=== PATIENT | female | born 1960 | race American Indian/Alaskan Native ===

== ENCOUNTER 2016-10-08 15:08 | Emergency (ER) | payer MEDICARE, OTHER ==
[~2016-10-08] VITALS: Ht 175.3 cm; Wt 87.5 kg
[~2016-10-08 15:08] MED LIST changes: -ACET50CA PO; -AVEL1TAB PO; -GABA300C3 PO; -IBUP60TA PO; -LIDOCAINE 1% SDV INJ 30 ML VIAL As Ordered ONE; -MAPA325T2 PO; -MIDAZOLAM INJ 2 MG/2 ML VIAL (J2250) As Ordered ONE; -SENN1TAB2 PO; -SYNT112T2 PO; -[UNRECOGNIZED DRUG - CODE] IJ; -fentaNYL 100 MCG/2 ML INJECTION (J3010) As Ordered ONE
[2016-10-08 16:50] LABS: BASO % 0.7 % (0.0-1.0); EOS # 0.2 K/mm3 (0.0-0.50); EOS % 3.5 % (0.0-3.0); LARGE UNSTAINED CELL # 0.1 K/mm3 (0.0-0.4); LARGE UNSTAINED CELL % 1.9 % (0.0-4.0); LYMPH # 2.1 K/mm3 (1.5-4.5); MEAN CORPUSCULAR HEMOGLOBIN 29.8 pg (27.0-33.0); MEAN CORPUSCULAR HGB CONC 32.5 g/dl (32.0-36.5); MEAN CORPUSCULAR VOLUME 91.5 fl (80.0-96.0); MONO # 0.5 K/mm3 (0.0-0.8); NEUTROPHILS # 2.9 K/mm3 (1.8-7.7); NEUTROPHILS % 50.9 % (36.0-66.0); PLATELET COUNT, AUTOMATED 331 k/mm3 (150-450); RED CELL DISTRIBUTION WIDTH 14.7 % (11.5-14.5); WHITE BLOOD COUNT 5.6 K/mm3 (4.0-10.0)
[2016-10-08 17:08] LABS: ANION GAP 4 MEQ/L (8-16); BLOOD UREA NITROGEN 14 MG/DL (7-18); CALCIUM LEVEL 9.5 MG/DL (8.5-10.1); CARBON DIOXIDE LEVEL 35 MEQ/L (21-32); CHLORIDE LEVEL 104 MEQ/L (98-107); CREATININE FOR GFR 0.62 MG/DL (0.55-1.02); GLOMERULAR FILTRATION RATE > 60.0 (>51); GLUCOSE, FASTING 82 MG/DL (70-105); POTASSIUM SERUM 4.2 MEQ/L (3.5-5.1); SODIUM LEVEL 143 MEQ/L (136-145)
[2016-10-08] MEDS ORDERED: KETOROLAC 30 MG/ML VIAL (J1885) As Ordered ONE (17:21)
--- NOTE | 2016-10-08 19:39 | REP ---
MR venography without and with IV gadolinium: History: Post spinal tap headache. Elevated opening spinal tap pressure, pseudotumor cerebri. Gadolinium enhancement dose: 17 mL of intravenous ProHance is administered. Technique: 2-D MR venography is acquired with pre- and postcontrast images. Source sagittal images are reviewed. SPIN and 3-D MIP images are generated and reviewed as well. MR venography findings: The sagittal sinus appears intact. The cortical draining veins are unremarkable. The straight sinus is somewhat small. The sigmoid sinuses are bilaterally patent. There is a filling defect in the right sigmoid sinus however which could be a thrombus. Asymmetric flow is seen in this segment of the right sigmoid sinus. No other abnormality. Impression: Asymmetric flow with possible filling defect right sigmoid sinus. Signed by Mandeep Turcios MD 10/09/2016 10:04 A
[2016-10-08] MEDS ORDERED: MORPHINE 4 MG/ML 1ML SYRINGE As Ordered ONE (19:43)
[2016-10-08] MEDS ORDERED: AcetaZOLAMIDE 500MG INJECTION (J1120) IV ONE (20:00)
[2016-10-08] MEDS ORDERED: AcetaZOLAMIDE 250 MG TAB PO ONE (21:30)
[2016-10-08] MEDS ORDERED: HYDROmorphone HCL 1 MG/ML SYRINGE (J1170) As Ordered ONE (22:04)
--- NOTE | 2016-10-08 22:49 | EDDOCDS ---
Physician Documentation [facility] Name: Brenda Freeman Age: 56 yrs Sex: Female : 1960 Arrival Date: 10/08/2016 Time: 15:08 Bed 6 Private MD: ZULEYKA TREVINO Disposition: 10/08 18:35 I have independently interviewed and examined the patient, and I agree with the pc investigation, diagnosis and treatment plan as documented by the Resident. Disposition: 10/08/16 20:47 Discharged to Home/Self Care. 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 - Condition is Stable. - Prescriptions for acetazolamide 250 mg Oral Tablet - take 1 tablet by ORAL route 2 times per day; 30 tablet. - Medication Reconciliation, Local Pharmacy Hours form. - Follow up: Marlene Kearney; When: 2 - 3 days; Reason: Recheck today's complaints, Continuance of care. - Problem is an ongoing problem. - Symptoms have improved. Historical: - Allergies: no known allergies; - Home Meds: 1. 2L NC 2. Advair Diskus 250-50 mcg/dose inhalation dsdv 2 times per day 3. diltiazem HCl 120 mg oral Tb24 once daily 4. DuoNeb 0.5 mg-3 mg(2.5 mg base)/3 mL Inhl nebu 3 mL 4 times per day 5. gabapentin 300 mg am and 600 mg pm Oral tab 1 tab daily 6. azithromycin 250 mg Oral tab 1 tab once daily 7. budesonide 0.5 mg/2 mL inhalation nbsp 2 times per day 8. cholecalciferol (vitamin D3) 5,000 unit oral cap daily 9. Incruse Ellipta 62.5 mcg/actuation inhalation dsdv 1 puff once daily 10. Synthroid 112 mcg Oral tab 1 tab once daily 11. paroxetine HCl 10 mg oral tab once daily 12. zonisamide 50 mg oral cap 2 times per day - PMHx: Emphysema; Gallstones; GERD; Headaches; Hypertension; - PSHx: Tonsillectomy; Appendectomy; Spinal Fusion; Hip Replacement-right; Hernia repair; Hysterectomy; Laminectomy; partial colectomy; - Social history: Smoking status: Patient states former smoker of tobacco. No barriers to communication noted, The patient speaks fluent German. - Family history: Not pertinent. - : The pt / caregiver states he / she is not on anticoagulants. Home medication list is obtained from the patient. - Exposure Risk Screening:: None identified. Vital Signs: 15:10 BP 131 / 89; Pulse 79; Resp 18; Temp 97.1(O); Pulse Ox 94% on 2 lpm NC; Weight 87.54 kg ct3 / 192.99 lbs (R); Height 5 ft. 9 in. (175.26 cm) (R); Pain 7/10; 22:40 BP 119 / 77; Pulse 77; Resp 16; Temp 97.1(O); Pulse Ox 93% on R/A; Pain 8/10; kmg1 22:40 BP 119 / 77; Pain 8/10; kmg1 15:10 Body Mass Index 28.50 (87.54 kg, 175.26 cm) ct3 MDM: 16:24 Misc Food Broker Order ordered. jo4 16:26 BMP Ordered. EDMS 16:26 CBC with Diff Ordered. EDMS 16:26 Misc Food Broker Order complete. lbd 16:55 CBC with Diff Reviewed. jo4 16:55 MRA HEAD WITHOUT FOL BY WITH Ordered. EDMS 16:56 morphine 2 mg IVP once ordered. jo4 17:13 morphine 15 mg PO once ordered. jo4 17:13 BMP Reviewed. jo4 17:17 Financial registration complete. zo 17:19 ketorolac 60 mg IM once ordered. jo4 17:30 [place] [place] Agreement was scanned into [employer] and attached to record. zo 18:50 acetaZOLAMIDE 500 mg IV at calculated rate once ordered. jo4 18:55 COPD+DIET ordered. EDMS 19:34 morphine 4 mg IVP once ordered. cs11 21:16 acetaZOLAMIDE 500 mg PO once; dispense 5 tablets ordered. cs11 21:46 Dilaudid - HYDROmorphone 0.5 mg IVP once ordered. cs11 Administered Medications: 17:01 Not Given (Other Intervention Used; O): morphine 2 mg IVP once jo4 17:17 Not Given (Other Intervention Used): morphine 15 mg PO once jo4 17:25 Drug: ketorolac 60 mg [ketorolac 30 mg/mL (1 mL) injection solution (2 mL)] Route: IM; jmk Site: left gluteus; 19:39 CANCELLED (Other Intervention Used): morphine 2 mg IM once mv5 19:50 Drug: morphine 4 mg [morphine 4 mg/mL intravenous cartridge (1 mL)] Route: IVP; Site: mv5 left antecubital; 20:34 Follow up: Response: No Adverse Reaction; Pain is decreased mv5 21:11 Drug: acetaZOLAMIDE 500 mg Route: IV; Rate: calculated rate; Site: left antecubital; mv5 22:14 Drug: Dilaudid - HYDROmorphone 0.5 mg [hydromorphone 1 mg/mL injection syringe (0.5 mv5 mL)] Route: IVP; Site: left antecubital; 22:40 Follow up: BP 119 / 77; Pain 8/10 Adult kmg1 22:19 Drug: acetaZOLAMIDE 500 mg [acetazolamide 250 mg tablet (2 tabs)] {Note: Dipensed 1 kmg1 dose per pharmacy protocol.} Route: PO; Signatures: Dispatcher [employer] EDMS Boni Marx MD MD pc Daly, Linda, [employer] lbd Margarita Barakat, RN RN g1 Chauncey Blevins,RN RN Sophia Gonzalez Jessica, RN RN Flavio Chahal DO DO cs11 Jacquelyn Singh DO DO jo4 Chani Mariano,RN RN mv5 The chart was reviewed and I authenticate all verbal orders and agree with the evaluation and treatment provided.Corrections: (The following items were deleted from the chart) 16:55 16:36 MRA BRAIN WITH CONTRAST ordered. EDMS EDMS 17:57 16:37 MRA BRAIN W/O CONTRAST ordered. EDMS EDMS 19:39 18:55 morphine 2 mg IM once ordered. jo4 mv5 Attachments: 17:30 [facility] Agreement zo MTDD
--- NOTE | 2016-10-08 22:49 | EDDOCDS ---
Nurse's Notes [facility] Name: Brenda Freeman Age: 56 yrs Sex: Female : 1960 Arrival Date: 10/08/2016 Time: 15:08 Bed 6 Private MD: ZULEYKA TREVINO Diagnosis: Other venous embolism and thrombosis-cerebral sigmoid sinus Presentation: 10/08 15:14 Presenting complaint: Patient states: spinal tap completed with Dr Barrientos earlier jjr today with initial pressure reading 78 then decreased to 32, pain to top of head for approx one year increase in severity over past few months, reports blurred vision at this time. This patient has no additional risk factors. Adult Sepsis Screening: The patient does not have new or worsening altered mentation. Adult Sepsis Screening: Patient's respiratory rate is less than 22. Systolic blood pressure is greater than 100. Patient has a qSOFA score of 0- Negative Sepsis Screen. Suicide/Homicide risk assessment- the patient denies having any suicidal and/or homicidal ideations and does not present with any other emotional, behavioral or mental health complaints. Status: Patient is not a vehicle service attendant or dependent. Transition of care: patient was not received from another setting of care. 15:14 Acuity: NICOLE Level 3 jjr 15:14 Method Of Arrival: Walkin/Carried/Asstd jjr Triage Assessment: 15:22 Headache History: This patient has a history of headaches and the character of this jjr headache is like all previous headaches. General: Appears in no apparent distress. Pain: Pain currently is 7 out of 10 on a pain scale. Pain began one month ago Also complains of no other associated symptoms. HIV screening NA for this visit Offered previously. Neurological: Reports blurred vision headache. Historical: - Allergies: no known allergies; - Home Meds: 1. 2L NC 2. Advair Diskus 250-50 mcg/dose inhalation dsdv 2 times per day 3. diltiazem HCl 120 mg oral Tb24 once daily 4. DuoNeb 0.5 mg-3 mg(2.5 mg base)/3 mL Inhl nebu 3 mL 4 times per day 5. gabapentin 300 mg am and 600 mg pm Oral tab 1 tab daily 6. azithromycin 250 mg Oral tab 1 tab once daily 7. budesonide 0.5 mg/2 mL inhalation nbsp 2 times per day 8. cholecalciferol (vitamin D3) 5,000 unit oral cap daily 9. Incruse Ellipta 62.5 mcg/actuation inhalation dsdv 1 puff once daily 10. Synthroid 112 mcg Oral tab 1 tab once daily 11. paroxetine HCl 10 mg oral tab once daily 12. zonisamide 50 mg oral cap 2 times per day - PMHx: Emphysema; Gallstones; GERD; Headaches; Hypertension; - PSHx: Tonsillectomy; Appendectomy; Spinal Fusion; Hip Replacement-right; Hernia repair; Hysterectomy; Laminectomy; partial colectomy; - Social history: Smoking status: Patient states former smoker of tobacco. No barriers to communication noted, The patient speaks fluent Russian. - Family history: Not pertinent. - : The pt / caregiver states he / she is not on anticoagulants. Home medication list is obtained from the patient. - Exposure Risk Screening:: None identified. Screenin:55 Screening information is obtained from the patient. Fall risk: No risks identified. jmk Assistance ADL's: requires no assistance with activities of daily living. Abuse/DV Screen: The patient / caregiver reports he/she is: not in a situation that causes fear, pain or injury. Nutritional screening: No deficits noted. Advance Directives: Currently, there is no health care proxy. There is no active DNR order. There is no living will. There is no Power of Ladle Cleaner. Advance directive information has not previously been placed in an [facility] medical record. home support is adequate. Assessment: 16:53 General: Appears in no apparent distress, skin warm and dry color satisfactory. moist jmk pink oral mucosa. Indicates diffuse head pain. DIANNE. + photophobic. heated blankets applied for comfort.. Neurological: No deficits noted. Level of Consciousness is awake, alert, Oriented to person, place, time. 20:57 Pain: Location: forehead, left frontal area, left side of the back of head, left side mv5 of forehead, left temporal area, left occipital area, left base of the skull, right frontal area, right side of the back of head, right temporal area, right side of forehead, right occipital area and right base of the skull Pain currently is 3 out of 10 on a pain scale. Level that is acceptable is 3 out of 10 on a pain scale. 20:58 General: Specialty in to speak with pt re POC.. mv5 21:45 Pain:. kmg1 22:40 General: Appears in no apparent distress, comfortable, Behavior is appropriate for age, kmg1 cooperative, pleasant. Pain: Location: head Pain currently is 8 out of 10 on a pain scale. Quality of pain is described as aching. Neurological: Level of Consciousness is awake, alert, Oriented to person, place, time. Vital Signs: 15:10 BP 131 / 89; Pulse 79; Resp 18; Temp 97.1(O); Pulse Ox 94% on 2 lpm NC; Weight 87.54 kg ct3 (R); Height 5 ft. 9 in. (175.26 cm) (R); Pain 7/10; 22:40 BP 119 / 77; Pulse 77; Resp 16; Temp 97.1(O); Pulse Ox 93% on R/A; Pain 8/10; kmg1 22:40 BP 119 / 77; Pain 8/10; kmg1 15:10 Body Mass Index 28.50 (87.54 kg, 175.26 cm) ct3 Vitals: 15:10 Log In Time: October 08, 2016 at 15:07. RN notified that patient meets Red Flag ct3 criteria. ED Course: 15:10 Patient visited by Kinsey Harvey PCA. ct3 15:10 ZULEYKA TREVINO is Private Physician. ct3 15:10 Patient moved to Waiting ct3 15:12 Patient moved to Pre RCE ct3 15:16 Triage Initiated jjr 15:19 Patient visited by Adithya Tee, ALEX. bcj 15:43 Patient moved to 6 ms18 15:52 Jacquelyn Singh DO is PHCP. jo4 15:52 Boni Marx MD is Attending Physician. jo4 16:01 Patient visited by Jacquelyn Singh DO. jo4 16:01 Patient visited by Jacquelyn Singh DO. jo4 16:44 Patient visited by Yasmine Harris. sew 16:44 Labs drawn. (by ED staff). Sent per order to lab. sew 16:44 CBC with Diff Sent. sew 16:44 BMP Sent. sew 16:55 The patient / caregiver is instructed regarding the plan of care and ED course. mack 17:30 [place] Payment Agreement was scanned into [employer] and attached to record. zo 18:18 Patient moved to MRI jmk 19:01 Patient moved to 6 cln 19:30 Inserted saline lock: 18 gauge in left antecubital area and blood collected. The mv5 patient tolerated the procedure well. 19:34 Attending Physician role handed off by Boni Marx MD cs11 19:34 Flavio Avalos DO is Attending Physician. cs11 19:39 Chani Mariano,RN is Primary Nurse. mv5 19:41 MRA HEAD WITHOUT FOL BY WITH Returned. EDMS 20:43 Marlene Fox is Referral Physician. cs11 20:57 Patient visited by Chani Mariano RN. mv5 22:40 Discontinued lock bleeding controlled, pressure dressing applied, No redness/swelling kmg1 at site. No procedures done that require assistance. Administered Medications: 17:01 Not Given (Other Intervention Used; O): morphine 2 mg IVP once jo4 17:17 Not Given (Other Intervention Used): morphine 15 mg PO once jo4 17:25 Drug: ketorolac 60 mg [ketorolac 30 mg/mL (1 mL) injection solution (2 mL)] Route: IM; [facility] Site: left gluteus; 19:39 CANCELLED (Other Intervention Used): morphine 2 mg IM once mv5 19:50 Drug: morphine 4 mg [morphine 4 mg/mL intravenous cartridge (1 mL)] Route: IVP; Site: 5 left antecubital; 20:34 Follow up: Response: No Adverse Reaction; Pain is decreased mv5 21:11 Drug: acetaZOLAMIDE 500 mg Route: IV; Rate: calculated rate; Site: left antecubital; mv5 22:14 Drug: Dilaudid - HYDROmorphone 0.5 mg [hydromorphone 1 mg/mL injection syringe (0.5 mv5 mL)] Route: IVP; Site: left antecubital; 22:40 Follow up: BP 119 / 77; Pain 8/10 Adult kmg1 22:19 Drug: acetaZOLAMIDE 500 mg [acetazolamide 250 mg tablet (2 tabs)] {Note: Dipensed 1 kmg1 dose per pharmacy protocol.} Route: PO; Order Results: Lab Order: BMP; SPEC'M 10/08/16 16:40 Test: GLUCOSE, FASTING; Value: 82; Range: 70-105; Units: MG/DL; Status: F Test: BLOOD UREA NITROGEN; Value: 14; Range: 7-18; Units: MG/DL; Status: F Test: CREATININE FOR GFR; Value: 0.62; Range: 0.55-1.02; Units: MG/DL; Status: F Test: GLOMERULAR FILTRATION RATE; Value: > 60.0; Range: >51; Status: F Test: SODIUM LEVEL; Value: 143; Range: 136-145; Units: MEQ/L; Status: F Test: POTASSIUM SERUM; Value: 4.2; Range: 3.5-5.1; Units: MEQ/L; Status: F Test: CHLORIDE LEVEL; Value: 104; Range: 98-107; Units: MEQ/L; Status: F Test: CARBON DIOXIDE LEVEL; Value: 35; Range: 21-32; Abnormal: Above high normal; Units: MEQ/L; Status: F Test: ANION GAP; Value: 4; Range: 8-16; Abnormal: Below low normal; Units: MEQ/L; Status: F Test: CALCIUM LEVEL; Value: 9.5; Range: 8.5-10.1; Units: MG/DL; Status: F Test Note: ; Units are mL/min/1.73 m2 Chronic Kidney Disease Staging per NKF: Stage I & II GFR >=60 Normal to Mildly Decreased Stage III GFR 30-59 Moderately Decreased Stage IV GFR 15-29 Severely Decreased Stage V GFR <15 Very Little GFR Left ESRD GFR <15 on PROPERTY DEVELOPER Lab Order: CBC with Diff; SPEC'M 10/08/16 16:40 Test: WHITE BLOOD COUNT; Value: 5.6; Range: 4.0-10.0; Units: K/mm3; Status: F Test: RED BLOOD COUNT; Value: 4.04; Range: 4.00-5.40; Units: M/mm3; Status: F Test: HEMOGLOBIN; Value: 12.0; Range: 12.0-16.0; Units: g/dl; Status: F Test: HEMATOCRIT; Value: 36.9; Range: 36.0-47.0; Units: %; Status: F Test: MEAN CORPUSCULAR VOLUME; Value: 91.5; Range: 80.0-96.0; Units: fl; Status: F Test: MEAN CORPUSCULAR HEMOGLOBIN; Value: 29.8; Range: 27.0-33.0; Units: pg; Status: F Test: MEAN CORPUSCULAR HGB CONC; Value: 32.5; Range: 32.0-36.5; Units: g/dl; Status: F Test: RED CELL DISTRIBUTION WIDTH; Value: 14.7; Range: 11.5-14.5; Abnormal: Above high normal; Units: %; Status: F Test: PLATELET COUNT, AUTOMATED; Value: 331; Range: 150-450; Units: k/mm3; Status: F Test: NEUTROPHILS %; Value: 50.9; Range: 36.0-66.0; Units: %; Status: F Test: LYMPH %; Value: 35.0; Range: 24.0-44.0; Units: %; Status: F Test: MONO %; Value: 8.0; Range: 0.0-5.0; Abnormal: Above high normal; Units: %; Status: F Test: EOS %; Value: 3.5; Range: 0.0-3.0; Abnormal: Above high normal; Units: %; Status: F Test: BASO %; Value: 0.7; Range: 0.0-1.0; Units: %; Status: F Test: LARGE UNSTAINED CELL %; Value: 1.9; Range: 0.0-4.0; Units: %; Status: F Test: NEUTROPHILS #; Value: 2.9; Range: 1.8-7.7; Units: K/mm3; Status: F Test: LYMPH #; Value: 2.1; Range: 1.5-4.5; Units: K/mm3; Status: F Test: MONO #; Value: 0.5; Range: 0.0-0.8; Units: K/mm3; Status: F Test: EOS #; Value: 0.2; Range: 0.0-0.50; Units: K/mm3; Status: F Test: BASO #; Value: 0.0; Range: 0.0-0.2; Units: K/mm3; Status: F Test: LARGE UNSTAINED CELL #; Value: 0.1; Range: 0.0-0.4; Units: K/mm3; Status: F Radiology Order: MRA HEAD WITHOUT FOL BY WITH Test: MRA HEAD WITHOUT FOL BY WITH REASON FOR EXAMINATION: MRV PER DR. FOX. SPINAL TAP,HEADACHE; MR venography without and with IV gadolinium:; ; History: Post spinal tap headache. Elevated opening spinal tap pressure,; pseudotumor cerebri.; ; Gadolinium enhancement dose: 17 mL of intravenous ProHance is administered.; ; Technique: 2-D MR venography is acquired with pre- and postcontrast images.; Source sagittal images are reviewed. SPIN and 3-D MIP images are generated and; reviewed as well.; ; MR venography findings: The sagittal sinus appears intact. The cortical; draining veins are unremarkable. The straight sinus is somewhat small. The; sigmoid sinuses are bilaterally patent. There is a filling defect in the right; sigmoid sinus however which could be a thrombus. Asymmetric flow is seen in this; segment of the right sigmoid sinus. No other abnormality.; ; Impression:; ; Asymmetric flow with possible filling defect right sigmoid sinus.; ; ; ; ; Unreviewed; Outcome: 20:47 Discharge ordered by Provider. cs11 22:40 Discharge Assessment: Patient awake, alert and oriented x 3. No cognitive and/or kmg1 functional deficits noted. Patient verbalized understanding of disposition instructions. Patient awake and alert. patient administered narcotics - yes. Pt provided with safe discharge. The following High Risk Discharge criteria are identified: None. Discharged to home via wheelchair, with family. Condition: stable. Discharge instructions given to patient, family, Instructed on discharge instructions, follow up and referral plans. medication usage, Demonstrated understanding of instructions, medications, Pt was receptive of discharge instructions/ teaching. Prescriptions given X 1. MRI Study completed. Property sent home with patient. 22:48 Patient left the ED. kmg1 Signatures: Dispatcher [employer] EDMS Margarita Barakat RN RN kmg1 Adithya Tee RN Chauncey Reddy,RN Sophia Tanner Jessica RN RN Kinsey Staples, SALES REPRESENTATIVE [employer] SALES REPRESENTATIVE [employer]ILITIES ct3 Yasmine Harris Craig, DO cs11 Yazmin Lozano,ALEX RN ms18 Jacquelyn Singh, DO DO jo4 Teresa Cruz, SALES REPRESENTATIVE [employer]ILITIES SALES REPRESENTATIVE PUBLIC UTILITIES saran Chani Mariano,RN RN mv5 MTDD
--- NOTE | 2016-10-10 23:49 | EDDOCDS ---
Physician Documentation [facility] Name: Brenda Freeman Age: 56 yrs Sex: Female : 1960 Arrival Date: 10/08/2016 Time: 15:08 Bed 6 Private MD: ZULEYKA TREVINO Disposition: 10/08 18:35 I have independently interviewed and examined the patient, and I agree with the pc investigation, diagnosis and treatment plan as documented by the Resident. Disposition: 10/08/16 20:47 Discharged to Home/Self Care. 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 - Condition is Stable. - Prescriptions for acetazolamide 250 mg Oral Tablet - take 1 tablet by ORAL route 2 times per day; 30 tablet. - Medication Reconciliation, Local Pharmacy Hours form. - Follow up: Marlene Kearney; When: 2 - 3 days; Reason: Recheck today's complaints, Continuance of care. - Problem is an ongoing problem. - Symptoms have improved. Historical: - Allergies: no known allergies; - Home Meds: 1. 2L NC 2. Advair Diskus 250-50 mcg/dose inhalation dsdv 2 times per day 3. diltiazem HCl 120 mg oral Tb24 once daily 4. DuoNeb 0.5 mg-3 mg(2.5 mg base)/3 mL Inhl nebu 3 mL 4 times per day 5. gabapentin 300 mg am and 600 mg pm Oral tab 1 tab daily 6. azithromycin 250 mg Oral tab 1 tab once daily 7. budesonide 0.5 mg/2 mL inhalation nbsp 2 times per day 8. cholecalciferol (vitamin D3) 5,000 unit oral cap daily 9. Incruse Ellipta 62.5 mcg/actuation inhalation dsdv 1 puff once daily 10. Synthroid 112 mcg Oral tab 1 tab once daily 11. paroxetine HCl 10 mg oral tab once daily 12. zonisamide 50 mg oral cap 2 times per day - PMHx: Emphysema; Gallstones; GERD; Headaches; Hypertension; - PSHx: Tonsillectomy; Appendectomy; Spinal Fusion; Hip Replacement-right; Hernia repair; Hysterectomy; Laminectomy; partial colectomy; - Social history: Smoking status: Patient states former smoker of tobacco. No barriers to communication noted, The patient speaks fluent Algerian. - Family history: Not pertinent. - : The pt / caregiver states he / she is not on anticoagulants. Home medication list is obtained from the patient. - Exposure Risk Screening:: None identified. Vital Signs: 15:10 BP 131 / 89; Pulse 79; Resp 18; Temp 97.1(O); Pulse Ox 94% on 2 lpm NC; Weight 87.54 kg ct3 / 192.99 lbs (R); Height 5 ft. 9 in. (175.26 cm) (R); Pain 7/10; 22:40 BP 119 / 77; Pulse 77; Resp 16; Temp 97.1(O); Pulse Ox 93% on R/A; Pain 8/10; kmg1 22:40 BP 119 / 77; Pain 8/10; kmg1 15:10 Body Mass Index 28.50 (87.54 kg, 175.26 cm) ct3 MDM: 16:24 Misc Hot Repairman Order ordered. jo4 16:26 BMP Ordered. EDMS 16:26 CBC with Diff Ordered. EDMS 16:26 Misc Hot Repairman Order complete. lbd 16:55 CBC with Diff Reviewed. jo4 16:55 MRA HEAD WITHOUT FOL BY WITH Ordered. EDMS 16:56 morphine 2 mg IVP once ordered. jo4 17:13 morphine 15 mg PO once ordered. jo4 17:13 BMP Reviewed. jo4 17:17 Financial registration complete. zo 17:19 ketorolac 60 mg IM once ordered. jo4 17:30 [facility] [place] Payment Agreement was scanned into DocuSign and attached to record. zo 18:50 acetaZOLAMIDE 500 mg IV at calculated rate once ordered. jo4 18:55 COPD+DIET ordered. EDMS 19:34 morphine 4 mg IVP once ordered. cs11 21:16 acetaZOLAMIDE 500 mg PO once; dispense 5 tablets ordered. cs11 21:46 Dilaudid - HYDROmorphone 0.5 mg IVP once ordered. cs11 10/09 10:11 T-Sheet-- Draft Copy was scanned into DocuSign and attached to record. mm15 Administered Medications: 10/08 17:01 Not Given (Other Intervention Used; O): morphine 2 mg IVP once jo4 17:17 Not Given (Other Intervention Used): morphine 15 mg PO once jo4 17:25 Drug: ketorolac 60 mg [ketorolac 30 mg/mL (1 mL) injection solution (2 mL)] Route: IM; mack Site: left gluteus; 19:39 CANCELLED (Other Intervention Used): morphine 2 mg IM once mv5 19:50 Drug: morphine 4 mg [morphine 4 mg/mL intravenous cartridge (1 mL)] Route: IVP; Site: mv5 left antecubital; 20:34 Follow up: Response: No Adverse Reaction; Pain is decreased mv5 21:11 Drug: acetaZOLAMIDE 500 mg Route: IV; Rate: calculated rate; Site: left antecubital; mv5 22:14 Drug: Dilaudid - HYDROmorphone 0.5 mg [hydromorphone 1 mg/mL injection syringe (0.5 mv5 mL)] Route: IVP; Site: left antecubital; 22:40 Follow up: BP 119 / 77; Pain 8/10 Adult kmg1 22:19 Drug: acetaZOLAMIDE 500 mg [acetazolamide 250 mg tablet (2 tabs)] {Note: Dipensed 1 kmg1 dose per pharmacy protocol.} Route: PO; Signatures: Dispatcher MedHost EDMS Boni Marx MD MD pc Daly, Linda, Special Inspector Unit lbd Margarita Barakat RN RN kmg1 Chauncey Blevins RN RN jmk Sophia Aranda Jessica RN Flavio Guillen DO DO cs11 Mynor Gonzalez mm15 Jacquelyn Singh DO DO jo4 Chani Mariano,RN RN mv5 The chart was reviewed and I authenticate all verbal orders and agree with the evaluation and treatment provided.Corrections: (The following items were deleted from the chart) 16:55 16:36 MRA BRAIN WITH CONTRAST ordered. EDMS EDMS 17:57 16:37 MRA BRAIN W/O CONTRAST ordered. EDMS EDMS 19:39 18:55 morphine 2 mg IM once ordered. albert mv5 Attachments: 17:30 [facility] Payment Agreement zo 10/09 10:11 T-Sheet-- Draft Copy mm15 Chart Complete MTDD
--- NOTE | 2016-10-10 23:50 | EDDOCDS ---
Physician Documentation [facility] Name: Brenda Freeman Age: 56 yrs Sex: Female : 1960 Arrival Date: 10/08/2016 Time: 15:08 Bed 6 Private MD: ZULEYKA TREVINO Disposition: 10/08 18:35 I have independently interviewed and examined the patient, and I agree with the pc investigation, diagnosis and treatment plan as documented by the Resident. Disposition: 10/08/16 20:47 Discharged to Home/Self Care. 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 - Condition is Stable. - Prescriptions for acetazolamide 250 mg Oral Tablet - take 1 tablet by ORAL route 2 times per day; 30 tablet. - Medication Reconciliation, Local Pharmacy Hours form. - Follow up: Marlene Kearney; When: 2 - 3 days; Reason: Recheck today's complaints, Continuance of care. - Problem is an ongoing problem. - Symptoms have improved. Historical: - Allergies: no known allergies; - Home Meds: 1. 2L NC 2. Advair Diskus 250-50 mcg/dose inhalation dsdv 2 times per day 3. diltiazem HCl 120 mg oral Tb24 once daily 4. DuoNeb 0.5 mg-3 mg(2.5 mg base)/3 mL Inhl nebu 3 mL 4 times per day 5. gabapentin 300 mg am and 600 mg pm Oral tab 1 tab daily 6. azithromycin 250 mg Oral tab 1 tab once daily 7. budesonide 0.5 mg/2 mL inhalation nbsp 2 times per day 8. cholecalciferol (vitamin D3) 5,000 unit oral cap daily 9. Incruse Ellipta 62.5 mcg/actuation inhalation dsdv 1 puff once daily 10. Synthroid 112 mcg Oral tab 1 tab once daily 11. paroxetine HCl 10 mg oral tab once daily 12. zonisamide 50 mg oral cap 2 times per day - PMHx: Emphysema; Gallstones; GERD; Headaches; Hypertension; - PSHx: Tonsillectomy; Appendectomy; Spinal Fusion; Hip Replacement-right; Hernia repair; Hysterectomy; Laminectomy; partial colectomy; - Social history: Smoking status: Patient states former smoker of tobacco. No barriers to communication noted, The patient speaks fluent Filipino. - Family history: Not pertinent. - : The pt / caregiver states he / she is not on anticoagulants. Home medication list is obtained from the patient. - Exposure Risk Screening:: None identified. Vital Signs: 15:10 BP 131 / 89; Pulse 79; Resp 18; Temp 97.1(O); Pulse Ox 94% on 2 lpm NC; Weight 87.54 kg ct3 / 192.99 lbs (R); Height 5 ft. 9 in. (175.26 cm) (R); Pain 7/10; 22:40 BP 119 / 77; Pulse 77; Resp 16; Temp 97.1(O); Pulse Ox 93% on R/A; Pain 8/10; kmg1 22:40 BP 119 / 77; Pain 8/10; kmg1 15:10 Body Mass Index 28.50 (87.54 kg, 175.26 cm) ct3 MDM: 16:24 Misc Recreation Engineer Order ordered. jo4 16:26 BMP Ordered. EDMS 16:26 CBC with Diff Ordered. EDMS 16:26 Misc Recreation Engineer Order complete. lbd 16:55 CBC with Diff Reviewed. jo4 16:55 MRA HEAD WITHOUT FOL BY WITH Ordered. EDMS 16:56 morphine 2 mg IVP once ordered. jo4 17:13 morphine 15 mg PO once ordered. jo4 17:13 BMP Reviewed. jo4 17:17 Financial registration complete. zo 17:19 ketorolac 60 mg IM once ordered. jo4 17:30 [facility] Payment Agreement was scanned into UserVoice and attached to record. zo 18:50 acetaZOLAMIDE 500 mg IV at calculated rate once ordered. jo4 18:55 COPD+DIET ordered. EDMS 19:34 morphine 4 mg IVP once ordered. cs11 21:16 acetaZOLAMIDE 500 mg PO once; dispense 5 tablets ordered. cs11 21:46 Dilaudid - HYDROmorphone 0.5 mg IVP once ordered. cs11 10/09 10:11 T-Sheet-- Draft Copy was scanned into UserVoice and attached to record. mm15 Administered Medications: 10/08 17:01 Not Given (Other Intervention Used; O): morphine 2 mg IVP once jo4 17:17 Not Given (Other Intervention Used): morphine 15 mg PO once jo4 17:25 Drug: ketorolac 60 mg [ketorolac 30 mg/mL (1 mL) injection solution (2 mL)] Route: IM; mack Site: left gluteus; 19:39 CANCELLED (Other Intervention Used): morphine 2 mg IM once mv5 19:50 Drug: morphine 4 mg [morphine 4 mg/mL intravenous cartridge (1 mL)] Route: IVP; Site: mv5 left antecubital; 20:34 Follow up: Response: No Adverse Reaction; Pain is decreased mv5 21:11 Drug: acetaZOLAMIDE 500 mg Route: IV; Rate: calculated rate; Site: left antecubital; mv5 22:14 Drug: Dilaudid - HYDROmorphone 0.5 mg [hydromorphone 1 mg/mL injection syringe (0.5 mv5 mL)] Route: IVP; Site: left antecubital; 22:40 Follow up: BP 119 / 77; Pain 8/10 Adult kmg1 22:19 Drug: acetaZOLAMIDE 500 mg [acetazolamide 250 mg tablet (2 tabs)] {Note: Dipensed 1 kmg1 dose per pharmacy protocol.} Route: PO; Signatures: Dispatcher MedHost EDMS Boni Marx MD MD pc Daly, Linda, Research And Development Scientist Unit lbd Margarita Barakat RN RN kmg1 Chauncey Blevins RN RN jmk Sophia Aranda Jessica RN Flavio Guillen DO DO cs11 Mynor Gonzalez mm15 Jacquelyn Singh DO DO jo4 Chani Mariano,RN RN mv5 The chart was reviewed and I authenticate all verbal orders and agree with the evaluation and treatment provided.Corrections: (The following items were deleted from the chart) 16:55 16:36 MRA BRAIN WITH CONTRAST ordered. EDMS EDMS 17:57 16:37 MRA BRAIN W/O CONTRAST ordered. EDMS EDMS 19:39 18:55 morphine 2 mg IM once ordered. albert mv5 Attachments: 17:30 [facility] Payment Agreement zo 10/09 10:11 T-Sheet-- Draft Copy mm15 Chart Complete MTDD
--- NOTE | 2016-10-10 23:50 | EDDOCDS ---
Nurse's Notes [facility] Name: Brenda Freeman Age: 56 yrs Sex: Female : 1960 Arrival Date: 10/08/2016 Time: 15:08 Bed 6 Private MD: ZULEYKA TREVINO Diagnosis: Other venous embolism and thrombosis-cerebral sigmoid sinus Presentation: 10/08 15:14 Presenting complaint: Patient states: spinal tap completed with Dr Barrientos earlier jjr today with initial pressure reading 78 then decreased to 32, pain to top of head for approx one year increase in severity over past few months, reports blurred vision at this time. This patient has no additional risk factors. Adult Sepsis Screening: The patient does not have new or worsening altered mentation. Adult Sepsis Screening: Patient's respiratory rate is less than 22. Systolic blood pressure is greater than 100. Patient has a qSOFA score of 0- Negative Sepsis Screen. Suicide/Homicide risk assessment- the patient denies having any suicidal and/or homicidal ideations and does not present with any other emotional, behavioral or mental health complaints. Status: Patient is not a director social service or dependent. Transition of care: patient was not received from another setting of care. 15:14 Acuity: NICOLE Level 3 jjr 15:14 Method Of Arrival: Walkin/Carried/Asstd jjr Triage Assessment: 15:22 Headache History: This patient has a history of headaches and the character of this jjr headache is like all previous headaches. General: Appears in no apparent distress. Pain: Pain currently is 7 out of 10 on a pain scale. Pain began one month ago Also complains of no other associated symptoms. HIV screening NA for this visit Offered previously. Neurological: Reports blurred vision headache. Historical: - Allergies: no known allergies; - Home Meds: 1. 2L NC 2. Advair Diskus 250-50 mcg/dose inhalation dsdv 2 times per day 3. diltiazem HCl 120 mg oral Tb24 once daily 4. DuoNeb 0.5 mg-3 mg(2.5 mg base)/3 mL Inhl nebu 3 mL 4 times per day 5. gabapentin 300 mg am and 600 mg pm Oral tab 1 tab daily 6. azithromycin 250 mg Oral tab 1 tab once daily 7. budesonide 0.5 mg/2 mL inhalation nbsp 2 times per day 8. cholecalciferol (vitamin D3) 5,000 unit oral cap daily 9. Incruse Ellipta 62.5 mcg/actuation inhalation dsdv 1 puff once daily 10. Synthroid 112 mcg Oral tab 1 tab once daily 11. paroxetine HCl 10 mg oral tab once daily 12. zonisamide 50 mg oral cap 2 times per day - PMHx: Emphysema; Gallstones; GERD; Headaches; Hypertension; - PSHx: Tonsillectomy; Appendectomy; Spinal Fusion; Hip Replacement-right; Hernia repair; Hysterectomy; Laminectomy; partial colectomy; - Social history: Smoking status: Patient states former smoker of tobacco. No barriers to communication noted, The patient speaks fluent Indian. - Family history: Not pertinent. - : The pt / caregiver states he / she is not on anticoagulants. Home medication list is obtained from the patient. - Exposure Risk Screening:: None identified. Screenin:55 Screening information is obtained from the patient. Fall risk: No risks identified. jmk Assistance ADL's: requires no assistance with activities of daily living. Abuse/DV Screen: The patient / caregiver reports he/she is: not in a situation that causes fear, pain or injury. Nutritional screening: No deficits noted. Advance Directives: Currently, there is no health care proxy. There is no active DNR order. There is no living will. There is no Power of Senior Account Executive. Advance directive information has not previously been placed in an [facility] medical record. home support is adequate. Assessment: 16:53 General: Appears in no apparent distress, skin warm and dry color satisfactory. moist jmk pink oral mucosa. Indicates diffuse head pain. DIANNE. + photophobic. heated blankets applied for comfort.. Neurological: No deficits noted. Level of Consciousness is awake, alert, Oriented to person, place, time. 20:57 Pain: Location: forehead, left frontal area, left side of the back of head, left side mv5 of forehead, left temporal area, left occipital area, left base of the skull, right frontal area, right side of the back of head, right temporal area, right side of forehead, right occipital area and right base of the skull Pain currently is 3 out of 10 on a pain scale. Level that is acceptable is 3 out of 10 on a pain scale. 20:58 General: Specialty in to speak with pt re POC.. mv5 21:45 Pain:. kmg1 22:40 General: Appears in no apparent distress, comfortable, Behavior is appropriate for age, kmg1 cooperative, pleasant. Pain: Location: head Pain currently is 8 out of 10 on a pain scale. Quality of pain is described as aching. Neurological: Level of Consciousness is awake, alert, Oriented to person, place, time. Vital Signs: 15:10 BP 131 / 89; Pulse 79; Resp 18; Temp 97.1(O); Pulse Ox 94% on 2 lpm NC; Weight 87.54 kg ct3 (R); Height 5 ft. 9 in. (175.26 cm) (R); Pain 7/10; 22:40 BP 119 / 77; Pulse 77; Resp 16; Temp 97.1(O); Pulse Ox 93% on R/A; Pain 8/10; kmg1 22:40 BP 119 / 77; Pain 8/10; kmg1 15:10 Body Mass Index 28.50 (87.54 kg, 175.26 cm) ct3 Vitals: 15:10 Log In Time: October 08, 2016 at 15:07. RN notified that patient meets Red Flag ct3 criteria. ED Course: 15:10 Patient visited by Kinsey Harvey PCA. ct3 15:10 ZULEYKA TREVINO is Private Physician. ct3 15:10 Patient moved to Waiting ct3 15:12 Patient moved to Pre RCE ct3 15:16 Triage Initiated jjr 15:19 Patient visited by Adithya Tee, ALEX. bcj 15:43 Patient moved to 6 ms18 15:52 Jacquelyn Singh DO is PHCP. jo4 15:52 Boni Marx MD is Attending Physician. jo4 16:01 Patient visited by Jacquelyn Singh DO. jo4 16:01 Patient visited by Jacquelyn Singh DO. jo4 16:44 Patient visited by Yasmine Harris. sew 16:44 Labs drawn. (by ED staff). Sent per order to lab. sew 16:44 CBC with Diff Sent. sew 16:44 BMP Sent. sew 16:55 The patient / caregiver is instructed regarding the plan of care and ED course. mack 17:30 [facility] Payment Agreement was scanned into [employer]ela[employer] and attached to record. zo 18:18 Patient moved to MRI jmk 19:01 Patient moved to 6 cln 19:30 Inserted saline lock: 18 gauge in left antecubital area and blood collected. The mv5 patient tolerated the procedure well. 19:34 Attending Physician role handed off by Boni Marx MD cs11 19:34 Flavio Avalos DO is Attending Physician. cs11 19:39 Chani Mariano,RN is Primary Nurse. mv5 19:41 MRA HEAD WITHOUT FOL BY WITH Returned. EDMS 20:43 Marlene Kearney is Referral Physician. cs11 20:57 Patient visited by Chani Mariano,ALEX. mv5 22:40 Discontinued lock bleeding controlled, pressure dressing applied, No redness/swelling kmg1 at site. No procedures done that require assistance. 0204 10:11 T-Sheet-- Draft Copy was scanned into [employer] and attached to record. mm15 Administered Medications: 03 17:01 Not Given (Other Intervention Used; O): morphine 2 mg IVP once jo4 17:17 Not Given (Other Intervention Used): morphine 15 mg PO once jo4 17:25 Drug: ketorolac 60 mg [ketorolac 30 mg/mL (1 mL) injection solution (2 mL)] Route: IM; k Site: left gluteus; 19:39 CANCELLED (Other Intervention Used): morphine 2 mg IM once mv5 19:50 Drug: morphine 4 mg [morphine 4 mg/mL intravenous cartridge (1 mL)] Route: IVP; Site: mv5 left antecubital; 20:34 Follow up: Response: No Adverse Reaction; Pain is decreased mv5 21:11 Drug: acetaZOLAMIDE 500 mg Route: IV; Rate: calculated rate; Site: left antecubital; mv5 22:14 Drug: Dilaudid - HYDROmorphone 0.5 mg [hydromorphone 1 mg/mL injection syringe (0.5 mv5 mL)] Route: IVP; Site: left antecubital; 22:40 Follow up: BP 119 / 77; Pain 8/10 Adult kmg1 22:19 Drug: acetaZOLAMIDE 500 mg [acetazolamide 250 mg tablet (2 tabs)] {Note: Dipensed 1 kmg1 dose per pharmacy protocol.} Route: PO; Order Results: Lab Order: BMP; SPEC'M 10/08/16 16:40 Test: GLUCOSE, FASTING; Value: 82; Range: 70-105; Units: MG/DL; Status: F Test: BLOOD UREA NITROGEN; Value: 14; Range: 7-18; Units: MG/DL; Status: F Test: CREATININE FOR GFR; Value: 0.62; Range: 0.55-1.02; Units: MG/DL; Status: F Test: GLOMERULAR FILTRATION RATE; Value: > 60.0; Range: >51; Status: F Test: SODIUM LEVEL; Value: 143; Range: 136-145; Units: MEQ/L; Status: F Test: POTASSIUM SERUM; Value: 4.2; Range: 3.5-5.1; Units: MEQ/L; Status: F Test: CHLORIDE LEVEL; Value: 104; Range: 98-107; Units: MEQ/L; Status: F Test: CARBON DIOXIDE LEVEL; Value: 35; Range: 21-32; Abnormal: Above high normal; Units: MEQ/L; Status: F Test: ANION GAP; Value: 4; Range: 8-16; Abnormal: Below low normal; Units: MEQ/L; Status: F Test: CALCIUM LEVEL; Value: 9.5; Range: 8.5-10.1; Units: MG/DL; Status: F Test Note: ; Units are mL/min/1.73 m2 Chronic Kidney Disease Staging per NKF: Stage I & II GFR >=60 Normal to Mildly Decreased Stage III GFR 30-59 Moderately Decreased Stage IV GFR 15-29 Severely Decreased Stage V GFR <15 Very Little GFR Left ESRD GFR <15 on SUPPLIER MANAGER Lab Order: CBC with Diff; SPEC'M 10/08/16 16:40 Test: WHITE BLOOD COUNT; Value: 5.6; Range: 4.0-10.0; Units: K/mm3; Status: F Test: RED BLOOD COUNT; Value: 4.04; Range: 4.00-5.40; Units: M/mm3; Status: F Test: HEMOGLOBIN; Value: 12.0; Range: 12.0-16.0; Units: g/dl; Status: F Test: HEMATOCRIT; Value: 36.9; Range: 36.0-47.0; Units: %; Status: F Test: MEAN CORPUSCULAR VOLUME; Value: 91.5; Range: 80.0-96.0; Units: fl; Status: F Test: MEAN CORPUSCULAR HEMOGLOBIN; Value: 29.8; Range: 27.0-33.0; Units: pg; Status: F Test: MEAN CORPUSCULAR HGB CONC; Value: 32.5; Range: 32.0-36.5; Units: g/dl; Status: F Test: RED CELL DISTRIBUTION WIDTH; Value: 14.7; Range: 11.5-14.5; Abnormal: Above high normal; Units: %; Status: F Test: PLATELET COUNT, AUTOMATED; Value: 331; Range: 150-450; Units: k/mm3; Status: F Test: NEUTROPHILS %; Value: 50.9; Range: 36.0-66.0; Units: %; Status: F Test: LYMPH %; Value: 35.0; Range: 24.0-44.0; Units: %; Status: F Test: MONO %; Value: 8.0; Range: 0.0-5.0; Abnormal: Above high normal; Units: %; Status: F Test: EOS %; Value: 3.5; Range: 0.0-3.0; Abnormal: Above high normal; Units: %; Status: F Test: BASO %; Value: 0.7; Range: 0.0-1.0; Units: %; Status: F Test: LARGE UNSTAINED CELL %; Value: 1.9; Range: 0.0-4.0; Units: %; Status: F Test: NEUTROPHILS #; Value: 2.9; Range: 1.8-7.7; Units: K/mm3; Status: F Test: LYMPH #; Value: 2.1; Range: 1.5-4.5; Units: K/mm3; Status: F Test: MONO #; Value: 0.5; Range: 0.0-0.8; Units: K/mm3; Status: F Test: EOS #; Value: 0.2; Range: 0.0-0.50; Units: K/mm3; Status: F Test: BASO #; Value: 0.0; Range: 0.0-0.2; Units: K/mm3; Status: F Test: LARGE UNSTAINED CELL #; Value: 0.1; Range: 0.0-0.4; Units: K/mm3; Status: F Radiology Order: MRA HEAD WITHOUT FOL BY WITH Test: MRA HEAD WITHOUT FOL BY WITH REASON FOR EXAMINATION: MRV PER DR. KEARNEY. SPINAL TAP,HEADACHE; MR venography without and with IV gadolinium:; ; History: Post spinal tap headache. Elevated opening spinal tap pressure,; pseudotumor cerebri.; ; Gadolinium enhancement dose: 17 mL of intravenous ProHance is administered.; ; Technique: 2-D MR venography is acquired with pre- and postcontrast images.; Source sagittal images are reviewed. SPIN and 3-D MIP images are generated and; reviewed as well.; ; MR venography findings: The sagittal sinus appears intact. The cortical; draining veins are unremarkable. The straight sinus is somewhat small. The; sigmoid sinuses are bilaterally patent. There is a filling defect in the right; sigmoid sinus however which could be a thrombus. Asymmetric flow is seen in this; segment of the right sigmoid sinus. No other abnormality.; ; Impression:; ; Asymmetric flow with possible filling defect right sigmoid sinus.; ; ; Signed by; Mandeep Turcios MD 10/09/2016 10:04 A; Outcome: 20:47 Discharge ordered by Provider. cs11 22:40 Discharge Assessment: Patient awake, alert and oriented x 3. No cognitive and/or kmg1 functional deficits noted. Patient verbalized understanding of disposition instructions. Patient awake and alert. patient administered narcotics - yes. Pt provided with safe discharge. The following High Risk Discharge criteria are identified: None. Discharged to home via wheelchair, with family. Condition: stable. Discharge instructions given to patient, family, Instructed on discharge instructions, follow up and referral plans. medication usage, Demonstrated understanding of instructions, medications, Pt was receptive of discharge instructions/ teaching. Prescriptions given X 1. MRI Study completed. Property sent home with patient. 22:48 Patient left the ED. km Signatures: Dispatcher MedHost EDMS Margarita Barakat RN RN kmg1 Adithya Tee, RN Chauncey Reddy,Sophia Tanner RN, Jessica RN RN jerseyjr Kinsey Harvey, YARN CONDITIONER YARN CONDITIONER ct3 Yasmine Harris Craig, DO DO cs11 Mynor Gonzalez mm15 Yazmin Lozano,RN RN ms18 Jacquelyn Singh DO DO jo4 Teresa Cruz, YARN CONDITIONER YARN CONDITIONER cln Chani Mariano,RN RN mv5 Chart Complete MTDD
--- NOTE | 2016-10-12 08:27 | ER ---
DATE OF CONSULTATION: 10/08/2016 I was asked to see her in the emergency room and, on my second trip, I was able to find her in room #6. Patient was seen with the family. Patient is awake and alert, oriented times three. She is ambulating in her room. Patient gives an at least 2-year history of nagging headaches, intermittent visual blurring, and transient visual loss or feeling like black spots in her visual velasquez, symptoms getting worse the last several months. She had been worked up by the neurologist in the past. She was sent to the student truck driver, who found that she has papilledema, and was sent for a spinal tap, which was done today. Apparently, her opening pressure was 78 and closing pressure was 32. Patient reports no visual symptoms at this time, though she still has a degree of headache. I requested a magnetic resonance venography (MRV), which was done, and it showed filling defects on either side, only the transverse sinuses more so on the right. Findings suspicious for pseudotumor cerebri. Patient also reports intermittent low back pain from previous lumbar surgeries and occasional postural dizziness. Her pressing issue she claims is her headaches, which comprise of severe pressure over the forehead and the eyes and often would describe pain starting in the base of the skull and radiating towards the occiput, vertex, and the temples and sometimes it will radiate all the way down to the forehead. She is more short of breath with audible wheezing. She claims she is on 2 liters of oxygen from stage IV chronic obstructive pulmonary disease (COPD). Her family stated that she was supposed to have her gallbladder surgery done, though she was found to be an unsafe candidate for anesthesia and, thus, the surgery could not be done. Patient and family claims that is because of her poor lung function. PAST MEDICAL HISTORY: Is as noted in the available electronic health record (EHR), including spinal fusion, replacement of right knee, hypertension, severe COPD, and dependency on continuous oxygen. ALLERGIES: She denies any allergies. CURRENT MEDICATIONS: Are per her EHR, including: - albuterol/ipratropium inhalation - diltiazem - gabapentin - Levaquin - Synthroid - Prilosec - prednisone 10 mg on a tapering dose - Advair Diskus - Spiriva HandiHaler - tramadol - zonisamide ON EXAM: Today, she is found to be awake and alert, oriented times three. Pupils nearly equal and reactive. Extraocular muscles are full, though there is , of course, breakdown of visual saccadic pursuits. Romberg is positive and gets worse in delayed phases. She has mild cerebellar decompensation with dysrhythmia, dysmetria, visual overshooting, and early truncal ataxia. Basal ganglia functions are adequate, though there is occasional drop in the altitude of rapid alternating movements. There is mild left deep tendon reflex (DTR) preponderance, though I could not detect any gross focal motor deficit at this time. The left plantar is equivocal; the right is downgoing. Pedal pulses are palpable. There is no clonus or sensory level. There is moderate to severe lumbar paraspinal spasm. Provocative tests for apophyseal arthritis or irritation are positive. Straight leg raising and foraminal compression are negative bilaterally. She can support her weight on heels and toes. Examination of the cervical spine reveals moderate paraspinal spasm as well. There is dysesthesia bilaterally in the distribution of C2-C3. There is a patchy paresthesia along the C6 distribution. I did review her last MRI of her brain, which did not show any structural reason to explain her headaches. The tonsils in the craniovertebral junction were unremarkable. The MRI also showed microvascular subcortical changes and partially empty sella. The MRV done today shows a filling defect in both transverse sinuses. IMPRESSION: Benign intracranial hypertension. Mild diffuse central nervous system (OVERHAULER HELPER) dysfunction. PLANS AND RECOMMENDATIONS: Various options of management were discussed with her. At this time, I would recommend a trial of Diamox. Recommend that she be given Diamox 500 mg intravenously (IV) followed by 500 mg Diamox twice a day. I have advised the patient and the family should she develop worsening of her symptoms or develop any visual symptoms, she should come back to the emergency room for further options, including a CSF divergent surgery like Lumboperitoneal Shunt placement. She claims she cannot have general anesthesia on account of her bad lungs, so, she understands she would require pulmonary clearance, as lumboperitoneal shunt can hardly be considered under local anesthesia, as she would probably require General Anesthesia for the abdominal portion, though would discuss it further with her General Surgeon. In the interim, or I would recommend repeating a spinal tap. She understands she is an extremely high-risk candidate for any kind of neurosurgical intervention on account of her clinical, radiological findings, and multiple comorbidities, including respiratory failure and tobacco and alcohol abuse., and obesity. She claims she has stopped tobacco about 7 weeks ago, except for a few cigarettes here and there. She is planning to stop it completely. Nevertheless, the patient and family are fully aware of all options and they will make up their mind and get back to me. They have followup instructions, including followup with her student truck driver and neurologist. Once again, It appears patient is registered with two different medical record numbers, ER staff notified. SUSY
[2016-11-24] MEDS ORDERED: VITA100037 PO (13:31)
== END 2016-10-08 22:48 | disposition home or self-care (01) ==
LOC: MERGE 15:08 → M ED 15:08
DX: I82.890 Acute embolism and thrombosis of other specified veins (principal); J43.9 Emphysema, unspecified; K80.20 Calculus of gallbladder without cholecystitis without obstruction; K21.9 Gastro-esophageal reflux disease without esophagitis; R51 Headache; I10 Essential (primary) hypertension; Z96.641 Presence of right artificial hip joint; Z87.891 Personal history of nicotine dependence; Z79.899 Other long term (current) drug therapy; Z79.2 Long term (current) use of antibiotics; Z99.81 Dependence on supplemental oxygen
CPT/HCPCS: 36415; 62270; 70546; 77003; 80048; 82784; 82945; 83916; 84157; 85025; 87015; 87070; 87102; 87205; 87252; 87802; 87899; 88313; 89051; 96372; 96374; 96375; 99152; 99153; 99284; A9576; J1120; J1170; J1885; J2250; J3010

== ENCOUNTER → 2016-10-08 | Outpatient (CLI) | payer MEDICARE, OTHER ==
[~2016-10-08] MED LIST: ACET50CA PO; ADV250INH INH; AVEL1TAB PO; AZIT250T3 PO; CEFD1CAP8 PO; CENTTAB PO; DILT120C PO; DILT120C79 PO; GABA-283 PO; GABA300C3 PO; GABA600T PO; IBUP60TA PO; INCR1INH IN; IPRA2IN INH; IPRASOL4 INH; LEVA750T PO; LEVO125T3 PO; LIDOCAINE 1% SDV INJ 30 ML VIAL As Ordered ONE; MAPA325T2 PO; METH4PACK PO; MIDAZOLAM INJ 2 MG/2 ML VIAL (J2250) As Ordered ONE; NEXI20CA PO; OXYGEN; PANT40TA2 PO; PAXI10TA2 PO; PRED10TA FT; PULM0.5S INH; SENN1TAB2 PO; SYNT112T2 PO; TIOT18INH INH; TRAM50TA2 PO; VITA500046 PO; ZITHTAB PO; ZONE100C4 PO; ZONI25CA2 PO; ZONI50CA3 PO; [UNRECOGNIZED DRUG - CODE] IJ; [UNRECOGNIZED DRUG - OTHER] PO; fentaNYL 100 MCG/2 ML INJECTION (J3010) As Ordered ONE
--- NOTE | 2016-10-08 12:56 | REP ---
Partial lumbar spine series: Six views. History: Spinal tap. 10 seconds of fluoroscopy time is reported. Findings: A sequence of six fluoroscopically obtained last image hold spot radiographs of the lumbar spine document various needle positions. Signed by Mandeep Turcios MD 10/08/2016 07:25 P
[2016-10-08 14:49] LABS: GLUCOSE CSF 59 MG/DL (40-75)
[2016-10-08 15:02] LABS: RBC CSF AUTO 1 /mm3 (0-0); WBC CSF AUTO 68 /mm3 (0-10)
[2016-10-08 15:04] LABS: APPEARANCE, CSF CLEAR (CLEAR); COLOR, CSF COLORLESS (COLORLESS); CSF DIFF IF INDICATED? YES (NO); CSF TUBE# CELL CNT TUBE 3
[2016-10-08 15:42] LABS: CSF DILUENT LOT # 6109
[2016-10-09 10:23] LABS: CSF GROUP B STREP NEGATIVE (NEGATIVE); CSF H. INFLUENZA NEGATIVE (NEGATIVE); CSF N MENINGITIDIS ACYW135 NEGATIVE (NEGATIVE); CSF STREP PNUEMO NEGATIVE (NEGATIVE)
--- NOTE | 2016-10-13 00:12 | ECWPNPC ---
PATIENT NAME: JOAN WILSON : 1960 GENDER: FEMALE MRN: VISIT DATE: 10/08/2016 DISCHARGE DATE: 10/08/16 1417 VISIT LOCKED DATE TIME: PHYSICIAN: WENDY GUZMAN RESOURCE: WENDY GUZMAN REASON FOR APPOINTMENT 1. R/O PSEUDOTUMOR CEREBRI CURRENT MEDICATIONS NONE ASSESSMENTS PSEUDOTUMOR CEREBRI. TREATMENT OTHERS NOTES: SPINAL TAP WITH IV SEDATION - PLEASE SEE MEDITECH. 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 FOLLOW UP F/UP WITH NEUROLOGIST/CALL NEEDED ELECTRONICALLY SIGNED BY WENDY GUZMAN MD ON 10/12/2016 AT 08:53 PM EST DISCLAIMER : THIS IS A VISIT SUMMARY EXTRACTED FROM THE [facility] CHART. IT IS NOT A COPY OF THE [facility] PROGRESS NOTE. MTDD
== END ==
LOC: M PAIN 09:20
PROVIDERS: ATTEND Anesthesiology
DX: G93.9 Disorder of brain, unspecified (principal); H57.8 Other specified disorders of eye and adnexa; G89.29 Other chronic pain; M54.5 Low back pain; M54.2 Cervicalgia; M47.892 Other spondylosis, cervical region; I73.9 Peripheral vascular disease, unspecified; Z79.891 Long term (current) use of opiate analgesic; Z79.899 Other long term (current) drug therapy
CPT/HCPCS: 36415; 62270; 77003; 82784; 82945; 83916; 84157; 87015; 87070; 87102; 87205; 87252; 87802; 87899; 88108; 88313; 89051; 99152; 99153; J2250; J3010

== ENCOUNTER 2016-10-09 14:42 | Emergency (ER) | payer MEDICARE, OTHER ==
[2016-10-09] MEDS ORDERED: PHENYLEPHRINE 2.5% OPHTH SOL 2ML As Ordered ONE (15:27)
[2016-10-09] MEDS ORDERED: TROPICAMIDE 1% OPHTH SOLN 2 ML As Ordered ONE (15:27)
[2016-10-09] MEDS ORDERED: TETRACAINE 0.5% OPHTH SOLN 4ML As Ordered ONE (15:46)
[2016-10-09] MEDS ORDERED: LIDOCAINE 1% MDV 20ML VIAL As Ordered ONE (16:25)
--- NOTE | 2016-10-10 07:01 | CR ---
DATE OF CONSULTATION: 10/09/2016 CHIEF COMPLAINT: Eye pain and headache. HISTORY OF PRESENT ILLNESS: This is a 56-year-old female with complaint of headache and bilateral eye pain for approximately one year. She has been under the care of neurology for some time since then as she has had headaches and transient visual obscurations. The patient presented to the emergency room at [facility] on 10/05/2016 with headache and complaints of visual loss. There were no acute findings on examination. The patient was sent home. The patient returned to the emergency department on 10/08/2016 with similar complaints of headache and transient vision loss. A MRI was performed which showed a question of a sinus thrombosis and a lumbar puncture was performed at that time and returned an opening pressure of 78. Neurosurgery was asked to see the patient. The patient was started on Diamox 500 mg by mouth twice a day on 10/08 and sent home. She was told to followup with any changes in vision, vision loss or headache. The patient called Tuesday morning, 10/09/2016, with similar complaints of headache and visual loss and was told to return to the emergency department. At that time, an ophthalmology consultation was requested to "rule out papilledema". The patient was seen and examined at the bedside and describes a history of approximately one year of intermittent changes in vision where she describes the vision loss as tunneling and graying out. She also admits to a headache which is 10 out of 10 today. The patient is accompanied by her daughter and friend in the emergency department. PAST OCULAR HISTORY: Spectacle lens use. She denies any prior ocular surgery or ocular medications. PAST MEDICAL HISTORY: Chronic obstructive pulmonary disease on chronic oxygen which also she has been treated with high dose corticosteroids in the form of prednisone of which she has been on doses as high as 80mg, and she is currently taking prednisone 20 mg by mouth daily. ALLERGIES: See chart. FAMILY HISTORY: See chart. Corrected Va: approximately 20/30 OU Extraocular movements were intact OU with no restriction or gaze pauses. Pupils were 4 mm and dark and 2 mm in light. No APD was evident OU and they were equal. Confrontation of visual velasquez revealed full to count fingers OU. Slit lamp examination was performed: Lids,Lashes and Adnexa : dermatochalasis OU, with no significant ptosis or asymmetry. Conjunctivae and sclerae were white and quiet OU. Cornea was clear OU. Anterior chamber was deep and quiet OU. Lens was nuclear sclerotic 1+ OU. Iris is brown and flat OU. Dilated fundus exam: Cup to disc ratio of 0.1 OU with mildly blurred disc margins and elevation bilaterally with a grade 2 papilledema. There were no hemorrhages or exudates. Macula: No drusen or edema. Vessels: mild hypertensive changes, no heme Periphery was normal. No rhegmatogenous pathology was evident. MRI: questionable filling defect, and suggestion of sinus thrombosis ASSESSMENT AND PLAN: This is a 56-year-old female with grade 2 papilledema. 1. Papilledema, grade 2. 2. Right sigmoid sinus thrombosis, with filling defect. 3. Nuclear sclerosis 4. Hypertensive retinopathy I reviewed my physical exam findings with neurosurgery, Dr. Kearney, and we agreed that the patient could continue Diamox 500 mg by mouth twice a day as there is no urgent need to perform any surgical intervention as the confrontational visual field and visual acuity is within normal limits and there is no evidence of optic nerve hemorrhages. The patient may undergo repeat lumbar puncture for CSF control and headache management. Also, could consider oral agents for headache and pain control or possible occipital block as the patient does relay symptoms of occipital headache. I discussed the findings with the patient, her daughter and friend in detail and the patient was instructed to followup with her corporation lawyer early next week, for formal visual field testing, optic nerve imaging and repeat optic nerve examination. The patient was told to call as soon as possible if there are any change in symptoms or worsening headache or any changes in her vision. There were no questions at the end of the examination. Thank you for the opportunity to participate in this patient's care. SUSY
== END 2016-10-09 18:05 | disposition home or self-care (01) ==
LOC: M ED 14:42 → MERGE 14:42 → M ED 18:05
DX: R51 Headache (principal); G08 Intracranial and intraspinal phlebitis and thrombophlebitis; H25.10 Age-related nuclear cataract, unspecified eye; H35.033 Hypertensive retinopathy, bilateral; H47.10 Unspecified papilledema; I10 Essential (primary) hypertension; E03.9 Hypothyroidism, unspecified; J43.9 Emphysema, unspecified; K21.9 Gastro-esophageal reflux disease without esophagitis; Z90.79 Acquired absence of other genital organ(s); Z90.49 Acquired absence of other specified parts of digestive tract; Z90.89 Acquired absence of other organs; Z96.641 Presence of right artificial hip joint; Z98.1 Arthrodesis status; Z87.891 Personal history of nicotine dependence; Z79.51 Long term (current) use of inhaled steroids; Z99.81 Dependence on supplemental oxygen; Z79.899 Other long term (current) drug therapy

== ENCOUNTER → 2016-10-12 | Outpatient (CLI) | payer MEDICARE ==
[~2016-10-12] MED LIST changes: +ACET50CA PO; +ACETAMINOPHEN 325 MG TAB As Ordered ONE; +AVEL1TAB PO; +GABA300C3 PO; +IBUP60TA PO; +MAPA325T2 PO; +SENN1TAB2 PO; +SYNT112T2 PO; +[UNRECOGNIZED DRUG - CODE] IJ
[2016-10-12 13:36] LABS: RBC CSF AUTO 11 /mm3 (0-0); WBC CSF AUTO 83 /mm3 (0-10)
[2016-10-12 13:38] LABS: APPEARANCE, CSF CLEAR (CLEAR); COLOR, CSF COLORLESS (COLORLESS); CSF DIFF IF INDICATED? YES (NO); CSF TUBE# CELL CNT TUBE 1
[2016-10-12 13:48] LABS: GLUCOSE CSF 67 MG/DL (40-75)
--- NOTE | 2016-10-12 17:44 | REP ---
FLUOROSCOPIC GUIDANCE FOR LUMBAR PUNCTURE: The procedure was performed under the direct supervision of Dr. Turcios. The risks and benefits of the procedure were explained to the patient and informed consent was obtained. The L3-4 interspace was localized using fluoroscopic guidance. The skin was prepped and draped in a sterile fashion. 1% lidocaine was used as a local anesthetic. Using fluoroscopic guidance, a 22-gauge spinal needle was inserted and advanced into the thecal sac. Opening pressure measured 22 cm of water. 21 mL of spinal fluid was withdrawn. Closing pressure measured less than 10 cm of water. The patient tolerated the procedure well and there were no immediate complications. 24 seconds of fluoroscopy time was utilized for this procedure. Reviewed by MARCELINO Pino 10/13/2016 04:02 PEdited and Signed by Mandeep Turcios MD 10/13/2016 04:33 P
[2016-10-12 20:41] LABS: CSF DILUENT LOT # 6109
== END ==
LOC: M RADPRO 11:10 → MERGE 11:10
PROVIDERS: ATTEND Neurological Surgery
DX: R51 Headache (principal); Z98.2 Presence of cerebrospinal fluid drainage device

== ENCOUNTER 2016-10-14 14:45 | Inpatient (IN) | payer MEDICARE, OTHER ==
[~2016-10-14] VITALS: Ht 175.3 cm; Wt 89.0 kg
[~2016-10-14 14:45] MED LIST changes: -ACET50CA PO; -GABA300C3 PO; -SYNT112T2 PO
[2016-10-14] MEDS ORDERED: diphenhydrAMINE INJ 50MG/ML VIAL (J1200) As Ordered ONE ×2 (16:19→16:40)
[2016-10-14] MEDS ORDERED: KETOROLAC 30 MG/ML VIAL (J1885) As Ordered ONE ×2 (16:19→16:40)
[2016-10-14] MEDS ORDERED: PROMETHAZINE INJ 25 MG/ML VIAL (J2550) As Ordered ONE ×2 (16:19→16:40)
[2016-10-14 17:24] LABS: BASO % 0.8 % (0.0-1.0); EOS # 0.1 K/mm3 (0.0-0.50); LARGE UNSTAINED CELL # 0.2 K/mm3 (0.0-0.4); LARGE UNSTAINED CELL % 3.7 % (0.0-4.0); LYMPH # 1.7 K/mm3 (1.5-4.5); LYMPH % 26.4 % (24.0-44.0); MEAN CORPUSCULAR HGB CONC 31.4 g/dl (32.0-36.5); MEAN CORPUSCULAR VOLUME 92.4 fl (80.0-96.0); MONO # 0.4 K/mm3 (0.0-0.8); MONO % 6.4 % (0.0-5.0); NEUTROPHILS # 3.9 K/mm3 (1.8-7.7); NEUTROPHILS % 61.7 % (36.0-66.0); PLATELET COUNT, AUTOMATED 323 k/mm3 (150-450); RED CELL DISTRIBUTION WIDTH 14.2 % (11.5-14.5); WHITE BLOOD COUNT 6.4 K/mm3 (4.0-10.0)
[2016-10-14 18:01] LABS: ERYTHROCYTE SEDIMENTATION RATE 12 mm/hr (0-30)
[2016-10-14] MEDS ORDERED: MORPHINE 4 MG/ML 1ML SYRINGE As Ordered ONE (18:05)
[2016-10-14] MEDS ORDERED: GABA600T PO (18:11)
[2016-10-14] MEDS ORDERED: ACET50CA PO (18:11)
[2016-10-14] MEDS ORDERED: GABA300C3 PO (18:11)
[2016-10-14] MEDS ORDERED: PANT40TA2 PO (18:11)
[2016-10-14 18:51] LABS: ANION GAP 5 MEQ/L (8-16); BLOOD UREA NITROGEN 18 MG/DL (7-18); CALCIUM LEVEL 8.8 MG/DL (8.5-10.1); CARBON DIOXIDE LEVEL 27 MEQ/L (21-32); CHLORIDE LEVEL 113 MEQ/L (98-107); CREATININE FOR GFR 0.69 MG/DL (0.55-1.02); GLOMERULAR FILTRATION RATE > 60.0 (>51); GLUCOSE, FASTING 81 MG/DL (70-105); POTASSIUM SERUM 3.8 MEQ/L (3.5-5.1); SODIUM LEVEL 145 MEQ/L (136-145)
[2016-10-14] MEDS: BUDESONIDE 0.5 MG/2 ML INHALATION SUSPENSION INH SCH (20:00)
[2016-10-14] MEDS ORDERED: AcetaZOLAMIDE 250 MG TAB PO ONE (20:15)
--- NOTE | 2016-10-14 20:33 | HPEPDOC ---
Medical History and Physical Date of Admission 10/14/16 History and Physical PRIMARY CARE PROVIDER: ATTENDING: Norberto Willingham MD CHIEF COMPLAINT: VALENCIA HISTORY OF PRESENT ILLNESS: This is a 56-year-old female past medical history COPD on 2 L home O2, hypertension, hypothyroidism, GERD who presents complaining of headaches. Patient has been followed very closely by Dr. Palacios, Dr. Kearney, Dr. Casillas, and her guitar repair technician Dr. Canchola. The patient initially started to have headaches about a year ago, followed by blurred vision in July. She then had an MRI/MRV which was initially inconclusive in July. Had since been seen by her guitar repair technician Dr. Canchola who believed that the patient had grade 2 papilledema. The patient's had been followed by Dr. Weinberg with an extensive workup for her headaches which was likely secondary to pseudotumor cerebri. The patient had a spinal tap on October 08 with notable viral etiology. She was seen back in the ED for her recurrent headaches, for to Dr. Kearney, where a shunt placement was entertained for pseudotumor cerebri. There was concern about risk of surgery with the patient's COPD. Given the likely diagnosis of pseudotumor cerebri, the patient was placed and continued on Diamox since Tuesday. She had called Dr. Palacios's office today with recommendations to increase her dose to 1000 mg tonight. I spoke with Dr. Kearney today who stated that the patient has 3 options: continue Diamox, the second is to entertain shunt placement if she still has papilledema, and the third is to have optic fenestration which is done in [place]. He recommended ophthalmology evaluate the patient tomorrow to see if she still has papilledema. PAST MEDICAL HISTORY:As per HPI PAST SURGICAL HISTORY: Tonsillectomy, appendectomy, hernia repair 3, hip replacement, lumbar laminectomy, spinal fusion, hysterectomy SOCIAL HISTORY: History of tobacco abuse 1-1/2 packs per day 30 years however quit in August. Occasional alcohol. No illicit drug use. FAMILY HISTORY: Noncontributory ALLERGIES: Please see below. REVIEW OF SYSTEMS: HEENT: Denies sore throat. + headache CARDIOVASCULAR: Denies chest pain/palpitations RESPIRATORY: No shortness of breath/cough GASTROINTESTINAL: denies nausea/vomiting GENITOURINARY: Denies dysuria/urinary urgency. MUSCULOSKELETAL: Denies myalgias/arthralgias NEUROLOGICAL: Denies any focal weakness Rest of ROS negative. HOME MEDICATIONS: Please see below. PHYSICAL EXAMINATION: Vitals: (see below) General: No acute distress, laying comfortably in bed. HEENT: Moist mucous membranes. Neck: No JVD or lymphadenopathy Cardiac: RRR, No murmurs Pulm: Clear to auscultation b/l. No wheezing, rhonchi Abd: NT/ND + BS Ext: No edema or cyanosis Neuro: Strength 5/5 BUE and BLE. CN 2-12 intact. Negative Babinki. DTR 2+ throughout LABORATORY DATA: See below. IMAGING: MICROBIOLOGY: Please see below. ASSESSMENT/PLAN: Recurrent headaches likely secondary to pseudotumor cerebri as well as viral meningitis. Patient has been evaluated by neurology and is on Diamox, evaluated by neurosurgery with possible recommendations for shunt placement after clearance by infectious disease, surgery, and ophthalmology. I did speak with Dr. Kearney today who stated that he would like ophthalmology to evaluate the patient tomorrow, and if the patient still has papilledema, and he would be more than happy to go forward with the shunt placement. The patient had a lumbar puncture on 10/08/16 that was mostly lymphocytic, had it repeated and has been seen by Dr. Green today in the office. The patient states that she had called Dr. Weinberg's office with recommendations to take 1000 mg of Diamox tonight. She typically takes 500 mg twice a day. We'll ultimately need coordination between the above specialties for shunt placement. Hypertension- continue home meds COPD on 2 L home O2- no prior intubations. Continue nebs. Hypothyroidism- continue home meds GERD- continue PPI DVT prophylaxis- SCDs Patient followed by Dr. Bradford starting 10/15/16 at 7 AM. Vital Signs Blood pressure 134/80, heart rate 90, respiratory rate 16, afebrile, oxygen saturation 94% on 2 L is cannula Laboratory Data Labs 24H Laboratory Tests 2 10/14/16 17:05: White Blood Count 6.4, Red Blood Count 4.33, Hemoglobin 12.6, Hematocrit 40.0, Mean Corpuscular Volume 92.4, Mean Corpuscular Hemoglobin 29.0, Mean Corpuscular Hemoglobin Concent 31.4L, Red Cell Distribution Width 14.2, Platelet Count 323, Neutrophils (%) (Auto) 61.7, Lymphocytes (%) (Auto) 26.4, Monocytes (%) (Auto) 6.4H, Eosinophils (%) (Auto) 1.0, Basophils (%) (Auto) 0.8 , Neutrophils # (Auto) 3.9, Lymphocytes # (Auto) 1.7, Monocytes # (Auto) 0.4, Eosinophils # (Auto) 0.1, Basophils # (Auto) 0.0, Erythrocyte Sedimentation Rate 12, Large Unclassified Cells # 0.2, Large Unclassified Cells % 3.7 10/14/16 18:24: Anion Gap 5L, C-Reactive Protein, Quantitative < 0.30, Blood Urea Nitrogen 18, Creatinine 0.69, Sodium Level 145, Potassium Level 3.8, Chloride Level 113H, Carbon Dioxide Level 27, Calcium Level 8.8, Glomerular Filtration Rate > 60.0 CBC/BMP Laboratory Tests 10/14/16 17:05 Red Blood Count 4.33, Mean Corpuscular Volume 92.4, Mean Corpuscular Hemoglobin 29.0, Mean Corpuscular Hemoglobin Concent 31.4 L, Red Cell Distribution Width 14.2, Neutrophils (%) (Auto) 61.7, Lymphocytes (%) (Auto) 26.4, Monocytes (%) ( Auto) 6.4 H, Eosinophils (%) (Auto) 1.0, Basophils (%) (Auto) 0.8, Neutrophils # (Auto) 3.9, Lymphocytes # (Auto) 1.7, Monocytes # (Auto) 0.4, Eosinophils # ( Auto) 0.1, Basophils # (Auto) 0.0 10/14/16 18:24 Calcium Level 8.8 Microbiology Microbiology 10/14/16 Blood Culture, Received Pending 10/14/16 Blood Culture, Received Pending Home Medications Scheduled (Incruse Ellipta) 62.5 Mcg/Inh Inh 62.5 MCG IN DAILY (Senna Plus 8.6-50 mg) 1 Tab Tab 1 TAB PO BID Budesonide (Pulmicort) 0.5 Mg/2 Ml Ana 0.5 MG INH BID Cholecalciferol (Vitamin D) 5,000 Unit Tab 5,000 UNIT PO DAILY Diltiazem HCl (Diltiazem Cd) 120 Mg Cap 120 MG PO DAILY Gabapentin (Gabapentin) 300 Mg Cap 300 MG PO QAM Gabapentin (Gabapentin) 600 Mg Tab 600 MG PO QHS Levothyroxine Sodium (Synthroid) 112 Mcg Tab 112 MCG PO DAILY Moxifloxacin Hydrochloride (Avelox) 400 Mg Tab 400 MG PO DAILY@06 Multivitamins (Centrum Silver) 1 Tab Tab 1 TAB PO DAILY Pantoprazole Sodium (Pantoprazole Sodium) 40 Mg Tab 40 MG PO DAILY Paroxetine Hydrochloride (Paxil) 10 Mg Tab 10 MG PO QHS Penicillin G Potassium (Penicillin G Potassium) 20 Mu Inj 24 MU IJ DAILY continuous infusion, via infusion company Salmeterol/Fluticasone (Advair Diskus 250-50 Mcg/Dose) 14 Puff/Inhaler Aerp 1 PUFF INH BID Tiotropium [place] Monohydrate (Spiriva Handihaler) 5 Inhalation/Inhaler Powd 1 INHALATION INH DAILY@08 Zonisamide (Zonisamide) 25 Mg Cap 50 MG PO BID Scheduled PRN Acetaminophen (Mapap) 325 Mg Tab 650 MG PO Q4HP PRN PRN PAIN OR FEVER Albuterol/Ipratropium (Ipratropium [place]/Albut 0.5-2.5 (3) mg/3Ml) 1 Elizabeth Elizabeth 1 ELIZABETH INH Q4H PRN PRN SHORTNESS OF BREATH Ibuprofen (Ibuprofen) 600 Mg Tab 600 MG PO Q6HP PRN PRN MODERATE PAIN (PS 5-7) Ipratropium [place] (Ipratropium [place]) 0.5 Mg/2.5 Ml Soln 0.5 MG INH Q4HP PRN PRN BRONCHOSPASM Allergies Coded Allergies: No Known Drug Allergy (Unverified Allergy, Unknown, 10/15/16) NORBERTO WILLINGHAM MD Oct 14, 2016 20:33
[2016-10-14] MEDS ORDERED: SYNT112T2 PO (20:35)
[2016-10-14] MEDS: ADVAIR DISKUS 250/50 INH PWD INH SCH (21:00)
--- NOTE | 2016-10-14 21:34 | EDDOCDS ---
Physician Documentation [facility] Name: Brenda Freeman Age: 56 yrs Sex: Female : 1960 Arrival Date: 10/14/2016 Time: 14:45 Bed 8 Private MD: Jennifer Simmons, Pharm.D. Disposition: 10/14/16 18:25 Hospitalization ordered by Yony Willingham for Inpatient Admission. Preliminary diagnosis is Headache - pseudotumor cerebri. - Bed requested for 4 [place]. - Status is Inpatient Admission. ml3 - Condition is Stable. - Problem is new. - Symptoms are unchanged. Historical: - Allergies: No known drug Allergies; - Home Meds: 1. Diamox Sequels 50 mg in the morning and 100 mg at night Oral (Last dose: 10/14/2016 08:00) 2. ipratropium-albuterol 0.5 mg-3 mg(2.5 mg base)/3 mL Inhl nebu 3 mL every 4 hours (Last dose: 10/14/2016 09:00) 3. diltiazem HCl 120 mg Oral CDER 1 cap once daily (Last dose: 10/14/2016 08:00) 4. Gabapentin 300 mg in the morning and 600 mg at night Oral (Last dose: 10/14/2016 08:00) 5. pantoprazole 40 mg oral TbEC 1 tab once daily (Last dose: 10/14/2016 08:00) 6. Advair Diskus 250-50 mcg/dose Inhl dsdv 1 puff 2 times per day (Last dose: 10/14/2016 08:00) 7. zonisamide 50 mg oral cap 1 cap 2 times per day (Last dose: 10/14/2016 08:00) 8. oygen 2 liters/min via NC 9. multivitamin Oral tab (Last dose: 10/14/2016 08:00) 10. Vitamin D Oral 1,000 unit daily (Last dose: 10/14/2016 08:00) 11. levothyroxine 112 mcg oral cap 1 cap once daily (Last dose: 10/14/2016 05:00) 12. Pulmicort 0.5 mg/2 mL Inhl nbsp 2 mL 2 times per day (Last dose: 10/14/2016 08:00) 13. Incruse Ellipta 62.5 mcg/actuation inhalation dsdv 1 puff once daily (Last dose: 10/13/2016) 14. Paxil 10 mg Oral tab 1 tab nightly (Last dose: 10/13/2016) - PMHx: COPD; Hypertension; Hypothyroidism; GERD; - PSHx: Tonsillectomy; Appendectomy; hernia x3; Hip Arthroplasty, Right; Hysterectomy; Lumbar Laminectomy; Spinal Fusion; - Social history: Smoking status: Patient states former smoker of tobacco. No barriers to communication noted, The patient speaks fluent Occitan. - Family history: Not pertinent. - : The pt / caregiver states he / she is not on anticoagulants. Home medication list is obtained from the patient. - Exposure Risk Screening:: None identified. Vital Signs: 10/14 14:48 BP 134 / 80; Pulse 90; Resp 18 S; Temp 97.7(O); Pulse Ox 94% on R/A; Weight 87.54 kg / gr2 192.99 lbs (R); Height 5 ft. 9 in. (175.26 cm) (R); Pain 8/10; 18:15 BP 137 / 75; Pulse 83; Resp 18; Pulse Ox 94% on 2 lpm NC; Pain 6/10; ld5 20:42 BP 128 / 72; Pulse 80; Resp 18; Temp 97.9; Pulse Ox 95% ; Pain 2/10; ko2 14:48 Body Mass Index 28.50 (87.54 kg, 175.26 cm) gr2 MDM: 16:05 IV Saline Lock ordered. fg 16:05 ketorolac 30 mg IVP once ordered. fg 16:05 Promethazine 25 mg IVP once; dilute and administer 30-60 minutes ordered. fg 16:05 diphenhydrAMINE 12.5 mg IVP once ordered. fg 16:11 Financial registration complete. lg 16:22 [facility] Payment Agreement was scanned into [employer] and attached to record. lg 16:34 NS 0.9% 1000 ml IV at bolus once ordered. fg 16:52 -Blood Culture (Adults Only), peripheral from different site, or from device/port/PICC fg etc. if present ordered. 16:54 CBC with Diff Ordered. EDMS 16:54 Basic Metabolic Profile Ordered. EDMS 16:54 CRP Ordered. EDMS 16:54 ESR Ordered. EDMS 16:54 -Blood Culture Ordered. EDMS 16:54 -Blood Culture (Adults Only), peripheral from different site, or from device/port/PICC deg etc. if present complete. 16:55 BLOOD CULTURES Ordered. EDMS 17:11 NS 0.9% 1000 ml IV at bolus once ordered. ld5 17:12 diphenhydrAMINE 12.5 mg IVP once ordered. ld5 17:12 Promethazine 25 mg IVP once; dilute and administer 30-60 minutes ordered. ld5 17:12 ketorolac 30 mg IVP once ordered. ld5 17:35 BED REQUEST+ADM ordered. EDMS 18:03 morphine 4 mg IVP once ordered. ml 18:58 CBC with Diff Reviewed. ml 18:58 Basic Metabolic Profile Reviewed. ml 18:58 CRP Reviewed. ml 18:58 ESR Reviewed. ml 20:10 Admission / Observation Status ordered. EDMS 20:11 2 GRAM SODIUM DIET ordered. EDMS Administered Medications: 17:12 Drug: ketorolac 30 mg [ketorolac 30 mg/mL (1 mL) injection solution (1 mL)] Route: IVP; ld5 Site: left forearm; 18:00 Follow up: Response: Pain is decreased ld5 17:12 Drug: Promethazine 25 mg [promethazine 25 mg/mL injection solution (1 mL)] Route: IVP; ld5 Site: left forearm; 18:33 Follow up: Response: Nausea is decreased; Pain is decreased ld5 17:12 Drug: diphenhydrAMINE 12.5 mg [diphenhydramine 50 mg/mL injection solution (0.25 mL)] ld5 Route: IVP; Site: left forearm; 17:12 Drug: NS 0.9% 1000 ml [sodium chloride 0.9 % intravenous solution] Route: IV; Rate: ld5 bolus; Site: left forearm; 18:12 Drug: morphine 4 mg [morphine 4 mg/mL intravenous cartridge (1 mL)] Route: IVP; Site: [id number] left antecubital; Signatures: Dispatcher [employer] EDMS Arleth Padgett MD MD ml Murray, Denise, Control Panel Operator Crude Unit Unit deg Zulma Peña RN RN kpj Michelson, Staci, RN RN srm Ganter, LoriLee, Zoe [place], Control Panel Operator [employer] Unit ml3 Virginie Webster,RN RN ld5 Giselle Tucker MD MD fg Kamla Juarez RN [id number] The chart was reviewed and I authenticate all verbal orders and agree with the evaluation and treatment provided.Corrections: (The following items were deleted from the chart) 15:12 15:08 Home Meds: levothyroxine 125 mcg Oral tab 1 tab once daily (Last Dose: 10/14/2016 [facility] 05:00); [facility] Attachments: 16:22 [facility] Payment Agreement lg MTDD
--- NOTE | 2016-10-14 21:35 | EDDOCDS ---
Nurse's Notes [facility] Name: Brenda Freeman Age: 56 yrs Sex: Female : 1960 Arrival Date: 10/14/2016 Time: 14:45 Bed 8 Private MD: Jennifer Simmons, Pharm.D. Diagnosis: Headache-pseudotumor cerebri Presentation: 10/14 14:53 Presenting complaint: Patient states: severe headache , vision blurry, had a spinal tap [facility] on Tuesday, infection in the spinal fluid elevated opening pressure was just at Dr Green's office for the infected spinal fluid. has seen dr Kearney over the weekend for these headaches. Presenting complaint:. This patient has no additional risk factors. Adult Sepsis Screening: The patient does not have new or worsening altered mentation. Patient's respiratory rate is less than 22. Systolic blood pressure is greater than 100. Patient has a qSOFA score of 0- Negative Sepsis Screen. Suicide/Homicide risk assessment- the patient denies having any suicidal and/or homicidal ideations and does not present with any other emotional, behavioral or mental health complaints. Status: Patient is not a community services manager or dependent. Transition of care: patient was not received from another setting of care. 14:53 Acuity: NICOLE Level 3 [facility] 14:53 Method Of Arrival: Walkin/Carried/Asstd [facility] Triage Assessment: 15:08 Headache History: This headache is more severe than any previous headaches the patient [facility] has experienced. General: Appears uncomfortable, Behavior is appropriate for age, pleasant. Pain: Location: right gnosticist and left gnosticist Pain currently is 10 out of 10 on a pain scale. Pain began 1 day ago Also complains of photophobia, inability to concentrate. HIV screening NA for this visit Offered previously. Neurological: Level of Consciousness is awake, alert, Oriented to person, place, time, Reports headache. Respiratory: Airway is patent Respiratory effort is even, unlabored, Respiratory pattern is regular, symmetrical. Derm: Skin is pink, warm & dry. Historical: - Allergies: No known drug Allergies; - Home Meds: 1. Diamox Sequels 50 mg in the morning and 100 mg at night Oral (Last dose: 10/14/2016 08:00) 2. ipratropium-albuterol 0.5 mg-3 mg(2.5 mg base)/3 mL Inhl nebu 3 mL every 4 hours (Last dose: 10/14/2016 09:00) 3. diltiazem HCl 120 mg Oral CDER 1 cap once daily (Last dose: 10/14/2016 08:00) 4. Gabapentin 300 mg in the morning and 600 mg at night Oral (Last dose: 10/14/2016 08:00) 5. pantoprazole 40 mg oral TbEC 1 tab once daily (Last dose: 10/14/2016 08:00) 6. Advair Diskus 250-50 mcg/dose Inhl dsdv 1 puff 2 times per day (Last dose: 10/14/2016 08:00) 7. zonisamide 50 mg oral cap 1 cap 2 times per day (Last dose: 10/14/2016 08:00) 8. oygen 2 liters/min via NC 9. multivitamin Oral tab (Last dose: 10/14/2016 08:00) 10. Vitamin D Oral 1,000 unit daily (Last dose: 10/14/2016 08:00) 11. levothyroxine 112 mcg oral cap 1 cap once daily (Last dose: 10/14/2016 05:00) 12. Pulmicort 0.5 mg/2 mL Inhl nbsp 2 mL 2 times per day (Last dose: 10/14/2016 08:00) 13. Incruse Ellipta 62.5 mcg/actuation inhalation dsdv 1 puff once daily (Last dose: 10/13/2016) 14. Paxil 10 mg Oral tab 1 tab nightly (Last dose: 10/13/2016) - PMHx: COPD; Hypertension; Hypothyroidism; GERD; - PSHx: Tonsillectomy; Appendectomy; hernia x3; Hip Arthroplasty, Right; Hysterectomy; Lumbar Laminectomy; Spinal Fusion; - Social history: Smoking status: Patient states former smoker of tobacco. No barriers to communication noted, The patient speaks fluent [place]. - Family history: Not pertinent. - : The pt / caregiver states he / she is not on anticoagulants. Home medication list is obtained from the patient. - Exposure Risk Screening:: None identified. Screenin:11 Screening information is obtained from the patient. Fall risk: No risks identified. ml6 Assistance ADL's: requires no assistance with activities of daily living. Abuse/DV Screen: The patient / caregiver reports he/she is: not in a situation that causes fear, pain or injury. Nutritional screening: No deficits noted. Advance Directives: Currently, there is no health care proxy. home support is adequate. Assessment: 16:05 General: entered the room, attempted IV in left AC, patient states "I don't know why I ml6 come here, this is [facility] I [facility] in, I should just go to [place]", "I don't know why I can't just have a fucking butterfly", attempted to discuss with patient that they do not make butterfly IVs and that I was starting an IV and no just drawing blood. Patient states "You can take your IV and shove it up your ass!". Discussed with patient that MD had ordered all of her medications via IV and that an IV was necessary. Patient states "well you can shove it up your ass and get out of my room". Discussed with patient that another nurse would be in to take over her care as she chose. . 17:10 General: Appears in no apparent distress, Behavior is cooperative. Pain: Location: left ld5 gnosticist and right gnosticist Pain currently is 10 out of 10 on a pain scale. Quality of pain is described as stabbing, throbbing. Neurological: Level of Consciousness is awake, alert, obeys commands, Oriented to person, place, time, Asbestos Siding Mechanic are equal bilaterally. Neurological: Reports headache. Respiratory: Airway is patent Respiratory effort is even, unlabored. GI: Reports nausea, Denies vomiting. 18:00 General: Pt ambulated to bathroom with standby assist. Gait steady but pt reported ld5 feeling unsteady. Returned to room and pt requesting pain medication for her headache. States previous meds worked but would like more. Reports pain at 6/10 and decreased nausea. Will continue to monitor. 19:00 General: Appears in no apparent distress, Behavior is cooperative. Pain: Location: face ko2 and left gnosticist and right gnosticist. Neurological: Level of Consciousness is awake, alert. Respiratory: Airway is patent Respiratory effort is even, unlabored. Derm: Skin is normal. 20:16 General: Appears in no apparent distress, pt currently snoring on stretcher. ko2 Respirations unlabored, skin pink warm and dry. No concerns at this time.. 21:06 General: Appears in no apparent distress, Behavior is cooperative. Neurological: Level ko2 of Consciousness is awake, alert, obeys commands. Respiratory: Airway is patent Respiratory effort is even, unlabored. Derm: Skin is normal. Vital Signs: 14:48 BP 134 / 80; Pulse 90; Resp 18 S; Temp 97.7(O); Pulse Ox 94% on R/A; Weight 87.54 kg gr2 (R); Height 5 ft. 9 in. (175.26 cm) (R); Pain 8/10; 18:15 BP 137 / 75; Pulse 83; Resp 18; Pulse Ox 94% on 2 lpm NC; Pain 6/10; ld5 20:42 BP 128 / 72; Pulse 80; Resp 18; Temp 97.9; Pulse Ox 95% ; Pain 2/10; ko2 14:48 Body Mass Index 28.50 (87.54 kg, 175.26 cm) gr2 Vitals: 14:48 Log In Time: October 14, 2016 at 14:48. gr2 ED Course: 14:47 Patient visited by Bita Ruiz. gr2 14:47 Jennifer Simmons is Private Physician. gr2 14:47 Patient moved to Waiting gr2 14:49 Patient visited by Bita Ruiz. gr2 14:49 Patient moved to Pre RCE gr2 14:57 Triage Initiated kp 15:09 Patient moved to 8 [facility] 15:16 Giselle Tucker MD is Attending Physician. fg 15:28 Patient visited by Miguel Angel Flowers RN. ml6 15:42 Patient visited by Giselle Tucker MD. fg 16:10 Patient visited by Miguel Angel Flowers RN. ml6 16:22 [facility] Payment Agreement was scanned into gopogo and attached to record. lg 16:58 Patient visited by Miguel Angel Flowers RN. ml6 17:02 Attending Physician role handed off by Giselle Tucker MD ml 17:02 Arleth Padgett MD is Attending Physician. ml 17:07 CBC with Diff Sent. srm 17:07 -Blood Culture Sent. srm 17:08 The patient / caregiver is instructed regarding the plan of care and ED course. srm Accompanied by Family Member, Patient has correct armband on for positive identification. Placed in gown. Bed in low position. Call light in reach. 17:11 Inserted saline lock: 20 gauge in left forearm and blood collected. The patient ld5 tolerated the procedure well. Labs drawn. (by ED staff). Sent per order to lab. 17:12 Patient visited by Virginie Webster RN. ld5 17:28 BLOOD CULTURES Sent. lr2 17:34 Patient visited by Miguel Angel Flowers RN. ml6 18:23 Patient visited by Virginie Webster RN. ld5 18:24 Yony Willingham is Hospitalizing Provider. ml 19:00 Sharron Newton,RN is Primary Nurse. ko2 20:17 Patient visited by Sharron Newton,ALEX. ko2 20:43 No procedures done that require assistance. ko2 Administered Medications: 17:12 Drug: ketorolac 30 mg [ketorolac 30 mg/mL (1 mL) injection solution (1 mL)] Route: IVP; ld5 Site: left forearm; 18:00 Follow up: Response: Pain is decreased ld5 17:12 Drug: Promethazine 25 mg [promethazine 25 mg/mL injection solution (1 mL)] Route: IVP; ld5 Site: left forearm; 18:33 Follow up: Response: Nausea is decreased; Pain is decreased ld5 17:12 Drug: diphenhydrAMINE 12.5 mg [diphenhydramine 50 mg/mL injection solution (0.25 mL)] ld5 Route: IVP; Site: left forearm; 17:12 Drug: NS 0.9% 1000 ml [sodium chloride 0.9 % intravenous solution] Route: IV; Rate: ld5 bolus; Site: left forearm; 18:12 Drug: morphine 4 mg [morphine 4 mg/mL intravenous cartridge (1 mL)] Route: IVP; Site: js13 left antecubital; Order Results: Lab Order: CBC with Diff; SPEC'M 10/14/16 17:05 Test: WHITE BLOOD COUNT; Value: 6.4; Range: 4.0-10.0; Units: K/mm3; Status: F Test: RED BLOOD COUNT; Value: 4.33; Range: 4.00-5.40; Units: M/mm3; Status: F Test: HEMOGLOBIN; Value: 12.6; Range: 12.0-16.0; Units: g/dl; Status: F Test: HEMATOCRIT; Value: 40.0; Range: 36.0-47.0; Units: %; Status: F Test: MEAN CORPUSCULAR VOLUME; Value: 92.4; Range: 80.0-96.0; Units: fl; Status: F Test: MEAN CORPUSCULAR HEMOGLOBIN; Value: 29.0; Range: 27.0-33.0; Units: pg; Status: F Test: MEAN CORPUSCULAR HGB CONC; Value: 31.4; Range: 32.0-36.5; Abnormal: Below low normal; Units: g/dl; Status: F Test: RED CELL DISTRIBUTION WIDTH; Value: 14.2; Range: 11.5-14.5; Units: %; Status: F Test: PLATELET COUNT, AUTOMATED; Value: 323; Range: 150-450; Units: k/mm3; Status: F Test: NEUTROPHILS %; Value: 61.7; Range: 36.0-66.0; Units: %; Status: F Test: LYMPH %; Value: 26.4; Range: 24.0-44.0; Units: %; Status: F Test: MONO %; Value: 6.4; Range: 0.0-5.0; Abnormal: Above high normal; Units: %; Status: F Test: EOS %; Value: 1.0; Range: 0.0-3.0; Units: %; Status: F Test: BASO %; Value: 0.8; Range: 0.0-1.0; Units: %; Status: F Test: LARGE UNSTAINED CELL %; Value: 3.7; Range: 0.0-4.0; Units: %; Status: F Test: NEUTROPHILS #; Value: 3.9; Range: 1.8-7.7; Units: K/mm3; Status: F Test: LYMPH #; Value: 1.7; Range: 1.5-4.5; Units: K/mm3; Status: F Test: MONO #; Value: 0.4; Range: 0.0-0.8; Units: K/mm3; Status: F Test: EOS #; Value: 0.1; Range: 0.0-0.50; Units: K/mm3; Status: F Test: BASO #; Value: 0.0; Range: 0.0-0.2; Units: K/mm3; Status: F Test: LARGE UNSTAINED CELL #; Value: 0.2; Range: 0.0-0.4; Units: K/mm3; Status: F Lab Order: Basic Metabolic Profile; [facility]' 10/14/16 18:24 Test: GLUCOSE, FASTING; Value: 81; Range: 70-105; Units: MG/DL; Status: F Test: BLOOD UREA NITROGEN; Value: 18; Range: 7-18; Units: MG/DL; Status: F Test: CREATININE FOR GFR; Value: 0.69; Range: 0.55-1.02; Units: MG/DL; Status: F Test: GLOMERULAR FILTRATION RATE; Value: > 60.0; Range: >51; Status: F Test: SODIUM LEVEL; Value: 145; Range: 136-145; Units: MEQ/L; Status: F Test: POTASSIUM SERUM; Value: 3.8; Range: 3.5-5.1; Units: MEQ/L; Status: F Test: CHLORIDE LEVEL; Value: 113; Range: 98-107; Abnormal: Above high normal; Units: MEQ/L; Status: F Test: CARBON DIOXIDE LEVEL; Value: 27; Range: 21-32; Units: MEQ/L; Status: F Test: ANION GAP; Value: 5; Range: 8-16; Abnormal: Below low normal; Units: MEQ/L; Status: F Test: CALCIUM LEVEL; Value: 8.8; Range: 8.5-10.1; Units: MG/DL; Status: F Test Note: ; Units are mL/min/1.73 m2 Chronic Kidney Disease Staging per NKF: Stage I & II GFR >=60 Normal to Mildly Decreased Stage III GFR 30-59 Moderately Decreased Stage IV GFR 15-29 Severely Decreased Stage V GFR <15 Very Little GFR Left ESRD GFR <15 on LITHARGE SUPERVISOR Lab Order: CRP; SPEC' 10/14/16 18:24 Test: C REACTIVE PROTEIN QUANTITATIV; Value: < 0.30; Range: 0.00-0.30; Units: MG/DL; Status: F Lab Order: ESR; SPEC' 10/14/16 17:05 Test: ERYTHROCYTE SEDIMENTATION RATE; Value: 12; Range: 0-30; Units: mm/hr; Status: F Outcome: 18:25 Decision to Hospitalize by Provider. 21:05 Discharge Assessment: Patient awake, alert and oriented x 3. No cognitive and/or ko2 functional deficits noted. Patient verbalized understanding of disposition instructions. patient administered narcotics - yes. Patient was admitted to the hospital or transferred to another facility. The following High Risk Discharge criteria are identified: None. Admitted to Floor accompanied by tech, via stretcher, with chart. Condition: stable. Admission hand-off: Report Faxed Fax receipt verified by Faye Bean RN 4 PAV. Property :Personal belongings accompany Pt. 21:06 No special radiology studies were completed. ko2 21:34 Patient left the ED. ml3 Signatures: Arleth Padgett MD MD ml Zulma Peña, RN RN [facility] Yanely, Sharri, RN RN [facility] RellPaula gamez, Reg Reg lg Hank, Zoe, Sample Builder Unit ml3 Miguel Angel Flowers RN RN ml6 Virginie WebsterRN RN ld5 Kamla Juarez,RN RN js13 Bita Ruiz gr2 Sharron NewtonRN RN ko2 Giselle Tucker MD MD fg Ross, Laura lr2 Corrections: (The following items were deleted from the chart) 15:12 15:08 Home Meds: levothyroxine 125 mcg Oral tab 1 tab once daily (Last Dose: 10/14/2016 [facility] 05:00); [facility] 17:10 17:08 General: Appears in no apparent distress, srm srm 17:10 17:08 Pain: Location: left gnosticist and right gnosticist Pain currently is 10 out of 10 on a srm pain scale. Quality of pain is described as sharp, throbbing, srm 17:10 17:08 Neurological: Level of Consciousness is awake, alert, srm srm 17:10 17:08 Respiratory: Airway is patent Respiratory effort is even, unlabored, srm srm 17:10 17:08 GI: Reports nausea, Denies vomiting, srm srm 17:11 17:08 Inserted saline lock: 20 gauge in left forearm and blood collected. The patient ld5 tolerated the procedure well. [facility] 17:11 17:08 Labs drawn. (by ED staff). Sent per order to lab. srm ld5 17:11 17:07 NS 0.9% 1000 ml IV at bolus in left forearm srm ld5 17: 17:07 diphenhydrAMINE 12.5 mg IVP in left forearm srm ld5 17: 17:08 Promethazine 25 mg IVP in left forearm srm ld5 17: 17:08 ketorolac 30 mg IVP in left forearm srm ld5 MTDD
[2016-10-14 21:37] VITALS: BP 122/77
[2016-10-14] MEDS: PANTOPRAZOLE 40MG TAB (PROTONIX) PO SCH (21:43)
[2016-10-14] MEDS: MORPHINE 2 MG/ML 1ML SYRINGE IV PRN (21:53)
[2016-10-14] MEDS: GABAPENTIN 300 MG CAP PO SCH (21:54)
[2016-10-14] MEDS: PARoxetine 10MG TABLET PO SCH (21:54)
[2016-10-14] MEDS: ZONISAMIDE 25 MG CAP (ZONEGRAN) PO SCH (22:30)
--- NOTE | 2016-10-15 00:07 | CR ---
DATE OF CONSULTATION: 10/14/2016 I had seen this patient earlier in the emergency room and seen her again today. She continues to report visual blurring, bitemporal headaches. She said the headaches in the back of the head have resolved since the occipital block I performed several days ago in the emergency room. She says her visual blurring is essentially unchanged. She has had a few spinal taps. The findings on the last spinal tap is not known. However, she has seen Dr. Florentino Green on account of suspicion for viral meningitis. I do not have her record available for review. In the emergency room today, she was awake and alert, oriented times three. There was no gross change in her examination since I saw her last a few days ago. PAST MEDICAL HISTORY: As noted in the electronic health record (EHR), including end-stage chronic obstructive pulmonary disease (COPD) with continuous oxygen inhalation, hypertension, hypothyroidism, gastroesophageal reflux disease (GERD) , obesity, tonsillectomy, appendectomy, herniorrhaphy, hip replacement surgery, lumbar surgery with spinal fusion, hysterectomy, among others. SOCIAL HISTORY: She has been a heavy smoker, though quit about 4 weeks ago. Drinks occasionally. ALLERGIES: She denies any allergies. CURRENT MEDICATIONS: Per EHR, including Diamox, which was started recently. She does not feel that that helped her symptoms that much. PHYSICAL EXAMINATION: On examination, she is found to be awake and alert, oriented times three. Pupils remain equal and reactive. I could not detect any gross focal motor radicular deficits. She does have evidence of both cervical and lumbar spondylosis. There is no significant dysesthesia along C2-C3 anymore. She still has photophobia. IMPRESSION: Intracranial hypertension with mild diffuse central nervous system dysfunction, cervical and lumbar spondylosis, possible viral meningitis. PLAN AND RECOMMENDATIONS: As I had discussed with her and the family in the past , she has mild improvement each time after she has a spinal tap. She does have high intracranial pressure on repeated spinal taps. The pseudotumor cerebri cannot be readily excluded, though, in the presence of recent diagnosis of viral meningitis, shunt placement would be very hazardous, and as discussed with Tarsha, would recommend infectious disease re-evaluation and clearance. Various options of management were discussed with her and her family again, including continue with medical management with Diamox and repeat spinal taps if that keeps her pressure down and keeps her symptoms relieved, second optic fenestration and lastly ventriculoperitoneal (ELECTROLOGIST) shunt can be done if she is found to be a safe candidate for general anesthesia. Once again, she understands that she would need medical and pulmonary clearance as well as clearance from infectious disease services to exclude active meningitis. The patient is aware of the scope, expected outcome, sequelae, and possible complications of cerebrospinal fluid (CSF) diversion surgery like lumboperitoneal shunt and/or ventriculoperitoneal shunt. She understands my rationale of performing a lumboperitoneal shunt. The patient and her daughter understand the risk of surgery includes, but is not limited to, , coma, paralysis, quadriplegia, meningitis, seizure disorder, persistence or worsening of symptoms, total loss of vision and/or any or all vital bodily functions, quadriplegia, intracranial hypertension with its dreadful sequelae, deep venous thrombosis (DVT), pulmonary embolism (PE), myocardial infarction (CT), respiratory failure, dependency on life support measures, and/or any catastrophic sequelae. She once again understands she will require medical, pulmonary, and infectious disease clearance and her general surgeon, Dr. Hugh Casillas, to be available for shunt placement surgery. She understands also that if her papilledema is resolved from spinal taps, and Diamox, and her last opening pressure is normal, I would hold off any shunt surgery. I will be happy to followup this patient while she is in the hospital. it appears again, patient has two charts with different MR numbers. [facility]S HOSPITALStacey
[2016-10-15] MEDS: MORPHINE 2 MG/ML 1ML SYRINGE IV PRN ×5 (01:01→15:37)
[2016-10-15] MEDS: ONDANSETRON 4MG/2ML VIAL (J2405) IV PRN ×2 (01:01→08:45)
[2016-10-15 02:00] VITALS: BP 105/55
[2016-10-15] MEDS: ACETAMINOPHEN TAB 650MG DOSE (2X325MG) PO PRN ×2 (05:30→20:24)
[2016-10-15] MEDS: LEVOTHYROXINE 0.112 MG TAB (112 MCG) PO SCH (05:30)
[2016-10-15 06:00] VITALS: BP 111/63
[2016-10-15] MEDS: IBUPROFEN 600 MG TAB PO PRN ×2 (06:09→18:43)
[2016-10-15] MEDS: BUDESONIDE 0.5 MG/2 ML INHALATION SUSPENSION INH SCH ×2 (08:20→20:37)
[2016-10-15] MEDS: PANTOPRAZOLE 40MG TAB (PROTONIX) PO SCH (08:43)
[2016-10-15] MEDS: ZONISAMIDE 25 MG CAP (ZONEGRAN) PO SCH ×3 (08:43→20:25)
[2016-10-15] MEDS: GABAPENTIN 300 MG CAP PO SCH ×2 (08:43→20:14)
[2016-10-15] MEDS: MULTIVITAMINS/MINERALS THERAP 1 TAB PO SCH (08:44)
[2016-10-15] MEDS: AcetaZOLAMIDE 500 MG ER CAP PO SCH ×2 (08:44→22:01)
[2016-10-15] MEDS: VITAMIN D 1,000 INTERNATIONAL UNITS TABLET PO SCH (08:45)
[2016-10-15] MEDS: ADVAIR DISKUS 250/50 INH PWD INH SCH ×2 (09:00→21:04)
[2016-10-15 10:00] VITALS: BP 104/62
[2016-10-15 13:04] LABS: MEAN CORPUSCULAR HEMOGLOBIN 30.1 pg (27.0-33.0); MEAN CORPUSCULAR HGB CONC 32.3 g/dl (32.0-36.5); MEAN CORPUSCULAR VOLUME 93.2 fl (80.0-96.0); RED CELL DISTRIBUTION WIDTH 14.6 % (11.5-14.5); WHITE BLOOD COUNT 8.2 K/mm3 (4.0-10.0)
[2016-10-15 13:21] LABS: ANION GAP 5 MEQ/L (8-16); BLOOD UREA NITROGEN 21 MG/DL (7-18); CALCIUM LEVEL 9.1 MG/DL (8.5-10.1); CARBON DIOXIDE LEVEL 31 MEQ/L (21-32); CHLORIDE LEVEL 110 MEQ/L (98-107); CREATININE FOR GFR 0.81 MG/DL (0.55-1.02); GLOMERULAR FILTRATION RATE > 60.0 (>51); GLUCOSE, FASTING 91 MG/DL (70-105); POTASSIUM SERUM 4.3 MEQ/L (3.5-5.1); SODIUM LEVEL 146 MEQ/L (136-145)
[2016-10-15 14:00] VITALS: BP 119/74
[2016-10-15] MEDS: D5W IV SCH ×3 (14:15→20:17)
[2016-10-15] MEDS: PENICILLIN POTASSIUM MU IV SCH ×3 (14:15→20:17)
[2016-10-15] MEDS: PARoxetine 10MG TABLET PO SCH (20:14)
[2016-10-15] MEDS: IPRATROPIUM 0.02% SOLN 0.5MG/2.5 ML NEB INH PRN (20:38)
--- NOTE | 2016-10-15 21:59 | IPN ---
DATE: 10/15/2016 SUBJECTIVE: The patient tells me she has a bitemporal headache which is 10/10. She denies nausea or vomiting. She denies changes in vision or visual disturbances. She denies chest pain, shortness of breath, fevers, chills, nausea, vomiting, or diarrhea. OBJECTIVE: VITAL SIGNS: Temperature 97.0, pulse 101, respiratory rate 20, blood pressure 119/74, oxygen saturation 90% on two liters. GENERAL: She is an obese, middle aged, female sitting in bed. She does not appear to be in any acute distress. HEENT: Cranial nerves II-XII are grossly intact. She has moist mucous membranes. No elevation in central venous pressure (CVP). Visual field testing is intact on confrontation testing. CARDIOVASCULAR EXAM: S1, S2, regular. She is not tachycardic on my exam. RESPIRATORY EXAM: Clear. ABDOMINAL EXAM: Obese. Bowel sounds present. The abdomen is soft. EXTREMITIES: No clubbing, cyanosis, or edema. LABORATORY STUDIES: WBC 8.2, hemoglobin 11.7, hematocrit 36.2, platelet count 313. Chemistry panel: Sodium 146, potassium 4.3, chloride 110, bicarbonate 31, BUN 21, creatinine 0.8. No new imaging. ASSESSMENT AND PLAN: This is a 56-year-old female with bitemporal headache. 1. Bitemporal headache. The patient has had a fairly extensive workup. She has had three lumbar punctures. She has had significant outpatient testing including empiric treatment and trials of therapies for migraine without any improvement. She has also had occipital blocks without any significant improvement in her symptoms. She tells me that after her lumbar puncture she does briefly feel some moderate relief. At this time microbiology testing is positive for a syphilis screen. [facility] ([facility]) has been ordered. Dr. Green of infectious disease has evaluated the patient and started the patient on penicillin, is concerned this may be related to syphilis. We will treat and see if the patient's symptoms improve. If her symptoms do not improve by Tuesday, at that point we may attempt a high volume lumbar puncture in an effort to remove approximately 25 mL of cerebrospinal fluid (CSF) to see if this abates her symptoms. If it does, planning for a lumbar puncture may be indicated, however at this time we will attempt treatment for syphilis. The patient is also on Diamox and budesonide. 2. Chronic obstructive pulmonary disease (COPD). Approximately a month ago the patient was requiring noninvasive therapies with decompensation in the medical intensive care unit. At this time, she appears to be doing quite well. She tells me she has been breathing in quite some time. She is continued on DuoNebs , budesonide. She has recieved significant narcotics for her headache thus far IV , we will attemtp to wean this back 3. Neuropathy. The patient is on Neurontin. 4. Hypertension. The patient is on diltiazem. 5. Gastroesophageal reflux disease. The patient is on Protonix. 6. Mood disorder. The patient is on Paxil. 7. Hypothyroidism. The patient is on Synthroid. 8. Deep venous thrombosis (DVT) prophylaxis. Early ambulation, sequentials, and thromboembolism deterrents (TEDs). No pharmacological agents secondary to possible lumbar puncture. Remains in hospital without lumbar puncture. [facility]
[2016-10-15 22:00] VITALS: BP 115/65
--- NOTE | 2016-10-15 22:01 | CR ---
DATE OF CONSULTATION: 10/15/2016 I saw the patient in consultation in the office as an outpatient yesterday. The patient was referred to me for evaluation of abnormal cerebrospinal fluid (CSF) suggestive of aseptic meningitis. The serology HIV testing and viral studies as well as fungal acid-fast Bacillus (AFB) were all sent from CSF done as an outpatient. The patient then went to the emergency room because her headache was severe and wanted to have something done about it. She was admitted because of multiple emergency room (ER) visits in the past couple of weeks. Patient states that her headaches have been severe for the past year, but what made her start getting more care is she was tired of having so many headaches. She went to the dentist, the esl professor (ENT), and then she ended up with neurology, and further workup followed after that. The headaches have been as intense in the past year with nothing alleviating them. She only was taking Tylenol, even having spinal taps gave her very little alleviation of headache. She denied having any fever or chills. She had some nausea when she has a headache, but no vomiting, no diarrhea, no weight loss. CSF was done on 10/12/2016, there was 83 white cells, 11 red cells, 92% lymphocytes, total protein was 60, glucose was 67. CSF done on 10/08/2016, white count was 68, 96% lymphocytes, 4% monocytes, total protein was 58.3, CSF IgG 1.30, there was no oligoclonal band. CSF bacterial antigens was negative. Fungal smear and viral cultures were sent from 10/08/2016, gram stain culture was sent as well, that was negative. LABORATORY DATA: White count 8.2, hemoglobin 11.7, hematocrit 36.2, platelets 313, ESR 12-14, sodium 146, potassium 4.3, chloride 110, bicarbonate 31, BUN 21, creatinine 0.81 , glucose 91, calcium 9.1, CRP less than 0.3. Syphilis serology is reactive, confirmation is pending. Lyme CSF is pending. Histoplasma antigen antibody are pending. HIV is negative. TB QuantiFERON Gold is pending. CSF panel was sent to [facility]. IMAGING STUDIES: MRI angiography showed asymmetric flow with possible filling defect in the right sigmoid sinus which could be a thrombus. There is asymmetric flow. PHYSICAL EXAMINATION: Temperature 98.8, pulse 107, respirations 20, blood pressure 104/62, oxygen saturation 91% on one liter nasal cannula. HEART: Normal S1, S2, with no murmurs, rubs, or gallops. LUNGS: Decreased breath sounds bilaterally with few expiratory wheezes. ABDOMEN: Obese, soft, nontender. BACK: No costovertebral angle (CVA) tenderness. She has mild lumbosacral tenderness where she has old healed scars of lumbar disc surgery. EXTREMITIES: No calf tenderness. No clubbing, cyanosis, or edema. OROPHARYNX: Clear with no thrush. IMPRESSION: 1. Aseptic meningitis with positive syphilis serology. Confirmation is still pending. The patient reports a history of having been treated for syphilis in [place] in 1997, when her had syphilis, after they had been , he came back to her and they were both treated with three injections of penicillin that she states probably were weekly. 2. Elevated intracranial pressure. Questionable pseudotumor cerebri and peripheral edema. Differential could also be neurosyphilis. 3. Chronic obstructive pulmonary disease (COPD). Oxygen dependent with no exacerbation currently. PLAN: Cerebrospinal fluid (CSF) encephalitis and viral panel was sent to [facility]. [facility] was ordered on cerebrospinal fluid (CSF) as well, Lyme serology. Review of previous labs show antinuclear antibody (TYRELL) positive with positive ribonucleoprotein (SPORTS MEDICINE PHYSICIAN) antibody. Patient will be started on intravenous (IV) penicillin 24 million units every 4 hours until confirmation of cerebrospinal (CSF), [facility] ([facility]), and serology to see if she has a positive rapid plasma reagin (RPR) which would suggest active syphilis. Also this date will try to get a hold of her records from [place] to see if she was appropriately treated and what her serology was in the past. Case has been discussed with Dr. Willingham and Dr. Eaton from neurology. [facility]
[2016-10-16] VITALS (14 sets, daily range): BP systolic 108–156; BP diastolic 55–91; O2SAT 91–92
[2016-10-16] MEDS: PENICILLIN POTASSIUM MU IV SCH ×6 (01:16→22:04)
[2016-10-16] MEDS: D5W IV SCH ×6 (01:16→22:04)
[2016-10-16] MEDS: MORPHINE 2 MG/ML 1ML SYRINGE IV PRN (02:47)
[2016-10-16] MEDS: ACETAMINOPHEN TAB 650MG DOSE (2X325MG) PO PRN ×2 (02:48→10:14)
[2016-10-16] MEDS: LEVOTHYROXINE 0.112 MG TAB (112 MCG) PO SCH (05:26)
[2016-10-16 06:31] LABS: MEAN CORPUSCULAR HEMOGLOBIN 29.7 pg (27.0-33.0); MEAN CORPUSCULAR HGB CONC 31.3 g/dl (32.0-36.5); MEAN CORPUSCULAR VOLUME 94.7 fl (80.0-96.0); RED CELL DISTRIBUTION WIDTH 14.2 % (11.5-14.5); WHITE BLOOD COUNT 9.5 K/mm3 (4.0-10.0)
[2016-10-16 06:47] LABS: ANION GAP 5 MEQ/L (8-16); BLOOD UREA NITROGEN 19 MG/DL (7-18); CALCIUM LEVEL 8.6 MG/DL (8.5-10.1); CARBON DIOXIDE LEVEL 29 MEQ/L (21-32); CHLORIDE LEVEL 110 MEQ/L (98-107); CREATININE FOR GFR 0.73 MG/DL (0.55-1.02); GLOMERULAR FILTRATION RATE > 60.0 (>51); GLUCOSE, FASTING 106 MG/DL (70-105); POTASSIUM SERUM 4.1 MEQ/L (3.5-5.1); SODIUM LEVEL 144 MEQ/L (136-145)
[2016-10-16] MEDS: BUDESONIDE 0.5 MG/2 ML INHALATION SUSPENSION INH SCH ×2 (08:02→21:06)
[2016-10-16] MEDS: ADVAIR DISKUS 250/50 INH PWD INH SCH ×2 (08:02→21:00)
[2016-10-16] MEDS: IPRATROPIUM 0.02% SOLN 0.5MG/2.5 ML NEB INH PRN ×2 (08:12→21:06)
[2016-10-16] MEDS: IBUPROFEN 600 MG TAB PO PRN (08:42)
[2016-10-16] MEDS: MULTIVITAMINS/MINERALS THERAP 1 TAB PO SCH (08:42)
[2016-10-16] MEDS: PANTOPRAZOLE 40MG TAB (PROTONIX) PO SCH (08:42)
[2016-10-16] MEDS: ZONISAMIDE 25 MG CAP (ZONEGRAN) PO SCH ×2 (08:42→21:47)
[2016-10-16] MEDS: AcetaZOLAMIDE 500 MG ER CAP PO SCH ×2 (08:43→22:05)
[2016-10-16] MEDS: GABAPENTIN 300 MG CAP PO SCH ×2 (08:43→21:42)
[2016-10-16] MEDS: VITAMIN D 1,000 INTERNATIONAL UNITS TABLET PO SCH (08:43)
[2016-10-16] MEDS ORDERED: PERCOCET 5MG/325MG TAB PO PRN (10:30)
[2016-10-16] MEDS: ONDANSETRON 4MG/2ML VIAL (J2405) IV PRN (12:48)
[2016-10-16] MEDS: PERCOCET 5MG/325MG TAB PO PRN ×2 (12:51→16:59)
--- NOTE | 2016-10-16 12:56 | IPN ---
DATE OF SERVICE: 10/16/2016 SUBJECTIVE: This morning, patient continues to complain of headache, which she tells me is 10/10. At the time of examination, she denies any visual changes. She tells me that she feels tremulous after nebulizer treatments, but otherwise does not report any changes in her symptoms. OBJECTIVE: VITAL SIGNS: Temperature 96.2, pulse 102, respiratory rate 20, blood pressure 108/55, oxygen saturation 92% on 3 liters. GENERAL: She is a female, obese, laying in bed at a 30 degree angle, drinking coffee. She does not appear to be in any acute distress. HEENT: Cranial nerves II-XII are grossly intact. She has moist mucous membranes. She is mildly tremulous. CARDIOVASCULAR EXAMINATION: S1, S2. She does not appear tachycardic on my examination. RESPIRATORY EXAMINATION: Fairly clear. Mild expiratory wheeze. ABDOMINAL EXAMINATION: Obese. EXTREMITIES: No clubbing, cyanosis or edema. LABORATORY STUDIES: WBC 9.5, hemoglobin 12.1, hematocrit 38.6, platelet count 268. Chemistry panel: Sodium 144, potassium 4.1, chloride 110, bicarbonate 29, BUN 19, creatinine 0.7. Blood cultures are pending. ASSESSMENT AND PLAN: This is a 56-year-old female with bitemporal headache. PROBLEMS: 1. Bitemporal headache. The patient had a fairly extensive workup. There is a concern for aseptic meningitis. There is also a concern that this may be secondary to neurosyphilis. Dr. Green's help is greatly appreciated. At the time, the patient was started on intravenous (IV) penicillin. She has not had any significant change in her symptoms at this time. We will continue to monitor very closely. We are awaiting confirmatory tests. If it turns out this is not, in fact, neurosyphilis, before placing any ventriculoperitoneal (VISCOSE CELLAR WORKER) shunt, will attempt high volume lumbar puncture to see if this alleviates her symptoms. If it does, at that point will consider risk stratifying her for placement of VISCOSE CELLAR WORKER shunt and involvement of general surgery; however if, at that point, she does not have an improvement in her symptoms with a large volume lumbar puncture (LP), then it is unlikely that a VISCOSE CELLAR WORKER shunt would serve any purpose. For the time being , the patient is on Diamox and zonisamide. She has been recieving IV Morphine 10mg total yesterday at this time we will try to discontinue IV Morphine and transition her to PO Percocet 2. Chronic obstructive pulmonary disease (COPD). The patient did have a fairly severe exacerbation approximately one month ago that did land her in the medical intensive care unit. At this time, she appears to be doing quite well. She will continue with DuoNebs and budesonide. She is at her baseline oxygen requirement. Her respiratory status is tenuous 3. Neuropathy. She is on Neurontin. 4. Hypertension. She is on diltiazem. 5. Gastroesophageal reflux disease. She is on Protonix. 6. Mood disorder. The patient is on Paxil. 7. Hypothyroidism. The patient is on Synthroid. 8. Deep venous thrombosis (DVT) prophylaxis. Early ambulation, sequentials and thromboembolitic deterrents (TEDs). I will start her on heparin twice a day. It will need to be held prior to any future lumbar puncture. We will re-evaluate her clinical status and response to therapies on Tuesday. For the time being, we will continue with current care. SUSY
[2016-10-16] MEDS: HEPARIN SOD (PORCINE) 5000 UNITS/ML VIAL SQ SCH ×2 (13:17→22:04)
[2016-10-16 15:12] LABS: IgG P18 AB Absent (.); IgG P23 AB Absent (.); IgG P28 AB Absent (.); IgG P30 AB Absent (.); IgG P41 AB Absent (.); IgG P45 AB Absent (.); IgG P58 AB Absent (.); IgG P66 AB Absent (.); IgG P93 AB Absent (.); IgM P39 AB Absent (.); IgM P41 AB Absent (.); Lyme Disease IgG/IgM Antibodie <0.91 ISR (0.00-0.90); Lyme Disease IgM Ab Quantitati <0.80 index (0.00-0.79)
[2016-10-16] MEDS ORDERED: NALOXONE INJ 0.4 MG/1 ML VIAL (J2310) IV STA (20:44)
[2016-10-16 20:57] LABS: ABG BASE EXCESS -4.7 (-2.0-2.0); ABG HCO3 31.4 MEQ/L (22.0-26.0); ABG STANDARD HCO3 20.6 MEQ/L (22.0-26.0); ABG TOTAL CO2 36.1 MEQ/L (22.0-29.0); ABG pH (ARTERIAL) 6.931 UNITS (7.350-7.450)
[2016-10-16 20:58] LABS: ABG PARTIAL PRESSURE CO2 152.6 mmHg (35.0-45.0); ABG PARTIAL PRESSURE O2 173.6 mmHg (75.0-100.0)
[2016-10-16] MEDS ORDERED: NALOXONE INJ 2 MG/2 ML SYRINGE (J2310) As Ordered ONE (20:58)
--- NOTE | 2016-10-16 21:31 | IPNPDOC ---
Text Note Date of Service The patient was seen on 10/16/16. NOTE Rapid assessment team initiated at approximately 8:30 PM this evening for unresponsiveness. Upon arrival at the bedside, the patient was noted to be taking shallow breaths and unresponsive. Of note, it appears that the patient received 4 tablets of Percocet over the last 7 hours prior to this event occurring. As per the patient 's bedside nursing staff, the patient was noted to be drowsy and lethargic earlier, but this worsened throughout the evening. During initial assessment of her vital signs the patient's blood pressure and heart rate were noted to be stable at 140s/80s and 80s respectively, and her pulse oximeter reading was in the 99th percentile. The patient was given Narcan 0.4mg 2 doses, and then Narcan 2 mg following that. The patient's neurological status subsequently improved significantly. She was more able to answer questions appropriately, and was moving all extremities upon command. In addition, the patient was able to state her name and date. She denies any worsening of her headaches. An arterial blood gas was ordered for evaluation for possible underlying hypoxemia and CO2 retention. The blood gas does reveal significant hypercarbia with a CO2 level of 152. Of note, the patient does have a history of COPD and is on 3 L of oxygen chronically, and it does appear from previous lab work that she is a chronic retainer with a CO2 level around the mid 70s. Given the patient 's improvement neurologically following administration of Narcan, we will transfer the patient to the ICU and start the patient on BiPAP therapy and repeat an arterial blood gas to follow-up with the patient's respiratory status. Once her blood gas levels have stabilized, we will obtain a CT Scan of the Head. Update 11:15pm: Repeat ABG noted to be 7.06, with an improving CO2 of 124 ( previously 152). I did reach out to Dr. Henry of Pulmonary, and we have adjusted the patient's BiPAP settings, and will repeat an ABG in another hour to trend the patient's hypercarbia. Patient evaluated at the bedside as well, patient nodding appropriately while on BiPAP, denies any acute complaints at this time. Update 12:45am: Repeat ABG notable for pH of 7.075 and CO2 of 112.5. I have asked Dr. Henry of Pulmonary to evaluate the patient for possible intubation given the patient's persistent hypercarbic respiratory acidosis. Upon examination, the patient's mentation is waxing and waning, but she is still able to follow some commands with persistent redirection. VS,Fishbone, I+O VS, Fishbone, I+O Laboratory Tests 10/16/16 05:59 Calcium Level 8.6, Red Blood Count 4.08, Mean Corpuscular Volume 94.7, Mean Corpuscular Hemoglobin 29.7, Mean Corpuscular Hemoglobin Concent 31.3 L, Red Cell Distribution Width 14.2 Vital Signs Date Time Temp Pulse Resp B/P Pulse Ox O2 Delivery O2 Flow Rate FiO2 10/16/16 18:00 97.0 108 18 118/58 91 Nasal Cannula 3.0 I&O- Last 24 Hours up to 6 AM 10/16/16 06:00 Intake Total 2920 ml Output Total 2650 ml Balance 270 ml JERRI CLARK MD Oct 16, 2016 21:31
[2016-10-16] MEDS: PARoxetine 10MG TABLET PO SCH (21:42)
[2016-10-16 21:56] LABS: ANION GAP 2 MEQ/L (8-16); BLOOD UREA NITROGEN 19 MG/DL (7-18); CALCIUM LEVEL 8.8 MG/DL (8.5-10.1); CARBON DIOXIDE LEVEL 33 MEQ/L (21-32); CHLORIDE LEVEL 108 MEQ/L (98-107); CREATININE FOR GFR 0.86 MG/DL (0.55-1.02); GLOMERULAR FILTRATION RATE > 60.0 (>51); GLUCOSE, FASTING 151 MG/DL (70-105); POTASSIUM SERUM 4.7 MEQ/L (3.5-5.1); SODIUM LEVEL 143 MEQ/L (136-145)
--- NOTE | 2016-10-16 22:35 | EDDOCDS ---
Nurse's Notes [facility] Name: Brenda Freeman Age: 56 yrs Sex: Female : 1960 Arrival Date: 10/14/2016 Time: 14:45 Bed 8 Private MD: Jennifer Simmons, Pharm.D. Diagnosis: Headache-pseudotumor cerebri Presentation: 10/14 14:53 Presenting complaint: Patient states: severe headache , vision blurry, had a spinal tap [facility] on Tuesday, infection in the spinal fluid elevated opening pressure was just at Dr Green's office for the infected spinal fluid. has seen dr Kearney over the weekend for these headaches. Presenting complaint:. This patient has no additional risk factors. Adult Sepsis Screening: The patient does not have new or worsening altered mentation. Patient's respiratory rate is less than 22. Systolic blood pressure is greater than 100. Patient has a qSOFA score of 0- Negative Sepsis Screen. Suicide/Homicide risk assessment- the patient denies having any suicidal and/or homicidal ideations and does not present with any other emotional, behavioral or mental health complaints. Status: Patient is not a nursing service director or dependent. Transition of care: patient was not received from another setting of care. 14:53 Acuity: NICOLE Level 3 [facility] 14:53 Method Of Arrival: Walkin/Carried/Asstd [facility] Triage Assessment: 15:08 Headache History: This headache is more severe than any previous headaches the patient [facility] has experienced. General: Appears uncomfortable, Behavior is appropriate for age, pleasant. Pain: Location: right scientology and left scientology Pain currently is 10 out of 10 on a pain scale. Pain began 1 day ago Also complains of photophobia, inability to concentrate. HIV screening NA for this visit Offered previously. Neurological: Level of Consciousness is awake, alert, Oriented to person, place, time, Reports headache. Respiratory: Airway is patent Respiratory effort is even, unlabored, Respiratory pattern is regular, symmetrical. Derm: Skin is pink, warm & dry. Historical: - Allergies: No known drug Allergies; - Home Meds: 1. Diamox Sequels 50 mg in the morning and 100 mg at night Oral (Last dose: 10/14/2016 08:00) 2. ipratropium-albuterol 0.5 mg-3 mg(2.5 mg base)/3 mL Inhl nebu 3 mL every 4 hours (Last dose: 10/14/2016 09:00) 3. diltiazem HCl 120 mg Oral CDER 1 cap once daily (Last dose: 10/14/2016 08:00) 4. Gabapentin 300 mg in the morning and 600 mg at night Oral (Last dose: 10/14/2016 08:00) 5. pantoprazole 40 mg oral TbEC 1 tab once daily (Last dose: 10/14/2016 08:00) 6. Advair Diskus 250-50 mcg/dose Inhl dsdv 1 puff 2 times per day (Last dose: 10/14/2016 08:00) 7. zonisamide 50 mg oral cap 1 cap 2 times per day (Last dose: 10/14/2016 08:00) 8. oygen 2 liters/min via NC 9. multivitamin Oral tab (Last dose: 10/14/2016 08:00) 10. Vitamin D Oral 1,000 unit daily (Last dose: 10/14/2016 08:00) 11. levothyroxine 112 mcg oral cap 1 cap once daily (Last dose: 10/14/2016 05:00) 12. Pulmicort 0.5 mg/2 mL Inhl nbsp 2 mL 2 times per day (Last dose: 10/14/2016 08:00) 13. Incruse Ellipta 62.5 mcg/actuation inhalation dsdv 1 puff once daily (Last dose: 10/13/2016) 14. Paxil 10 mg Oral tab 1 tab nightly (Last dose: 10/13/2016) - PMHx: COPD; Hypertension; Hypothyroidism; GERD; - PSHx: Tonsillectomy; Appendectomy; hernia x3; Hip Arthroplasty, Right; Hysterectomy; Lumbar Laminectomy; Spinal Fusion; - Social history: Smoking status: Patient states former smoker of tobacco. No barriers to communication noted, The patient speaks fluent [place]. - Family history: Not pertinent. - : The pt / caregiver states he / she is not on anticoagulants. Home medication list is obtained from the patient. - Exposure Risk Screening:: None identified. Screenin:11 Screening information is obtained from the patient. Fall risk: No risks identified. ml6 Assistance ADL's: requires no assistance with activities of daily living. Abuse/DV Screen: The patient / caregiver reports he/she is: not in a situation that causes fear, pain or injury. Nutritional screening: No deficits noted. Advance Directives: Currently, there is no health care proxy. home support is adequate. Assessment: 16:05 General: entered the room, attempted IV in left AC, patient states "I don't know why I ml6 come here, this is the worst [facility] I have [facility] been in, I should just go to [place]", "I don't know why I can't just have a fucking butterfly", attempted to discuss with patient that they do not make butterfly IVs and that I was starting an IV and no just drawing blood. Patient states "You can take your IV and shove it up your ass!". Discussed with patient that MD had ordered all of her medications via IV and that an IV was necessary. Patient states "well you can shove it up your ass and get out of my room". Discussed with patient that another nurse would be in to take over her care as she chose. . 17:10 General: Appears in no apparent distress, Behavior is cooperative. Pain: Location: left ld5 scientology and right scientology Pain currently is 10 out of 10 on a pain scale. Quality of pain is described as stabbing, throbbing. Neurological: Level of Consciousness is awake, alert, obeys commands, Oriented to person, place, time, Highway Maintainer are equal bilaterally. Neurological: Reports headache. Respiratory: Airway is patent Respiratory effort is even, unlabored. GI: Reports nausea, Denies vomiting. 18:00 General: Pt ambulated to bathroom with standby assist. Gait steady but pt reported ld5 feeling unsteady. Returned to room and pt requesting pain medication for her headache. States previous meds worked but would like more. Reports pain at 6/10 and decreased nausea. Will continue to monitor. 19:00 General: Appears in no apparent distress, Behavior is cooperative. Pain: Location: face ko2 and left scientology and right scientology. Neurological: Level of Consciousness is awake, alert. Respiratory: Airway is patent Respiratory effort is even, unlabored. Derm: Skin is normal. 20:16 General: Appears in no apparent distress, pt currently snoring on stretcher. ko2 Respirations unlabored, skin pink warm and dry. No concerns at this time.. 21:06 General: Appears in no apparent distress, Behavior is cooperative. Neurological: Level ko2 of Consciousness is awake, alert, obeys commands. Respiratory: Airway is patent Respiratory effort is even, unlabored. Derm: Skin is normal. Vital Signs: 14:48 BP 134 / 80; Pulse 90; Resp 18 S; Temp 97.7(O); Pulse Ox 94% on R/A; Weight 87.54 kg gr2 (R); Height 5 ft. 9 in. (175.26 cm) (R); Pain 8/10; 18:15 BP 137 / 75; Pulse 83; Resp 18; Pulse Ox 94% on 2 lpm NC; Pain 6/10; ld5 20:42 BP 128 / 72; Pulse 80; Resp 18; Temp 97.9; Pulse Ox 95% ; Pain 2/10; ko2 14:48 Body Mass Index 28.50 (87.54 kg, 175.26 cm) gr2 Vitals: 14:48 Log In Time: October 14, 2016 at 14:48. gr2 ED Course: 14:47 Patient visited by Bita Ruiz. gr2 14:47 Jennifer Simmons is Private Physician. gr2 14:47 Patient moved to Waiting gr2 14:49 Patient visited by Bita Ruiz. gr2 14:49 Patient moved to Pre RCE gr2 14:57 Triage Initiated kp 15:09 Patient moved to 8 [facility] 15:16 Giselle Tucker MD is Attending Physician. fg 15:28 Patient visited by Miguel Angel Flowers RN. ml6 15:42 Patient visited by Giselle Tucker MD. fg 16:10 Patient visited by Miguel Angel Flowers RN. ml6 16:22 [facility] Payment Agreement was scanned into [employer] and attached to record. lg 16:58 Patient visited by Miguel Angel Flowers RN. ml6 17:02 Attending Physician role handed off by Giselle Tucker MD ml 17:02 Arleth Padgett MD is Attending Physician. ml 17:07 CBC with Diff Sent. srm 17:07 -Blood Culture Sent. srm 17:08 The patient / caregiver is instructed regarding the plan of care and ED course. srm Accompanied by Family Member, Patient has correct armband on for positive identification. Placed in gown. Bed in low position. Call light in reach. 17:11 Inserted saline lock: 20 gauge in left forearm and blood collected. The patient ld5 tolerated the procedure well. Labs drawn. (by ED staff). Sent per order to lab. 17:12 Patient visited by Virginie Webster RN. ld5 17:28 BLOOD CULTURES Sent. lr2 17:34 Patient visited by Miguel Angel Flowers, ALEX. ml6 18:23 Patient visited by Virginie Webster RN. ld5 18:24 Yony Willingham is Hospitalizing Provider. ml 19:00 Sharron Newton,RN is Primary Nurse. ko2 20:17 Patient visited by Sharron Newton,ALEX. ko2 20:43 No procedures done that require assistance. ko2 02 11:24 T-Sheet-- Draft Copy was scanned into [employer] and attached to record. gb Administered Medications: 10/14 17:12 Drug: ketorolac 30 mg [ketorolac 30 mg/mL (1 mL) injection solution (1 mL)] Route: IVP; ld5 Site: left forearm; 18:00 Follow up: Response: Pain is decreased ld5 17:12 Drug: Promethazine 25 mg [promethazine 25 mg/mL injection solution (1 mL)] Route: IVP; ld5 Site: left forearm; 18:33 Follow up: Response: Nausea is decreased; Pain is decreased ld5 17:12 Drug: diphenhydrAMINE 12.5 mg [diphenhydramine 50 mg/mL injection solution (0.25 mL)] ld5 Route: IVP; Site: left forearm; 17:12 Drug: NS 0.9% 1000 ml [sodium chloride 0.9 % intravenous solution] Route: IV; Rate: ld5 bolus; Site: left forearm; 18:12 Drug: morphine 4 mg [morphine 4 mg/mL intravenous cartridge (1 mL)] Route: IVP; Site: js13 left antecubital; Order Results: Lab Order: CBC with Diff; SPEC'M 10/14/16 17:05 Test: WHITE BLOOD COUNT; Value: 6.4; Range: 4.0-10.0; Units: K/mm3; Status: F Test: RED BLOOD COUNT; Value: 4.33; Range: 4.00-5.40; Units: M/mm3; Status: F Test: HEMOGLOBIN; Value: 12.6; Range: 12.0-16.0; Units: g/dl; Status: F Test: HEMATOCRIT; Value: 40.0; Range: 36.0-47.0; Units: %; Status: F Test: MEAN CORPUSCULAR VOLUME; Value: 92.4; Range: 80.0-96.0; Units: fl; Status: F Test: MEAN CORPUSCULAR HEMOGLOBIN; Value: 29.0; Range: 27.0-33.0; Units: pg; Status: F Test: MEAN CORPUSCULAR HGB CONC; Value: 31.4; Range: 32.0-36.5; Abnormal: Below low normal; Units: g/dl; Status: F Test: RED CELL DISTRIBUTION WIDTH; Value: 14.2; Range: 11.5-14.5; Units: %; Status: F Test: PLATELET COUNT, AUTOMATED; Value: 323; Range: 150-450; Units: k/mm3; Status: F Test: NEUTROPHILS %; Value: 61.7; Range: 36.0-66.0; Units: %; Status: F Test: LYMPH %; Value: 26.4; Range: 24.0-44.0; Units: %; Status: F Test: MONO %; Value: 6.4; Range: 0.0-5.0; Abnormal: Above high normal; Units: %; Status: F Test: EOS %; Value: 1.0; Range: 0.0-3.0; Units: %; Status: F Test: BASO %; Value: 0.8; Range: 0.0-1.0; Units: %; Status: F Test: LARGE UNSTAINED CELL %; Value: 3.7; Range: 0.0-4.0; Units: %; Status: F Test: NEUTROPHILS #; Value: 3.9; Range: 1.8-7.7; Units: K/mm3; Status: F Test: LYMPH #; Value: 1.7; Range: 1.5-4.5; Units: K/mm3; Status: F Test: MONO #; Value: 0.4; Range: 0.0-0.8; Units: K/mm3; Status: F Test: EOS #; Value: 0.1; Range: 0.0-0.50; Units: K/mm3; Status: F Test: BASO #; Value: 0.0; Range: 0.0-0.2; Units: K/mm3; Status: F Test: LARGE UNSTAINED CELL #; Value: 0.2; Range: 0.0-0.4; Units: K/mm3; Status: F Lab Order: Basic Metabolic Profile; [facility] 10/14/16 18:24 Test: GLUCOSE, FASTING; Value: 81; Range: 70-105; Units: MG/DL; Status: F Test: BLOOD UREA NITROGEN; Value: 18; Range: 7-18; Units: MG/DL; Status: F Test: CREATININE FOR GFR; Value: 0.69; Range: 0.55-1.02; Units: MG/DL; Status: F Test: GLOMERULAR FILTRATION RATE; Value: > 60.0; Range: >51; Status: F Test: SODIUM LEVEL; Value: 145; Range: 136-145; Units: MEQ/L; Status: F Test: POTASSIUM SERUM; Value: 3.8; Range: 3.5-5.1; Units: MEQ/L; Status: F Test: CHLORIDE LEVEL; Value: 113; Range: 98-107; Abnormal: Above high normal; Units: MEQ/L; Status: F Test: CARBON DIOXIDE LEVEL; Value: 27; Range: 21-32; Units: MEQ/L; Status: F Test: ANION GAP; Value: 5; Range: 8-16; Abnormal: Below low normal; Units: MEQ/L; Status: F Test: CALCIUM LEVEL; Value: 8.8; Range: 8.5-10.1; Units: MG/DL; Status: F Test Note: ; Units are mL/min/1.73 m2 Chronic Kidney Disease Staging per NKF: Stage I & II GFR >=60 Normal to Mildly Decreased Stage III GFR 30-59 Moderately Decreased Stage IV GFR 15-29 Severely Decreased Stage V GFR <15 Very Little GFR Left ESRD GFR <15 on INSULATION TECHNICIAN Lab Order: CRP; [facility] 10/14/16 18:24 Test: C REACTIVE PROTEIN QUANTITATIV; Value: < 0.30; Range: 0.00-0.30; Units: MG/DL; Status: F Lab Order: ESR; [facility] 10/14/16 17:05 Test: ERYTHROCYTE SEDIMENTATION RATE; Value: 12; Range: 0-30; Units: mm/hr; Status: F Outcome: 18:25 Decision to Hospitalize by Provider. 21:05 Discharge Assessment: Patient awake, alert and oriented x 3. No cognitive and/or ko2 functional deficits noted. Patient verbalized understanding of disposition instructions. patient administered narcotics - yes. Patient was admitted to the hospital or transferred to another facility. The following High Risk Discharge criteria are identified: None. Admitted to Floor accompanied by tech, via stretcher, with chart. Condition: stable. Admission hand-off: Report Faxed Fax receipt verified by Faye Bean RN 4 PAV. Property :Personal belongings accompany Pt. 21:06 No special radiology studies were completed. ko2 21:34 Patient left the ED. ml3 Signatures: Arleth Padgett MD MD ml Jobson, Karen, RN RN [facility] Yanely, Sharri, RN RN srm Barnhardt, Dahlia, Reg Reg gb Ganter, LoriLee, Reg Reg lg Hank, Zoe, Conveyor Mechanic Unit ml3 Miguel Angel Flowers RN RN ml6 Virginie Webster,RN RN ld5 Kamla Juarez,RN RN js13 Bita Ruiz gr2 Sharron Newton,RN RN ko2 Giselle Tucker MD MD fg Ross, Laura lr2 Corrections: (The following items were deleted from the chart) 15:12 15:08 Home Meds: levothyroxine 125 mcg Oral tab 1 tab once daily (Last Dose: 10/14/2016 [facility] 05:00); [facility] 17:10 17:08 General: Appears in no apparent distress, srm srm 17:10 17:08 Pain: Location: left scientology and right scientology Pain currently is 10 out of 10 on a srm pain scale. Quality of pain is described as sharp, throbbing, srm 17:10 17:08 Neurological: Level of Consciousness is awake, alert, srm srm 17:10 17:08 Respiratory: Airway is patent Respiratory effort is even, unlabored, srm srm 17:10 17:08 GI: Reports nausea, Denies vomiting, srm srm 17:11 17:08 Inserted saline lock: 20 gauge in left forearm and blood collected. The patient ld5 tolerated the procedure well. [facility] : 17:08 Labs drawn. (by ED staff). Sent per order to lab. [place] [address] : 17:07 NS 0.9% 1000 ml IV at bolus in left forearm [place] [address] 17: 17:07 diphenhydrAMINE 12.5 mg IVP in left forearm [place] [address] : 17:08 Promethazine 25 mg IVP in left forearm [place] [address] 17: 17:08 ketorolac 30 mg IVP in left forearm [place] [address] Chart Complete MTDD
--- NOTE | 2016-10-16 22:35 | EDDOCDS ---
Physician Documentation [facility] Name: Brenda Freeman Age: 56 yrs Sex: Female : 1960 Arrival Date: 10/14/2016 Time: 14:45 Bed 8 Private MD: Jennifer Simmons, Pharm.D. Disposition: 10/14/16 18:25 Hospitalization ordered by Yony Willingham for Inpatient Admission. Preliminary diagnosis is Headache - pseudotumor cerebri. - Bed requested for 4 [place]. - Status is Inpatient Admission. ml3 - Condition is Stable. - Problem is new. - Symptoms are unchanged. Historical: - Allergies: No known drug Allergies; - Home Meds: 1. Diamox Sequels 50 mg in the morning and 100 mg at night Oral (Last dose: 10/14/2016 08:00) 2. ipratropium-albuterol 0.5 mg-3 mg(2.5 mg base)/3 mL Inhl nebu 3 mL every 4 hours (Last dose: 10/14/2016 09:00) 3. diltiazem HCl 120 mg Oral CDER 1 cap once daily (Last dose: 10/14/2016 08:00) 4. Gabapentin 300 mg in the morning and 600 mg at night Oral (Last dose: 10/14/2016 08:00) 5. pantoprazole 40 mg oral TbEC 1 tab once daily (Last dose: 10/14/2016 08:00) 6. Advair Diskus 250-50 mcg/dose Inhl dsdv 1 puff 2 times per day (Last dose: 10/14/2016 08:00) 7. zonisamide 50 mg oral cap 1 cap 2 times per day (Last dose: 10/14/2016 08:00) 8. oygen 2 liters/min via NC 9. multivitamin Oral tab (Last dose: 10/14/2016 08:00) 10. Vitamin D Oral 1,000 unit daily (Last dose: 10/14/2016 08:00) 11. levothyroxine 112 mcg oral cap 1 cap once daily (Last dose: 10/14/2016 05:00) 12. Pulmicort 0.5 mg/2 mL Inhl nbsp 2 mL 2 times per day (Last dose: 10/14/2016 08:00) 13. Incruse Ellipta 62.5 mcg/actuation inhalation dsdv 1 puff once daily (Last dose: 10/13/2016) 14. Paxil 10 mg Oral tab 1 tab nightly (Last dose: 10/13/2016) - PMHx: COPD; Hypertension; Hypothyroidism; GERD; - PSHx: Tonsillectomy; Appendectomy; hernia x3; Hip Arthroplasty, Right; Hysterectomy; Lumbar Laminectomy; Spinal Fusion; - Social history: Smoking status: Patient states former smoker of tobacco. No barriers to communication noted, The patient speaks fluent Serbian. - Family history: Not pertinent. - : The pt / caregiver states he / she is not on anticoagulants. Home medication list is obtained from the patient. - Exposure Risk Screening:: None identified. Vital Signs: 10/14 14:48 BP 134 / 80; Pulse 90; Resp 18 S; Temp 97.7(O); Pulse Ox 94% on R/A; Weight 87.54 kg / gr2 192.99 lbs (R); Height 5 ft. 9 in. (175.26 cm) (R); Pain 8/10; 18:15 BP 137 / 75; Pulse 83; Resp 18; Pulse Ox 94% on 2 lpm NC; Pain 6/10; ld5 20:42 BP 128 / 72; Pulse 80; Resp 18; Temp 97.9; Pulse Ox 95% ; Pain 2/10; ko2 14:48 Body Mass Index 28.50 (87.54 kg, 175.26 cm) gr2 MDM: 16:05 IV Saline Lock ordered. fg 16:05 ketorolac 30 mg IVP once ordered. fg 16:05 Promethazine 25 mg IVP once; dilute and administer 30-60 minutes ordered. fg 16:05 diphenhydrAMINE 12.5 mg IVP once ordered. fg 16:11 Financial registration complete. lg 16:22 [facility] Payment Agreement was scanned into [employer] and attached to record. lg 16:34 NS 0.9% 1000 ml IV at bolus once ordered. fg 16:52 -Blood Culture (Adults Only), peripheral from different site, or from device/port/PICC fg etc. if present ordered. 16:54 CBC with Diff Ordered. EDMS 16:54 Basic Metabolic Profile Ordered. EDMS 16:54 CRP Ordered. EDMS 16:54 ESR Ordered. EDMS 16:54 -Blood Culture Ordered. EDMS 16:54 -Blood Culture (Adults Only), peripheral from different site, or from device/port/PICC deg etc. if present complete. 16:55 BLOOD CULTURES Ordered. EDMS 17:11 NS 0.9% 1000 ml IV at bolus once ordered. ld5 17:12 diphenhydrAMINE 12.5 mg IVP once ordered. ld5 17:12 Promethazine 25 mg IVP once; dilute and administer 30-60 minutes ordered. ld5 17:12 ketorolac 30 mg IVP once ordered. ld5 17:35 BED REQUEST+ADM ordered. EDMS 18:03 morphine 4 mg IVP once ordered. ml 18:58 CBC with Diff Reviewed. ml 18:58 Basic Metabolic Profile Reviewed. ml 18:58 CRP Reviewed. ml 18:58 ESR Reviewed. ml 20:10 Admission / Observation Status ordered. EDMS 20:11 2 GRAM SODIUM DIET ordered. EDMS 02 11:24 T-Sheet-- Draft Copy was scanned into [employer] and attached to record. gb Administered Medications: 10/14 17:12 Drug: ketorolac 30 mg [ketorolac 30 mg/mL (1 mL) injection solution (1 mL)] Route: IVP; ld5 Site: left forearm; 18:00 Follow up: Response: Pain is decreased ld5 17:12 Drug: Promethazine 25 mg [promethazine 25 mg/mL injection solution (1 mL)] Route: IVP; ld5 Site: left forearm; 18:33 Follow up: Response: Nausea is decreased; Pain is decreased ld5 17:12 Drug: diphenhydrAMINE 12.5 mg [diphenhydramine 50 mg/mL injection solution (0.25 mL)] ld5 Route: IVP; Site: left forearm; 17:12 Drug: NS 0.9% 1000 ml [sodium chloride 0.9 % intravenous solution] Route: IV; Rate: ld5 bolus; Site: left forearm; 18:12 Drug: morphine 4 mg [morphine 4 mg/mL intravenous cartridge (1 mL)] Route: IVP; Site: js13 left antecubital; Signatures: Dispatcher [employer] EDCT Arleth Padgett MD MD ml Murray, Denise, E Commerce Marketing Manager Unit deg Zulma Peña RN RN kpj Michelson, Staci, RN RN [facility] LisaherminioDahlia canchola, Reg Reg gb GerardoPaula, Reg Reg lg Jasen MckinneyJanice, E Commerce Marketing Manager Unit ml3 Virginie Webster RN RN ld5 Giselle Tucker MD MD Kamla Juarez RN [id number] The chart was reviewed and I authenticate all verbal orders and agree with the evaluation and treatment provided.Corrections: (The following items were deleted from the chart) 15:12 15:08 Home Meds: levothyroxine 125 mcg Oral tab 1 tab once daily (Last Dose: 10/14/2016 [facility] 05:00); [facility] Attachments: 16:22 [facility] Payment Agreement lg 10/15 11:24 T-Sheet-- Draft Copy gb Chart Complete MTDD
--- NOTE | 2016-10-16 22:35 | EDDOCDS ---
Physician Documentation [facility] Name: Brenda Freeman Age: 56 yrs Sex: Female : 1960 Arrival Date: 10/14/2016 Time: 14:45 Bed 8 Private MD: Jennifer Simmons, Pharm.D. Disposition: 10/14/16 18:25 Hospitalization ordered by Yony Willingham for Inpatient Admission. Preliminary diagnosis is Headache - pseudotumor cerebri. - Bed requested for 4 [place]. - Status is Inpatient Admission. ml3 - Condition is Stable. - Problem is new. - Symptoms are unchanged. Historical: - Allergies: No known drug Allergies; - Home Meds: 1. Diamox Sequels 50 mg in the morning and 100 mg at night Oral (Last dose: 10/14/2016 08:00) 2. ipratropium-albuterol 0.5 mg-3 mg(2.5 mg base)/3 mL Inhl nebu 3 mL every 4 hours (Last dose: 10/14/2016 09:00) 3. diltiazem HCl 120 mg Oral CDER 1 cap once daily (Last dose: 10/14/2016 08:00) 4. Gabapentin 300 mg in the morning and 600 mg at night Oral (Last dose: 10/14/2016 08:00) 5. pantoprazole 40 mg oral TbEC 1 tab once daily (Last dose: 10/14/2016 08:00) 6. Advair Diskus 250-50 mcg/dose Inhl dsdv 1 puff 2 times per day (Last dose: 10/14/2016 08:00) 7. zonisamide 50 mg oral cap 1 cap 2 times per day (Last dose: 10/14/2016 08:00) 8. oygen 2 liters/min via NC 9. multivitamin Oral tab (Last dose: 10/14/2016 08:00) 10. Vitamin D Oral 1,000 unit daily (Last dose: 10/14/2016 08:00) 11. levothyroxine 112 mcg oral cap 1 cap once daily (Last dose: 10/14/2016 05:00) 12. Pulmicort 0.5 mg/2 mL Inhl nbsp 2 mL 2 times per day (Last dose: 10/14/2016 08:00) 13. Incruse Ellipta 62.5 mcg/actuation inhalation dsdv 1 puff once daily (Last dose: 10/13/2016) 14. Paxil 10 mg Oral tab 1 tab nightly (Last dose: 10/13/2016) - PMHx: COPD; Hypertension; Hypothyroidism; GERD; - PSHx: Tonsillectomy; Appendectomy; hernia x3; Hip Arthroplasty, Right; Hysterectomy; Lumbar Laminectomy; Spinal Fusion; - Social history: Smoking status: Patient states former smoker of tobacco. No barriers to communication noted, The patient speaks fluent Macedonian. - Family history: Not pertinent. - : The pt / caregiver states he / she is not on anticoagulants. Home medication list is obtained from the patient. - Exposure Risk Screening:: None identified. Vital Signs: 10/14 14:48 BP 134 / 80; Pulse 90; Resp 18 S; Temp 97.7(O); Pulse Ox 94% on R/A; Weight 87.54 kg / gr2 192.99 lbs (R); Height 5 ft. 9 in. (175.26 cm) (R); Pain 8/10; 18:15 BP 137 / 75; Pulse 83; Resp 18; Pulse Ox 94% on 2 lpm NC; Pain 6/10; ld5 20:42 BP 128 / 72; Pulse 80; Resp 18; Temp 97.9; Pulse Ox 95% ; Pain 2/10; ko2 14:48 Body Mass Index 28.50 (87.54 kg, 175.26 cm) gr2 MDM: 16:05 IV Saline Lock ordered. fg 16:05 ketorolac 30 mg IVP once ordered. fg 16:05 Promethazine 25 mg IVP once; dilute and administer 30-60 minutes ordered. fg 16:05 diphenhydrAMINE 12.5 mg IVP once ordered. fg 16:11 Financial registration complete. lg 16:22 [facility] Payment Agreement was scanned into [employer] and attached to record. lg 16:34 NS 0.9% 1000 ml IV at bolus once ordered. fg 16:52 -Blood Culture (Adults Only), peripheral from different site, or from device/port/PICC fg etc. if present ordered. 16:54 CBC with Diff Ordered. EDMS 16:54 Basic Metabolic Profile Ordered. EDMS 16:54 CRP Ordered. EDMS 16:54 ESR Ordered. EDMS 16:54 -Blood Culture Ordered. EDMS 16:54 -Blood Culture (Adults Only), peripheral from different site, or from device/port/PICC deg etc. if present complete. 16:55 BLOOD CULTURES Ordered. EDMS 17:11 NS 0.9% 1000 ml IV at bolus once ordered. ld5 17:12 diphenhydrAMINE 12.5 mg IVP once ordered. ld5 17:12 Promethazine 25 mg IVP once; dilute and administer 30-60 minutes ordered. ld5 17:12 ketorolac 30 mg IVP once ordered. ld5 17:35 BED REQUEST+ADM ordered. EDMS 18:03 morphine 4 mg IVP once ordered. ml 18:58 CBC with Diff Reviewed. ml 18:58 Basic Metabolic Profile Reviewed. ml 18:58 CRP Reviewed. ml 18:58 ESR Reviewed. ml 20:10 Admission / Observation Status ordered. EDMS 20:11 2 GRAM SODIUM DIET ordered. EDMS 02 11:24 T-Sheet-- Draft Copy was scanned into [employer] and attached to record. gb Administered Medications: 10/14 17:12 Drug: ketorolac 30 mg [ketorolac 30 mg/mL (1 mL) injection solution (1 mL)] Route: IVP; ld5 Site: left forearm; 18:00 Follow up: Response: Pain is decreased ld5 17:12 Drug: Promethazine 25 mg [promethazine 25 mg/mL injection solution (1 mL)] Route: IVP; ld5 Site: left forearm; 18:33 Follow up: Response: Nausea is decreased; Pain is decreased ld5 17:12 Drug: diphenhydrAMINE 12.5 mg [diphenhydramine 50 mg/mL injection solution (0.25 mL)] ld5 Route: IVP; Site: left forearm; 17:12 Drug: NS 0.9% 1000 ml [sodium chloride 0.9 % intravenous solution] Route: IV; Rate: ld5 bolus; Site: left forearm; 18:12 Drug: morphine 4 mg [morphine 4 mg/mL intravenous cartridge (1 mL)] Route: IVP; Site: [email or web address] left antecubital; Signatures: Dispatcher [employer] EDLA Arleth Padgett MD MD ml Murray, Denise, [employer]ob[employer] Technician [employer] deg Zulma Peña RN RN kpj Michelson, Staci, RN RN [facility] LisaherminioDahlia canchola, Reg Reg gb GerardoPaula, Reg Reg lg Jasen MckinneyJanice, [employer]ob[employer] Technician Unit ml3 Virginie Webster RN RN ld5 Giselle Tucker MD MD Kamal Juarez RN [id number] The chart was reviewed and I authenticate all verbal orders and agree with the evaluation and treatment provided.Corrections: (The following items were deleted from the chart) 15:12 15:08 Home Meds: levothyroxine 125 mcg Oral tab 1 tab once daily (Last Dose: 10/14/2016 [facility] 05:00); [facility] Attachments: 16:22 [facility] Payment Agreement lg 10/15 11:24 T-Sheet-- Draft Copy gb Chart Complete MTDD
[2016-10-16 22:40] LABS: ABG BASE EXCESS 0.8 (-2.0-2.0); ABG HCO3 35.1 MEQ/L (22.0-26.0); ABG PARTIAL PRESSURE O2 92.3 mmHg (75.0-100.0); ABG STANDARD HCO3 25.2 MEQ/L (22.0-26.0); ABG TOTAL CO2 39.2 MEQ/L (22.0-29.0)
[2016-10-16 22:43] LABS: ABG PARTIAL PRESSURE CO2 131.7 mmHg (35.0-45.0); ABG pH (ARTERIAL) 7.044 UNITS (7.350-7.450)
[2016-10-17] VITALS (25 sets, daily range): BP systolic 106–136; BP diastolic 55–94; O2SAT 94–99
[2016-10-17 00:40] LABS: ABG BASE EXCESS -0.8 (-2.0-2.0); ABG HCO3 32.2 MEQ/L (22.0-26.0); ABG PARTIAL PRESSURE O2 101.5 mmHg (75.0-100.0); ABG STANDARD HCO3 23.8 MEQ/L (22.0-26.0); ABG TOTAL CO2 35.7 MEQ/L (22.0-29.0)
[2016-10-17 00:41] LABS: ABG PARTIAL PRESSURE CO2 112.5 mmHg (35.0-45.0); ABG pH (ARTERIAL) 7.075 UNITS (7.350-7.450)
[2016-10-17] MEDS: D5W IV SCH ×6 (01:51→20:49)
[2016-10-17] MEDS: PENICILLIN POTASSIUM MU IV SCH ×6 (01:51→20:49)
[2016-10-17 01:59] LABS: ABG BASE EXCESS -2.7 (-2.0-2.0); ABG HCO3 29.2 MEQ/L (22.0-26.0); ABG PARTIAL PRESSURE O2 105.3 mmHg (75.0-100.0); ABG STANDARD HCO3 22.2 MEQ/L (22.0-26.0); ABG TOTAL CO2 32.2 MEQ/L (22.0-29.0)
[2016-10-17] MEDS ORDERED: NALOXONE INJ 0.4 MG/1 ML VIAL (J2310) IV STA (02:02)
[2016-10-17 02:03] LABS: ABG PARTIAL PRESSURE CO2 96.3 mmHg (35.0-45.0)
--- NOTE | 2016-10-17 03:09 | CCN ---
DATE: 10/17/2016 CRITICAL CARE TIME: 1 hour; this excludes all procedures. I was urgently called to the patient's bedside for hypercapnic respiratory failure. When I arrived, the patient had already been placed on bilevel noninvasive therapy after being found in rapid assessment. She received Narcan which improved her mental status. Apparently, she had received frequent Percocet over the past four hours. She is a patient with known stage IV COPD with chronic hypoxic respiratory failure. Her last FEV1 measured was less than 20% of predicted. Her story starts back in early October where she had a headache. Apparently, she had an occipital block performed by Dr. Kearney, and now there is some concern of infectious meningitis versus pseudotumor cerebri. She was found in her room apneic and cyanotic. Narcan caused her to arouse; however, she had a significant respiratory acidosis. She was placed on bilevel noninvasive and I was called for management. Since that time, her pCO2 has been trending down. On my arrival, she is able to attempt to speak through the mask. She opens her eyes to voice commands. Her respiratory rate is approximately 20-22. She is having occasional apneic events on the bilevel; however, there is a backup rate set at nine. Currently at an inspiratory pressure of 20. Her tidal volumes are 315. At bedside I increased her inspiratory pressure to 26, which increased her tidal volumes to the high 400, low 500 range. Repeat blood gas continued to show improvement in her pCO2 despite significant acidosis. PHYSICAL EXAMINATION: VITAL SIGNS: Temperature is 97.6, pulse is 98, respiratory rate is 20, oxygen saturation is 94% on 0.50 FIO2 with a blood pressure of 106/69. GENERAL: The patient is lethargic, but arouses to voice. Has BiPAP in place without significant air leak. HEENT: Sclerae clear. Mucous membranes are moist without lesions. NECK: Supple. No evidence of elevated JVP. CARDIAC: Distant S1-S2 without audible murmur, rub or gallop. PMI is difficult to palpate. PULMONARY: Decreased breath sounds throughout both lung velasquez with decreased air entry. ABDOMEN: Obese, soft, nontender, nondistended. No hepatosplenomegaly. No discernible masses or hernia. EXTREMITIES: No cyanosis or clubbing. No significant edema. SKIN: Pale without rash, jaundice or bruising. NEUROLOGIC: No evidence of unilateral weakness or tremor. MUSCULOSKELETAL: Fairly well developed for stated age. No evidence of joint effusion or fracture. LABORATORY EVALUATION: Initial blood gas shows a pH of 6.9, pCO2 of 152, PaO2 of 174. Most recent arterial blood gas at 1:58 a.m. shows a pH of 7.10, pCO2 down to 96.3 with a PaO2 of 105. Chemistry panel from 20:53 on 10/16/2016, shows a sodium 143, potassium 4.7, chloride 108, bicarb of 33, BUN of 19, creatinine 0.86 with a glucose of 151, calcium of 8.8 and an elevated ammonia level of 63. Of note, the ammonia was not on ice and may be artificially elevated. A chest x-ray shows volume loss on the right with increased infiltrate significantly different from September 09. IMPRESSION: Acute hypercarbic hypoxic respiratory failure likely secondary to narcotic administration i the face of end-stage lung disease. There are abnormal chest x-ray findings that were not present a month ago. The findings are unilateral suggesting aspiration pneumonitis versus pneumonia. Would continue to monitor for signs of sepsis and add antibiotic therapy if the patient starts to have additional sepsis. I believe she is clinically improving on bilevel, but has a high risk of intubation. Therefore, she will be closely monitored in the intensive care unit. Will have a repeat blood gas in the morning and monitor for any signs of worsening mentation. I did give additional Narcan as I suspect the Narcan that she previously received started to wear off.
[2016-10-17 04:34] LABS: MEAN CORPUSCULAR HEMOGLOBIN 29.1 pg (27.0-33.0); MEAN CORPUSCULAR HGB CONC 30.8 g/dl (32.0-36.5); MEAN CORPUSCULAR VOLUME 94.5 fl (80.0-96.0); RED CELL DISTRIBUTION WIDTH 14.2 % (11.5-14.5); WHITE BLOOD COUNT 10.7 K/mm3 (4.0-10.0)
[2016-10-17 04:56] LABS: ANION GAP 5 MEQ/L (8-16); BLOOD UREA NITROGEN 20 MG/DL (7-18); CALCIUM LEVEL 8.7 MG/DL (8.5-10.1); CARBON DIOXIDE LEVEL 30 MEQ/L (21-32); CHLORIDE LEVEL 108 MEQ/L (98-107); CREATININE FOR GFR 0.72 MG/DL (0.55-1.02); GLOMERULAR FILTRATION RATE > 60.0 (>51); GLUCOSE, FASTING 123 MG/DL (70-105); SODIUM LEVEL 143 MEQ/L (136-145)
[2016-10-17] MEDS: LEVOTHYROXINE 0.112 MG TAB (112 MCG) PO SCH (05:12)
[2016-10-17 05:38] LABS: ABG BASE EXCESS -2.8 (-2.0-2.0); ABG HCO3 27.6 MEQ/L (22.0-26.0); ABG PARTIAL PRESSURE O2 95.4 mmHg (75.0-100.0); ABG STANDARD HCO3 22.2 MEQ/L (22.0-26.0)
[2016-10-17 05:42] LABS: ABG PARTIAL PRESSURE CO2 78.9 mmHg (35.0-45.0); ABG pH (ARTERIAL) 7.161 UNITS (7.350-7.450)
[2016-10-17] MEDS ORDERED: LACTULOSE 20 GM/30 ML SYRUP UD PO SCH (06:00)
[2016-10-17] MEDS: BUDESONIDE 0.5 MG/2 ML INHALATION SUSPENSION INH SCH ×2 (07:14→20:00)
[2016-10-17 09:23] LABS: INR 1.07
[2016-10-17 09:24] LABS: ALBUMIN 3.1 GM/DL (3.2-5.2); ALBUMIN/GLOBULIN RATIO 1.11 (1.00-1.93); ALKALINE PHOSPHATASE 69 U/L (45-117); ALT/SGPT 18 U/L (12-78); AST/SGOT 8 U/L (15-37); BILIRUBIN,DIRECT < 0.1 MG/DL (0.0-0.2); BILIRUBIN,TOTAL 0.2 MG/DL (0.2-1.0); TOTAL PROTEIN 5.9 GM/DL (6.4-8.2)
--- NOTE | 2016-10-17 09:44 | IPN ---
DATE: 10/17/2016 SUBJECTIVE: This morning, the patient tells me that she has a little bit of a headache but otherwise, she does not have other complaints. She tells me she is breathing more easily. She is oriented to person and to place, but not to time or situation. She does not remember the events of yesterday evening. OBJECTIVE: VITAL SIGNS: Temperature 98.2, pulse 103, respiratory rate 20, blood pressure (BP) 112/61, oxygen saturation 96% on 40% full face bilevel positive airway pressure (BiPAP). GENERAL: She is an obese, female, laying in bed at a 30 degree angle. She is accompanied by her daughter. The patient does not appear to be in any acute distress. She is awake, alert, spontaneously moving all four extremities. HEENT: No appreciable elevation in central venous pressure. She has dry mucous membranes. CARDIOVASCULAR EXAMINATION: S1, S2. She is mildly tachycardic. RESPIRATORY EXAMINATION: She has a prolonged expiratory phase with poor air movement. ABDOMINAL EXAMINATION: Bowel sounds present. The abdomen is soft. It is obese. EXTREMITIES: No clubbing, cyanosis or edema. LABORATORY STUDIES: WBC 10.7, hemoglobin 11.9, hematocrit 38.6, platelet count 253. Chemistry panel: Sodium 143, potassium 4.0, chloride 108, bicarbonate 30, BUN 20, creatinine 0.7. TSH within normal limits and ammonia is elevated at 63, twice the upper limit of normal. Most recent arterial blood gas revealed a pH of 7.1, a pCO2 of 78.9, it has improved significantly from 152, and a pO2 of 95.4. NEW IMAGING: The patient has a chest x-ray, portable study, the report for which is currently pending. ASSESSMENT AND PLAN: This is a 56-year-old female with acute on chronic hypercapnic respiratory failure in the setting of chronic headache. PROBLEMS: 1. Acute on chronic hypercapnic respiratory faiure. The patient has been seen by Dr. Henry. Yesterday evening, the patient was reportedly more confused and lethargic. A rapid assessment was called. The current thought process that this may have been an adverse event secondary to narcotic administration. The patient did receive four Percocet yesterday evening. Curiously the day before that the patient did receive 10 mg of intravenous (IV) morphine and tolerated it without change in her respiratory status. I am concerned that acetazolamide being used to treat possible pseudo tumor cerebri has negated her compensatory metabolic acidosis which she relies on as a chronic CO2 retainer. The patient was seen and evaluated by a neurology yesterday evening. They appreciated asterixis on her exam given that she does have an elevated ammonia we will check international normalized ratio (INR) and liver function tests. There is no history of liver disease but I will start her on lactulose for possible hepatic encephalopathy as well. 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 As per Dr. Green's recommendations, the patient has a known very tenuous respiratory status and last month was once again in the medical intensive care unit on BiPAP. I did have a chance to speak with the patient's daughter, who is at beside, at length. I explained to her what has transpired and the potential influence medications made in this given that she has had these severe headache symptoms and has explored such a wide variety of treatment options thus far. She understands that previous surgeries, abdominal surgeries have been deferred due to her poor respiratory status that she may be difficult to wean from the ventilator. At this time, we will continue with BiPAP and will continue this as long as possible. At the present time, she does appear to be improving, although quite slowly. Dr. Henry also had concern that there may be aspiration pneumonitis versus pneumonia, which may be playing a role in her decompensation of respiratory status as well. For the time being, she is on penicillin for syphillis and I will add Moxifloxacin to cover possible Aspiration PNA. We will monitor her closely. Also, please note the patient is continued on Advair, Atrovent, Pulmicort. 2. Chronic headache. As outlined above, the patient is currently on treatment for tabes dorsalis. She has had extensive treatment explored in the past. She is also on zonisamide, Diamox. 3. Neuropathy. The patient is on Neurontin. 4. Hypertension. She is on diltiazem. 5. Gastroesophageal reflux disease. She is on Protonix. 6. Mood disorder. The patient is on Paxil. 7. Hypothyroidism. She is on Synthroid. 8. Deep venous thrombosis (DVT) prophylaxis. She is on heparin. DISPOSITION: Given her poor respiratory status, her prognosis is guarded as it was 1 month ago when she was in a similar situation. [facility]
[2016-10-17] MEDS: MOXIFLOXACIN HCL 400 MG in APPROPRIATE DILUENT 1 EA IV SCH (10:00)
[2016-10-17 10:35] LABS: ABG BASE EXCESS -2.4 (-2.0-2.0); ABG HCO3 26.3 MEQ/L (22.0-26.0); ABG PARTIAL PRESSURE O2 96.5 mmHg (75.0-100.0); ABG STANDARD HCO3 22.5 MEQ/L (22.0-26.0); ABG TOTAL CO2 28.4 MEQ/L (22.0-29.0)
[2016-10-17 10:38] LABS: ABG pH (ARTERIAL) 7.219 UNITS (7.350-7.450)
[2016-10-17] MEDS: ZONISAMIDE 25 MG CAP (ZONEGRAN) PO SCH ×2 (10:51→20:48)
[2016-10-17] MEDS: HEPARIN SOD (PORCINE) 5000 UNITS/ML VIAL SQ SCH ×2 (10:51→20:49)
[2016-10-17] MEDS: PANTOPRAZOLE 40MG INJ (PROTONIX) (C9113) IV SCH (10:51)
[2016-10-17] MEDS: GABAPENTIN 300 MG CAP PO SCH ×2 (10:52→20:49)
[2016-10-17] MEDS: VITAMIN D 1,000 INTERNATIONAL UNITS TABLET PO SCH (10:52)
[2016-10-17] MEDS: MULTIVITAMINS/MINERALS THERAP 1 TAB PO SCH (10:53)
--- NOTE | 2016-10-17 11:12 | REP ---
AP PORTABLE CHEST: 10/16/2016. Comparison: 09/09/2016, 09/08/2016. Clinical history: Congestion. Lungs less well inflated than on the previous study. There are perihilar and infrahilar right base infiltrates. There is vascular congestion with venous hypertension noted. There is no left effusion . A small right effusion may be suspected. Heart size mildly prominent. The aorta is without aneurysm and normal for age. Airway midline. Impression: 1. Perihilar and right base infiltrates, new compared to previous studies with probable right effusion. 2. Prominent cardiac silhouette with venous hypertension. No dennis edema. Signed by Christiano Garcia MD 10/17/2016 07:11 P
--- NOTE | 2016-10-17 11:13 | REP ---
AP PORTABLE CHEST: 10/17/2016. Comparison: 10/16/2016, 09/09/2016. Clinical history: Dyspnea, infiltrates. Findings: There is improvement in the vascular congestion compared to last evening's study. The perihilar atelectasis or infiltrates are improved and there is also improvement in the right base infiltrate but still some infiltrate or atelectasis in the right lower lobe with a right effusion. Venous hypertension is diminished. Heart size unchanged. Left lung remains clear. No other changes. Signed by Christiano Garcia MD 10/17/2016 07:11 P
--- NOTE | 2016-10-17 12:48 | REP ---
CT BRAIN WITHOUT CONTRAST: 10/17/2016. Comparison: MRV brain 10/08/2016, MRI MRA 07/21/2016. Clinical history: Altered mental status. Previous exam indicated history of pseudotumor cerebri. Findings: Axial noncontrast images show ventricles midline with the lateral ventricles symmetric and thin. There is no displacement. Basal ganglia symmetric and normal. Duffy white junction differentiation well maintained. Cortical stripe is preserved. There is no intra or extra-axial hemorrhage. There is no mass, mass effect or edema. Posterior fossa shows the brainstem without acute finding. The cerebellum without atrophy or mass. Basal cisterns are thinned and there appears to be some cerebellar tonsillar ectopia which is not seen on the MRI on 07/21/2016. Mastoids and visualized sinuses were intact. The calvarium skull base show no fracture or focal lesion. Impression: 1. 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 This combined with new cerebellar tonsillar ectopia may reflect some idiopathic intracranial hypertension (pseudotumor cerebri). There is no visible mass. The duffy-white junction differentiation well maintained. The third ventricle is slit-like. No other significant or acute finding. Signed by Christiano Garcia MD 10/17/2016 07:19 P
[2016-10-17 15:45] LABS: ABG BASE EXCESS 2.3 (-2.0-2.0); ABG HCO3 30.8 MEQ/L (22.0-26.0); ABG PARTIAL PRESSURE CO2 69.5 mmHg (35.0-45.0); ABG PARTIAL PRESSURE O2 106.1 mmHg (75.0-100.0); ABG STANDARD HCO3 26.5 MEQ/L (22.0-26.0); ABG pH (ARTERIAL) 7.265 UNITS (7.350-7.450)
[2016-10-17] MEDS ORDERED: MANNITOL 20% 100GM/500 ML BAG IV ONE (19:00)
[2016-10-17] MEDS: PARoxetine 10MG TABLET PO SCH (20:48)
[2016-10-17] MEDS: ADVAIR DISKUS 250/50 INH PWD INH SCH ×2 (21:45→22:30)
[2016-10-18] VITALS (12 sets, daily range): BP systolic 91–135; BP diastolic 57–86
[2016-10-18] MEDS: D5W IV SCH ×6 (02:01→20:52)
[2016-10-18] MEDS: PENICILLIN POTASSIUM MU IV SCH ×6 (02:01→20:52)
[2016-10-18] MEDS: IBUPROFEN 600 MG TAB PO PRN ×3 (04:38→18:37)
[2016-10-18 04:54] LABS: MEAN CORPUSCULAR HEMOGLOBIN 29.4 pg (27.0-33.0); MEAN CORPUSCULAR HGB CONC 32.5 g/dl (32.0-36.5); MEAN CORPUSCULAR VOLUME 90.6 fl (80.0-96.0); RED CELL DISTRIBUTION WIDTH 13.8 % (11.5-14.5)
[2016-10-18] MEDS: LEVOTHYROXINE 0.112 MG TAB (112 MCG) PO SCH (05:00)
[2016-10-18 05:24] LABS: ANION GAP 6 MEQ/L (8-16); BLOOD UREA NITROGEN 13 MG/DL (7-18); CALCIUM LEVEL 8.8 MG/DL (8.5-10.1); CARBON DIOXIDE LEVEL 30 MEQ/L (21-32); CHLORIDE LEVEL 109 MEQ/L (98-107); CREATININE FOR GFR 0.59 MG/DL (0.55-1.02); GLOMERULAR FILTRATION RATE > 60.0 (>51); GLUCOSE, FASTING 84 MG/DL (70-105); POTASSIUM SERUM 3.6 MEQ/L (3.5-5.1); SODIUM LEVEL 145 MEQ/L (136-145)
[2016-10-18 05:30] LABS: OSMOLALITY SERUM 293 MOSM/KG (275-295)
[2016-10-18 07:15] LABS: ABG BASE EXCESS 1.6 (-2.0-2.0); ABG HCO3 27.5 MEQ/L (22.0-26.0); ABG PARTIAL PRESSURE CO2 48.6 mmHg (35.0-45.0); ABG PARTIAL PRESSURE O2 115.1 mmHg (75.0-100.0); ABG STANDARD HCO3 25.9 MEQ/L (22.0-26.0)
[2016-10-18] MEDS ORDERED: NALOXONE INJ 0.4 MG/1 ML VIAL (J2310) ONE (07:43)
[2016-10-18] MEDS: BUDESONIDE 0.5 MG/2 ML INHALATION SUSPENSION INH SCH ×2 (07:47→20:40)
[2016-10-18] MEDS: ADVAIR DISKUS 250/50 INH PWD INH SCH ×2 (08:11→20:40)
[2016-10-18] MEDS: ZONISAMIDE 25 MG CAP (ZONEGRAN) PO SCH ×2 (08:16→20:51)
[2016-10-18] MEDS: VITAMIN D 1,000 INTERNATIONAL UNITS TABLET PO SCH (08:16)
[2016-10-18] MEDS: GABAPENTIN 300 MG CAP PO SCH ×2 (08:17→20:51)
[2016-10-18] MEDS: PANTOPRAZOLE 40MG INJ (PROTONIX) (C9113) IV SCH (08:17)
[2016-10-18] MEDS: MULTIVITAMINS/MINERALS THERAP 1 TAB PO SCH (08:17)
[2016-10-18] MEDS: HEPARIN SOD (PORCINE) 5000 UNITS/ML VIAL SQ SCH ×2 (08:18→20:51)
[2016-10-18] MEDS: MOXIFLOXACIN HCL 400 MG in APPROPRIATE DILUENT 1 EA IV SCH (10:03)
--- NOTE | 2016-10-18 10:05 | IPN ---
DATE: 10/18/2016 SUBJECTIVE: Today, the patient tells me she is feeling better. She tells me that she has on a little bit of a headache, but no significant vergara. She denies chest pain, shortness of breath, fever, chills, nausea, vomiting or diarrhea. She does complain that she does not like wearing the BiPAP mask. OBJECTIVE: VITAL SIGNS: Temperature 99.2, T-max 99.4, pulse 99, respiratory rate 18, blood pressure 116/74, oxygen saturation 97% on 40% BiPAP. GENERAL: She is an obese, female, laying in bed at a 20 degree angle. She is accompanied by her daughter. The patient does not appear to be in any acute distress. HEENT: Cranial nerves II through XII are grossly intact. She has dry mucous membranes. No elevation in central venous pressure. CARDIOVASCULAR EXAMINATION: S1 and S2 regular. RESPIRATORY EXAMINATION: Fairly clear anteriorly. Some diffuse rhonchi. Transmitted upper airway sounds. ABDOMINAL EXAMINATION: Obese. Bowel sounds present. The abdomen is soft. EXTREMITIES: No clubbing, cyanosis or edema. LABORATORY STUDIES: WBC 7.0, hemoglobin 11.4, hematocrit 35.1, platelet count 228. Chemistry panel: Sodium 145, potassium 3.6, chloride 109, bicarbonate 30, BUN 13, creatinine 0.5. Arterial blood gas reveals a pH of 7.3, a pCO2 of 48.6, pO2 of 115.1. Her CSF-VDRL is currently pending. Treponema pallidum antibody is also pending. Microbiology: Methicillin-resistant Staphylococcus aureus (MRSA) screen of the nares is negative. Blood cultures from 10/14 are negative. IMAGING: The patient did have a CT scan yesterday, which revealed quadrigeminal plate cisterns being thinned and decreased in size. New cerebellar tonsillar ectopia. No visible mass. Duffy and white junction differentiation well maintained. Third ventricle is slit like. ASSESSMENT AND PLAN: This is a 56-year-old female with acute on chronic hypercapnic respiratory failure. PROBLEMS: 1. Acute on chronic hypercapnic respiratory failure. Dr. Henry help is greatly appreciated. The patient was recently admitted to the medical intensive care unit for noninvasive mechanical ventilation last month. While on the medical floor she became lethargic and obtunded, and found to be in acute on chronic hypercapnic respiratory failure, warranting transfer down to the medical intensive care unit. On BiPAP, she has been very slow to improve. Initially there was some concern that it may have been secondary to narcotic administration, however the patient had previously tolerated 10 mg of IV morphine without issue and did not respond appropriate with Narcan. On review of her laboratory data, her serum bicarb is normally closer to 40, however she has been on acetazolamide recently for possible pseudotumor cerebri, which has likely removed her body's ability to compensate metabolic alkalosis, likely predisposing her to respiratory decompensation given her chronic CO2 retention. At the present time, the patient continue to improve with BiPAP. There is also concern for a possible aspiration event worsening her respiratory status as well and as such, she has been started on moxifloxacin. The patient does have a history of poor respiratory status and was declined for a cholecystectomy in the recent past secondary to her poor respiratory status and the suspicion is that she would never be able to be weaned from a ventilator. I did speak with the patient who is awake, alert and oriented times three and of the situation at this time. Her daughter is at bedside. She does tell me she is interested in being DNR/DNI and not being put back onto the BiPAP mask, should she need it in the future again, but she is not prepared to sign a Medical Order for Life-Sustaining Treatment (MOLST) form. I have left it with them for them read and review. The patient is continued on Advair, Atrovent and Pulmicort. 2. Chronic headache. 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 Dr. Green's help is greatly appreciated. We are currently awaiting confirmatory tests. I did discuss with Dr. Kearney yesterday at length. He feels that this is a potential diagnosis to explain her symptoms. He does not feel as thought she is a good candidate for a [employer] shunt placement given her poor respiratory status. She has been taken off of Diamox. She is continued on zonisamide. Once her respiratory status improved and she is able to be weaned from the BiPAP, if her headache does return, could consider high volume lumbar puncture. 3. Neuropathy. The patient is on Neurontin. 4. Hypertension. She is on diltiazem. 5. Gastroesophageal reflux disease. She is on Protonix. 6. Mood disorder. The patient is on Paxil. 7. Hypothyroidism. She is on Synthroid. 8. Deep venous thrombosis (DVT) prophylaxis. She is on heparin. DISPOSITION: Guarded, although the patient does appear to be improved today.
[2016-10-18] MEDS: ALBUTEROL SULFATE 2.5 MG/0.5 ML INH NEB SOLN NEB SCH ×4 (10:08→20:40)
--- NOTE | 2016-10-18 10:13 | REP ---
CT HEAD WITHOUT CONTRAST: HISTORY: Altered mental status. COMPARISON: 10/17/2016 There is no intraparenchymal hemorrhage, mass, or midline shift. The basal cisterns and ventricular system are again noted to be decreased in size, unchanged compared to the previous study. There is no extracerebral collection. 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 The visualized sinuses are clear. IMPRESSION: The basal cisterns and ventricular system are decreased in size, unchanged compared to the previous study. 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 These findings may be secondary to idiopathic intracranial hypotension. MR of the brain may be helpful for further evaluation. Signed by Justino Garcia MD 10/18/2016 10:14 A
[2016-10-18 11:09] LABS: ABG BASE EXCESS 0.6 (-2.0-2.0); ABG HCO3 26.8 MEQ/L (22.0-26.0); ABG PARTIAL PRESSURE CO2 49.9 mmHg (35.0-45.0); ABG PARTIAL PRESSURE O2 71.5 mmHg (75.0-100.0); ABG TOTAL CO2 28.3 MEQ/L (22.0-29.0); ABG pH (ARTERIAL) 7.348 UNITS (7.350-7.450)
[2016-10-18] MEDS: PARoxetine 10MG TABLET PO SCH (20:51)
--- NOTE | 2016-10-18 23:26 | IPN ---
DATE: 10/18/2016 Mrs. Freeman seems to be stable today. She had a respiratory depression with mental status changes on the weekend which required intensive care unit (ICU) transfer. She was on bilevel positive airway pressure (BiPAP). Currently is doing much better on oxygen 2 liters nasal cannula. Temperature is 97.2, pulse 101, respirations 18, blood pressure 124/85, oxygen saturation 97% on 2 liters nasal cannula. Maximum temperature (T max) today was 99.3. Heart: Normal S1, S2. No murmurs. Lungs: Diminished air entry, a few expiratory wheezes bilaterally. Abdomen is soft, nontender. Extremities: No edema. Neck is supple. No stiffness. No jugular venous distention (JVD). White count is 7, hemoglobin 11.4, hematocrit 35.1, platelets 228. Sodium 145, potassium 3.6, chloride 109, bicarbonate 30, BUN 13, creatinine 0.59. Lyme serology was all negative. CSF VDRL is still pending. Syphilis antibody was positive but confirmation is still pending. Blood cultures are negative after 72 hours. MRSA screen is negative. Head CT done on 10/18/2016 shows no intraparenchymal hemorrhage, mass or midline shift. Basal cistern and ventricular system are decreased in size unchanged from previous study. There appears to be cerebellar tonsillar ectopia possibly due to intracranial hypertension. IMPRESSION: 1. Aseptic meningitis with elevated total protein and cerebrospinal fluid (CSF) pleocytosis with a predominance of lymphocytes. The patient is currently being treated for neurosyphilis. Syphilis antibodies are positive. VDRL and confirmatory testing with RPR is still pending. 2. Elevated intracranial pressure. Differential diagnosis could be related to syphilis versus just pseudotumor cerebri. The patient has deteriorated after she was started on Diamox due to respiratory failure and, therefore, this has been discontinued. Headaches have improved anyway. 3. Chronic respiratory failure, oxygen dependent. The patient only quit smoking about a couple months ago even though she has been on oxygen for over 4 years. PLAN: Continue with IV penicillin 4,000,000 units every 4 hours. I am still awaiting VDRL and RPR for confirmatory testing, but I probably will treat her for a total of 14 days as I am still concerned about the possibility of neurosyphilis even if her VDRL will come back negative. We will schedule for peripherally inserted central catheter (PICC) line placement for tomorrow. MTDD
[2016-10-19] VITALS (7 sets, daily range): BP systolic 114–145; BP diastolic 75–94; O2SAT 95
[2016-10-19] MEDS: IBUPROFEN 600 MG TAB PO PRN ×4 (00:30→19:34)
[2016-10-19] MEDS: D5W IV SCH ×6 (00:30→21:44)
[2016-10-19] MEDS: PENICILLIN POTASSIUM MU IV SCH ×6 (00:30→21:44)
[2016-10-19 04:38] LABS: MEAN CORPUSCULAR HEMOGLOBIN 29.5 pg (27.0-33.0); MEAN CORPUSCULAR HGB CONC 32.6 g/dl (32.0-36.5); MEAN CORPUSCULAR VOLUME 90.6 fl (80.0-96.0); RED CELL DISTRIBUTION WIDTH 13.8 % (11.5-14.5); WHITE BLOOD COUNT 6.2 K/mm3 (4.0-10.0)
[2016-10-19 05:08] LABS: ANION GAP 8 MEQ/L (8-16); BLOOD UREA NITROGEN 14 MG/DL (7-18); CALCIUM LEVEL 8.6 MG/DL (8.5-10.1); CARBON DIOXIDE LEVEL 29 MEQ/L (21-32); CHLORIDE LEVEL 110 MEQ/L (98-107); CREATININE FOR GFR 0.57 MG/DL (0.55-1.02); GLOMERULAR FILTRATION RATE > 60.0 (>51); GLUCOSE, FASTING 90 MG/DL (70-105); POTASSIUM SERUM 3.7 MEQ/L (3.5-5.1); SODIUM LEVEL 147 MEQ/L (136-145)
[2016-10-19] MEDS: MOXIFLOXACIN 400 MG TAB PO SCH (05:44)
[2016-10-19] MEDS: LEVOTHYROXINE 0.112 MG TAB (112 MCG) PO SCH (05:44)
[2016-10-19] MEDS: ADVAIR DISKUS 250/50 INH PWD INH SCH ×2 (07:19→20:01)
[2016-10-19] MEDS: BUDESONIDE 0.5 MG/2 ML INHALATION SUSPENSION INH SCH ×2 (07:19→20:01)
[2016-10-19] MEDS: ALBUTEROL SULFATE 2.5 MG/0.5 ML INH NEB SOLN NEB SCH ×4 (07:19→20:01)
[2016-10-19] MEDS: ZONISAMIDE 25 MG CAP (ZONEGRAN) PO SCH ×2 (08:20→21:44)
[2016-10-19] MEDS: VITAMIN D 1,000 INTERNATIONAL UNITS TABLET PO SCH (08:21)
[2016-10-19] MEDS: MULTIVITAMINS/MINERALS THERAP 1 TAB PO SCH (08:21)
[2016-10-19] MEDS: HEPARIN SOD (PORCINE) 5000 UNITS/ML VIAL SQ SCH ×2 (08:22→21:44)
[2016-10-19] MEDS: GABAPENTIN 300 MG CAP PO SCH ×2 (08:22→21:43)
[2016-10-19] MEDS: PANTOPRAZOLE 40MG INJ (PROTONIX) (C9113) IV SCH (08:28)
[2016-10-19] MEDS ORDERED: SLF 3 ML SYR IV PRN (15:45)
--- NOTE | 2016-10-19 17:08 | IPN ---
DATE: 10/19/2016 Patient is seen and examined. No acute events overnight. Reported feeling better with only minimal headache. No significant change. Denies any chest pain, pressure or discomfort. Denies any shortness of breath, fevers, chills, nausea, vomiting, or diarrhea. VITAL SIGNS: Temperature 98.4, pulse 101, respiratory rate 20, blood pressure 136/81, pulse oximetry 93% on two liters nasal cannula. LABORATORY DATA: WBC 6.2, hemoglobin and hematocrit 11/33.7, platelets 232. Chemistry: Sodium 147, potassium 3.7, chloride 110, bicarbonate 29, BUN 14, creatinine 0.57. PHYSICAL EXAMINATION: GENERAL: Patient obese, comfortable, alert and oriented times three. HEENT: Normocephalic, atraumatic. NEUROLOGIC: Cranial nerves II-XII grossly intact. CARDIAC: Regular rate and rhythm with normal S1, S2. PULMONARY: Bilaterally clear to auscultation. ABDOMEN: Obese, soft, nontender. Positive bowel sounds. EXTREMITIES: No clubbing, cyanosis, or edema. ASSESSMENT AND PLAN: This is a 56-year-old female patient with underlying medical history of chronic obstructive pulmonary disease (COPD) on two liters of oxygen at home, hypertension, hypothyroidism, gastroesophageal reflux disease (GERD), initially admitted for headache, found to have possibly neurosyphilis. Hospital course complicated with acute on chronic hypercarbic respiratory failure. 1. Acute on chronic hypercarbic respiratory failure. Pulmonology, Dr. Henry, has been consulted. Initially admitted to intensive care unit (ICU) for bilevel positive airway pressure (BiPAP). Patient was lethargic and obtunded on the floor due to acute on chronic respiratory failure. Subsequently transferred to ICU for BiPAP which patient improved. It is thought that her symptoms are possibly due to narcotics but patient did not respond appropriately to Narcan. Possibly also due to acetazolamide for pseudotumor cerebri which potentially eliminated the body's ability to compensate for respiratory acidosis, predisposed to worsening hypercarbic respiratory failure. Patient's respiratory status improved with BiPAP, currently off BiPAP. Patient was also started on moxifloxacin for possible aspiration pneumonia. Dr. Bradford had discussed code status with the patient and the patient's daughter. Patient did report interest of being DO NOT RESUSCITATE (DNR)/DO NOT INTUBATE (DNI) but is not yet ready to sign the medical orders for life-sustaining treatment (MOLST) form. Copy of the form has been given to the patient. Continue Advair, Atrovent, and Pulmicort. Continue to monitor respiratory status. Avoid opioids as much as possible. 2. Chronic headache. Patient currently on treatment with penicillin for suspected neurosyphilis. Infectious disease, Dr. Green, has been consulted. Currently awaiting confirmatory cerebrospinal fluid (CSF) studies from [place]. Case discussed with Dr. Kearney. Neurosurgery has been consulted who feel that possible explanation of headache is due to neurosyphilis, but Dr. Kearney does not feel that the patient is a good candidate for ventriculoperitoneal (INDUSTRIAL SALES ENGINEER) shunt. Patient is not a good candidate for INDUSTRIAL SALES ENGINEER shunt placement given her poor respiratory status and history of complication from procedures with worsening respiratory status. Patient currently is off Diamox. Continue zonisamide. If headache worsens, we will consider high-volume lumbar puncture and we will further discuss with Dr. Kearney, but currently headache has improved and only minimal. Continue medication for pain. 3. Neuropathy. Continue Neurontin. 4. Hypertension. Continue diltiazem. 5. GERD. Continue proton pump inhibitor (PPI). 6. Mood disorder. Continue Paxil. 7. Hypothyroidism. Continue Synthroid. 8. Deep vein thrombosis (DVT) prophylaxis. Heparin subcutaneously. DISPOSITION: Pending clinical improvement. We will get a peripherally inserted central catheter (PICC) line placed for likely 14 days of IV antibiotics as per infectious disease. We will get home safety evaluation as well.
[2016-10-19] MEDS: SODIUM CHLORIDE 0.9% INJ 10 ML SYR IV SCH (18:08)
[2016-10-19] MEDS: PARoxetine 10MG TABLET PO SCH (21:43)
[2016-10-19] MEDS: SLF 3 ML SYR IV SCH (21:44)
[2016-10-20] VITALS (8 sets, daily range): BP systolic 122–148; BP diastolic 80–95
[2016-10-20] MEDS: D5W IV SCH ×7 (00:28→23:55)
[2016-10-20] MEDS: PENICILLIN POTASSIUM MU IV SCH ×7 (00:28→23:55)
[2016-10-20] MEDS: ACETAMINOPHEN TAB 650MG DOSE (2X325MG) PO PRN ×5 (00:54→21:22)
[2016-10-20] MEDS: IBUPROFEN 600 MG TAB PO PRN (04:54)
[2016-10-20 05:10] LABS: MEAN CORPUSCULAR HGB CONC 33.6 g/dl (32.0-36.5); MEAN CORPUSCULAR VOLUME 89.3 fl (80.0-96.0); RED CELL DISTRIBUTION WIDTH 13.9 % (11.5-14.5); WHITE BLOOD COUNT 5.9 K/mm3 (4.0-10.0)
[2016-10-20 05:27] LABS: ANION GAP 4 MEQ/L (8-16); BLOOD UREA NITROGEN 13 MG/DL (7-18); CALCIUM LEVEL 9.1 MG/DL (8.5-10.1); CARBON DIOXIDE LEVEL 31 MEQ/L (21-32); CHLORIDE LEVEL 109 MEQ/L (98-107); CREATININE FOR GFR 0.63 MG/DL (0.55-1.02); GLOMERULAR FILTRATION RATE > 60.0 (>51); GLUCOSE, FASTING 88 MG/DL (70-105); POTASSIUM SERUM 3.7 MEQ/L (3.5-5.1); SODIUM LEVEL 144 MEQ/L (136-145)
[2016-10-20] MEDS: LEVOTHYROXINE 0.112 MG TAB (112 MCG) PO SCH (05:56)
[2016-10-20] MEDS: SODIUM CHLORIDE 0.9% INJ 10 ML SYR IV SCH ×2 (05:56→17:13)
[2016-10-20] MEDS: MOXIFLOXACIN 400 MG TAB PO SCH (05:56)
[2016-10-20] MEDS: SLF 3 ML SYR IV SCH ×3 (06:25→21:23)
[2016-10-20] MEDS: HEPARIN SOD (PORCINE) 5000 UNITS/ML VIAL SQ SCH ×2 (09:00→21:22)
[2016-10-20] MEDS: GABAPENTIN 300 MG CAP PO SCH ×2 (09:00→21:22)
[2016-10-20] MEDS: VITAMIN D 1,000 INTERNATIONAL UNITS TABLET PO SCH (09:00)
[2016-10-20] MEDS: ZONISAMIDE 25 MG CAP (ZONEGRAN) PO SCH ×2 (09:00→21:21)
[2016-10-20] MEDS: PANTOPRAZOLE 40MG INJ (PROTONIX) (C9113) IV SCH (09:00)
[2016-10-20] MEDS: ADVAIR DISKUS 250/50 INH PWD INH SCH ×2 (09:00→20:16)
[2016-10-20] MEDS: MULTIVITAMINS/MINERALS THERAP 1 TAB PO SCH (09:00)
[2016-10-20] MEDS: ALBUTEROL SULFATE 2.5 MG/0.5 ML INH NEB SOLN NEB SCH ×4 (10:12→20:16)
[2016-10-20] MEDS: BUDESONIDE 0.5 MG/2 ML INHALATION SUSPENSION INH SCH ×2 (10:12→20:16)
[2016-10-20] MEDS: IPRATROPIUM 0.02% SOLN 0.5MG/2.5 ML NEB INH PRN (11:42)
[2016-10-20] MEDS ORDERED: FLEET ENEMA PR PRN (17:30)
--- NOTE | 2016-10-20 18:03 | IPN ---
DATE: 10/20/2016 Patient is seen and examined. No acute events overnight. Feeling better. Continued to report intermittent minimal headache within tolerable limit. Denies any chest pain, pressure or discomfort. Denies any shortness of breath, fevers, chills, nausea, vomiting, or diarrhea. VITAL SIGNS: Temperature 96.9, pulse 101, respiratory rate 18, blood pressure 144/93, pulse oximetry 92% on two liters nasal cannula. LABORATORY DATA: WBC 5.9, hemoglobin and hematocrit 11.6/34.5, platelets 224. Chemistry: Sodium 144, potassium 3.7, chloride 109, bicarbonate 31, BUN 13, creatinine 0.63, C-reactive protein 0.3. PHYSICAL EXAMINATION: GENERAL: Patient obese, comfortable, alert and oriented times three. HEENT: Normocephalic, atraumatic. NEUROLOGIC: Cranial nerves II-XII grossly intact. No focal deficits. CARDIAC: Regular rate and rhythm with normal S1, S2. PULMONARY: Bilaterally clear to auscultation. ABDOMEN: Soft, nontender. Positive bowel sounds. EXTREMITIES: No clubbing, cyanosis, or edema. ASSESSMENT AND PLAN: This is a 56-year-old female patient with underlying medical history of chronic obstructive pulmonary disease (COPD) on two liters of oxygen at home, hypertension, hypothyroidism, gastroesophageal reflux disease (GERD), initially admitted for headache, found to have positive for neurosyphilis. Hospital course complicated with acute on chronic hypercarbic respiratory failure. 1. Acute on chronic hypercarbic respiratory failure. Pulmonology, Dr. Henry, was initially consulted. Initially transferred to intensive care unit (ICU) for bilevel positive airway pressure (BiPAP) due to patient being lethargic and obtunded on the floor from acute on chronic hypercarbic respiratory failure. Subsequently improved slowly on BiPAP. It is thought that patient's symptoms are possibly due to narcotics but did not respond to Narcan. Also other possibly is patient is receiving acetazolamide for headache possibly due to pseudotumor cerebri which potentially eliminates the body's ability to compensate for respiratory acidosis, predisposing to worsening hypercarbic respiratory failure. Patient's respiratory status currently improved off BiPAP. Continue moxifloxacin for possible aspiration pneumonia. Dr. Bradford has discussed the code status with the patient and family. Currently still not yet ready to sign the paperwork. We will continue to follow. Continue Advair, Atrovent, Pulmicort, and monitor respiratory status. Avoid opioids as much as possible. 2. Chronic headache. Patient currently being treated with penicillin for suspected neurosyphilis. Infectious disease, Dr. Green, consulted. Awaiting confirmatory cerebrospinal fluid (CSF) studies from [place]. Case discussed with Dr. Kearney. Neurosurgeon has been consulted who feel that neurosyphilis is a possible explanation for the patient's headache, but Dr. Kearney does not feel that the patient will be a good candidate for ventriculoperitoneal (LOAN PROCESSOR) shunt due to poor respiratory status and history of complication from other procedures from respiratory decompensation. Patient currently is off Diamox. Continue zonisamide. If headache worsens, we will consider high-volume lumbar puncture and we will further discuss with Dr. Kearney if headache worsens, but currently headache has improved and patient has already received three lumbar punctures during this hospital staty. Continue medication as ordered. 3. Neuropathy. Continue Neurontin. 4. Hypertension. Continue diltiazem. 5. GERD. Continue proton pump inhibitor (PPI). 6. Mood disorder. Continue Paxil. 7. Hypothyroidism. Continue Synthroid. 8. Deep vein thrombosis (DVT) prophylaxis. Heparin subcutaneously. DISPOSITION PLANNING: Peripherally inserted central catheter (PICC) line has been placed. We will discuss with infectious disease in regards to the course of antibiotics, likely patient will need 14 days of IV antibiotics for patient's treatment. Home safety evaluation has been placed.
[2016-10-20] MEDS: PARoxetine 10MG TABLET PO SCH (21:22)
[2016-10-20] MEDS: SODIUM CHLORIDE 0.9% INJ 10 ML SYR IV PRN (21:23)
[2016-10-21] VITALS (10 sets, daily range): BP systolic 117–134; BP diastolic 78–96; O2SAT 93–95
[2016-10-21 00:06] LABS: CSFLYM10 Absent (.); CSFLYM11 Absent (.); CSFLYM12 Negative (.); CSFLYM14 Absent (.); CSFLYM15 Absent (.); CSFLYM16 Absent (.); CSFLYM17 Negative (.); CSFLYM2 Absent (.); CSFLYM3 Absent (.); CSFLYM4 Absent (.); CSFLYM5 Absent (.); CSFLYM6 Absent (.); CSFLYM7 Present (.); CSFLYM8 Absent (.); CSFLYM9 Absent (.)
[2016-10-21] MEDS: SODIUM CHLORIDE 0.9% INJ 10 ML SYR IV PRN (01:10)
[2016-10-21] MEDS: ACETAMINOPHEN TAB 650MG DOSE (2X325MG) PO PRN ×4 (01:10→13:26)
--- NOTE | 2016-10-21 04:57 | IPN ---
DATE: 10/20/2016 Brenda Fortune is feeling much better. Her headache has improved. She would like to go home in the next couple days. She has had no fever or chills. No nausea, vomiting or diarrhea. Breathing is back to baseline on oxygen 2 liters nasal cannula. Oxygen saturation 96%. She still has a throbbing headache, although it does not seem to be as bad. Temperature is 99.2, pulse 94, respirations 18, blood pressure 125/84, oxygen saturation 96% on 2 liters. Heart: Normal S1, S2. No murmurs. Abdomen: Distended. Neck is supple. Extremities: No edema. LABORATORY DATA: White count is 5.9, hemoglobin 11.6, hematocrit 34.5, platelets 224. Sodium 144, potassium 3.7, chloride 109, bicarbonate 31, BUN 13, creatinine 0.6, glucose 88, calcium 9.1, CRP less than 0.3. Lyme disease serology was negative. IMPRESSION: 1. Aseptic meningitis with a positive syphilis antibody on serum, but negative VDRL on cerebrospinal fluid (CSF), but the fact that the patient has elevated white cells in the CSF and total protein, the patient is being treated for presumptive neurosyphilis with intravenous (IV) penicillin. The patient is currently day #6 out of 14 days. The patient has a peripherally inserted central catheter (PICC) line in anticipation of discharge. 2. Elevated intracranial pressure, possible pseudotumor cerebri. The patient had two lumbar punctures and is being evaluated for one more lumbar puncture before discharge. 3. Chronic obstructive pulmonary disease (COPD), oxygen dependent on 2 liters nasal cannula, back to baseline. PLAN: Continue IV penicillin 24 million units for a total of 14 days. End of treatment would be 10/29. Please consult advance care for home IV antibiotic. Her sister and [id number] would be helping her with home IV infusion.
[2016-10-21] MEDS: LEVOTHYROXINE 0.112 MG TAB (112 MCG) PO SCH (05:12)
[2016-10-21] MEDS: MOXIFLOXACIN 400 MG TAB PO SCH (05:12)
[2016-10-21] MEDS: SLF 3 ML SYR IV SCH ×3 (05:13→21:21)
[2016-10-21] MEDS: PENICILLIN POTASSIUM MU IV SCH ×5 (05:13→21:20)
[2016-10-21] MEDS: D5W IV SCH ×5 (05:13→21:20)
[2016-10-21] MEDS: SODIUM CHLORIDE 0.9% INJ 10 ML SYR IV SCH ×2 (05:13→16:26)
[2016-10-21 05:33] LABS: MEAN CORPUSCULAR HEMOGLOBIN 29.9 pg (27.0-33.0); MEAN CORPUSCULAR VOLUME 90.6 fl (80.0-96.0); RED CELL DISTRIBUTION WIDTH 14.3 % (11.5-14.5); WHITE BLOOD COUNT 7.4 K/mm3 (4.0-10.0)
[2016-10-21 05:46] LABS: ANION GAP 4 MEQ/L (8-16); BLOOD UREA NITROGEN 14 MG/DL (7-18); CALCIUM LEVEL 9.3 MG/DL (8.5-10.1); CARBON DIOXIDE LEVEL 35 MEQ/L (21-32); CHLORIDE LEVEL 105 MEQ/L (98-107); CREATININE FOR GFR 0.73 MG/DL (0.55-1.02); GLOMERULAR FILTRATION RATE > 60.0 (>51); GLUCOSE, FASTING 84 MG/DL (70-105); POTASSIUM SERUM 4.1 MEQ/L (3.5-5.1); SODIUM LEVEL 144 MEQ/L (136-145)
[2016-10-21] MEDS: BUDESONIDE 0.5 MG/2 ML INHALATION SUSPENSION INH SCH ×2 (07:35→21:09)
[2016-10-21] MEDS: ALBUTEROL SULFATE 2.5 MG/0.5 ML INH NEB SOLN NEB SCH ×4 (07:35→21:09)
[2016-10-21] MEDS: ADVAIR DISKUS 250/50 INH PWD INH SCH ×2 (07:35→21:09)
[2016-10-21] MEDS: ZONISAMIDE 25 MG CAP (ZONEGRAN) PO SCH ×2 (09:08→21:19)
[2016-10-21] MEDS: MULTIVITAMINS/MINERALS THERAP 1 TAB PO SCH (09:08)
[2016-10-21] MEDS: GABAPENTIN 300 MG CAP PO SCH ×2 (09:08→21:20)
[2016-10-21] MEDS: VITAMIN D 1,000 INTERNATIONAL UNITS TABLET PO SCH (09:08)
[2016-10-21] MEDS: PANTOPRAZOLE 40MG INJ (PROTONIX) (C9113) IV SCH (09:09)
--- NOTE | 2016-10-21 10:01 | REP ---
Procedure: PICC line insertion with Courtney-Levon The procedure was performed under the direct supervision of Dr. Duffy. The risks and benefits of the procedure were explained to the patient and informed consent was obtained. The right basilic vein was localized using ultrasound guidance. The skin was prepped and draped in a sterile fashion. 2% lidocaine was used as a local anesthetic. Using ultrasound guidance the basilic vein was cannulated and a 0.018 guidewire was inserted and advanced to the SVC using fluoroscopic guidance. The needle was removed and a 4.5 [place]ian dilator and peel-away sheath was inserted over the guide wire. A 4.5 [place] single lumen catheter was cut to length of 46 cm. The dilator was removed and the catheter was inserted over the guide wire with the tip ending in the SVC. The peel-away sheath was removed and the catheter was flushed with heparinized saline as per Hospital protocol. The catheter was affixed to the skin and a sterile dressing was applied. The the patient tolerated the procedure well and there were no immediate complications. 0.2 minutes of fluoro time was utilized for this procedure. Reviewed by MARCELINO Pino 10/20/2016 02:02 PSigned by Hugh Duffy MD 10/21/2016 09:53 A
[2016-10-21] MEDS: SENOKOT S TAB PO SCH ×2 (11:46→21:20)
[2016-10-21] MEDS: MIRALAX *UNIT DOSE* 17GM PACKET PO SCH (11:46)
[2016-10-21] MEDS ORDERED: LORazepam 2 MG/ML VIAL (J2060) IV STA (16:16)
[2016-10-21 17:54] LABS: ABG BASE EXCESS 5.2 (-2.0-2.0); ABG HCO3 31.8 MEQ/L (22.0-26.0); ABG PARTIAL PRESSURE CO2 55.3 mmHg (35.0-45.0); ABG PARTIAL PRESSURE O2 84.2 mmHg (75.0-100.0); ABG STANDARD HCO3 29.2 MEQ/L (22.0-26.0); ABG TOTAL CO2 33.5 MEQ/L (22.0-29.0); ABG pH (ARTERIAL) 7.377 UNITS (7.350-7.450)
--- NOTE | 2016-10-21 19:09 | IPN ---
DATE: 10/21/2016 Brenda Fortune is still very anxious to leave. She states her headache is slightly improved but she is having an anxiety attack because of lumbar puncture that has been scheduled today. The patient states that Dr. Finley did a much better job with sedation. He gave her intravenous IV, Versed 2 mg and fentanyl 100 mcg which made her relax and then she had no anxiety with getting the procedure. She was being taken down to radiology without any pain medication or sedation and the patient was very nervous. I did call Dr. Jason, who agreed on giving her anxiolytic. She scheduled to be discharged home tomorrow. Temperature is 97, pulse 105, respirations 18, O2 sat 95% on 2 liters nasal cannula. Neck is supple. No jugular venous distension (JVD). No bruits. No neck stiffness. LABORATORY DATA: White count of 7.4, hemoglobin 12.4, hematocrit 37.6, platelets 225. Sodium 144, potassium 4.1, chloride 105, bicarb 35, BUN 14, creatinine 0.73, glucose 84, calcium 9.3, CRP less than 0.3. VDRL was negative. Blood cultures are negative. AFB smear on the spinal fluid was negative. Culture is pending for urine culture. Fungal smear is negative. Culture is pending. RPR on blood was negative. FTA was positive, VDRL CSF was negative. IMPRESSION: 1. Aseptic meningitis with elevated total protein with lymphocytosis of unclear etiology even though her VDRL is negative and RPR negative. The fact that she had syphilis in the past that could have been partially treated could cause these manifestations. Therefore I have decided to treat her with IV penicillin for total of 14 days. She will be discharged home tomorrow with another 7-day therapy. That should finish next Tuesday and then the peripherally inserted central catheter (PICC) line could be removed. 2. Elevated intracranial pressure with a differential diagnosis of pseudotumor cerebri. The patient had a repeat lumbar puncture today. The results are not available to me. PLAN: Discharge home tomorrow with IV penicillin for total of 7 days. PICC line can be removed next Tuesday after she is done with the infusion or Tuesday. The patient does not need to follow up with infectious disease but needs to follow up with neurology. I would suggest in around 3 months to repeat a lumbar puncture with CSF sent for cell count and total protein.
--- NOTE | 2016-10-21 19:20 | IPN ---
DATE: 10/21/2016 Patient is seen and examined. No acute events overnight. Continue to report intermittent headaches same as before, no improvement but no worsening. Denies any shortness of breath, fever, chills, nausea, vomiting or diarrhea. Physical therapy appreciated. VITAL SIGNS: Temperature 97, pulse 105, respiratory rate 18, blood pressure 134/94, pulse oximetry 95% on two liters nasal cannula. LABORATORY DATA: WBC 7.4, hemoglobin and hematocrit 12.4/37.6 platelets 225. Chemistry: Sodium 144, potassium 4.1, chloride 105, bicarbonate 35, BUN 14, creatinine 0.73. PHYSICAL EXAMINATION: GENERAL: Patient obese, comfortable, alert and oriented times three. HEENT: Normocephalic, atraumatic. NEUROLOGIC: Cranial nerves II-XII grossly intact. No focal deficits. CARDIAC: Regular rate and rhythm with normal S1, S2. PULMONARY: Bilaterally clear to auscultation. ABDOMEN: Soft, nontender. Non-distended. EXTREMITIES: No clubbing, cyanosis, or edema. ASSESSMENT AND PLAN: This is a 56-year-old female patient with underlying medical history of chronic obstructive pulmonary disease (COPD) on two liters of oxygen at home, hypertension, hypothyroidism, gastroesophageal reflux disease (GERD), initially admitted for headache, found to have possible neurosyphilis and possible pseudotumor cerebri. Hospital course complicated with acute on chronic hypercarbic respiratory failure possibly due to opioids versus exacerbated by Diamox. 1. Acute on chronic hypercarbic respiratory failure. Pulmonology, Dr. Henry, has been initially consulted. Initially transferred to intensive care unit (ICU) for bilevel positive airway pressure (BiPAP) management due to patient being lethargic and obtunded on the floor from acute on chronic hypercarbic respiratory failure. Subsequently patient was weaned off Bi-level positive airway pressure (BiPAP), but patient did not respond to Narcan, initially it was thought to be due to narcotics. Patient did not respond to narcan. Possibly also due to acetazolamide given patient was receiving acetazolamide for pseudotumor cerebri potentially limiting body abilities to compensate for respiratory acidosis, predisposing for worsening hypercarbic respiratory failure. Patient's respiratory status currently improved off bi-level positive airway pressure (BiPAP) continue moxifloxacin for possible aspiration pneumonia. Dr. Bradford has discussed code status with the patient's family, current not yet ready to sign the paper work. Patient will continue to follow. Continue Advair, Atrovent, Pulmicort and monitor respiratory status. Avoid opioids as much as possible. 2. Chronic headache possibly due to pseudotumor cerebri versus suspected nerusyphyllis. Infectious disease Dr. Green has been consulted. VDAL has been negative for confirmatory study but initial CSF is suggestive of neurosyphilis and past history. Case was discussed with Dr. Kearney neurosurgeon who felt that neurosyphilis is a possible explanation for the patient's headache, but also other possibility is pseudotumor cerebri. Patient has received two lumbar punctures during the hospital course. Patient is not a good candidate for ventriculoperitoneal (PACKING AND STAMPING MACHINE OPERATOR) shunt due to poor respiratory status and history of complication due to procedures with respiratory decompensation. Patient is currently is off Diamox given its effect on respiratory. Continue zonisamide. Will obtain another therapeutic lumbar puncture to see if it improves as per Dr. Kearney. We will aim a closing pressure of 10 cm of water. Continue medication as ordered. 3. Neuropathy. Continue Neurontin. 4. Hypertension. Continue diltiazem. 5. GERD. Continue proton pump inhibitor (PPI). 6. Mood disorder. Continue Paxil. 7. Hypothyroidism. Continue Synthroid. 8. Deep vein thrombosis (DVT) prophylaxis. Heparin subcutaneously. DISPOSITION PLANNING: Peripherally inserted central catheter (PICC) line inserted. Arrangement made for home infusion for end day of antibiotic for penicillin for suspected neurosyphilis for end day of antibiotics 10/29/2016. Patient will be getting lumbar puncture later today. Patient was extremely anxious. Ativan has been given. We will put the patient on continuous pulse ox and repeat ABG after the procedure. Patient has received 2 Versed and 100 of fentanyl previously for lumbar puncture. Record obtained from Dr. Barrientos's office. Likely discharge tomorrow.
[2016-10-21] MEDS: PARoxetine 10MG TABLET PO SCH (21:19)
[2016-10-21] MEDS: HEPARIN SOD (PORCINE) 5000 UNITS/ML VIAL SQ SCH (21:20)
[2016-10-22] VITALS (8 sets, daily range): BP systolic 121–128; BP diastolic 74–84; O2SAT 94–96
[2016-10-22] MEDS: PENICILLIN POTASSIUM MU IV SCH ×3 (01:13→08:38)
[2016-10-22] MEDS: D5W IV SCH ×3 (01:13→08:38)
[2016-10-22] MEDS: LEVOTHYROXINE 0.112 MG TAB (112 MCG) PO SCH (05:20)
[2016-10-22] MEDS: MOXIFLOXACIN 400 MG TAB PO SCH (05:21)
[2016-10-22] MEDS: ACETAMINOPHEN TAB 650MG DOSE (2X325MG) PO PRN ×2 (05:34→12:42)
[2016-10-22 05:39] LABS: MEAN CORPUSCULAR HEMOGLOBIN 30.8 pg (27.0-33.0); MEAN CORPUSCULAR HGB CONC 33.9 g/dl (32.0-36.5); MEAN CORPUSCULAR VOLUME 90.8 fl (80.0-96.0); RED CELL DISTRIBUTION WIDTH 14.5 % (11.5-14.5); WHITE BLOOD COUNT 7.7 K/mm3 (4.0-10.0)
[2016-10-22 05:58] LABS: ANION GAP 7 MEQ/L (8-16); BLOOD UREA NITROGEN 15 MG/DL (7-18); CALCIUM LEVEL 10.1 MG/DL (8.5-10.1); CARBON DIOXIDE LEVEL 33 MEQ/L (21-32); CHLORIDE LEVEL 104 MEQ/L (98-107); CREATININE FOR GFR 0.73 MG/DL (0.55-1.02); GLOMERULAR FILTRATION RATE > 60.0 (>51); GLUCOSE, FASTING 86 MG/DL (70-105); POTASSIUM SERUM 4.4 MEQ/L (3.5-5.1); SODIUM LEVEL 144 MEQ/L (136-145)
[2016-10-22] MEDS: SLF 3 ML SYR IV SCH (06:00)
[2016-10-22] MEDS: SODIUM CHLORIDE 0.9% INJ 10 ML SYR IV SCH (06:38)
[2016-10-22] MEDS: ALBUTEROL SULFATE 2.5 MG/0.5 ML INH NEB SOLN NEB SCH ×2 (07:28→11:22)
[2016-10-22] MEDS: ADVAIR DISKUS 250/50 INH PWD INH SCH (07:28)
[2016-10-22] MEDS: BUDESONIDE 0.5 MG/2 ML INHALATION SUSPENSION INH SCH (07:28)
[2016-10-22] MEDS: GABAPENTIN 300 MG CAP PO SCH (08:36)
[2016-10-22] MEDS: SENOKOT S TAB PO SCH (08:36)
[2016-10-22] MEDS: VITAMIN D 1,000 INTERNATIONAL UNITS TABLET PO SCH (08:36)
[2016-10-22] MEDS: ZONISAMIDE 25 MG CAP (ZONEGRAN) PO SCH (08:36)
[2016-10-22] MEDS: MULTIVITAMINS/MINERALS THERAP 1 TAB PO SCH (08:36)
[2016-10-22] MEDS: MIRALAX *UNIT DOSE* 17GM PACKET PO SCH (08:37)
[2016-10-22] MEDS: PANTOPRAZOLE 40MG INJ (PROTONIX) (C9113) IV SCH (08:37)
[2016-10-22] MEDS: HEPARIN SOD (PORCINE) 5000 UNITS/ML VIAL SQ SCH (08:37)
[2016-10-22] MEDS ORDERED: AVEL1TAB PO (09:38)
[2016-10-22] MEDS ORDERED: MAPA325T2 PO (09:38)
[2016-10-22] MEDS ORDERED: IBUP60TA PO (09:38)
[2016-10-22] MEDS ORDERED: SENN1TAB2 PO (09:38)
--- NOTE | 2016-10-22 09:55 | REP ---
Procedure: For guidance for lumbar puncture. History: Pseudotumor Cerebri The procedure was performed under the direct supervision of Dr. Garcia. The risks and benefits of the procedure were explained to the patient and informed consent was obtained. The L3-4 interspace was localized using fluoroscopic guidance. The skin was prepped and draped in a sterile fashion. 1% lidocaine was used as a local anesthetic. Using fluoroscopic guidance a 22-gauge spinal needle was inserted and advanced into the thecal sac. The opening pressure measured greater than 70 centimeters of water. Approximately 24 ml of spinal fluid was withdrawn and sent to lab. Closing pressure measured less than 10 cm of water. The the patient tolerated the procedure well and there were no immediate complications. 7 seconds of fluoro time was utilized for this procedure. Reviewed by MARCELINO Pino 10/21/2016 05:22 PSigned by Justino Garcia MD 10/22/2016 09:47 A
[2016-10-22] MEDS ORDERED: [UNRECOGNIZED DRUG - CODE] IJ (10:20)
[2016-10-22] MEDS ORDERED: D5W IV ONE (11:30)
[2016-10-22] MEDS ORDERED: PENICILLIN POTASSIUM MU IV ONE (11:30)
--- NOTE | 2016-10-22 15:20 | IPN ---
DATE: 10/22/2016 Brenda Fortune is anxious to go home today. She had a lumbar puncture done yesterday which was uneventful. She had some sedation with lorazepam which helped tremendously. Her opening pressure was again 70 cm of water, 24 mL of spinal fluid was drawn, sent to the lab, closing pressure was less than 10 cm. She has no nausea, vomiting or diarrhea. She has no fever. LABORATORY DATA: White count 7.7, hemoglobin 12.6, hematocrit 37.1, platelets 236. IMPRESSION: 1. Aseptic meningitis with positive tPA antibody but negative VDRL, negative RPR, being treated for possible neurosyphilis, although my suspicions are low but the fact that she has aseptic meningitis has forced me to continue her treatment for 14 days. She will end treatment on 10/29/2016. She has one more week left of therapy. PICC line could be discontinued after finished 1 week of antibiotic. She will followup in my office in a couple weeks. 2. Elevated intracranial pressure, probably related to pseudotumor cerebri. The patient will probably need serial lumbar puncture or ventriculoperitoneal (ANESTHESIOLOGY PHYSICIAN ASSISTANT) shunt at some point later. 3. Chronic obstructive pulmonary disease (COPD). Oxygen dependent. Has not tolerated Diamox for treatment of pseudotumor. PLAN: Continue penicillin for one more week and then discontinue PICC line and IV penicillin. Followup in my office in 2-3 weeks.
--- NOTE | 2016-10-24 13:23 | DSES ---
DATE OF ADMISSION: 10/14/2016 DATE OF DISCHARGE: 10/22/2016 PRIMARY CARE PROVIDER: Suzi Kennedy NP NEUROSURGEON: Dr. Kearney INFECTIOUS DISEASE SPECIALIST: Dr. Green FINAL DIAGNOSES: 1. Acute on chronic hypercarbic respiratory failure, possibly secondary to narcotics versus Diamox, with underlying chronic obstructive pulmonary disease (COPD). 2. Possible neurosyphilis. 3. Chronic headache, likely pseudotumor cerebri versus neurosyphilis. 4. Neuropathy. 5. Hypertension. 6. Gastroesophageal reflux disease (GERD). 7. Mood disorder. 8. Hypothyroidism. 9. Chronic hypoxic respiratory failure. HISTORY OF PRESENT ILLNESS: This is a 56-year-old female patient with underlying medical history of chronic obstructive pulmonary disease (COPD) on 2 liters home oxygen, hypertension, hypothyroidism, gastroesophageal reflux disease (GERD), presented with complaints of headache. Patient has been followed closely by Dr. Palacios, Dr. Kearney, Dr. Casillas, and sheet pile hammer operator, Dr. Canchola. Patient initially started to have headache about a year ago, followed by blurry vision in 07/2016, and had MRI/MRV, which were initially inconclusive in 07/2016, and since then, seen by her sheet pile hammer operator, Dr. Canchola, who believed that the patient had grade 2 papilledema. Patient had been followed by Dr. Palacios, with extensive workup for her headache, which was likely secondary to pseudotumor cerebri. Patient had spinal taps on 10/08/2016 with notable viral etiology. She had been back to the emergency department (ED) for recurrent headache. Followup with Dr. Kearney for possible shunt placement was entertained for pseudotumor cerebri and had concern of risk of surgery for patient's COPD, given likely diagnosis of pseudotumor cerebri. Patient was placed on continuous Diamox since Tuesday and Dr. Palacios's office was called with recommendation for increasing her dose of Diamox. The case was discussed with Dr. Kearney while the patient was in the emergency room with three options. First, continue Diamox, second, possible shunt if she still had papilledema and third, to have optic fenestration for which would be done in [place]. Subsequently, patient was admitted to the hospital. Lumbar puncture was done for therapeutic and diagnosis, with a goal of a closing pressure of 10 cm of water. Infectious disease, Dr. Green, was consulted for suspicion of pseudospiralis given patient had history of syphilis and with questionable infectious findings on lumbar puncture. Patient was started on penicillin. Confirmatory test was negative, therefore, diagnosis of neurosyphilis was inconclusive. Dr. Green would like the patient to receive full treatment of 14 days of penicillin. A peripherally inserted central catheter (PICC) line was placed for outpatient antibiotics. Recurrent lumbar puncture was done for treatment. Patient's hospital stay was complicated with hypercarbic respiratory failure, so neurology and neurosurgery was consulted. Patient's case was discussed with [employer], Dr. Henyr. Patient was placed on bilevel positive airway pressure (BiPAP) during the hospital course in the intensive care unit (ICU), given Narcan with no response. It was thought that patient's hypercarbia worsened because Diamox has diminished patient's compensatory mechanisms for respiratory acidosis. Diamox was discontinued. Narcan was given with no significant effect. Patient was weaned off the BiPap. Condition continuously improved. Physical therapy (PT) was done. Headache has improved after therapeutic lumbar puncture (LP). Case was discussed with Dr. Kearney, recommend outpatient ophthalmology followup after infection was treated. Would not elect to do surgery unless patient's full infectious perspective is cleared. Furthermore, there is significant respiratory risk. Currently, patient is tolerating oral, with much improvement in headache and with peripherally inserted central catheter (PICC) line placed, ready for discharge with further followup as outpatient. VITAL SIGNS: Temperature 97, pulse 93, respirations 18, blood pressure 120/84, pulse oximetry 96% on 2 liters nasal cannula. LABORATORY: WBC 7.7, hemoglobin and hematocrit (H and H) 12.6 and 37.1, platelets 236. Chemistry: Sodium 144, potassium 4.4, chloride 104, bicarbonate 33, BUN 15, creatinine 0.73. PROCEDURES: Lumbar puncture times two. Opening pressure 70 cm of water. Closing pressure 10 cm of water. DISCHARGE MEDICATION: - penicillin 24 mg units intravenous (IV) continuous infusion for eight more days - Senna 8.650 mg by mouth twice a day - acetaminophen 650 mg by mouth every 4 hours as needed - ibuprofen 600 mg by mouth every 6 hours as needed - moxifloxacin 400 mg by mouth daily for three more days - DuoNeb every 4 hours as needed - budesonide 0.2 mg inhalation twice a day - vitamin D 5000 units by mouth daily - diltiazem 120 mg by mouth daily - gabapentin 300 mg by mouth every morning and 600 mg by mouth nightly - Ellipta inhalation daily - Ipratropium inhalation every 4 hours as needed - Synthroid 112 mcg by mouth daily - multivitamin one tablet by mouth daily - Protonix 40 mg by mouth daily - Paxil 10 mg by mouth nightly - Advair Diskus 250/50 mg inhalation twice a day - Spiriva daily inhalation - zonisamide 50 mg by mouth twice a day DISCHARGE INSTRUCTIONS: Patient is instructed to follow up with primary care provider in 1-2 weeks. Follow up with infectious disease, Dr. Green, in one week, ophthalmology in one week, and Dr. Kearney in 1-2 weeks. Return to the hospital if symptoms worsen.
== END 2016-10-22 13:35 | disposition home health service (06) | DRG 97 ==
LOC: M ED 14:45 → M ED INP 20:04 → M MSPAV 21:40 → M ICU 10-16 21:27 → M PCU 10-20 03:03
PROVIDERS: ADMIT Internal Medicine; ATTEND Internal Medicine
PROC: 05HB33Z Insertion of Infusion Device into Right Basilic Vein, Percutaneous Approach (ICD-10-PCS; principal; 2016-10-19)
PROC: 009U3ZX Drainage of Spinal Canal, Percutaneous Approach, Diagnostic (ICD-10-PCS; 2016-10-21)
DX: G03.0 Nonpyogenic meningitis (principal); J96.02 Acute respiratory failure with hypercapnia; J96.21 Acute and chronic respiratory failure with hypoxia; J69.0 Pneumonitis due to inhalation of food and vomit; E87.2 Acidosis; A52.1 Symptomatic neurosyphilis; G93.2 Benign intracranial hypertension; J44.9 Chronic obstructive pulmonary disease, unspecified; I10 Essential (primary) hypertension; E03.9 Hypothyroidism, unspecified; E66.9 Obesity, unspecified; M43.12 Spondylolisthesis, cervical region; M43.16 Spondylolisthesis, lumbar region; K72.90 Hepatic failure, unspecified without coma; G62.9 Polyneuropathy, unspecified; F39 Unspecified mood [affective] disorder; T50.2X5A Adverse effect of carbonic-anhydrase inhibitors, benzothiadiazides and other diuretics, initial encounter; Z99.81 Dependence on supplemental oxygen; Z87.891 Personal history of nicotine dependence; Z98.1 Arthrodesis status; K21.9 Gastro-esophageal reflux disease without esophagitis; Z90.710 Acquired absence of both cervix and uterus; Z90.49 Acquired absence of other specified parts of digestive tract; Z79.2 Long term (current) use of antibiotics; Z79.899 Other long term (current) drug therapy; Z68.38 Body mass index [BMI] 38.0-38.9, adult

== ENCOUNTER → 2016-10-14 | Outpatient (REF) | payer MEDICARE, OTHER ==
[~2016-10-14] MED LIST changes: -ACETAMINOPHEN 325 MG TAB As Ordered ONE; -AVEL1TAB PO; -IBUP60TA PO; -MAPA325T2 PO; -SENN1TAB2 PO; -[UNRECOGNIZED DRUG - CODE] IJ
[2016-10-15 14:21] LABS: CONTROL LINE INT CTR LINE PRESENT; HIV SCRN NEGATIVE (NEGATIVE); HIV SCRN1 NEGATIVE (NEGATIVE)
== END ==
LOC: M SFHCPLAZ 14:16
PROVIDERS: ATTEND Internal Medicine Infectious Disease
DX: G03.0 Nonpyogenic meningitis (principal)

== ENCOUNTER → 2016-11-24 | Outpatient (CLI) | payer MEDICARE, OTHER ==
[~2016-11-24] MED LIST changes: +ACET50CA PO; +AVEL1TAB PO; +GABA-282 PO; +IBUP60TA PO; +LIDOCAINE 1% SDV INJ 30 ML VIAL As Ordered ONE; +MAPA325T2 PO; +MIDAZOLAM INJ 2 MG/2 ML VIAL (J2250) As Ordered ONE; +SENN1TAB2 PO; +SYNT112T2 PO; +VITA100037 PO; +[UNRECOGNIZED DRUG - CODE] IJ; +fentaNYL 100 MCG/2 ML INJECTION (J3010) As Ordered ONE
--- NOTE | 2016-11-24 16:15 | REP ---
Partial lumbar spine series: 16 views: History: Marking for spinal tap. 8 seconds of fluoroscopy time is reported. Findings: A sequence of 16 fluoroscopically obtained intraprocedural spot radiographs of the lumbar spine document various needle positions. Signed by Mandeep Turcios MD 11/24/2016 04:33 P
[2016-11-24 18:07] LABS: GLUCOSE CSF 60 MG/DL (40-75)
[2016-11-24 19:09] LABS: COLOR, CSF COLORLESS (COLORLESS); CSF TUBE# CELL CNT TUBE 3
[2016-11-24 19:10] LABS: APPEARANCE, CSF CLEAR (CLEAR); CSF DIFF IF INDICATED? NO (NO); DILUTION RBC CSF 1 (0-10); DILUTION WBC CSF 1 (0-10); RBC CALC CSF 4 /mm3 (0-0); RBC COUNTED CSF 4 /mm3 (0-0); WBC COUNTED CSF 6 /uL (0-10)
[2016-11-25 08:46] LABS: CSF H. INFLUENZA NEGATIVE (NEGATIVE); CSF N MENINGITIDIS ACYW135 NEGATIVE (NEGATIVE)
[2016-11-25 08:47] LABS: CSF GROUP B STREP NEGATIVE (NEGATIVE); CSF STREP PNUEMO NEGATIVE (NEGATIVE)
[2016-11-30 00:06] LABS: VDRL CSF Non Reactive (Non Rea:<1:1)
--- NOTE | 2016-11-30 00:54 | ECWPNPC ---
PATIENT NAME: JOAN WILSON : 1960 GENDER: FEMALE VISIT DATE: 11/24/2016 DISCHARGE DATE: 11/24/16 0845 VISIT LOCKED DATE TIME: PHYSICIAN: WENDY GUZMAN RESOURCE: WENDY GUZMAN REASON FOR APPOINTMENT 1. SPINAL TAP CURRENT MEDICATIONS TAKING OXYGEN - KIT 2L INTRANASALLY DAILY TAKING CHOLECALCIFEROL 1000 UNIT CAPSULE 1 CAP ORALLY DAILY TAKING DILTIAZEM HCL ER 120 MG CAPSULE EXTENDED RELEASE 12 HOUR 1 CAPSULE ORALLY DAILY TAKING GABAPENTIN 300 MG CAPSULE 1 CAPSULE AM, 2 CAPS PM ORALLY TWICE DAILY TAKING PAROXETINE HCL 10 MG TABLET 1 TABLET IN THE MORNING ORALLY BEFORE BEDTIME TAKING SYNTHROID 112 MCG TABLET 1 TABLET ON AN EMPTY STOMACH IN THE MORNING ORALLY ONCE A DAY TAKING ADVAIR DISKUS 250-50 MCG/DOSE MISCELLANEOUS 1 PUFF INHALATION TWICE A DAY TAKING BUDESONIDE 0.5 MG/2ML SUSPENSION 2 ML INHALATION ONCE A DAY TAKING DUONEB 0.5-2.5 (3) MG/3ML SOLUTION 3 ML INHALATION EVERY 6 HRS TAKING MULTI-VITAMIN - TABLET 1 TABLET ORALLY ONCE A DAY TAKING ZONISAMIDE 50 MG CAPSULE DIRECTED ORALLY 50 MG IN AM, 100 MG PM NOT-TAKING INCRUSE ELLIPTA 62.5 MCG/INH AEROSOL POWDER BREATH ACTIVATED 1 PUFF INHALATION ONCE A DAY, NOTES: SAMPLES PAST MEDICAL HISTORY HEADACHES COPD 02 DEPENDENT 2 L NC RAPID HEART RATE RHEUMATIC FEVER KID HYPOTHYROIDISM DDD LUMBAR WITH LEFT SCIATICA MENINGITIS ALLERGIES DIAMOX SEQUELS: TROUBLE BREATHING: ALLERGY ASSESSMENTS MS PROTOCOL. TREATMENT OTHERS NOTES: NOTES: SPINAL TAP WITH IV SEDATION - PLEASE SEE MEDITECH. PROCEDURE CODES 76269 MOD SED SAME PHYS/QHP 5/>YRS 06360 MOD SED SAME PHYS/QHP EA DISPOSITION & COMMUNICATION FOLLOW UP F/UP WITH NEUROLOGIST/CALL NEEDED ELECTRONICALLY SIGNED BY WENDY GUZMAN MD ON 11/29/2016 AT 05:10 PM EDT DISCLAIMER : THIS IS A VISIT SUMMARY EXTRACTED FROM THE [employer] CHART. IT IS NOT A COPY OF THE [employer] PROGRESS NOTE. MTDD
== END ==
LOC: M PAIN 13:00
PROVIDERS: ATTEND Anesthesiology
DX: G93.9 Disorder of brain, unspecified (principal); G44.40 Drug-induced headache, not elsewhere classified, not intractable; M47.892 Other spondylosis, cervical region; J44.9 Chronic obstructive pulmonary disease, unspecified; E03.9 Hypothyroidism, unspecified; I73.9 Peripheral vascular disease, unspecified; Z88.8 Allergy status to other drugs, medicaments and biological substances; Z79.899 Other long term (current) drug therapy; Z87.39 Personal history of other diseases of the musculoskeletal system and connective tissue
CPT/HCPCS: 36415; 62270; 77003; 82784; 82945; 83916; 84157; 86592; 87015; 87070; 87102; 87205; 87252; 87802; 87899; 88108; 88313; 89050; 99152; 99153; J2250; J3010

== ENCOUNTER → 2017-02-17 | Outpatient (CLI) | payer MEDICARE, OTHER ==
[~2017-02-17] MED LIST changes: +ACET500C4 PO; -ACET50CA PO; -AVEL1TAB PO; +AVEL1TAB3 PO; +AZIT-12 PO; -AZIT250T3 PO; +IBUP1TAB6 PO; -IBUP60TA PO; -LEVA750T PO; +LEVA750T7 PO; -LEVO125T3 PO; +LEVO125T4 PO; +LIDOCAINE 1% MDV 20ML VIAL As Ordered ONE; +PAXI10TA12 PO; -PAXI10TA2 PO; -PRED10TA FT; +PRED10TA2 FT; +PRED10TA2 PO; +TYLE500T78 PO; -VITA100037 PO; +VITA100066 PO; +VITA100067 PO; +VITMTA PO; -ZONE100C4 PO; +ZONE1CAP PO; +ZONI100C2 PO
[2017-02-17 16:13] LABS: RBC CSF AUTO 1 /mm3 (0-0); WBC CSF AUTO 3 /mm3 (0-10)
[2017-02-17 16:16] LABS: APPEARANCE, CSF CLEAR (CLEAR); COLOR, CSF COLORLESS (COLORLESS); CSF DIFF IF INDICATED? NO (NO); CSF DILUENT LOT # 6221; CSF TUBE# CELL CNT TUBE 3
[2017-02-17 16:17] LABS: GLUCOSE CSF 64 MG/DL (40-75)
[2017-02-18 10:31] LABS: CSF GROUP B STREP NEGATIVE (NEGATIVE); CSF H. INFLUENZA NEGATIVE (NEGATIVE); CSF N MENINGITIDIS ACYW135 NEGATIVE (NEGATIVE); CSF STREP PNUEMO NEGATIVE (NEGATIVE)
--- NOTE | 2017-02-25 23:39 | ECWPNPC ---
PATIENT NAME: JOAN WILSON : 1960 GENDER: FEMALE VISIT DATE: 02/17/2017 DISCHARGE DATE: 02/17/171737 VISIT LOCKED DATE TIME: PHYSICIAN: WENDY GUZMAN RESOURCE: WENDY GUZMAN REASON FOR APPOINTMENT 1. SPINAL TAP PSUEDO TUMOR CURRENT MEDICATIONS TAKING OXYGEN - KIT 2L INTRANASALLY DAILY TAKING CHOLECALCIFEROL 1000 UNIT CAPSULE 1 CAP ORALLY DAILY TAKING DILTIAZEM HCL ER 120 MG CAPSULE EXTENDED RELEASE 12 HOUR 1 CAPSULE ORALLY DAILY TAKING GABAPENTIN 300 MG CAPSULE 1 CAPSULE AM, 2 CAPS PM ORALLY TWICE DAILY TAKING PAROXETINE HCL 10 MG TABLET 1 TABLET IN THE MORNING ORALLY BEFORE BEDTIME TAKING SYNTHROID 112 MCG TABLET 1 TABLET ON AN EMPTY STOMACH IN THE MORNING ORALLY ONCE A DAY TAKING ADVAIR DISKUS 250-50 MCG/DOSE MISCELLANEOUS 1 PUFF INHALATION TWICE A DAY TAKING BUDESONIDE 0.5 MG/2ML SUSPENSION 2 ML INHALATION ONCE A DAY TAKING DUONEB 0.5-2.5 (3) MG/3ML SOLUTION 3 ML INHALATION EVERY 6 HRS TAKING MULTI-VITAMIN - TABLET 1 TABLET ORALLY ONCE A DAY TAKING ZONISAMIDE 50 MG CAPSULE DIRECTED ORALLY 50 MG IN AM, 100 MG PM NOT-TAKING INCRUSE ELLIPTA 62.5 MCG/INH AEROSOL POWDER BREATH ACTIVATED 1 PUFF INHALATION ONCE A DAY, NOTES: SAMPLES PAST MEDICAL HISTORY HEADACHES COPD 02 DEPENDENT 2 L NC RAPID HEART RATE RHEUMATIC FEVER KID HYPOTHYROIDISM DDD LUMBAR WITH LEFT SCIATICA MENINGITIS ALLERGIES DIAMOX SEQUELS: TROUBLE BREATHING: ALLERGY VITAL SIGNS WT 196 LBS, HT 5'9", BMI 28.94 INDEX. ASSESSMENTS PSEUDOTUMOR CEREBRI. TREATMENT OTHERS NOTES: SPINAL TAP WITH IV SEDATION - PLEASE SEE [employer]. DISPOSITION & COMMUNICATION FOLLOW UP F/UP WITH NEUROLOGIST/CALL NEEDED ELECTRONICALLY SIGNED BY WENDY GUZMAN MD ON 02/25/2017 AT 10:44 AM EDT DISCLAIMER : THIS IS A VISIT SUMMARY EXTRACTED FROM THE [employer] CHART. IT IS NOT A COPY OF THE [employer] PROGRESS NOTE. MTDD
== END ==
LOC: M PAIN 13:00
PROVIDERS: ATTEND Anesthesiology
DX: G93.2 Benign intracranial hypertension (principal); Z79.899 Other long term (current) drug therapy
CPT/HCPCS: 62272; 82784; 82945; 83916; 84157; 87015; 87070; 87102; 87205; 87252; 87802; 87899; 88108; 88313; 89050; 99152; 99153; J2250; J3010

== ENCOUNTER → 2017-02-23 | Outpatient (REF) | payer MEDICARE, OTHER ==
[~2017-02-23] MED LIST changes: -ACET500C4 PO; +ACET50CA PO; +AVEL1TAB PO; -AVEL1TAB3 PO; -AZIT-12 PO; +AZIT250T3 PO; -IBUP1TAB6 PO; +IBUP60TA PO; +LEVA750T PO; -LEVA750T7 PO; +LEVO125T3 PO; -LEVO125T4 PO; -LIDOCAINE 1% MDV 20ML VIAL As Ordered ONE; -LIDOCAINE 1% SDV INJ 30 ML VIAL As Ordered ONE; -MIDAZOLAM INJ 2 MG/2 ML VIAL (J2250) As Ordered ONE; -PAXI10TA12 PO; +PAXI10TA2 PO; +PRED10TA FT; -PRED10TA2 FT; -PRED10TA2 PO; -TYLE500T78 PO; +VITA100037 PO; -VITA100066 PO; -VITA100067 PO; -VITMTA PO; +ZONE100C4 PO; -ZONE1CAP PO; -ZONI100C2 PO; -fentaNYL 100 MCG/2 ML INJECTION (J3010) As Ordered ONE
== END ==
LOC: M LAB REF 16:32
PROVIDERS: ATTEND Neurological Surgery
DX: Z01.818 Encounter for other preprocedural examination (principal)

== ENCOUNTER → 2017-03-11 | Outpatient (CLI) | payer MEDICARE, OTHER ==
[~2017-03-11] MED LIST changes: +ACET500C4 PO; -ACET50CA PO; -AVEL1TAB PO; +AVEL1TAB3 PO; +AZIT-12 PO; -AZIT250T3 PO; +IBUP1TAB6 PO; -IBUP60TA PO; -LEVA750T PO; +LEVA750T7 PO; -LEVO125T3 PO; +LEVO125T4 PO; +LIDOCAINE 1% SDV INJ 30 ML VIAL As Ordered ONE; +MIDAZOLAM INJ 2 MG/2 ML VIAL (J2250) As Ordered ONE; +PAXI10TA12 PO; -PAXI10TA2 PO; -PRED10TA FT; +PRED10TA2 FT; +PRED10TA2 PO; +TYLE500T78 PO; -VITA100037 PO; +VITA100066 PO; +VITA100067 PO; +VITMTA PO; -ZONE100C4 PO; +ZONE1CAP PO; +ZONI100C2 PO; +fentaNYL 100 MCG/2 ML INJECTION (J3010) As Ordered ONE
[2017-03-11 17:42] LABS: GLUCOSE CSF 59 MG/DL (40-75)
[2017-03-11 18:07] LABS: CSF DILUENT LOT # 6277
[2017-03-11 18:27] LABS: RBC CSF AUTO 1 /mm3 (0-0); WBC CSF AUTO 1 /mm3 (0-10)
[2017-03-11 18:28] LABS: APPEARANCE, CSF CLEAR (CLEAR); COLOR, CSF COLORLESS (COLORLESS); CSF DIFF IF INDICATED? NO (NO); CSF TUBE# CELL CNT TUBE 3
[2017-03-14 11:30] LABS: CSF GROUP B STREP NEGATIVE (NEGATIVE); CSF H. INFLUENZA NEGATIVE (NEGATIVE); CSF N MENINGITIDIS ACYW135 NEGATIVE (NEGATIVE); CSF STREP PNUEMO NEGATIVE (NEGATIVE)
--- NOTE | 2017-03-21 23:32 | ECWPNPC ---
PATIENT NAME: JOAN WILSON : 1960 GENDER: FEMALE VISIT DATE: 03/11/2017 DISCHARGE DATE: 03/11/17 0000 VISIT LOCKED DATE TIME: PHYSICIAN: WENDY GUZMAN RESOURCE: WENDY GUZMAN REASON FOR APPOINTMENT 1. SPINAL TAP CURRENT MEDICATIONS TAKING OXYGEN - KIT 2L INTRANASALLY DAILY TAKING CHOLECALCIFEROL 1000 UNIT CAPSULE 1 CAP ORALLY DAILY TAKING DILTIAZEM HCL ER 120 MG CAPSULE EXTENDED RELEASE 12 HOUR 1 CAPSULE ORALLY DAILY TAKING GABAPENTIN 300 MG CAPSULE 1 CAPSULE AM, 2 CAPS PM ORALLY TWICE DAILY TAKING PAROXETINE HCL 10 MG TABLET 1 TABLET IN THE MORNING ORALLY BEFORE BEDTIME TAKING SYNTHROID 112 MCG TABLET 1 TABLET ON AN EMPTY STOMACH IN THE MORNING ORALLY ONCE A DAY TAKING ADVAIR DISKUS 250-50 MCG/DOSE MISCELLANEOUS 1 PUFF INHALATION TWICE A DAY TAKING BUDESONIDE 0.5 MG/2ML SUSPENSION 2 ML INHALATION ONCE A DAY TAKING DUONEB 0.5-2.5 (3) MG/3ML SOLUTION 3 ML INHALATION EVERY 6 HRS TAKING MULTI-VITAMIN - TABLET 1 TABLET ORALLY ONCE A DAY TAKING ZONISAMIDE 50 MG CAPSULE DIRECTED ORALLY 50 MG IN AM, 100 MG PM NOT-TAKING INCRUSE ELLIPTA 62.5 MCG/INH AEROSOL POWDER BREATH ACTIVATED 1 PUFF INHALATION ONCE A DAY, NOTES: SAMPLES PAST MEDICAL HISTORY HEADACHES COPD 02 DEPENDENT 2 L NC RAPID HEART RATE RHEUMATIC FEVER KID HYPOTHYROIDISM DDD LUMBAR WITH LEFT SCIATICA MENINGITIS ALLERGIES DIAMOX SEQUELS: TROUBLE BREATHING: ALLERGY VITAL SIGNS WT 203 LBS, HT 5'9", BMI 29.97 INDEX, BP 129/79 MM HG, HR 103 /MIN, RR 20 /MIN, TEMP 98.5 F, OXYGEN SAT % 90% ON 2L, NA INITIALS AW 1253. ASSESSMENTS PSEUDOTUMOR CEREBRI. TREATMENT OTHERS NOTES: SPINAL TAP WITH IV SEDATION - PLEASE SEE [email or web address]. DISPOSITION & COMMUNICATION FOLLOW UP F/UP WITH NEUROLOGIST/ CALL NEEDED ELECTRONICALLY SIGNED BY WEDNY GUZMAN MD ON 03/21/2017 AT 08:57 PM EDT DISCLAIMER : THIS IS A VISIT SUMMARY EXTRACTED FROM THE [facility] CHART. IT IS NOT A COPY OF THE [facility] PROGRESS NOTE. MTDD
== END ==
LOC: M PAIN 12:30
PROVIDERS: ATTEND Anesthesiology
DX: G93.2 Benign intracranial hypertension (principal); Z79.899 Other long term (current) drug therapy; Z88.8 Allergy status to other drugs, medicaments and biological substances
CPT/HCPCS: 36415; 62270; 82784; 82945; 83916; 84157; 87015; 87070; 87102; 87205; 87252; 87802; 87899; 88108; 88313; 89050; 99152; J2250; J3010

== ENCOUNTER 2017-03-16 06:48 | Day surgery (SDC) | payer MEDICARE, OTHER ==
[2017-03-16] VITALS (15 sets, daily range): BP systolic 102–123; BP diastolic 60–75; O2SAT 91
[~2017-03-16] VITALS: Ht 175.3 cm; Wt 92.1 kg
[~2017-03-16 06:48] MED LIST changes: -LIDOCAINE 1% SDV INJ 30 ML VIAL As Ordered ONE; -MIDAZOLAM INJ 2 MG/2 ML VIAL (J2250) As Ordered ONE; -PRED10TA2 PO; -TYLE500T78 PO; -VITA100066 PO; -VITMTA PO; -ZONI100C2 PO; -fentaNYL 100 MCG/2 ML INJECTION (J3010) As Ordered ONE
[2017-03-16] MEDS ORDERED: PROPOFOL 200 MG/20 ML VIAL As Ordered ONE ×2 (07:00→08:08)
[2017-03-16] MEDS ORDERED: MIDAZOLAM INJ 2 MG/2 ML VIAL (J2250) As Ordered ONE (07:00)
[2017-03-16] MEDS ORDERED: LIDOCAINE 2% INJ 100 MG/5 ML SDV (FOR ANES.) As Ordered ONE (07:00)
[2017-03-16] MEDS ORDERED: fentaNYL 100 MCG/2 ML INJECTION (J3010) As Ordered ONE ×2 (07:00→11:28)
[2017-03-16] MEDS ORDERED: ONDANSETRON 4MG/2ML VIAL (J2405) As Ordered ONE (07:00)
[2017-03-16] MEDS ORDERED: LR 1,000 ML IV ONE (07:00)
[2017-03-16] MEDS ORDERED: ROCURONIUM BROMIDE 50 MG/5 ML VIAL/SYRINGE As Ordered ONE (07:00)
[2017-03-16] MEDS ORDERED: dexameTHASONE 4 MG/ML 1ML VIAL (J1100) As Ordered ONE (07:01)
[2017-03-16] MEDS ORDERED: ceFAZolin 2 GM/D5W 50 ML IV BAG (J0690) As Ordered ONE (07:24)
[2017-03-16] MEDS ORDERED: LIDOCAINE 2% JELLY 30 ML As Ordered ONE (07:58)
[2017-03-16] MEDS ORDERED: REMIFENTANIL 1MG 3ML VIAL As Ordered ONE (08:08)
[2017-03-16] MEDS ORDERED: BACITRACIN PWD 50,000 UNITS VIAL As Ordered ONE (08:11)
[2017-03-16] MEDS ORDERED: THROMBIN SOLN 20,000 UNITS KIT As Ordered ONE (08:11)
[2017-03-16] MEDS ORDERED: NAFCILLIN SOD 1 GM VIAL (S0032) As Ordered ONE (08:11)
[2017-03-16] MEDS ORDERED: LIDOCAINE 1% SDV INJ 30 ML VIAL As Ordered ONE (09:50)
[2017-03-16] MEDS ORDERED: ceFAZolin 2 GM/D5W 50 ML IV BAG (J0690) IV ONE (10:18)
[2017-03-16] MEDS ORDERED: BACITRACIN OINT 30GM As Ordered ONE (11:03)
[2017-03-16] MEDS ORDERED: IBUP1TAB6 PO (11:20)
[2017-03-16] MEDS ORDERED: MAPA325T2 PO (11:20)
[2017-03-16] MEDS ORDERED: MEPERIDINE INJ 25 MG/ML VIAL (J2175) As Ordered ONE (11:28)
[2017-03-16] MEDS ORDERED: IBUPROFEN 600 MG TAB As Ordered ONE (11:37)
[2017-03-16] MEDS ORDERED: LR 1,000 ML IV SCH (11:45)
[2017-03-16] MEDS ORDERED: ONDANSETRON 4MG/2ML VIAL (J2405) IV PRN (11:45)
[2017-03-16] MEDS ORDERED: fentaNYL 100 MCG/2 ML INJECTION (J3010) IV PRN (11:45)
[2017-03-16] MEDS ORDERED: MEPERIDINE INJ 25 MG/ML VIAL (J2175) IV PRN (11:45)
[2017-03-16] MEDS ORDERED: METOCLOPRAMIDE INJ 10MG/2ML VIAL (J2765) IV PRN (11:45)
[2017-03-16] MEDS ORDERED: PERCOCET 5MG/325MG TAB PO PRN (11:45)
--- NOTE | 2017-03-16 11:48 | ROOPDOC ---
[facility] Report Of Operation Report of Operation DATE OF SURGERY: 03/16/2017 SURGEON: Dr. Bessy Kim Co-Surgeon: This OR report is part of surgery performed by . He dictate main OR report. I dictate only part which was done by me. PROCEDURE PERFORMED: 1. Peritoneal catheter placement DESCRIPTION OF THE PROCEDURE OPERATIVE TECHNIQUE The abdomen skin incision is placed horizontally 2 cm lateral and 2 cm superior to the umbilicus. The abdominal opening was done in a stepwise fashion. After the skin is incised and the subcutaneous tissue dissected, the external fascia of the rectus abdominis muscle was dissected vertically, then retracted laterally. The inner fascia was then grasped with a forceps and incised. This brings a smooth brighter layer in the field, the peritoneum, which was also grasped and opened with scissors. A purse-string suture is then placed around this last layer, using 3-0 Vicryl. Attention is then given to the tunneling portion. Tunneling was performed from the abdominal incision up to the back of L-spine. A shunt passer was used for this step, which is advanced subcutaneously, until it reaches the L-spine incision. The distal catheter was then passed through the inner channel of the passer from proximal to distal. The passer is then removed and the shunt tubing is left in place. All exposed skin edges were covered with antibiotic-soaked sponges, and sterile towels were draped around the wound before shunt insertion. The peritoneal catheter was then inserted. Prior to catheter insertion, the patency of its distal end is verified and CSF flow through the entire system is confirmed. Using bayonets the distal catheter was inserted into the peritoneal cavity to a length of -30-60cm. The purse-string suture was secured. The wound was irrigated with antibiotic saline solution. Hemostasis is achieved. The fascia of the wound was closed by using interrupted Vicryl sutures , then the skin is dosed in a standard fashion. BESSY KIM MD Mar 16, 2017 11:48
[2017-03-16] MEDS ORDERED: MORPHINE 2 MG/ML 1ML SYRINGE As Ordered ONE (11:51)
[2017-03-16] MEDS ORDERED: MORPHINE 2 MG/ML 1ML SYRINGE IV PRN ×2 (12:00→12:15)
[2017-03-16] MEDS ORDERED: ACETAMINOPHEN 500 MG TAB As Ordered ONE (12:03)
[2017-03-16] MEDS: MORPHINE 2 MG/ML 1ML SYRINGE IV PRN ×3 (12:20→23:22)
[2017-03-16 12:29] LABS: GLUCOSE CSF 70 MG/DL (40-75); RBC CSF AUTO 43 /mm3 (0-0); WBC CSF AUTO 4 /mm3 (0-10)
[2017-03-16] MEDS ORDERED: IPRATROPIUM 0.02% SOLN 0.5MG/2.5 ML NEB INH PRN (12:30)
[2017-03-16 12:31] LABS: CSF TUBE# CELL CNT TUBE 1
[2017-03-16 12:32] LABS: APPEARANCE, CSF CLEAR (CLEAR); COLOR, CSF COLORLESS (COLORLESS); CSF DIFF IF INDICATED? NO (NO)
[2017-03-16 12:33] LABS: CSF DILUENT LOT # 6277
[2017-03-16] MEDS: **UNRESOLVED NON-FORMULARY MED ORDER XX SCH (14:34)
[2017-03-16] MEDS ORDERED: IPRATROPIUM 0.5MG/ALBUTEROL 2.5MG INH SOL UD 3ML (DUONEB)(J7620) NEB PRN (14:45)
[2017-03-16] MEDS: KCL 20MEQ IN D5/0.45NS 1000ML 1,000 ML IV SCH ×2 (14:53→22:15)
[2017-03-16] MEDS: ZONISAMIDE 100 MG CAP (ZONEGRAN) PO SCH ×2 (14:55→20:48)
--- NOTE | 2017-03-16 16:28 | CR ---
DATE OF CONSULTATION: 03/16/2017 Time patient was seen was this afternoon around 1310. CONSULTATION REPORT FOR: Dr. Kearney CIRCUITS ENGINEER: Dr. Peng REASON FOR CONSULTATION: History of chronic obstructive pulmonary disease (COPD) and history of chronic hypoxic respiratory failure, required a noninvasive ventilation back in September 2016. HISTORY OF PRESENT ILLNESS: A 57-year-old female with a significant history for severe chronic obstructive pulmonary disease (COPD) with hypoxemia secondary to emphysema, hypothyroidism. She also has history of polycythemia and a history of tobacco usage. Today, the patient received a ventriculoperitoneal (REGULATORY SUBMISSIONS ASSOCIATE) shunt for her pseudotumor cerebri operated by Dr. Kearney and Dr. Kim. The patient tolerated the procedure well. However, due to concern for the patient's history of severe chronic hypoxic respiratory failure, we have consulted for pulmonary evaluation and management. According to the patient, her neurological symptoms started a year and a half ago with frontal headache which progressed into dizziness and left lower extremity numbness which was initially evaluated by neurology, then the patient was found to have abnormalities on repeat MRIs and was therefore being followed by Dr. Kearney. She had multiple lumbar punctures and received a REGULATORY SUBMISSIONS ASSOCIATE shunt today. According to the patient, she denies any fever or chills, any chest pain, any trouble breathing, any abdominal pains. ALLERGIES: The patient is allergic to ACETAZOLAMIDE which she had a previous respiratory failure on back in September of 2016. HOME MEDICATIONS: Include: - acetaminophen 650 mg one tablet by mouth every four hours as needed - DuoNebs one inhalation every four hours as needed - budesonide 0.5 mg inhalation twice a day - diltiazem 120 mg one tablet by mouth daily - gabapentin 300 mg one tablet by mouth every morning - gabapentin 600 mg one tablet by mouth at bedtime - ibuprofen 600 mg one tablet by mouth every six hours as needed - Incruse Ellipta 62.5 mcg inhalation daily - ipratropium bromide 0.5 mg inhalation every four hours as needed - Synthroid 125 mg one tablet by mouth daily - multivitamin one tablet by mouth daily - Paxil 10 mg one tablet by mouth at bedtime - salmeterol fluticasone 250/500 mcg per dose one puff inhalation twice a day - vitamin D 1000 units one tablet by mouth daily - zonisamide 100 mg one tablet by mouth twice a day PAST MEDICAL HISTORY: Includes: 1. Chronic obstructive bronchitis. 2. Emphysema. 3. Chronic hypoxic respiratory failure on four liters of oxygen 20 hours a day. 4. Previous and intermittent longstanding tobacco abuse. 5. Previous polycythemia. 6. Hypothyroidism. 7. Hydrocephalus with pseudotumor cerebri. PAST SURGICAL HISTORY: Includes: 1. Tonsillectomy. 2. Appendectomy. 3. Herniorrhaphy. 4. Hip replacement. 5. Lumbar surgery with spinal fusion. 6. Hysterectomy. SOCIAL HISTORY: She was a heavy smoker. She has been smoking intermittently recently. FAMILY HISTORY: Noncontributory. REVIEW OF SYSTEMS: 12-point systems reviewed negative except as stated in the history of present illness (HPI) including the patient denies any chest pain, any abdominal pains that is more than usual from the surgery. Denies any nausea, vomiting, diarrhea, or constipation. Denies any problem with urination. The patient has blurred vision at baseline and left lower extremity numbness at baseline as well, also headache at baseline. PHYSICAL EXAMINATION: VITAL SIGNS: Temperature 98.2, pulse 89, respiratory rate 22, blood pressure 111/70, oxygen was saturating at 92% on two liters of nasal cannula. GENERAL: The patient is a morbidly obese, middle-age female who was awake, alert , and oriented times three. She does not appear to be in distress, laying comfortably in bed with head elevated at 45-degree angle. HEENT: Normocephalic, atraumatic. The patient does have an incision at the right parietal region of her head. The incision was dry, clean and intact. Mucosal membrane moist. NECK: Supple. No neck lymphadenopathy. CARDIOVASCULAR: Regular rate and rhythm. Normal S1, S2. No murmur, rubs, or gallops. The patient does have distant heart sounds due to increased anteroposterior (AP) diameter. LUNGS: Clear to auscultation bilaterally. Increased anteroposterior AP. No wheeze, rhonchi, or crackle. Prolonged expiratory phase. No accessory muscle usage or retractions. ABDOMEN: Positive bowel sounds, soft, nontender, nondistended. Incision was dry, clean and intact. EXTREMITIES: No clubbing, cyanosis, or edema. SKIN: Warm and dry. NEUROLOGIC: Cranial nerves II-XII intact. LABORATORY DATA: There are no laboratories except for the patient's CSF analysis which shows clear color, 4 WBC, 43 RBC, 70 glucose, and 40.7 total protein. The patient's gram stain of the CSF shows no cells seen or organisms seen. Culture is pending. There is no new imaging. ASSESSMENT AND PLAN: A 57-year-old female with significant pulmonary history including severe chronic obstructive pulmonary disease (COPD), chronic hypoxic respiratory failure on two liters of nasal cannula oxygen 24 hours a day, severe emphysema with previous polycythemia, hypothyroidism, hydrocephalus with pseudotumor cerebri. 1. Severe chronic hypoxic respiratory failure. The patient had acute on chronic hypercapnic hypoxic respiratory failure back in September 2016 which leading to noninvasive mechanical ventilation back at that time was thought to be secondary to Diamox and narcotics. The patient's most recent spirometry on 02/11 shows actual FEV1 of 0.74 which is 24% predicted and actual FEV1/FVC was 38%. The patient's forced vital capacity was 1.94 which is 49%. We will continue to monitor the patient critically in the intensive care unit (ICU) due to the patient just had the procedure. We will be very cautious regarding pain management due to the patient's history of severe chronic obstructive bronchitis and emphysema. We agree with the current pain management. Continue the patient on nasal cannula oxygen. 2. COPD with very severe hypercapnic and hypoxemia history and also panlobular emphysema. Continue to monitor. Continue nasal cannula oxygen. Currently saturating 88% -92%.. 3. Panlobular emphysema. 4. Intermittent tobacco use. 5. Deep vein thrombosis (DVT) prophylaxis, on sequential compression device (SCD ) currently due to the patient just received the procedure with a ventriculoperitoneal (REGULATORY SUBMISSIONS ASSOCIATE) shunt. ADDENDUM: I,, Dr. Francoise Peng, was present during the history and performed a physical examination and agree with the documentation. I discussed the assessment and recommendations with the resident and agree with the above documentation. SUSY
[2017-03-16] MEDS: ceFAZolin SOD 1 GM in D5W MINI-BAG PLUS 50 ML IV SCH ×2 (16:56→22:16)
[2017-03-16] MEDS: ACETAMINOPHEN 500 MG TAB PO PRN ×2 (16:57→20:48)
[2017-03-16] MEDS: ADVAIR HFA 115/21MCG INHALER INH SCH (20:20)
[2017-03-16] MEDS: BUDESONIDE 0.5 MG/2 ML INHALATION SUSPENSION INH SCH (20:20)
[2017-03-16] MEDS ORDERED: GABAPENTIN 300 MG CAP PO SCH (21:00)
[2017-03-16] MEDS ORDERED: PARoxetine 10MG TABLET PO SCH (21:00)
[2017-03-16] MEDS: IBUPROFEN 600 MG TAB PO PRN (21:07)
[2017-03-17] VITALS (8 sets, daily range): BP systolic 95–124; BP diastolic 50–80
[2017-03-17] MEDS: **UNRESOLVED NON-FORMULARY MED ORDER XX SCH (00:01)
[2017-03-17] MEDS: ACETAMINOPHEN 500 MG TAB PO PRN ×3 (02:10→14:12)
[2017-03-17] MEDS: MORPHINE 2 MG/ML 1ML SYRINGE IV PRN ×2 (03:17→09:20)
[2017-03-17] MEDS: ceFAZolin SOD 1 GM in D5W MINI-BAG PLUS 50 ML IV SCH ×2 (03:17→09:18)
[2017-03-17] MEDS: IBUPROFEN 600 MG TAB PO PRN (04:23)
[2017-03-17 04:54] LABS: MEAN CORPUSCULAR HEMOGLOBIN 29.8 pg (27.0-33.0); MEAN CORPUSCULAR VOLUME 90.2 fl (80.0-96.0); RED CELL DISTRIBUTION WIDTH 14.2 % (11.5-14.5); WHITE BLOOD COUNT 6.1 K/mm3 (4.0-10.0)
[2017-03-17 05:10] LABS: ALBUMIN 3.1 GM/DL (3.2-5.2); ALBUMIN/GLOBULIN RATIO 1.24 (1.00-1.93); ALKALINE PHOSPHATASE 61 U/L (45-117); ALT/SGPT 18 U/L (12-78); ANION GAP 1 MEQ/L (8-16); AST/SGOT 12 U/L (15-37); BILIRUBIN,TOTAL 0.2 MG/DL (0.2-1.0); BLOOD UREA NITROGEN 16 MG/DL (7-18); CALCIUM LEVEL 8.9 MG/DL (8.5-10.1); CARBON DIOXIDE LEVEL 33 MEQ/L (21-32); CHLORIDE LEVEL 107 MEQ/L (98-107); CREATININE FOR GFR 0.75 MG/DL (0.55-1.02); GLOMERULAR FILTRATION RATE > 60.0 (>51); GLUCOSE, FASTING 89 MG/DL (70-105); POTASSIUM SERUM 4.4 MEQ/L (3.5-5.1); SODIUM LEVEL 141 MEQ/L (136-145); TOTAL PROTEIN 5.6 GM/DL (6.4-8.2)
[2017-03-17] MEDS ORDERED: LEVOTHYROXINE 125MCG TABLET (0.125MG) PO SCH (06:00)
[2017-03-17] MEDS: BUDESONIDE 0.5 MG/2 ML INHALATION SUSPENSION INH SCH (07:42)
[2017-03-17] MEDS: ADVAIR HFA 115/21MCG INHALER INH SCH (07:42)
[2017-03-17] MEDS ORDERED: GABAPENTIN 300 MG CAP PO SCH (09:00)
[2017-03-17] MEDS: ZONISAMIDE 100 MG CAP (ZONEGRAN) PO SCH (09:18)
--- NOTE | 2017-03-17 14:57 | RO ---
DATE OF PROCEDURE: 03/16/2017 PREOPERATIVE DIAGNOSIS: Benign intracranial hypertension/pseudotumor cerebri. POSTOPERATIVE DIAGNOSIS: Benign intracranial hypertension/pseudotumor cerebri. PROCEDURE: Placement of lumboperitoneal shunt. SURGEON: Marlene Kearney MD WORD PROCESSING SPECIALIST: Eduar Kim MD ANESTHESIA: Local with monitored anesthesia care (MAC). FINDINGS: Please see my office notes for detailed and also records from her lathe turner, Dr. Mtz, her vertical punch operator, Dr. Vela, and Dr. Green her infectious disease physician. Patient with progressive loss of vision and relentless headache for the past 18 months. She responded initially to Diamox though on account of severe respiratory failure she could not tolerate it. Her opening pressure has been extremely high on the spinal taps, up to 78. Her last spinal tap done about four days ago the opening pressure was 58. Dr. Mtz, her lathe turner, felt that she is rapidly losing her visual velasquez and vision and is or near legally blind now. The patient was seen in the preoperative area with her daughter and friend with no change in her clinical examination. Grave outlook was discussed again with the patient and the family. The patient aware of the grave outlook and dismal prognosis based on her clinical, radiological findings, comorbidities including obesity, and severe tobacco abuse, respiratory failure, multiple abdominal and lumbar surgeries amongst others. The patient and her family were aware of all options, scope and expected outcome, sequelae and all risks and roles of lumboperitoneal shunt. Patient and family aware surgery was not curative and that no guarantees of any kind could be given including that of successful placement of the shunt under local anesthesia in the presence of multiple lumbar surgeries and multiple abdominal surgeries. The patient, her daughter and the friend were aware that the risk of surgery included but not limited to , CSF leak, meningitis, seizure disorder, status epilepticus, paralysis, quadriplegia, loss of any or all vital bodily functions, particularly vision, perils of surgery using local anesthesia and conscious sedation, persistent vegetative state, intracranial hypotension with this dreadful sequelae, persistence or worsening of her symptoms, dependency on life support measures, infection, bleeding, non or poor healing of the wounds, pulmonary embolism (PE), deep vein thrombosis (DVT), myocardial infarction (WA) or any catastrophic sequelae. The patient understood. The patient and family wished to proceed with surgery and after informed consent and also matters pertaining to surgery, anesthesia and followup care have been discussed with her again and her request she was taken to the operating room. DESCRIPTION OF OPERATION: Once in the operating room, area of surgery was prepped and draped in the usual sterile fashion. After putting her in the right lateral position, the patient was given some sedation, though she was quite restless and moving around on the operating room table, thus the sedation was deepened by the anesthesia department. After adequate prep and drape, part of the previous lumbar incision was opened and extended superiorly. The cut edges of the blood vessels were coagulated with bipolar cautery with lumbar dorsal fascia reached. At this time, a spatula Tuohy needle was introduced into the epidural space and then advanced into the thecal space. The CSF gushed out several inches from the spinal area, onto my gown, the pressure appeared to be at least 80 if not more. A Spetzler lumboperitoneal catheter was then placed into the thecal space and the Tuohy needle was withdrawn. The lumbar catheter was anchored to the lumbar dorsal fascia with the sleeve provided in the LP shunt kit. Dr. Kim made an abdominal incision and the shunt assembly was then passed via shunt tunneler into the abdominal incision, which was then placed into the abdominal cavity by Dr. Kim. Details of his procedure will be found in his dictation. Blood loss was negligible, maybe a few mL in the lumbar incision. Dr. Kim also did not report any bleeding. The wounds were closed in anatomic layers. The patient tolerated the procedure well. At the time of this dictation in the recovery room, she was awake and alert, cheerful and she claimed her blurred vision is almost gone. The operative findings were discussed with the patient and her family in the waiting room as well. Dr. Vela was texted of her findings and requested his assistance for respiratory management, who advised to call Dr. Peng, who was also informed of her clinical findings and my rationale of seeking/ requesting pulmonology evaluation on their patient. SUSY
[2017-03-18] MEDS ORDERED: ENTER DRUG NAME HERE (PATIENT'S OWN MED) INH SCH (09:00)
--- NOTE | 2017-03-18 10:22 | DSES ---
DATE OF ADMISSION: 03/16/2017 DATE OF DISCHARGE: 03/17/2017 PROCEDURE: Placement of lumboperitoneal shunt. HOSPITAL COURSE: Please see my office notes and records of her abrasive coating machine operator, Dr. Mtz and her ux design lead, Dr. Vela for further details. Patient with severe and intractable intracranial hypertension and visual loss. The last opening pressure was in the 50s. The patient was aware of all options and grave outlook. The patient, her daughter and her friend were aware of the risks of proposed salvage lumboperitoneal shunt under local anesthesia with conscious sedation and after all matters pertaining to surgery, anesthesia and followup care, she wished to proceed with the proposed surgery which was done uneventfully. Opening pressure was nearly 80 or more. After the surgery she felt good. Immediately in the recovery room she noticed that her visual blurring was resolving. The next morning she was up and around in the room, tolerating general diet and wished to go home. The patient was neurologically intact. Her visual field on confrontation appeared to have increased substantially since the preoperative evaluation. Nevertheless she was advised to continue followup with Dr. Mtz with whom she should make an urgent appointment, and also should make appointments with all her treating physicians. Followup instructions and natural course of the illness were discussed in detail with her and her friend. She was afebrile and her incisions were healing well. She was advised to continue all her current home medications per the advice of the prescribing physicians. She was advised to followup in the [facility] neurosurgery clinic in a couple of week or sooner if needed.
== END 2017-03-17 14:50 | disposition home or self-care (01) ==
LOC: M OR 06:48 → UNDOADMIN 06:48 → M SDC 06:48 → EDSTATUS 08:30 → M ICU 11:45 → M OR 13:01 → M SDC 03-17 14:50 → UNDODISIN 03-17 14:50
PROVIDERS: ATTEND Neurological Surgery
DX: G93.2 Benign intracranial hypertension (principal); R51 Headache; H54.7 Unspecified visual loss; E03.9 Hypothyroidism, unspecified; I10 Essential (primary) hypertension; J43.9 Emphysema, unspecified; G62.9 Polyneuropathy, unspecified; J45.902 Unspecified asthma with status asthmaticus; M47.816 Spondylosis without myelopathy or radiculopathy, lumbar region; H53.2 Diplopia; J96.01 Acute respiratory failure with hypoxia; J96.22 Acute and chronic respiratory failure with hypercapnia; J96.21 Acute and chronic respiratory failure with hypoxia; J96.02 Acute respiratory failure with hypercapnia; K21.9 Gastro-esophageal reflux disease without esophagitis; R13.10 Dysphagia, unspecified; G56.00 Carpal tunnel syndrome, unspecified upper limb; G56.20 Lesion of ulnar nerve, unspecified upper limb; M46.1 Sacroiliitis, not elsewhere classified; J42 Unspecified chronic bronchitis; K57.32 Diverticulitis of large intestine without perforation or abscess without bleeding; R29.898 Other symptoms and signs involving the musculoskeletal system; M12.9 Arthropathy, unspecified; Z88.8 Allergy status to other drugs, medicaments and biological substances; Z79.899 Other long term (current) drug therapy; Z90.710 Acquired absence of both cervix and uterus; Z87.891 Personal history of nicotine dependence
CPT/HCPCS: 36415; 63741; 80053; 82945; 84157; 85027; 87015; 87070; 87205; 89050; 94640; 96374; C1729; J0690; J1100; J2250; J3010

== ENCOUNTER 2017-05-30 22:36 | Inpatient (IN) | payer MEDICARE, OTHER ==
[~2017-05-30] VITALS: Ht 175.3 cm; Wt 91.4 kg
[2017-05-30] MEDS ORDERED: IPRATROPIUM 0.5MG/ALBUTEROL 2.5MG INH SOL UD 3ML (DUONEB)(J7620) NEB ONE (23:00)
[2017-05-30] MEDS ORDERED: diphenhydrAMINE INJ 50MG/ML VIAL (J1200) IV STA (23:06)
[2017-05-30 23:08] LABS: ABG BASE EXCESS 5.9 (-2.0-2.0); ABG HCO3 37.2 MEQ/L (22.0-26.0); ABG PARTIAL PRESSURE O2 57.4 mmHg (75.0-100.0); ABG STANDARD HCO3 29.6 MEQ/L (22.0-26.0)
[2017-05-30 23:09] LABS: ABG PARTIAL PRESSURE CO2 91.1 mmHg (35.0-45.0); ABG pH (ARTERIAL) 7.229 UNITS (7.350-7.450)
[2017-05-30] MEDS ORDERED: METOCLOPRAMIDE INJ 10MG/2ML VIAL (J2765) IV ONE (23:15)
[2017-05-30] MEDS ORDERED: KETOROLAC 30 MG/ML VIAL (J1885) IV ONE (23:15)
[2017-05-31] MEDS ORDERED: dexameTHASONE 20 MG/5 ML VIAL (J1100) IV ONE
[2017-05-31] MEDS: IPRATROPIUM 0.5MG/ALBUTEROL 2.5MG INH SOL UD 3ML (DUONEB)(J7620) NEB SCH ×7 (01:30→17:08)
--- NOTE | 2017-05-31 01:30 | REPUSA ---
CLINICAL HISTORY: Headaches. TECHNIQUE: MRI of the brain was performed utilizing multiple sequences in axial, coronal and sagittal planes without IV contrast material. COMMENTS: Comparison to the prior exam performed on 07/21/2016. The sella and parasellar region are unremarkable in appearance. The corpus callosum and cerebellar to nsils are of normal configuration and position. There are no intra or extra-axial collections. There is no mass effect or midline shift. There is no evidence of hematoma formation. There is no hydroceph alus. The visualized arterial structures demonstrate normal appearing flow voids. The seventh and eighth ne rve bundles are visualized and are unremarkable in appearance. Several foci of T2/FLAIR hyperintensity are noted in the bilateral periventricular and subcortical wh ite matter compatible with mild chronic white matter ischemic changes. Unchanged left parietal sebaceous cyst. IMPRESSION: 1. No acute intracranial pathology. 2. Unchanged exam. 3. Mild chronic white matter microvascular ischemic changes. Thank you for your kind referral of this patient.
[2017-05-31] MEDS: MORPHINE 4 MG/ML 1ML SYRINGE IV PRN ×3 (01:43→13:45)
[2017-05-31] MEDS ORDERED: VITA100066 PO (02:28)
[2017-05-31] MEDS ORDERED: ZONI100C2 PO ×2 (02:28)
[2017-05-31] MEDS ORDERED: VITMTA PO (02:28)
[2017-05-31] MEDS ORDERED: TYLE500T78 PO (02:28)
[2017-05-31 03:10] LABS: BASO % 0.1 % (0.0-1.0); EOS % 0.3 % (0.0-3.0); IMMATURE GRANULOCYTE % 0.3 % (0-0); LYMPH # 0.9 10^3/uL (1.5-4.5); LYMPH % 12.2 % (24.0-44.0); MEAN CORPUSCULAR HEMOGLOBIN 29.3 pg (27.0-33.0); MEAN CORPUSCULAR HGB CONC 31.7 g/dl (32.0-36.5); MEAN CORPUSCULAR VOLUME 92.5 fl (80.0-96.0); MONO # 0.7 10^3/uL (0.0-0.8); MONO % 9.2 % (0.0-5.0); NEUTROPHILS # 5.9 10^3/uL (1.8-7.7); NEUTROPHILS % 77.9 % (36.0-66.0); PLATELET COUNT, AUTOMATED 229 10^3/uL (150-450); RED CELL DISTRIBUTION WIDTH 14.7 % (11.5-14.5); WHITE BLOOD COUNT 7.5 10^3/uL (4.0-10.0)
[2017-05-31 03:35] LABS: ANION GAP 4 MEQ/L (8-16); BLOOD UREA NITROGEN 14 MG/DL (7-18); CALCIUM LEVEL 9.1 MG/DL (8.5-10.1); CARBON DIOXIDE LEVEL 37 MEQ/L (21-32); CHLORIDE LEVEL 102 MEQ/L (98-107); CREATININE FOR GFR 0.58 MG/DL (0.55-1.02); GLOMERULAR FILTRATION RATE > 60.0 (>51); GLUCOSE, FASTING 89 MG/DL (70-105); SODIUM LEVEL 143 MEQ/L (136-145)
[2017-05-31 03:39] LABS: ABG BASE EXCESS 4.1 (-2.0-2.0); ABG HCO3 36.2 MEQ/L (22.0-26.0); ABG PARTIAL PRESSURE O2 167.8 mmHg (75.0-100.0); ABG STANDARD HCO3 28.2 MEQ/L (22.0-26.0); ABG TOTAL CO2 39.3 MEQ/L (22.0-29.0)
[2017-05-31 03:41] LABS: ABG PARTIAL PRESSURE CO2 100.3 mmHg (35.0-45.0); ABG pH (ARTERIAL) 7.175 UNITS (7.350-7.450)
[2017-05-31] MEDS ORDERED: MORPHINE 4 MG/ML 1ML SYRINGE IV ONE (05:00)
[2017-05-31 05:15] VITALS: BP 129/83
[2017-05-31] MEDS: NS 1,000 ML IV SCH ×2 (05:27→20:42)
[2017-05-31] MEDS ORDERED: PREVNAR 13 VACCINE SYRINGE (CPT CODE:90670) IM SCH (06:30)
[2017-05-31] MEDS ORDERED: INFLUENZA QUADRIVALENT PF VACCINE 0.5ML SYRINGE (90686) IM SCH (06:30)
[2017-05-31 07:45] VITALS: BP 102/68
[2017-05-31] MEDS: BUDESONIDE 0.5 MG/2 ML INHALATION SUSPENSION INH SCH ×2 (07:46→20:00)
[2017-05-31] MEDS: FORMOTEROL FUMARATE 20 MCG/2 ML INHALATION SOLUTION (PERFOROMIST) INH SCH ×2 (08:00→20:00)
[2017-05-31] MEDS: methylPREDNISolone INJ 40 MG/1 ML VIAL (J2920) IV SCH ×2 (08:22→16:32)
[2017-05-31] MEDS: PANTOPRAZOLE 40MG INJ (PROTONIX) (C9113) IV SCH (08:22)
[2017-05-31] MEDS: GABAPENTIN 300 MG CAP PO SCH ×2 (08:22→21:38)
[2017-05-31] MEDS: DOXYCYCLINE HYCLATE 100 MG TAB PO SCH ×2 (08:23→21:38)
[2017-05-31] MEDS: LEVOTHYROXINE 125MCG TABLET (0.125MG) PO SCH (08:23)
[2017-05-31] MEDS: ZONISAMIDE 100 MG CAP (ZONEGRAN) PO SCH ×2 (08:23→21:38)
[2017-05-31] MEDS: ACETAMINOPHEN TAB 650MG DOSE (2X325MG) PO PRN ×2 (08:24→12:13)
--- NOTE | 2017-05-31 08:52 | REP ---
Portable chest, 01:55 a.m., single AP view, patient sitting: Comparisons 10/17/2016. The lung velasquez are clear. The previous right pleural effusion has resolved. Cardiac size is normal. The bhavani, mediastinum, and bony thorax are unremarkable. Impression: Essentially negative portable chest. Signed by Hugh Redding MD 05/31/2017 08:44 A
[2017-05-31] MEDS ORDERED: ENOXAPARIN 40 MG/0.4 ML SYRINGE (J1650) SC SCH (09:00)
--- NOTE | 2017-05-31 09:47 | HPE ---
DATE OF ADMISSION: 05/31/2017 NURSING HOME ADMISSIONS DIRECTOR: Dr. Vela. PAYABLE REPRESENTATIVE: Dr. Mtz. NEUROSURGEON: Dr. Kearney and Dr. Kim. PRIMARY CARE PHYSICIAN: Suzi Kennedy, nurse practitioner. CHIEF COMPLAINT: Patient was transferred from [facility] emergency room where she had presented for severe headache for 2 weeks and shortness of breath for 1 week. She had a CT scan done there which was abnormal and showed Slit ventricle syndrome so was transferred here for further evaluation. PAST MEDICAL HISTORY: Pseudotumor cerebri status post lumboperitoneal shunt in March 2017. 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 Advanced chronic obstructive pulmonary disease (COPD). Chronic respiratory failure with hypoxia. 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 Latent syphilis treated in November 2016. History of rheumatic fever as a child. Hypothyroidism. 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 HISTORY OF PRESENT ILLNESS: This is a 57-year-old female transferred from [facility] for abnormal CT scan of the brain. Patient had presented to the emergency room with 2 week history of intractable headache and 1 week history of progressive worsening shortness of breath. Patient has been having headaches for the past 2-3 years and was initially diagnosed with papilledema with progressive loss of vision and she was diagnosed with pseudotumor cerebri earlier this year with very high opening pressures of 78 or more on several occasions with improvement in headaches and vision of the drainage of CSF fluid. She ultimately underwent ventriculoperitoneal shunt surgery in March 2017, however. After that her vision did improve, however, she did still continue to have intermittent headaches and this time, she has been having severe headaches for the past 2 weeks so went to the emergency room. She had also complained of increasing shortness of breath for 1 week. In [facility] ED, she had a CT scan of the head done which was read as Slit ventricle syndrome with a history of recent ventriculoperitoneal shunt. At her hospital, she was transferred here for further evaluation of shunt function. In our emergency room, patient had an MRI of the brain done which did not reveal an acute intracranial pathology. There were mild chronic white matter microvascular changes. Because of shortness of breath, she had an ABG done which showed pH of 7.22, pCO2 of 91, pO2 of 57. The rest of her laboratory values are at her baseline so she was admitted to the hospitalist service for acute respiratory failure with hypoxia and hypercarbia, chronic obstructive pulmonary disease (COPD) exacerbation and intractable headache. PAST SURGICAL HISTORY: Appendectomy. Tonsillectomy. Right hip replacement. Hysterectomy. Hernia repair times three. Spinal fusion L4, L5, S1 and laminectomy L4-L5. Colonoscopy. Endoscopy. Lumbar punctures. Ventriculoperitoneal shunt creation in March 2017 for benign intracranial hypertension or pseudotumor cerebri. SOCIAL HISTORY: Patient was a heavy smoker, quit, has been smoking intermittently recently. Does not abuse alcohol or recreational drugs. FAMILY HISTORY: Noncontributory. ALLERGIES: DIAMOX which causes respiratory failure. HOME MEDICATIONS: - Tylenol 500 mg by mouth every 4 hours as needed pain - albuterol ipratropium nebulizer solution every 4 hours as needed - budesonide 0.5 mg inhalation twice daily - cholecalciferol 1000 units by mouth daily - diltiazem 120 mg by mouth daily - gabapentin 300 mg by mouth daily every morning - gabapentin 600 mg by mouth at bedtime - INCRUSE Ellipta 62.5 mcg inhalation daily - Synthroid 125 mcg daily - multivitamins one tablet by mouth daily - Salmeterol/fluticasone 250/50 one puff inhalation twice daily - zonisamide 100 mg by mouth daily - zonisamide 200 mg by mouth at bedtime REVIEW OF SYSTEMS: Patient denies any fever or chills. Did complain of shortness of breath worsening over the past 1 week. She also complained of some productive cough which has been brown in color and she complained of severe headache and neck pain 10 out of 10 when she was at [facility]. Now a little better. She also had mild photophobia. She denied any dysuria, abdominal pain, denies any chest pain, palpitations, dizziness. Denied any diarrhea. PHYSICAL EXAMINATION: Vital signs: Temperature 98.2, pulse 92, respiratory rate 16, blood pressure 161/92, pulse oximetry 98% with 50% FiO2 in BiPAP. General: Patient awake, alert, knows where she is and is oriented. HEENT: Normocephalic, atraumatic. Moist mucous membranes. Anicteric eyes. Chest: Bilateral diffuse wheezing. Cardiovascular: S1, S2, regular. No rub, murmur or gallop. Abdomen: Obese, soft, there is mild tenderness in the right upper quadrant. Bowel sounds normal. Extremities: No edema. LABORATORY DATA: WBC 7.5, hemoglobin 13.3, platelet 229. ABG: pH 7.22, pCO2 91, pO2 57. Blood chemistry from our hospital is pending. Blood chemistry from [facility] shows sodium of 142, potassium 4.4, chloride 104, bicarbonate 34.9, glucose 110, BUN 12, creatinine 0.69. Calcium 9.3. Liver function tests are normal. Anion gap 8, albumin 3.6. Brain MRI did not show any acute intracranial pathology. Sellar and parasellar region are unremarkable in appearance. There was no mass effect or midline shift. There was no evidence of hematoma or hydrocephalus. There is mild chronic white matter ischemic changes. ASSESSMENT AND PLAN: This is a 57-year-old female admitted to the hospital for acute respiratory failure with hypoxia and hypocarbia and intractable headaches. PLAN: For acute respiratory failure with hypoxia and hypocarbia. Will place the patient on BiPAP. Patient was initially on pressures of 18/6, however, her repeat ABG showed worsening of her pH and worsening of her pCO2 so her IPAP pressure was increased to 26 and the EPAP will be increased to 8. Will also cut down on her FiO2 to maintain oxygen saturation of only 88%. Chronic obstructive pulmonary disease (COPD) exacerbation. Will continue the patient on DuoNebs, budesonide nebulizer solution and will also be placed on formoterol nebulizer solutions. Will also start the patient on prednisone. Patient received 10 mg IV of Decadron in the emergency room. Intractable headache. Patient has history of pseudotumor cerebri and ventriculoperitoneal shunt creation in March 2017, however, MRI shows that there is no mass effect and no enlargement of the ventricle so it seems that the shunt is working at this point. Her intractable headache would be related to her hypocarbia. Will re-evaluate her headache once her carbon dioxide level is improved. Will also consider consulting neurosurgery if she continues to have persistent headache. Hypothyroid. Will continue with Synthroid. Chronic respiratory failure with hypoxia. Patient is on home oxygen. Anxiety and depression. Will continue with home medications. History of positive TYRELL. Has to be followed up as an outpatient. History of latent syphilis. Patient finished 14 day course of IV penicillin. Pseudotumor cerebri and benign intracranial hypertension. Patient has a ventriculoperitoneal shunt in place which seems to be working. However, can consider consulting neurosurgery if needed for further evaluation. There does not seem to be any signs of infection as her white count is not elevated, there is no fever. Deep venous thrombosis (DVT) prophylaxis has been ordered. Gastrointestinal (GI) prophylaxis has been ordered.
--- NOTE | 2017-05-31 10:00 | REP ---
REASON FOR EXAM: Shunt placement. AP and lateral views were obtained. There is no prior for comparison. There is a curvilinear radiodensity seen, the tip of which is in the central canal at the level of the superior end plate of T12. The catheter is seen to exit the central canal at the level of the superior end plate of L3 and then it is seen looping across the right lateral flank and overlying the anterior midline abdomen. The intestinal gas pattern is nonspecific. Vertebral body height and alignment is within normal limits. Signed by Serjio Mclean DO 05/31/2017 04:53 P
[2017-05-31 12:10] VITALS: BP 137/93
[2017-05-31 12:21] LABS: ABG BASE EXCESS 7.3 (-2.0-2.0); ABG HCO3 36.7 MEQ/L (22.0-26.0); ABG PARTIAL PRESSURE O2 55.8 mmHg (75.0-100.0); ABG pH (ARTERIAL) 7.304 UNITS (7.350-7.450)
[2017-05-31 12:25] LABS: ABG PARTIAL PRESSURE CO2 75.5 mmHg (35.0-45.0)
[2017-05-31] MEDS: PERCOCET 5MG/325MG TAB PO PRN ×3 (12:26→21:41)
--- NOTE | 2017-05-31 15:15 | IPN ---
DATE: 05/31/2017 SUBJECTIVE: A 57-year-old female complaining of mild headache. She is on bilevel positive airway pressure (BiPAP). She was admitted for similar symptoms last evening, had noted that her carbon dioxide was a little elevated on her arterial blood gas (ABG). She has progressed nicely with BiPAP. We will see if we can titrate her off and repeat an ABG this morning. Neurosurgery has been consulted as well due to a history of normal pressure hydrocephalus. OBJECTIVE: Temperature is 98.1, pulse 100, blood pressure 129/83, SPO2 is 93%. GENERAL: The patient appears to be in no acute distress. She is alert and pleasant but complaining of a mild headache. HEENT: Unremarkable. Throat clear. LUNGS: Clear. HEART: Regular rate and rhythm. ABDOMEN: Soft. EXTREMITIES: No edema. No calf tenderness. LABORATORY DATA: White count 7.5, hemoglobin 13.3, platelets are 229,000. Sodium 143, potassium 4.0, chloride 102, bicarbonate 37, anion gap 4, BUN 14, creatinine 0.58, glucose is 89. Repeat ABG is pending at this time. Brain MRI: No acute intracranial pathology, unchanged examination, mild chronic white matter, microvascular ischemic changes were noted. ASSESSMENT AND PLAN: 1. Acute respiratory failure with hypoxia and hypercarbia. She has done well on bilevel positive airway pressure (BiPAP). We will try to titrate her off, repeat arterial blood gas (ABG), and see if this helps with some of her symptoms. 2. Intractable headache with history of pseudotumor cerebral, ventriculoperitoneal (HORTICULTURE INSTRUCTOR) shunt placement in February 2017. Again, MRI did not show any acute findings. Appreciate neurosurgery input for her persistent headache. 3. History of chronic obstructive pulmonary disease (COPD). We will continue to follow with nebulizers. Decadron was given in the emergency department. She was started on prednisone. 4. Hypothyroidism. Continue Synthroid. 5. Chronic respiratory failure with hypoxia. Continue with home oxygen and titrate as needed. 6. Anxiety and depression, appears to be stable. Continue current medications. 7. History of positive antinuclear antibody (TYRELL). Followup outpatient. 8. History of latent syphilis. Finish a 14-day course of IV penicillin. 9. Pseudotumor cerebri, as indicated above with benign intracranial hypertension, HORTICULTURE INSTRUCTOR shunt was placed in March 2017. Appreciate neurosurgery input. She does not have any fever. No elevated white count. 10. Deep vein thrombosis (DVT) prophylaxis is on board. DISPOSITION: Unclear at this point. Appreciate input from neurosurgery.
[2017-05-31 15:17] LABS: INR 0.92
[2017-05-31 16:20] VITALS: BP 121/80
[2017-05-31] MEDS ORDERED: BACITRACIN PWD 50,000 UNITS VIAL As Ordered ONE (17:52)
[2017-05-31] MEDS ORDERED: THROMBIN SOLN 20,000 UNITS KIT As Ordered ONE (17:52)
[2017-05-31] MEDS ORDERED: LIDOCAINE W/EPINEPHRINE 1% 20ML VIAL As Ordered ONE (17:52)
[2017-05-31] MEDS ORDERED: NAFCILLIN SOD 1 GM VIAL (S0032) As Ordered ONE (17:52)
[2017-05-31] MEDS ORDERED: ceFAZolin 1GM INJ (J0690) As Ordered ONE (18:08)
[2017-05-31] MEDS ORDERED: PROPOFOL 200 MG/20 ML VIAL As Ordered ONE (18:36)
[2017-05-31] MEDS ORDERED: fentaNYL 100 MCG/2 ML INJECTION (J3010) As Ordered ONE ×2 (18:36→19:53)
[2017-05-31] MEDS ORDERED: MIDAZOLAM INJ 2 MG/2 ML VIAL (J2250) As Ordered ONE (18:36)
[2017-05-31] MEDS ORDERED: BACITRACIN OINT 30GM As Ordered ONE (18:37)
[2017-05-31] MEDS ORDERED: LR 1,000 ML IV SCH (20:00)
[2017-05-31] MEDS ORDERED: fentaNYL 100 MCG/2 ML INJECTION (J3010) IV PRN (20:00)
[2017-05-31] MEDS ORDERED: ONDANSETRON 4MG/2ML VIAL (J2405) IV PRN (20:00)
[2017-05-31 20:30] VITALS: BP 139/87
--- NOTE | 2017-05-31 21:20 | ECGEPIP ---
Stationary ECG Study [facility] Test Date: 2017-05-31 Pat Name: JOAN WILSON Department: Room: [place] [address] Gender: F [employer] Attendant: : 1960 Requested By: Tomás Gonsalez Order Number: [id number] Reading MD: Isaiah Saavedra Measurements Intervals [place] Rate: 87 P: 74 MI: 164 QRS: 69 QRSD: 96 T: 75 QT: 335 QTc: 404 Interpretive Statements SINUS RHYTHM ARTIFACT NOTED ON THE BASELINE IN THE CHEST LEADS NO PRIOR TRACING IN THE SYSTEM Electronically Signed On 05-31-2017 21:20:18 EDT by Isaiah Saavedra
[2017-05-31 22:00] VITALS: BP 115/70
[2017-06-01] VITALS (10 sets, daily range): BP systolic 108–149; BP diastolic 62–89; O2SAT 98
[2017-06-01] MEDS: methylPREDNISolone INJ 40 MG/1 ML VIAL (J2920) IV SCH ×3 (00:19→16:46)
[2017-06-01] MEDS: PERCOCET 5MG/325MG TAB PO PRN ×4 (03:22→22:01)
[2017-06-01] MEDS: IPRATROPIUM 0.5MG/ALBUTEROL 2.5MG INH SOL UD 3ML (DUONEB)(J7620) NEB PRN (05:06)
[2017-06-01] MEDS: NS 1,000 ML IV SCH ×2 (05:18→19:19)
[2017-06-01] MEDS: MORPHINE 4 MG/ML 1ML SYRINGE IV PRN ×4 (05:21→19:34)
[2017-06-01 05:40] LABS: ABG BASE EXCESS 5.3 (-2.0-2.0); ABG HCO3 35.3 MEQ/L (22.0-26.0); ABG PARTIAL PRESSURE O2 72.6 mmHg (75.0-100.0); ABG STANDARD HCO3 29.2 MEQ/L (22.0-26.0); ABG TOTAL CO2 37.7 MEQ/L (22.0-29.0); ABG pH (ARTERIAL) 7.267 UNITS (7.350-7.450)
[2017-06-01 06:04] LABS: ABG PARTIAL PRESSURE CO2 79.1 mmHg (35.0-45.0)
[2017-06-01 06:11] LABS: ANION GAP 2 MEQ/L (8-16); BLOOD UREA NITROGEN 16 MG/DL (7-18); CALCIUM LEVEL 9.3 MG/DL (8.5-10.1); CARBON DIOXIDE LEVEL 36 MEQ/L (21-32); CHLORIDE LEVEL 104 MEQ/L (98-107); CREATININE FOR GFR 0.83 MG/DL (0.55-1.02); GLOMERULAR FILTRATION RATE > 60.0 (>51); GLUCOSE, FASTING 136 MG/DL (70-105); POTASSIUM SERUM 4.8 MEQ/L (3.5-5.1); SODIUM LEVEL 142 MEQ/L (136-145)
--- NOTE | 2017-06-01 06:20 | REPUSA ---
CLINICAL HISTORY: Lida hole. TECHNIQUE: Multiple axial brain CT scan sections were obtained from base to vertex without contrast a dministration. COMMENTS: Comparison to prior exam on 05/31/2017. Right frontal lida hole is noted. Minimal hypodense foci in the periventricular and subcortical white matter. The study shows normal configuration of sella turcica. There are no intra or extra-axial collections. There is no mass effect or midline shift. There is no evidence of hematoma formation. No hydrocephal us is present. No abnormal calcifications are noted. No significant abnormalities are seen either in the posterior fossa or supratentorial compartment. The sinuses and mastoid air cells are patent. IMPRESSION: Right frontal lida hole is noted. No evidence of acute intracranial pathology. Minimal chronic ischemic white matter disease. Thank you for your kind referral of this patient.
[2017-06-01 06:36] LABS: MEAN CORPUSCULAR HEMOGLOBIN 29.1 pg (27.0-33.0); MEAN CORPUSCULAR HGB CONC 31.7 g/dl (32.0-36.5); MEAN CORPUSCULAR VOLUME 91.9 fl (80.0-96.0); PLATELET COUNT, AUTOMATED 227 10^3/uL (150-450); RED CELL DISTRIBUTION WIDTH 14.5 % (11.5-14.5); WHITE BLOOD COUNT 6.3 10^3/uL (4.0-10.0)
[2017-06-01 06:39] LABS: ADD MANUAL DIFFER YES; DIFF SLIDE NUMBER 39
[2017-06-01 07:28] LABS: DIFF SLIDE NUMBER 122
[2017-06-01] MEDS: BUDESONIDE 0.5 MG/2 ML INHALATION SUSPENSION INH SCH ×2 (08:00→20:00)
[2017-06-01] MEDS: FORMOTEROL FUMARATE 20 MCG/2 ML INHALATION SOLUTION (PERFOROMIST) INH SCH ×2 (08:00→20:00)
[2017-06-01] MEDS: IPRATROPIUM 0.5MG/ALBUTEROL 2.5MG INH SOL UD 3ML (DUONEB)(J7620) NEB SCH ×4 (08:00→20:00)
[2017-06-01] MEDS: LEVOTHYROXINE 125MCG TABLET (0.125MG) PO SCH (08:02)
[2017-06-01] MEDS: ZONISAMIDE 100 MG CAP (ZONEGRAN) PO SCH ×2 (08:02→21:21)
[2017-06-01] MEDS: DOXYCYCLINE HYCLATE 100 MG TAB PO SCH ×2 (08:02→21:21)
[2017-06-01] MEDS: PANTOPRAZOLE 40MG INJ (PROTONIX) (C9113) IV SCH (08:02)
[2017-06-01] MEDS: GABAPENTIN 300 MG CAP PO SCH ×2 (08:02→21:21)
--- NOTE | 2017-06-01 10:57 | IPN ---
DATE: 06/01/2017 Underwent neurosurgical procedure last evening. She feels her headache feels "different" today but no worse. She denies any blurry vision currently. She does have a little bit of some nausea, but felt that she ate her breakfast too fast this morning. No chest pain. No palpitations. No shortness of breath or wheeze. OBJECTIVE: Temperature 98.8, pulse 106, respiratory rate 22, blood pressure 140/85, SpO2 89% on 2 liters. GENERAL: The patient appears to be in no acute distress. She does currently have a dressing over the right side of her cranium where she had bur-hole placement yesterday evening by Dr. Kim. HEENT: Eyes are pupils equal, round, and reactive to light and accommodation, throat clear. Neck supple. LUNGS: Clear. HEART: Regular rate and rhythm. ABDOMEN: Soft. EXTREMITIES: No edema. No calf tenderness. LABS: White count 6.3, hemoglobin 13, platelets 227. Sodium 142, potassium 4.8, chloride 104, bicarbonate 36, anion gap 2, BUN 16, creatinine 0.83, glucose 138. Head CT done this morning without contrast demonstrates a right frontal bur-hole. No evidence of acute intracranial pathology. Minimal chronic ischemic white matter is noted. ASSESSMENT/PLAN: 1. Acute respiratory failure with hypoxia and hypocarbia: She does appear to be doing much better. Her mentation is good this morning. She is tolerating 2 liters per nasal cannula. Will continue to follow. 2. Intractable headache with history of pseudotumor cerebri, status post BRUSH HOLDER ASSEMBLER shunt 2017 and bur hole last evening. Cerebral spinal fluid cultures are pending. Appreciate Dr. Richardson's input and assistance. 3. Chronic obstructive pulmonary disease (COPD): Continue nebulizers. Started on oral prednisone. 4. Hypothyroidism: Continue Synthroid. 5. Chronic respiratory failure with hypoxia with home oxygen use. Will continue to follow. 6. Anxiety and depression: Appears to be stable. Continue current medication. 7. History of elevated TYRELL: For outpatient followup. 8. Prior history of latent syphilis. History of finishing 14-day course of IV penicillin. 9. Pseudotumor cerebri by history as outlined above. Again appreciate neurosurgery input. 10. Deep venous thrombosis prophylaxis: Thromboembolic deterrent stockings (TEDS), sequentials. DISPOSITION: Unclear at this point. Appreciated neurosurgery's input and physical therapy (PT), occupational therapy (OT) consults have been ordered.
--- NOTE | 2017-06-01 22:00 | REPUSA ---
CLINICAL HISTORY: Rule out loculation CSF. TECHNIQUE: Multiple axial, coronal, sagittal CT images were obtained through the abdomen without the administration of oral or intravenous contrast material. COMMENTS: The liver is of uniform attenuation without mass or defect. There is no intra or extrahepatic biliar y ductal dilatation. The spleen is unremarkable. The gallbladder is contracted and contains multipl e calcified gallstones. The pancreas is of normal contour and attenuation characteristics. There is no evidence of adrenal mass. Both kidneys demonstrate prompt and equal nephrograms. 10 mm cyst is seen in the mid pole of the right kidney. There is a 6 mm hyperdense lesion noted in the sup erior pole of the right kidney which may represent small hemorrhagic or proteinaceous cyst. The kidn eys are normal in size, shape and configuration. There is no evidence of renal mass. There is no hy droureter or hydronephrosis. There is no evidence of abdominal ascites or lymphadenopathy. There is no bowel wall thickening. The small and large bowels are unremarkable with no evidence for bowel obstruction. Intrathecal catheter is present with its tip terminating in the anterior abdomen with mild inflammato ry stranding in the anterior abdominal wall adjacent to the catheter with no loculated fluid collecti on. The catheter is looped in the dorsal subcutaneous tissues at L3 level and there is small fluid c ollection noted adjacent to the loop portion of the catheter measuring approximately 3 cm. This may represent mild seroma or abscess. Clinical correlation is recommended. The intraspinal component of catheter extends from approximately L2-L3 to T12 level. The stomach is distended. Scarring is seen in the lingula, right middle lobe and right lung base. There are no pleural effusio ns. IMPRESSION: 1. Scarring in the lingula, right middle lobe and right lung base. 2. Gallbladder is contracted with multiple calcified gallstones. 3. 10 mm cyst in the mid pole of the right kidney. 4. 6 mm hyperdense lesion in the superior pole of the right kidney which may represent small hemorrh agic or proteinaceous cyst. 5. Intrathecal catheter with its tip terminating in the anterior abdomen with mild inflammatory stra nding in the anterior abdominal wall adjacent to the catheter with no loculated fluid collection. Th e catheter is looped in the dorsal subcutaneous tissues at L3 level and there is small fluid collecti on noted adjacent to the loop portion of the catheter measuring approximately 3 cm. This may represe nt seroma or abscess. Clinical correlation is recommended. The intraspinal component of catheter ex tends from approximately L2-L3 to T12 level.
[2017-06-01] MEDS: SIMETHICONE 80 MG CHEW TAB PO PRN (22:01)
[2017-06-02] VITALS (11 sets, daily range): BP systolic 123–165; BP diastolic 63–94
[2017-06-02] MEDS: methylPREDNISolone INJ 40 MG/1 ML VIAL (J2920) IV SCH ×3 (00:06→15:53)
[2017-06-02] MEDS: MORPHINE 4 MG/ML 1ML SYRINGE IV PRN ×5 (00:07→18:07)
[2017-06-02] MEDS: PERCOCET 5MG/325MG TAB PO PRN ×4 (03:24→21:38)
[2017-06-02 06:27] LABS: ABG HCO3 34.6 MEQ/L (22.0-26.0); ABG TOTAL CO2 37.2 MEQ/L (22.0-29.0)
[2017-06-02 06:27] LABS: MEAN CORPUSCULAR HEMOGLOBIN 29.3 pg (27.0-33.0); MEAN CORPUSCULAR HGB CONC 31.8 g/dl (32.0-36.5); MEAN CORPUSCULAR VOLUME 92.1 fl (80.0-96.0); PLATELET COUNT, AUTOMATED 213 10^3/uL (150-450); RED CELL DISTRIBUTION WIDTH 14.7 % (11.5-14.5); WHITE BLOOD COUNT 7.8 10^3/uL (4.0-10.0)
[2017-06-02 06:30] LABS: ADD MANUAL DIFFER YES; DIFF SLIDE NUMBER 29
[2017-06-02 06:31] LABS: ABG pH (ARTERIAL) 7.224 UNITS (7.350-7.450)
[2017-06-02 06:32] LABS: ABG PARTIAL PRESSURE CO2 85.7 mmHg (35.0-45.0)
[2017-06-02 06:46] LABS: ANION GAP 1 MEQ/L (8-16); BLOOD UREA NITROGEN 17 MG/DL (7-18); CALCIUM LEVEL 9.5 MG/DL (8.5-10.1); CARBON DIOXIDE LEVEL 35 MEQ/L (21-32); CHLORIDE LEVEL 106 MEQ/L (98-107); CREATININE FOR GFR 0.53 MG/DL (0.55-1.02); GLOMERULAR FILTRATION RATE > 60.0 (>51); GLUCOSE, FASTING 122 MG/DL (70-105); POTASSIUM SERUM 4.5 MEQ/L (3.5-5.1); SODIUM LEVEL 142 MEQ/L (136-145)
[2017-06-02] MEDS: LEVOTHYROXINE 125MCG TABLET (0.125MG) PO SCH (07:09)
[2017-06-02] MEDS ORDERED: LORazepam 0.5 MG TAB PO ONE (07:15)
[2017-06-02] MEDS: IPRATROPIUM 0.5MG/ALBUTEROL 2.5MG INH SOL UD 3ML (DUONEB)(J7620) NEB SCH ×4 (08:00→20:00)
[2017-06-02] MEDS: FORMOTEROL FUMARATE 20 MCG/2 ML INHALATION SOLUTION (PERFOROMIST) INH SCH ×2 (08:01→20:00)
[2017-06-02] MEDS: BUDESONIDE 0.5 MG/2 ML INHALATION SUSPENSION INH SCH ×2 (08:01→20:00)
[2017-06-02] MEDS: GABAPENTIN 300 MG CAP PO SCH ×2 (08:04→21:38)
[2017-06-02] MEDS: DOXYCYCLINE HYCLATE 100 MG TAB PO SCH ×2 (08:06→21:38)
[2017-06-02] MEDS: PANTOPRAZOLE 40MG INJ (PROTONIX) (C9113) IV SCH (08:06)
[2017-06-02] MEDS: ZONISAMIDE 100 MG CAP (ZONEGRAN) PO SCH ×2 (08:06→21:28)
[2017-06-02] MEDS: NS 1,000 ML IV SCH (10:06)
--- NOTE | 2017-06-02 11:04 | REP ---
Portable chest, 09:50 a.m., single AP view, patient sitting: Comparison is 05/31/2017. Current study is performed with the patient slightly anti lordotic. The comparison study was performed with the patient lordotic. The lung velasquez are clear. Cardiac size is normal. The bhavani, mediastinum, and bony thorax are. Impression: Negative portable chest. No interval change except for positioning. Signed by Hugh Redding MD 06/02/2017 10:55 A
--- NOTE | 2017-06-02 11:46 | CCN ---
DATE: 06/02/2017 I was called to the intensive care unit to evaluate this 57-year-old female with hypercarbic respiratory failure. Admitted with headache secondary to ventriculoperitoneal (AIRPLANE TESTER) shunt problems. She has been on and off noninvasive positive pressure ventilation and this morning her pCO2 was quite elevated. On reviewing the electronic medical record, the patient has known advanced obstructive airways disease, GOLD class IV, with a very severe reduction in FEV-1. Her last episode of respiratory failure was October of 2016. She has a 45+ pack-year smoking history. There is also a past medical history of hypertension, hypothyroidism and acid reflux disease. At bedside she is ill-appearing, complaining of headache with a dressing on her left forehead and marzena in place. Her temperature is 97.5, pulse rate is 86, respirations 28, blood pressure 165/93. HEENT her pupils are 4-5 mm and reactive bilaterally. Oral mucosa is pink, moist. Neck is supple without meningismus. There is a surgical dressing over the right forehead with marzena in place. Heart sounds are regular without appreciable murmur. Breath sounds are diminished. No focal breath sounds. There is some end expiratory wheeze. Abdomen is soft with intact bowel sounds. Extremities are cool. Pulses are palpable. DIAGNOSTIC STUDIES: Her white cell count is at 7.8, hemoglobin 12.3, hematocrit 38.7, platelet count 213,000. Sodium 142, potassium 4.5, chloride 100, CO2 35, BUN 17, creatinine 0.53, glucose 122. Arterial blood gases show a pH of 7.24, pCO2 85.7, pO2 74, this on 4 liters of oxygen via nasal cannula. Chest x-ray Imaging was reviewed and is essentially normal. It shows hyperinflation but no new infiltrates. On review of her medications, she is receiving Solu-Medrol 40 mg every 8 hours, DuoNebs and budesonide. The primary problem requiring critical attention is acute respiratory failure with hypercarbia. Will adjust noninvasive positive pressure ventilation rate and check a chest x-ray. Bronchospasm. Will deliver her nebulized therapy EzPAP. Deep vein thrombosis (DVT) prophylaxis. Will add thromboembolic deterrent stockings (TEDS) and sequentials and I have discussed this with the hospitalist. Will further defer to neurosurgery whether she would be a candidate for subcutaneous heparin. Ulcer prophylaxis in place with Protonix. Glycemic control is acceptable greater than or equal to 120. The patient's condition is critical. ICU care is appropriate. Prognosis is guarded. 1 hour and 15 minutes was spent in the provision of bedside critical care and coordination excluding any procedure time.
--- NOTE | 2017-06-02 12:36 | IPNPDOC ---
Date Seen The patient was seen on 06/02/17. Progress Note SUBJECTIVE: Patient is a 57-year-old female seen at bedside feels that her headache is mildly improved today. She denies nausea, vomiting, visual disturbance and is scheduled to have an MRI done later this morning. Did notice that she is continuing to have some issues with respiratory acidosis and I've requested a consult by pulmonology/van loader. OBJECTIVE PHYSICAL EXAMINATION: VITAL SIGNS: Please see below. GENERAL: No acute distress HEENT: Positive as post lida hole right frontal skull region CARDIOVASCULAR: Regular rate and rhythm. RESPIRATORY: Clear. ABDOMINAL: Soft EXTREMITIES: No edema NEUROLOGICAL: Grossly intact LABORATORY DATA: Please see below. MICROBIOLOGY: Please see below. DVT prophylaxis ordered?: YES ASSESSMENT AND PLAN: 57-year-old with ongoing issues with headache, recent lida hole and history of pseudotumor cerebri. PROBLEMS: 1. Headaches: Patient has history of pseudotumor cerebri and LP shunt placement. I noticed that Dr. Kearney saw the patient last evening entered recommendations in his note. I'm a little confused as to which neurosurgeon is following this patient currently. We'll seek to better delineate that today. And would appreciate further management from neurosurgery regarding that portion of this patient's care. Please see Dr. Kearney's notes regarding possible occipital neuralgia as well Intracranial venous thrombosis. She has an MRA did scheduled for later this morning and I did request neurology to see the patient on consult. Concerning hypercoagulable workup. We'll hold on that for now until we have a result from the MRA. 2. Acute on Chronic respiratory acidosis: History of COPD/bronchospasm. I've asked Dr. Hightower on the see the patient on consult. Appreciate his recommendations. 3. Hypothyroidism: Synthroid. 4. Chronic respiratory failure with hypoxia, home oxygen use: Pulmonology consult. 5. Chronic anxiety and depression: Busch, stable. 6. Elevated ANAs, by history: Outpatient follow-up. 7. History of pseudotumor cerebra right with prior neurosurgical procedures. 8. DVT prophylaxis teds and sequentials, we'll defer heparin products to neurosurgery. DISPOSITION: Currently unclear. Appreciate input from neurosurgery, critical care, and neurology.. VS, I&O, 24H, Fishbone Vital Signs/I&O Vital Signs Date Time Temp Pulse Resp B/P (MAP) Pulse Ox O2 Delivery O2 Flow Rate FiO2 06/02/17 10:15 28 NIPPV (BIPAP/CPAP) 06/02/17 10:00 94 155/88 (110) 93 30 06/02/17 08:00 4.0 06/02/17 08:00 97.5 I&O- Last 24 Hours up to 6 AM 06/03/17 06:00 Intake Total 240 ml Output Total 475 ml Balance -235 ml Laboratory Data 24H LABS Laboratory Tests 2 06/02/17 05:59: White Blood Count 7.8, Red Blood Count 4.20, Hemoglobin 12.3, Hematocrit 38.7, Mean Corpuscular Volume 92.1, Mean Corpuscular Hemoglobin 29.3, Mean Corpuscular Hemoglobin Concent 31.8L, Red Cell Distribution Width 14.7H, Platelet Count 213, Lymphocytes # (Auto) , Neutrophils 91H, Lymphocytes (Manual ) 7L, Monocytes (Manual) 2, Basophilic Stippling 1+, Platelet Estimate NORMAL, Anion Gap 1L, Glomerular Filtration Rate > 60.0, Blood Urea Nitrogen 17, Creatinine 0.53L, Sodium Level 142, Potassium Level 4.5, Chloride Level 106, Carbon Dioxide Level 35H, Calcium Level 9.5 06/02/17 06:13: Blood Gas Bicarbonate Standard 28.0H, Arterial Blood pH 7.224*L, Arterial Blood Partial Pressure CO2 85.7*H, Arterial Blood Partial Pressure O2 74.0L, Arterial Blood Total CO2 37.2H, Arterial Blood HCO3 34.6H, Arterial Blood Base Excess 4.0H, Arterial Blood Oxygen Saturation 94.2L CBC/BMP Laboratory Tests 06/02/17 05:59 Red Blood Count 4.20, Mean Corpuscular Volume 92.1, Mean Corpuscular Hemoglobin 29.3, Mean Corpuscular Hemoglobin Concent 31.8 L, Red Cell Distribution Width 14.7 H, Lymphocytes # (Auto) , Calcium Level 9.5 Microbiology Microbiology 05/31/17 Gram Stain - Final, Complete 05/31/17 CSF Culture - Final, Complete 05/31/17 Gram Stain - Final, Complete 05/31/17 CSF Culture - Final, Complete NAVYA SANTOS DO Jun 02, 2017 12:36
--- NOTE | 2017-06-02 18:38 | ROOPDOC ---
[facility] Report Of Operation Report of Operation DATE OF SURGERY: 05/31/2017 SURGEON: Dr. Bessy Kim OPERATIONS ADMINISTRATOR: None PREOPERATIVE DIAGNOSIS: Idiopathic intracranial hypertension POSTOPERATIVE DIAGNOSIS: Same PROCEDURE PERFORMED: 1. Right frontal lida hole placement. 2 Placement of ventricular catheter ANESTHESIA: iv + local. ESTIMATED BLOOD LOSS: 5 cc. FINDINGS : Clear CSF under low pressure DRAINS: None COMPLICATIONS: None. DISPOSITION: Stable to the PACU. INDICATIONS FOR THE PROCEDURE HISTORY: Mrs. Freeman is a 57 y/o female with past medical history of idiopathic intracranial hypertension and placement of lumbar-peritoneal shun by in February 2017. He was brought to ER with severe headache, photophobia and sound intolerance. CT scan and MRI scan of brain revealed small ventricles and open cisterns without brain swelling. X-ray shunt series reviled normal position of LP shunt without disconnection. In order to exclude increase of ICP and to obtain CSF sample, decision has been made to proceed with placement EVD through right frontal region. SURGICAL RISKS: The patient and his parents were well apprised of all objectives, benefits, risks and potential complications of the procedure, including but not limited to : worsening of current status, the possible need for further procedures, the risk of infection, headaches, CSF leak, possible spinal nerve injury resulting in paralysis, infection, injury to major vessels causing hemorrhage, stroke, loss of language function, coma and even . No assurance was given whether symptoms would improve following the procedure. The surgery is technically difficult procedure and despite the significant discomfort for the patient and the best effort of the physician, the surgery may be unsuccessful or may need to be aborted. Informed consent was obtained and secured in the chart after the patient and family voiced understanding of these risks and decided to proceed with the operation. DESCRIPTION OF THE PROCEDURE The patient was transferred to the operating room. He was given preoperative prophylactic IV antibiotics. ANESTHESIA: The patient was sedated without difficulty by the anesthesia service. POSITIONING: The patient was turned supine on operation table. Head was positioned on jelly donat. All pressure points were carefully padded. OPERATIVE TECHNIQUE: The hair was clipped on the right side and pre-prepping was done utilizing alcohol. Superficial landmarks were identified which included midline, inner canthus and external auditory meatus. The planned incision was outlined according to these structures. The patient was prepped and draped in the standard sterile fashion. The marked skin incision was performed utilizing a monopolar cautery blade down to the bone. A self-retaining retractor was inserted. Utilizing the high-speed electric drill a lida hole was performed down to the dura. The dura was opened with monopolar cautery. Using shunt introducer, the ventricular catheter was passed into the ventricle without difficulty. Opening pressure was noted to be very low. The catheter was barely drippin cc of clear CSF was obtained. Ventricular catheter was removed from brain. The scalp wound was then closed with running 2-0 Vicryl taking care not to puncture the underlying catheter and metal marzena. A sterile dressing and Bacitracin ointment were placed over the closed wound. All sponge counts, needle counts and instrument counts were correct at the end of the case times two. The patient tolerated the procedure well, without any complications and was transferred in stable condition to the recovery room. BESSY KIM MD Jun 02, 2017 18:38
--- NOTE | 2017-06-02 22:00 | REPUSA ---
MRI of the brain. Clinical history: headaches, light sensitivity. Technique: Multiecho multiplanar MRI images of the brain were obtained before and after administratio n of intravenous gadolinium contrast. Findings: The ventricles and sulci are symmetric bilaterally. The brain parenchyma demonstrates uniform and nor mal signal on all sequences. There is no midline shift, mass effect, or extra-axial fluid collection. The midline intracranial structures do not demonstrate any gross abnormalities. The cervical cranial junction is intact. The orbits are unremarkable. The visualized paranasal sinuses and mastoid air ce lls are clear. The osseous structures and superficial soft tissues are unremarkable. The vascular str uctures demonstrate appropriate flow voids. No abnormal areas of enhancement are appreciated. Impression: Normal MRI of the Brain.
--- NOTE | 2017-06-02 22:10 | REPUSA ---
MRV of the brain clinical history: headaches. Technique: MRV images of the brain were obtained following administration of intravenous gadolinium c ontrast. Findings: Motion artifact slightly limits evaluation of the venous structures. However, the venous st ructures demonstrate normal caliber and contour. There is no evidence of aneurysm, stenosis, or throm bosis. Impression: Unremarkable MRV examination of the brain.
[2017-06-03] VITALS (7 sets, daily range): BP systolic 118–128; BP diastolic 72–85; O2SAT 95
[2017-06-03] MEDS: NS 1,000 ML IV SCH ×2 (00:50→12:45)
[2017-06-03] MEDS: methylPREDNISolone INJ 40 MG/1 ML VIAL (J2920) IV SCH ×4 (00:50→23:45)
[2017-06-03] MEDS: LEVOTHYROXINE 125MCG TABLET (0.125MG) PO SCH (05:02)
[2017-06-03] MEDS: PERCOCET 5MG/325MG TAB PO PRN ×4 (05:03→20:54)
[2017-06-03 05:31] LABS: ABG BASE EXCESS 7.3 (-2.0-2.0); ABG HCO3 37.4 MEQ/L (22.0-26.0); ABG PARTIAL PRESSURE O2 67.8 mmHg (75.0-100.0); ABG TOTAL CO2 39.9 MEQ/L (22.0-29.0)
[2017-06-03 05:32] LABS: ABG PARTIAL PRESSURE CO2 81.4 mmHg (35.0-45.0)
[2017-06-03] MEDS: MORPHINE 4 MG/ML 1ML SYRINGE IV PRN ×2 (06:45→14:45)
[2017-06-03 07:10] LABS: BASO % 0.1 % (0.0-1.0); IMMATURE GRANULOCYTE % 0.4 % (0-0); LYMPH # 0.7 10^3/uL (1.5-4.5); LYMPH % 7.5 % (24.0-44.0); MEAN CORPUSCULAR HGB CONC 31.7 g/dl (32.0-36.5); MEAN CORPUSCULAR VOLUME 91.3 fl (80.0-96.0); MONO # 0.3 10^3/uL (0.0-0.8); MONO % 2.9 % (0.0-5.0); NEUTROPHILS # 8.3 10^3/uL (1.8-7.7); NEUTROPHILS % 89.1 % (36.0-66.0); PLATELET COUNT, AUTOMATED 222 10^3/uL (150-450); RED CELL DISTRIBUTION WIDTH 14.6 % (11.5-14.5); WHITE BLOOD COUNT 9.3 10^3/uL (4.0-10.0)
[2017-06-03 07:11] LABS: ANION GAP 2 MEQ/L (8-16); BLOOD UREA NITROGEN 15 MG/DL (7-18); CALCIUM LEVEL 10.1 MG/DL (8.5-10.1); CARBON DIOXIDE LEVEL 37 MEQ/L (21-32); CHLORIDE LEVEL 104 MEQ/L (98-107); CREATININE FOR GFR 0.62 MG/DL (0.55-1.02); GLOMERULAR FILTRATION RATE > 60.0 (>51); GLUCOSE, FASTING 121 MG/DL (70-105); POTASSIUM SERUM 4.1 MEQ/L (3.5-5.1); SODIUM LEVEL 143 MEQ/L (136-145)
[2017-06-03] MEDS: BUDESONIDE 0.5 MG/2 ML INHALATION SUSPENSION INH SCH ×2 (07:42→20:45)
[2017-06-03] MEDS: IPRATROPIUM 0.5MG/ALBUTEROL 2.5MG INH SOL UD 3ML (DUONEB)(J7620) NEB SCH ×4 (07:42→20:00)
[2017-06-03] MEDS: FORMOTEROL FUMARATE 20 MCG/2 ML INHALATION SOLUTION (PERFOROMIST) INH SCH ×2 (07:42→20:45)
[2017-06-03] MEDS: PANTOPRAZOLE 40MG INJ (PROTONIX) (C9113) IV SCH (08:23)
[2017-06-03] MEDS: DOXYCYCLINE HYCLATE 100 MG TAB PO SCH ×2 (08:24→20:56)
[2017-06-03] MEDS: ZONISAMIDE 100 MG CAP (ZONEGRAN) PO SCH ×2 (08:24→20:51)
[2017-06-03] MEDS: GABAPENTIN 300 MG CAP PO SCH ×2 (08:24→20:51)
[2017-06-03] MEDS ORDERED: LORazepam 2 MG/ML VIAL (J2060) IV STA (16:24)
--- NOTE | 2017-06-03 18:52 | REP ---
LUMBAR PUNCTURE: The procedure was performed by MARCELINO Glover under the direct supervision of Dr. Garcia. The procedure along with its risks, benefits, and complications were discussed with the patient prior to the examination. Informed consent was obtained both verbally and written. An appropriate site was chosen for needle entry and this area was marked, prepped, and draped in the usual sterile fashion. A procedural time out was performed to ensure that the correct patient, site, and procedure were being performed. Local infiltrative anesthesia was achieved using 1% lidocaine. Under fluoroscopic guidance a 22-gauge spinal needle was advanced return to the thecal sac via a right sublaminar approach at L2-3. An opening pressure of 24 mmHg over H2O was obtained. The needle was then removed and a bandage was applied to that the entry site. The patient tolerated the procedure well and had no immediate complications. IMPRESSION: Uncomplicated L2-3 lumbar puncture. Reviewed by MARCELINO Quinteros 06/06/2017 10:56 AEdited and Signed by Justino Garcia MD 06/06/2017 11:29 A
[2017-06-04] VITALS (7 sets, daily range): BP systolic 108–157; BP diastolic 63–83; O2SAT 95
[2017-06-04] MEDS: PERCOCET 5MG/325MG TAB PO PRN ×3 (01:14→10:08)
[2017-06-04] MEDS: LEVOTHYROXINE 125MCG TABLET (0.125MG) PO SCH (05:18)
[2017-06-04] MEDS: NS 1,000 ML IV SCH ×2 (05:19→18:27)
[2017-06-04 05:36] LABS: BASO % 0.1 % (0.0-1.0); IMMATURE GRANULOCYTE % 0.9 % (0-0); LYMPH # 0.4 10^3/uL (1.5-4.5); LYMPH % 6.1 % (24.0-44.0); MEAN CORPUSCULAR HEMOGLOBIN 29.2 pg (27.0-33.0); MEAN CORPUSCULAR HGB CONC 31.7 g/dl (32.0-36.5); MEAN CORPUSCULAR VOLUME 92.1 fl (80.0-96.0); MONO # 0.2 10^3/uL (0.0-0.8); MONO % 2.9 % (0.0-5.0); NEUTROPHILS # 6.2 10^3/uL (1.8-7.7); PLATELET COUNT, AUTOMATED 234 10^3/uL (150-450); RED CELL DISTRIBUTION WIDTH 14.8 % (11.5-14.5); WHITE BLOOD COUNT 6.9 10^3/uL (4.0-10.0)
[2017-06-04 06:03] LABS: ANION GAP 3 MEQ/L (8-16); BLOOD UREA NITROGEN 20 MG/DL (7-18); CALCIUM LEVEL 9.7 MG/DL (8.5-10.1); CARBON DIOXIDE LEVEL 37 MEQ/L (21-32); CHLORIDE LEVEL 106 MEQ/L (98-107); GLOMERULAR FILTRATION RATE > 60.0 (>51); GLUCOSE, FASTING 123 MG/DL (70-105); POTASSIUM SERUM 4.2 MEQ/L (3.5-5.1); SODIUM LEVEL 146 MEQ/L (136-145)
[2017-06-04] MEDS: MORPHINE 4 MG/ML 1ML SYRINGE IV PRN (07:03)
[2017-06-04] MEDS: BUDESONIDE 0.5 MG/2 ML INHALATION SUSPENSION INH SCH ×2 (07:50→19:41)
[2017-06-04] MEDS: IPRATROPIUM 0.5MG/ALBUTEROL 2.5MG INH SOL UD 3ML (DUONEB)(J7620) NEB SCH ×4 (07:51→20:00)
[2017-06-04] MEDS: FORMOTEROL FUMARATE 20 MCG/2 ML INHALATION SOLUTION (PERFOROMIST) INH SCH ×2 (07:55→19:41)
[2017-06-04] MEDS: MIRALAX *UNIT DOSE* 17GM PACKET PO SCH (08:26)
[2017-06-04] MEDS: methylPREDNISolone INJ 40 MG/1 ML VIAL (J2920) IV SCH (08:26)
[2017-06-04] MEDS: GABAPENTIN 300 MG CAP PO SCH ×2 (08:26→21:07)
[2017-06-04] MEDS: PANTOPRAZOLE 40MG INJ (PROTONIX) (C9113) IV SCH (08:26)
[2017-06-04] MEDS: DOXYCYCLINE HYCLATE 100 MG TAB PO SCH ×2 (08:27→21:11)
[2017-06-04] MEDS: ZONISAMIDE 100 MG CAP (ZONEGRAN) PO SCH ×2 (08:27→21:07)
[2017-06-04] MEDS: SIMETHICONE 80 MG CHEW TAB PO PRN ×2 (10:09→21:11)
[2017-06-04] MEDS ORDERED: LIDOCAINE 1% MDV 20ML VIAL As Ordered ONE (11:31)
[2017-06-04] MEDS ORDERED: LIDOCAINE 1% MDV 20ML VIAL SC ONE (11:50)
[2017-06-04] MEDS: TROPICAMIDE 1% OPHTH SOLN 2ML OU SCH ×2 (12:39→13:10)
--- NOTE | 2017-06-04 13:09 | IPNPDOC ---
Date Seen The patient was seen on 06/04/17. Progress Note SUBJECTIVE: Patient is a 57-year-old female seen at bedside. Continue to have intermittent headaches, no visual disturbances currently. He is using BiPAP. Has history of hypercarbia. She denies nausea, vomiting, photophobia, tinnitus. Describes her headache as being more occipital in nature. Denies chest pain, palpitations, shortness of breath, productive sputum, cough or hemoptysis. No nausea, vomiting or diarrhea. Tolerating by mouth intake. OBJECTIVE PHYSICAL EXAMINATION: VITAL SIGNS: Please see below. GENERAL: No acute distress, alert, pleasant HEENT: PERRLA. Throat clear. Neck supple. Right frontal lida hole granulating. CARDIOVASCULAR: Regular rate and rhythm. RESPIRATORY: Clear to all cessation bilaterally. ABDOMINAL: Soft, nontender, nondistended, positive bowel sounds, masses or rebound EXTREMITIES: No edema, no calf tenderness NEUROLOGICAL: Cranial nerves II through XII grossly intact PSYCHOLOGICAL: Negative LABORATORY DATA: Please see below. MICROBIOLOGY: Please see below. DVT prophylaxis ordered?: Yes ASSESSMENT AND PLAN: This is a 57-year-old female with hepatic intracranial hypertension/pseudotumor cerebri status post LP shunt and lida hole of the right frontal region is normalizing LP pressures. PROBLEMS: 1. Headaches: Multifactorial. Patient has history of pseudotumor cerebri and LP shunt placement. Neurosurgery is following, per their request will ask for Ophthalmology consult to oma xavier. 2. Acute on Chronic respiratory acidosis: History of COPD/bronchospasm. Pulmonology is onboard. 3. Hypothyroidism: Synthroid. 4. Chronic respiratory failure with hypoxia, home oxygen use: Pulmonology consult, this is a long standing problem and likely needs overnight oximetry may qualify for home bipap. 5. Chronic anxiety and depression: Narayan stable. 6. Elevated ANAs, by history: Outpatient follow-up. 7. History of pseudotumor cerebra right with prior neurosurgical procedures. 8. DVT prophylaxis teds and sequentials, we'll defer heparin products to neurosurgery. DISPOSITION: Appreciate input from neurosurgery, critical care, and neurology. Clinically looks better. Will wean of narcotics since they likely could effect her hypercarbia and anticipate home discharge with appropriate f/u tomorrow. VS, I&O, 24H, Fishbone Vital Signs/I&O Vital Signs Date Time Temp Pulse Resp B/P (MAP) Pulse Ox O2 Delivery O2 Flow Rate FiO2 06/04/17 10:38 22 93 Nasal Cannula 2.0 06/04/17 06:00 30 06/04/17 04:00 98.9 106 108/63 (78) Laboratory Data 24H LABS Laboratory Tests 2 06/04/17 05:05: White Blood Count 6.9, Red Blood Count 4.45, Hemoglobin 13.0, Hematocrit 41.0, Mean Corpuscular Volume 92.1, Mean Corpuscular Hemoglobin 29.2, Mean Corpuscular Hemoglobin Concent 31.7L, Red Cell Distribution Width 14.8H, Platelet Count 234, Neutrophils (%) (Auto) 90.0H, Lymphocytes (%) (Auto) 6.1L, Monocytes (%) (Auto) 2.9, Eosinophils (%) (Auto) 0.0, Basophils (%) (Auto) 0.1, Neutrophils # (Auto) 6.2, Lymphocytes # (Auto) 0.4L, Monocytes # (Auto) 0.2, Eosinophils # (Auto) 0.0, Basophils # (Auto) 0.0, Immature Granulocyte # (Auto) 0.1H, Nucleated Red Blood Cells % (auto) 0.0, Anion Gap 3L, Glomerular Filtration Rate > 60.0, Blood Urea Nitrogen 20H, Creatinine 0.60, Sodium Level 146H, Potassium Level 4.2, Chloride Level 106, Carbon Dioxide Level 37H, Calcium Level 9.7 CBC/BMP Laboratory Tests 06/04/17 05:05 Red Blood Count 4.45, Mean Corpuscular Volume 92.1, Mean Corpuscular Hemoglobin 29.2, Mean Corpuscular Hemoglobin Concent 31.7 L, Red Cell Distribution Width 14.8 H, Neutrophils (%) (Auto) 90.0 H, Lymphocytes (%) (Auto) 6.1 L, Monocytes ( %) (Auto) 2.9, Eosinophils (%) (Auto) 0.0, Basophils (%) (Auto) 0.1, Neutrophils # (Auto) 6.2, Lymphocytes # (Auto) 0.4 L, Monocytes # (Auto) 0.2, Eosinophils # (Auto) 0.0, Basophils # (Auto) 0.0, Calcium Level 9.7 Microbiology Microbiology 05/31/17 Gram Stain - Final, Complete 05/31/17 CSF Culture - Final, Complete 05/31/17 Gram Stain - Final, Complete 05/31/17 CSF Culture - Final, Complete NAVYA SANTOS DO Jun 04, 2017 13:09
[2017-06-04] MEDS: ACETAMINOPHEN TAB 650MG DOSE (2X325MG) PO PRN ×3 (14:23→23:42)
[2017-06-04 14:36] LABS: ABG BASE EXCESS 5.8 (-2.0-2.0); ABG HCO3 35.7 MEQ/L (22.0-26.0); ABG PARTIAL PRESSURE O2 59.4 mmHg (75.0-100.0); ABG STANDARD HCO3 29.6 MEQ/L (22.0-26.0); ABG TOTAL CO2 38.2 MEQ/L (22.0-29.0)
[2017-06-04 14:37] LABS: ABG PARTIAL PRESSURE CO2 79.6 mmHg (35.0-45.0)
--- NOTE | 2017-06-04 15:23 | CR ---
DATE OF CONSULTATION: 06/04/2017 HISTORY OF CHIEF COMPLAINT: Mrs. Freeman is a 57-year-old female who has known pseudotumor cerebri. She was admitted by Dr. Kim, the neurosurgeon, for headaches. The patient had an lumboperitoneal (LP) shunt placed. The consultation report by Dr. Kearney indicated she had severe elevated ICP with a pressure in the 80s. There was associated visual loss and had occlusion and irregular lumen of the transverse sinuses. A salvage LP shunt was placed. The patient continued to have headaches. Currently there is no associated visual loss. The patient had a bur hole placed by Dr. Kim on 05/31/2017. The patient had a lumbar puncture performed on 06/03/2017, where the opening pressure was 24 mm of mercury. PAST OCULAR HISTORY: Wears glasses. PAST MEDICAL HISTORY: See chart from the intensive care unit (ICU). ALLERGIES: DIAMOX. SOCIAL HISTORY: Previous smoker. On examination, vision current glasses at near 20/25 bilaterally. Intraocular pressure by David-Pen: Both eyes: 14 mm Hg. Pupils: Both eyes: Dilated with tropicamide 1% drops instilled in the ICU. Extraocular movements: Both eyes: Full, orthophoric on cover testing. External examination: Both eyes: Normal lids, lashes. Slit-lamp exam: Cornea: Both eyes: Clear. Anterior chamber: Both eyes: Normal. Iris: Both eyes: Normal. Lens: Both eyes: Clear. Fundal exam through dilated pupils with tropicamide 1% drops: Disc: Both eyes: Normal. No papilledema. No hemorrhages. CD ratio: Both eyes: 0.4. Maculae: Both eyes: Normal. IMPRESSION: 1. Pseudotumor cerebri/benign increased intracranial hypertension, status post LP shunt and lida hole. 2. No evidence of papilledema bilaterally. PLAN: I discussed the findings with Mrs. Freeman. A followup appointment is not required. Thank you for allowing me to participate in the care of your patient. SUSY
[2017-06-04] MEDS: IPRATROPIUM 0.5MG/ALBUTEROL 2.5MG INH SOL UD 3ML (DUONEB)(J7620) NEB PRN (23:37)
[2017-06-05 04:00] VITALS: BP 148/90
[2017-06-05] MEDS: ACETAMINOPHEN TAB 650MG DOSE (2X325MG) PO PRN ×5 (04:11→20:19)
[2017-06-05 05:06] LABS: BASO % 0.1 % (0.0-1.0); EOS % 0.1 % (0.0-3.0); IMMATURE GRANULOCYTE % 0.7 % (0-0); LYMPH # 1.7 10^3/uL (1.5-4.5); LYMPH % 19.6 % (24.0-44.0); MEAN CORPUSCULAR HEMOGLOBIN 29.3 pg (27.0-33.0); MEAN CORPUSCULAR HGB CONC 31.8 g/dl (32.0-36.5); MEAN CORPUSCULAR VOLUME 92.1 fl (80.0-96.0); MONO # 0.7 10^3/uL (0.0-0.8); MONO % 8.7 % (0.0-5.0); NEUTROPHILS % 70.8 % (36.0-66.0); PLATELET COUNT, AUTOMATED 242 10^3/uL (150-450); RED CELL DISTRIBUTION WIDTH 14.8 % (11.5-14.5); WHITE BLOOD COUNT 8.5 10^3/uL (4.0-10.0)
[2017-06-05 05:35] LABS: ANION GAP 1 MEQ/L (8-16); BLOOD UREA NITROGEN 15 MG/DL (7-18); CALCIUM LEVEL 9.7 MG/DL (8.5-10.1); CARBON DIOXIDE LEVEL 40 MEQ/L (21-32); CHLORIDE LEVEL 107 MEQ/L (98-107); CREATININE FOR GFR 0.58 MG/DL (0.55-1.02); GLOMERULAR FILTRATION RATE > 60.0 (>51); GLUCOSE, FASTING 87 MG/DL (70-105); POTASSIUM SERUM 3.6 MEQ/L (3.5-5.1); SODIUM LEVEL 148 MEQ/L (136-145)
[2017-06-05] MEDS: LEVOTHYROXINE 125MCG TABLET (0.125MG) PO SCH (05:47)
[2017-06-05] MEDS: FORMOTEROL FUMARATE 20 MCG/2 ML INHALATION SOLUTION (PERFOROMIST) INH SCH ×2 (07:10→20:50)
[2017-06-05] MEDS: BUDESONIDE 0.5 MG/2 ML INHALATION SUSPENSION INH SCH ×2 (07:10→20:50)
[2017-06-05] MEDS: BISACODYL 5 MG TAB PO PRN (07:45)
[2017-06-05 08:00] VITALS: BP 144/86
[2017-06-05] MEDS: IPRATROPIUM 0.5MG/ALBUTEROL 2.5MG INH SOL UD 3ML (DUONEB)(J7620) NEB SCH ×4 (08:00→20:00)
[2017-06-05] MEDS: ZONISAMIDE 100 MG CAP (ZONEGRAN) PO SCH ×2 (08:42→20:20)
[2017-06-05] MEDS: PANTOPRAZOLE 40MG INJ (PROTONIX) (C9113) IV SCH (08:42)
[2017-06-05] MEDS: MIRALAX *UNIT DOSE* 17GM PACKET PO SCH (08:42)
[2017-06-05 08:43] LABS: ABG BASE EXCESS 8.3 (-2.0-2.0); ABG HCO3 35.9 MEQ/L (22.0-26.0); ABG PARTIAL PRESSURE O2 64.4 mmHg (75.0-100.0); ABG TOTAL CO2 37.8 MEQ/L (22.0-29.0)
[2017-06-05] MEDS: DOXYCYCLINE HYCLATE 100 MG TAB PO SCH ×2 (08:43→20:19)
[2017-06-05] MEDS: GABAPENTIN 300 MG CAP PO SCH ×2 (08:43→20:19)
[2017-06-05] MEDS: predniSONE 20 MG TAB PO SCH (08:43)
[2017-06-05 12:00] VITALS: BP 146/95
--- NOTE | 2017-06-05 12:57 | NOCOX ---
DATE OF STUDY: 06/04/2017 INTERPRETATION: A recording overnight oximetry was done on 2 liters by nasal cannula. A total of 8 hours and 3 minutes of data was reviewed. Mean oxygen saturation for this study was 93% with a minimum recorded value of 79%. However, in reviewing the waveform, most of her "nadirs" appeared to be artifactual. Her actual richy was between 80 and 85%. Per the recording, she spent 3.6% of the night with saturations less than 88% (17 minutes and 16 seconds) with the longest recorded time being 7 minutes and 20 seconds, although again part of that appeared artifactual. IMPRESSION: 1. Acceptable oxygenation on 2 liters by nasal cannula nocturnally. 2. An aggregate total greater than 5 minutes with saturations spent less than 88% on 2 liters by nasal cannula though much of this time appeared to be artifact. SUSY
[2017-06-05 15:00] VITALS: BP 126/98
--- NOTE | 2017-06-05 15:04 | IPN ---
DATE: 06/05/2017 SUBJECTIVE: A 57-year-old female seen at bedside, resting somewhat comfortably this afternoon. I have had discussions with the ophthalmologists as well as pulmonary. She has been cleared from a neurosurgical standpoint. She does continue to have intermittent headaches. No blurry vision and was found to have no papilledema last evening. She denies chest pain, productive sputum, or cough. OBJECTIVE: Temperature is 97.3, pulse 100, respiratory rate is 22, blood pressure is 146/95, SPO2 is 87% on two liters. GENERAL: The patient appears to be in no acute distress, is alert, pleasant. HEENT: Unremarkable. LUNGS: Clear to auscultation. HEART: Regular rate and rhythm. ABDOMEN: Soft. EXTREMITIES: No edema. No calf tenderness. LABORATORY DATA: White count 8.5, hemoglobin 12.9, and platelets are 242,000. Sodium 148, potassium 3.6, chloride 107, bicarbonate 40, anion gap 1, BUN 15, creatinine 0.58, glucose 87. ASSESSMENT AND PLAN: 1. Headaches which appear be multifactorial with history of pseudotumor cerebri. Lumbar-peritoneal (LP) shunt placement. Neurosurgery felt that she is cleared from their standpoint. Ophthalmology did not find any papilledema. Please refer Dr. Rosas's note. 2. Acute on chronic respiratory acidosis with history of chronic obstructive pulmonary disease (COPD) and bronchospasm. Pulmonology did evaluate her for an overnight pulse oximetry. She does not qualify for home bilevel positive airway pressure (BiPAP) with the continuous positive airway pressure (CPAP) at this time and we will defer to outpatient followup with Dr. Vela. 3. Hypothyroidism. Continue Synthroid. 4. Chronic respiratory failure with hypoxia. Continue with home oxygen and outpatient followup as outlined. 5. Chronic anxiety and depression. Stable on current medications. 6. Elevated anti-nuclear antibodies (ANAs) by history, outpatient followup. 7. History of pseudotumor cerebri, prior neurosurgical procedures. 8. Deep vein thrombosis (DVT) prophylaxis. Thromboembolic-deterrent stockings (TEDS) and sequentials. We will defer heparin products to neurosurgery. Otherwise, she is encouraged to ambulate. DISPOSITION: Anticipate discharge home tomorrow. For the time being, she appears to be stable for the medical floor and we will transfer her to the general medical floor.
[2017-06-05] MEDS: SIMETHICONE 80 MG CHEW TAB PO PRN (20:19)
[2017-06-05 22:00] VITALS: BP 115/80
[2017-06-06] MEDS: BISACODYL 5 MG TAB PO PRN ×2 (00:03→09:55)
[2017-06-06] MEDS: ACETAMINOPHEN TAB 650MG DOSE (2X325MG) PO PRN ×7 (00:03→23:35)
[2017-06-06] MEDS: LEVOTHYROXINE 125MCG TABLET (0.125MG) PO SCH (05:17)
[2017-06-06 06:00] VITALS: BP 141/86
[2017-06-06 07:23] LABS: BASO % 0.1 % (0.0-1.0); EOS # 0.2 10^3/uL (0.0-0.50); EOS % 2.4 % (0.0-3.0); LYMPH # 2.2 10^3/uL (1.5-4.5); LYMPH % 27.2 % (24.0-44.0); MEAN CORPUSCULAR HEMOGLOBIN 28.9 pg (27.0-33.0); MEAN CORPUSCULAR HGB CONC 31.7 g/dl (32.0-36.5); MONO # 0.7 10^3/uL (0.0-0.8); MONO % 8.8 % (0.0-5.0); NEUTROPHILS % 60.5 % (36.0-66.0); PLATELET COUNT, AUTOMATED 255 10^3/uL (150-450); RED CELL DISTRIBUTION WIDTH 14.8 % (11.5-14.5); WHITE BLOOD COUNT 8.2 10^3/uL (4.0-10.0)
[2017-06-06] MEDS: FORMOTEROL FUMARATE 20 MCG/2 ML INHALATION SOLUTION (PERFOROMIST) INH SCH ×2 (07:23→20:46)
[2017-06-06] MEDS: IPRATROPIUM 0.5MG/ALBUTEROL 2.5MG INH SOL UD 3ML (DUONEB)(J7620) NEB SCH ×4 (07:24→20:00)
[2017-06-06] MEDS: BUDESONIDE 0.5 MG/2 ML INHALATION SUSPENSION INH SCH ×2 (07:24→20:46)
[2017-06-06 07:51] LABS: ANION GAP 3 MEQ/L (8-16); BLOOD UREA NITROGEN 17 MG/DL (7-18); CALCIUM LEVEL 9.8 MG/DL (8.5-10.1); CARBON DIOXIDE LEVEL 39 MEQ/L (21-32); CHLORIDE LEVEL 105 MEQ/L (98-107); CREATININE FOR GFR 0.67 MG/DL (0.55-1.02); GLOMERULAR FILTRATION RATE > 60.0 (>51); GLUCOSE, FASTING 84 MG/DL (70-105); POTASSIUM SERUM 3.6 MEQ/L (3.5-5.1); SODIUM LEVEL 147 MEQ/L (136-145)
[2017-06-06 08:20] VITALS: BP 133/92
[2017-06-06] MEDS: PANTOPRAZOLE 40MG INJ (PROTONIX) (C9113) IV SCH (09:00)
[2017-06-06] MEDS: ZONISAMIDE 100 MG CAP (ZONEGRAN) PO SCH ×2 (09:47→19:50)
[2017-06-06] MEDS: GABAPENTIN 300 MG CAP PO SCH ×2 (09:48→19:49)
[2017-06-06] MEDS: DOXYCYCLINE HYCLATE 100 MG TAB PO SCH ×2 (09:49→19:50)
[2017-06-06] MEDS: predniSONE 20 MG TAB PO SCH (09:54)
[2017-06-06] MEDS: MIRALAX *UNIT DOSE* 17GM PACKET PO SCH (09:56)
[2017-06-06] MEDS ORDERED: FLEET ENEMA PR PRN (12:00)
--- NOTE | 2017-06-06 13:29 | RO ---
DATE OF PROCEDURE: 06/04/2017 PREPROCEDURE DIAGNOSES: Bilateral occipital neuralgia. POSTPROCEDURE DIAGNOSES: Bilateral occipital neuralgia. PROCEDURE: Bilateral occipital blocks. SURGEON: Dr. Marlene Kearney SPORTS DIRECTOR: ANESTHESIA: Local bilateral occipital blocks. FINDINGS: Please see the recent progress notes and my consultation note in the chart. Patient was seen at the request of Dr. Shay for relentless headaches and to see if there is any need for further shunt revision or for a lumboperitoneal shunt. She had a lumboperitoneal shunt placed in March of this year by myself and Dr. Kim. Dr. Kim also performed right frontal ventriculostomy a few days ago to get intracranial pressure (ICP) and apparently at that time the ICP was quite low. However, a spinal tap was done by the radiology service and reported as intraocular pressure of 24. Currently, she remained alert since I saw her. She continued to show significant dysesthesia along C2-C3 and in the past each time she would have occiput block that would resolve her headaches for a while, and after informed consent and lengthy discussions in the presence of her RN, and after informed consent she consented to proceed with the above blocks. DESCRIPTION OF PROCEDURE: The area of surgery was prepped in a sterile fashion using Chloraprep. An entry point was chosen at the lateral border of the trapezius at the superior nuchal line. Using a 27-gauge needle, the skin was infiltrated and then, needle was advanced towards to the C2 lateral mass, and once the occipital nerve was reached, which was suggested by the recurrence of her occipital neuralgia, the lidocaine was instilled. Immediately her agony is all gone and she reported numbness in the region of both greater lesser occipital nerves. Though, she claimed she had a very questionable r response to this block, the area of the scalp is numb but she is feeling pulsations in the head. Similar procedure was carried out on the left side with a similarly and equally ambiguous response. She understood no further treatment like occipital nerve decompression or occipital neurectomy in the hope of achieving longer lasting headache control could be undertaken in the presence of vague response. No blood loss happened. There was no blood or cerebrospinal fluid (CSF) return of the injection. The injection was carried out based on the above surface anatomical landmarks as well as palpation techniques. No ultrasound was used. Procedure was performed in the intensive care unit (ICU ) with the assistance of her nurse. SUSY
[2017-06-06] MEDS ORDERED: GABAPENTIN 400 MG CAP PO ONE (14:15)
--- NOTE | 2017-06-06 14:15 | IPN ---
DATE: 06/06/2017 Brenda is seen while rounding for the hospitalist. She is in "agonizing pain" with frontal headache. She has had a number of neurosurgical procedures done over this hospitalization, which were reviewed, most recently bilateral occipital nerve blocks, which reportedly relieved her of all of her agony, but it seems to have been transient. She also has some respiratory issues that seem to have resolved. One issue she is concerned about at this point is constipation and headache. Blood pressure 133/92, pulse , respiratory rate 20, oxygen saturation 93%. GENERAL APPEARANCE: She is lying in bed. Hands against her forehead. No respiratory distress. NEUROLOGIC: Exam is nonfocal. No facial droop or weakness. NECK: Supple. LUNGS: Clear. HEART: Regular rhythm. ABDOMEN: Soft, nontender. No peripheral edema. LABORATORY DATA: Sodium is up to 147, BUN and creatinine are normal. CBC is unremarkable. IMPRESSION: 1. Headaches. I am increasing the dose of her gabapentin to 600 mg twice a day. I will give her Toradol for a few doses. We will avoid opiates due to the chronic nature of her headache and pain. If headaches persist, we may need to have neurosurgery come back and see her tomorrow. MRI done was normal. 2. Acute on chronic respiratory failure. Follows with Dr. Vela. This seems to be stable. She is on a tapering dose of steroids. The rest of her medical problems are stable and unchanged from Dr. Welsh's extensive and comprehensive note from 06/05/2017.
[2017-06-06 14:58] VITALS: BP 123/83
[2017-06-06] MEDS: KETOROLAC 30 MG/ML VIAL (J1885) IV SCH ×2 (15:29→19:50)
[2017-06-06 22:00] VITALS: BP 110/69
[2017-06-07] MEDS: KETOROLAC 30 MG/ML VIAL (J1885) IV SCH ×2 (01:04→08:19)
[2017-06-07] MEDS ORDERED: traMADol 50 MG TAB PO PRN (01:15)
[2017-06-07] MEDS: SIMETHICONE 80 MG CHEW TAB PO PRN (03:40)
[2017-06-07 06:00] VITALS: BP 150/77
[2017-06-07] MEDS: LEVOTHYROXINE 125MCG TABLET (0.125MG) PO SCH (06:00)
[2017-06-07] MEDS: ACETAMINOPHEN TAB 650MG DOSE (2X325MG) PO PRN (06:01)
[2017-06-07] MEDS: FORMOTEROL FUMARATE 20 MCG/2 ML INHALATION SOLUTION (PERFOROMIST) INH SCH (07:04)
[2017-06-07] MEDS: IPRATROPIUM 0.5MG/ALBUTEROL 2.5MG INH SOL UD 3ML (DUONEB)(J7620) NEB SCH (07:05)
[2017-06-07] MEDS: BUDESONIDE 0.5 MG/2 ML INHALATION SUSPENSION INH SCH (07:05)
[2017-06-07 07:08] LABS: BASO % 0.2 % (0.0-1.0); EOS # 0.2 10^3/uL (0.0-0.50); EOS % 1.8 % (0.0-3.0); IMMATURE GRANULOCYTE % 0.7 % (0-0); LYMPH # 1.9 10^3/uL (1.5-4.5); LYMPH % 14.6 % (24.0-44.0); MEAN CORPUSCULAR HEMOGLOBIN 30.7 pg (27.0-33.0); MEAN CORPUSCULAR HGB CONC 33.9 g/dl (32.0-36.5); MEAN CORPUSCULAR VOLUME 90.7 fl (80.0-96.0); MONO # 1.2 10^3/uL (0.0-0.8); NEUTROPHILS # 9.7 10^3/uL (1.8-7.7); NEUTROPHILS % 73.7 % (36.0-66.0); PLATELET COUNT, AUTOMATED 260 10^3/uL (150-450); RED CELL DISTRIBUTION WIDTH 14.7 % (11.5-14.5); WHITE BLOOD COUNT 13.2 10^3/uL (4.0-10.0)
[2017-06-07 07:25] LABS: ANION GAP 0 MEQ/L (8-16); BLOOD UREA NITROGEN 23 MG/DL (7-18); CARBON DIOXIDE LEVEL 40 MEQ/L (21-32); CHLORIDE LEVEL 104 MEQ/L (98-107); CREATININE FOR GFR 0.88 MG/DL (0.55-1.02); GLOMERULAR FILTRATION RATE > 60.0 (>51); GLUCOSE, FASTING 78 MG/DL (70-105); POTASSIUM SERUM 3.8 MEQ/L (3.5-5.1); SODIUM LEVEL 144 MEQ/L (136-145)
[2017-06-07] MEDS ORDERED: PRED10TA2 PO (08:09)
[2017-06-07] MEDS ORDERED: GABA600T PO (08:09)
[2017-06-07] MEDS: ZONISAMIDE 100 MG CAP (ZONEGRAN) PO SCH (08:19)
[2017-06-07] MEDS: PANTOPRAZOLE 40MG INJ (PROTONIX) (C9113) IV SCH (08:19)
[2017-06-07 08:20] VITALS: BP 150/77
[2017-06-07] MEDS: GABAPENTIN 300 MG CAP PO SCH (08:20)
[2017-06-07] MEDS: DOXYCYCLINE HYCLATE 100 MG TAB PO SCH (08:20)
[2017-06-07] MEDS: MIRALAX *UNIT DOSE* 17GM PACKET PO SCH (08:20)
[2017-06-07] MEDS: predniSONE 20 MG TAB PO SCH (08:20)
--- NOTE | 2017-06-07 16:00 | DS.PDOC ---
Discharge Summary General Date of Admission May 31, 2017 at 03:15 Date of Discharge 06/07/17 Specialist/Consultants Involve Dr. Kearney, Dr. Kim of Neurosurgery. Dr. Cuba of Opthamology, Dr. 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 . Intractable Headache 2. . COPD Exacerbation COMPLICATIONS/CHIEF COMPLAINT: Acute Respiratory Failure With Hypoxia/ Hypercarbia. HISTORY OF PRESENT ILLNESS: . 57-year-old female with past medical history of pseudotumor cerebri status post lumboperitoneal shunt in 2026, papilledema with history of loss of vision-- which recovered after shunt surgery, advanced COPD, chronic hypoxic respiratory failure, hypothyroidism, and degenerative disc disease was transferred from [facility] emergency room with a chief complaint of severe headache for 2 weeks and shortness of breath. The patient reported that she had been having headaches daily for the past 2-3 years, and was initially diagnosed with papilledema with progressive loss of vision, and she was diagnosed with pseudotumor cerebri earlier in 2016. She has subsequently underwent ventriculoperitoneal shunt surgery in March 2017, which improved her vision. 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 She was transferred to [facility] for further evaluation and management. During hospitalization, the patient's respiratory status improved with steroid therapy and treatment of underlying COPD exacerbation. In addition, the patient did have a CT Head, MRI, and MRA of the brain which revealed no acute findings. Neurosurgery was consulted here, and there were no obvious breaks in continuity of the LP shunt according to them. In addition, an LP revealed an ICP of 24. The patient also had an opthamology consult, and there were no signs of papilledema noted. The patient did have occipital nerve blocks done, and this only temporarily helped her headaches. At this time, the patient states that her headaches have somewhat improved. She denies any visual blurring, or any other acute changes. She has been advised to follow up with [facility] as an outpatient. In addition, she has been advised to f/u with her PCP within 7 days. She has been consulted to return to the ER for any acute emergencies. DISCHARGE MEDICATIONS: Please see below. ALLERGIES: Please see below. PHYSICAL EXAMINATION ON DISCHARGE: VITAL SIGNS: Please see below. GENERAL: Awake, alert, in no acute distress HEENT: Normocephalic, atraumatic NECK: No JVD CARDIOVASCULAR EXAMINATION: Normal rate, normal S1, S2 RESPIRATORY EXAMINATION: Clear to auscultation bilaterally ABDOMINAL EXAMINATION: Soft, nontender, nondistended EXTREMITIES: No erythema, or tenderness LABORATORY DATA: Please see below. IMAGING: MRI of the brain. Clinical history: headaches, light sensitivity. Technique: Multiecho multiplanar MRI images of the brain were obtained before and after administration of intravenous gadolinium contrast. Findings: The ventricles and sulci are symmetric bilaterally. The brain parenchyma demonstrates uniform and normal signal on all sequences. There is no midline shift, mass effect, or extra-axial fluid collection. The midline intracranial structures do not demonstrate any gross abnormalities. The cervical cranial junction is intact. The orbits are unremarkable. The visualized paranasal sinuses and mastoid air cells are clear. The osseous structures and superficial soft tissues are unremarkable. The vascular structures demonstrate appropriate flow voids. No abnormal areas of enhancement are appreciated. Impression: Normal MRI of the Brain. MRV of the brain clinical history: headaches. Technique: MRV images of the brain were obtained following administration of intravenous gadolinium contrast. Findings: Motion artifact slightly limits evaluation of the venous structures. However, the venous structures demonstrate normal caliber and contour. There is no evidence of aneurysm, stenosis, or thrombosis. Impression: Unremarkable MRV examination of the brain. CLINICAL HISTORY: Gilbert hole. TECHNIQUE: Multiple axial brain CT scan sections were obtained from base to vertex without contrast administration. COMMENTS: Comparison to prior exam on 05/31/2017. Right frontal lida hole is noted. Minimal hypodense foci in the periventricular and subcortical white matter. The study shows normal configuration of sella turcica. There are no intra or extra-axial collections. There is no mass effect or midline shift. There is no evidence of hematoma formation. No hydrocephalus is present. No abnormal calcifications are noted. No significant abnormalities are seen either in the posterior fossa or supratentorial compartment. The sinuses and mastoid air cells are patent. IMPRESSION: Right frontal lida hole is noted. No evidence of acute intracranial pathology. Minimal chronic ischemic white matter disease. Thank you for your kind referral of this patient. CLINICAL HISTORY: Headaches. TECHNIQUE: MRI of the brain was performed utilizing multiple sequences in axial , coronal and sagittal planes without IV contrast material. COMMENTS: Comparison to the prior exam performed on 07/21/2016. The sella and parasellar region are unremarkable in appearance. The corpus callosum and cerebellar tonsils are of normal configuration and position. There are no intra or extra-axial collections. There is no mass effect or midline shift. There is no evidence of hematoma formation. There is no hydrocephalus. The visualized arterial structures demonstrate normal appearing flow voids. The seventh and eighth nerve bundles are visualized and are unremarkable in appearance. Several foci of T2/FLAIR hyperintensity are noted in the bilateral periventricular and subcortical white matter compatible with mild chronic white matter ischemic changes. Unchanged left parietal sebaceous cyst. IMPRESSION: 1. No acute intracranial pathology. 2. Unchanged exam. 3. Mild chronic white matter microvascular ischemic changes. PROGNOSIS: Fair ACTIVITY: As tolerated. DIET: . 2 g low sodium diet DISCHARGE PLAN: DISPOSITION: Home, Self-Care. DISCHARGE INSTRUCTIONS: 1. . Follow-up with primary care physician within 7 days 2. . Follow-up with neurosurgery within 7-14 days 3. . Return to the ER for any acute emergencies DISCHARGE CONDITION: Stable. TIME SPENT ON DISCHARGE: Greater than 30 minutes. Vital Signs/I&Os Vital Signs Date Time Temp Pulse Resp B/P (MAP) Pulse Ox O2 Delivery O2 Flow Rate FiO2 06/07/17 08:33 Nasal Cannula 2.0 06/07/17 08:20 77 150/77 06/07/17 06:00 96.7 18 94 06/04/17 06:00 30 Laboratory Data Labs 24H Laboratory Tests 2 06/07/17 06:44: Immature Granulocyte % (Auto) 0.7H, White Blood Count 13.2H, Red Blood Count 4.95, Hemoglobin 15.2, Hematocrit 44.9, Mean Corpuscular Volume 90.7, Mean Corpuscular Hemoglobin 30.7, Mean Corpuscular Hemoglobin Concent 33.9, Red Cell Distribution Width 14.7H, Platelet Count 260, Neutrophils (%) (Auto) 73.7H, Lymphocytes (%) (Auto) 14.6L, Monocytes (%) (Auto) 9.0H, Eosinophils (%) (Auto) 1.8, Basophils (%) (Auto) 0.2, Neutrophils # (Auto) 9.7H, Lymphocytes # (Auto) 1.9, Monocytes # (Auto) 1.2H, Eosinophils # (Auto) 0.2, Basophils # (Auto) 0.0, Immature Granulocyte # (Auto) 0.1H, Nucleated Red Blood Cells % (auto) 0.0, Anion Gap 0L, Glomerular Filtration Rate > 60.0, Blood Urea Nitrogen 23H, Creatinine 0.88, Sodium Level 144, Potassium Level 3.8, Chloride Level 104, Carbon Dioxide Level 40H, Calcium Level 10.0 CBC/BMP Laboratory Tests 06/07/17 06:44 Red Blood Count 4.95, Mean Corpuscular Volume 90.7, Mean Corpuscular Hemoglobin 30.7, Mean Corpuscular Hemoglobin Concent 33.9, Red Cell Distribution Width 14.7 H, Neutrophils (%) (Auto) 73.7 H, Lymphocytes (%) (Auto) 14.6 L, Monocytes (%) (Auto) 9.0 H, Eosinophils (%) (Auto) 1.8, Basophils (%) (Auto) 0.2, Neutrophils # (Auto) 9.7 H, Lymphocytes # (Auto) 1.9, Monocytes # (Auto) 1.2 H, Eosinophils # (Auto) 0.2, Basophils # (Auto) 0.0, Calcium Level 10.0 Microbiology Microbiology 05/31/17 Gram Stain - Final, Complete 05/31/17 CSF Culture - Final, Complete 05/31/17 Gram Stain - Final, Complete 05/31/17 CSF Culture - Final, Complete Discharge Medications Scheduled (Incruse Ellipta) 62.5 Mcg/Inh Inh, 62.5 MCG IN DAILY, (Reported) Budesonide (Pulmicort) 0.5 Mg/2 Ml Ana, 0.5 MG INH BID, (Reported) Cholecalciferol (Vitamin D) 1,000 Unit Tab, 1,000 UNIT PO DAILY, (Reported) Diltiazem HCl (Diltiazem Cd) 120 Mg Cap, 120 MG PO DAILY, (Reported) Gabapentin (Gabapentin) 600 Mg Tab, 600 MG PO BID Levothyroxine Sodium (Synthroid) 125 Mcg Tab, 125 MCG PO DAILY, (Reported) Multivitamins *[facility] STOCKED* (Thera M Plus *[facility] STOCKED*) 1 Tab Tab, 1 TAB PO DAILY, (Reported) Prednisone (Prednisone) 10 Mg Tab, 10 MG PO ASDIRECTED Salmeterol/Fluticasone (Advair Diskus 250-50 Mcg/Dose) 14 Puff/Inhaler Aerp, 1 PUFF INH BID, (Reported) Zonisamide (Zonisamide) 100 Mg Cap, 100 MG PO DAILY, (Reported) Zonisamide (Zonisamide) 100 Mg Cap, 200 MG PO QHS, (Reported) Scheduled PRN Acetaminophen (Tylenol Extra Strength) 500 Mg Tab, 500 MG PO Q4H PRN for PAIN, ( Reported) Albuterol/Ipratropium (Ipratropium [place]/Albut 0.5-2.5 (3) mg/3Ml) 1 Elizabeth Elizabeth, 1 ELIZABETH INH Q4H PRN for SHORTNESS OF BREATH, (Reported) Allergies Coded Allergies: Acetazolamide (Verified Adverse Reaction, Severe, RESPIRATORY FAILURE, 03/10) JERRI CLARK MD Jun 07, 2017 16:00
[2017-06-08] MEDS ORDERED: predniSONE 10 MG TAB PO SCH (09:00)
[2017-06-11] MEDS ORDERED: predniSONE 20 MG TAB PO SCH (09:00)
[2017-06-14] MEDS ORDERED: predniSONE 10 MG TAB PO SCH (09:00)
== END 2017-06-07 11:30 | disposition home health service (06) | DRG 982 ==
LOC: M ED 22:36 → EDBD 22:36 → M ED INP 05-31 03:15 → M ICU 05-31 05:13 → M MS5PR 06-05 15:05
PROVIDERS: ADMIT Internal Medicine Nephrology; ATTEND Hospitalist
PROC: 009 Central Nervous System and Cranial Nerves, Drainage (ICD-10-PCS; principal; 2017-05-31 16:58)
PROC: 009U3ZX Drainage of Spinal Canal, Percutaneous Approach, Diagnostic (ICD-10-PCS; 2017-06-03)
PROC: 3E0X3BZ Introduction of Anesthetic Agent into Cranial Nerves, Percutaneous Approach (ICD-10-PCS; 2017-06-04)
DX: J96.21 Acute and chronic respiratory failure with hypoxia (principal); J44.1 Chronic obstructive pulmonary disease with (acute) exacerbation; E87.2 Acidosis; J96.02 Acute respiratory failure with hypercapnia; F32.9 Major depressive disorder, single episode, unspecified; F41.9 Anxiety disorder, unspecified; M54.81 Occipital neuralgia; G93.2 Benign intracranial hypertension; A53.0 Latent syphilis, unspecified as early or late; E03.9 Hypothyroidism, unspecified; Z96.641 Presence of right artificial hip joint; Z90.710 Acquired absence of both cervix and uterus; Z87.891 Personal history of nicotine dependence; Z88.8 Allergy status to other drugs, medicaments and biological substances; Z79.899 Other long term (current) drug therapy; Z98.2 Presence of cerebrospinal fluid drainage device; Z99.81 Dependence on supplemental oxygen

== ENCOUNTER 2018-06-07 15:05 | Inpatient (IN) | payer MEDICARE, OTHER ==
[2018-06-07 15:40] LABS: BASO % 0.1 % (0.0-1.0); HEMATOCRIT 51.6 % (36.0-47.0); IMMATURE GRANULOCYTE % 0.6 % (0-3.0); LYMPH # 0.5 10^3/uL (1.5-4.5); MEAN CORPUSCULAR HEMOGLOBIN 27.4 pg (27.0-33.0); MEAN CORPUSCULAR VOLUME 88.4 fl (80.0-96.0); MONO # 0.4 10^3/uL (0.0-0.8); MONO % 4.4 % (0.0-5.0); NEUTROPHILS % 88.9 % (36.0-66.0); PLATELET COUNT, AUTOMATED 260 10^3/uL (150-450); RED BLOOD COUNT 5.84 10^6/uL (4.00-5.40); RED CELL DISTRIBUTION WIDTH 16.6 % (11.5-14.5); WHITE BLOOD COUNT 8.9 10^3/uL (4.0-10.0)
[2018-06-07 15:53] LABS: ABG BASE EXCESS 12.3 (-2.0-2.0); ABG HCO3 46.6 MEQ/L (22.0-26.0); ABG O2 SATURATION 94.4 % (95.0-99.0); ABG PARTIAL PRESSURE O2 78.8 mmHg (75.0-100.0); ABG STANDARD HCO3 36.1 MEQ/L (22.0-26.0); ABG TOTAL CO2 50.3 MEQ/L (22.0-29.0)
[2018-06-07 15:56] LABS: ABG pH (ARTERIAL) 7.206 UNITS (7.350-7.450)
[2018-06-07 15:57] LABS: ABG PARTIAL PRESSURE CO2 120.4 mmHg (35.0-45.0)
[2018-06-07 16:12] LABS: INFLUENZA A AMPLIFICATION NEGATIVE (NEGATIVE); INFLUENZA B AMPLIFICATION NEGATIVE (NEGATIVE)
[2018-06-07 16:27] LABS: LACTIC ACID SEPSIS PROTOCOL 1.3 MMOL/L (0.4-2.0)
[2018-06-07] MEDS: methylPREDNISolone INJ 125 MG/2 ML VIAL (J2930) IV (16:35)
[2018-06-07 17:14] LABS: ALBUMIN 3.9 GM/DL (3.2-5.2); ALBUMIN/GLOBULIN RATIO 0.95 (1.00-1.93); ALKALINE PHOSPHATASE 102 U/L (45-117); ALT/SGPT 145 U/L (12-78); ANION GAP 6 MEQ/L (8-16); AST/SGOT 70 U/L (7-37); BILIRUBIN,DIRECT < 0.1 MG/DL (0.0-0.2); BILIRUBIN,TOTAL 0.5 MG/DL (0.2-1.0); BLOOD UREA NITROGEN 27 MG/DL (7-18); CALCIUM LEVEL 9.8 MG/DL (8.5-10.1); CARBON DIOXIDE LEVEL 35 MEQ/L (21-32); CHLORIDE LEVEL 102 MEQ/L (98-107); CPK CREATINE PHOSPHOKINASE 53 U/L (26-192); CREATININE FOR GFR 0.82 MG/DL (0.55-1.30); GLOMERULAR FILTRATION RATE > 60.0 (>51); GLUCOSE, FASTING 136 MG/DL (70-100); MB/CK RELATIVE INDEX 2.45 (< OR =4); NT-PRO BNP 425 PG/ML (<125); POTASSIUM SERUM 4.6 MEQ/L (3.5-5.1); SODIUM LEVEL 143 MEQ/L (136-145); THEOPHYLLINE LEVEL < 2.0 UG/ML (10.0-20.0); TROPONIN I 0.02 NG/ML (< 0.10)
[2018-06-07 17:34] LABS: ABG BASE EXCESS 12.3 (-2.0-2.0); ABG HCO3 44.6 MEQ/L (22.0-26.0); ABG O2 SATURATION 90.2 % (95.0-99.0); ABG PARTIAL PRESSURE O2 57.5 mmHg (75.0-100.0); ABG STANDARD HCO3 35.9 MEQ/L (22.0-26.0); ABG TOTAL CO2 47.6 MEQ/L (22.0-29.0); ABG pH (ARTERIAL) 7.269 UNITS (7.350-7.450)
[2018-06-07 17:37] LABS: ABG PARTIAL PRESSURE CO2 99.5 mmHg (35.0-45.0)
[2018-06-07] MEDS: IPRATROPIUM 0.5MG/ALBUTEROL 2.5MG INH SOL UD 3ML (DUONEB)(J7620) NEB (18:24)
[2018-06-07 19:39] LABS: INR 2.13; PROTHROMBIN TIME 24.2 SECONDS (12.1-14.4)
[2018-06-07] MEDS: ACETAMINOPHEN TAB 650MG DOSE (2X325MG) PO (20:37)
[2018-06-07] MEDS: methylPREDNISolone INJ 40 MG/1 ML VIAL (J2920) IV (22:14)
[2018-06-07] MEDS: NS 1,000 ML IV (22:15)
[2018-06-07] MEDS: ENOXAPARIN 80 MG/0.8 ML SYRINGE (J1650) SC (22:15)
[2018-06-07] MEDS: cefTRIAXone SOD 1 GM in D5W MINI-BAG PLUS 50 ML IV (22:15)
[2018-06-07 22:54] LABS: FREE T4 0.59 NG/DL (0.76-1.46); MAGNESIUM LEVEL 2.5 MG/DL (1.8-2.4)
[2018-06-07 22:54] LABS: PHOSPHORUS LEVEL 2.5 MG/DL (2.5-4.9)
[2018-06-08 00:16] LABS: ABG BASE EXCESS 15.6 (-2.0-2.0); ABG O2 SATURATION 98.7 % (95.0-99.0); ABG PARTIAL PRESSURE O2 124.1 mmHg (75.0-100.0); ABG STANDARD HCO3 39.6 MEQ/L (22.0-26.0); ABG TOTAL CO2 49.9 MEQ/L (22.0-29.0); ABG pH (ARTERIAL) 7.313 UNITS (7.350-7.450)
[2018-06-08 00:17] LABS: ABG PARTIAL PRESSURE CO2 94.8 mmHg (35.0-45.0)
[2018-06-08] MEDS: IPRATROPIUM 0.5MG/ALBUTEROL 2.5MG INH SOL UD 3ML (DUONEB)(J7620) NEB ×4 (02:27→20:00)
[2018-06-08] MEDS: LORazepam 2 MG/ML VIAL (J2060) IV ×3 (03:15→15:36)
[2018-06-08] MEDS: methylPREDNISolone INJ 40 MG/1 ML VIAL (J2920) IV ×3 (05:00→23:04)
[2018-06-08 05:24] LABS: HEMATOCRIT 43.3 % (36.0-47.0); MEAN CORPUSCULAR HEMOGLOBIN 27.3 pg (27.0-33.0); MEAN CORPUSCULAR HGB CONC 31.4 g/dl (32.0-36.5); MEAN CORPUSCULAR VOLUME 86.8 fl (80.0-96.0); PLATELET COUNT, AUTOMATED 246 10^3/uL (150-450); RED BLOOD COUNT 4.99 10^6/uL (4.00-5.40); RED CELL DISTRIBUTION WIDTH 16.1 % (11.5-14.5); WHITE BLOOD COUNT 8.1 10^3/uL (4.0-10.0)
[2018-06-08 05:31] LABS: HEMOGLOBIN 13.6 g/dl (12.0-15.5)
[2018-06-08 05:55] LABS: ALBUMIN 3.4 GM/DL (3.2-5.2); ALBUMIN/GLOBULIN RATIO 1.17 (1.00-1.93); ALKALINE PHOSPHATASE 79 U/L (45-117); ALT/SGPT 109 U/L (12-78); ANION GAP 3 MEQ/L (8-16); AST/SGOT 39 U/L (7-37); BILIRUBIN,TOTAL 0.3 MG/DL (0.2-1.0); BLOOD UREA NITROGEN 29 MG/DL (7-18); CALCIUM LEVEL 9.6 MG/DL (8.5-10.1); CARBON DIOXIDE LEVEL 41 MEQ/L (21-32); CHLORIDE LEVEL 105 MEQ/L (98-107); CREATININE FOR GFR 0.67 MG/DL (0.55-1.30); GLOMERULAR FILTRATION RATE > 60.0 (>51); GLUCOSE, FASTING 102 MG/DL (70-100); MAGNESIUM LEVEL 2.2 MG/DL (1.8-2.4); POTASSIUM SERUM 4.3 MEQ/L (3.5-5.1); SODIUM LEVEL 149 MEQ/L (136-145); TOTAL PROTEIN 6.3 GM/DL (6.4-8.2)
[2018-06-08] MEDS: LEVOTHYROXINE 125MCG TABLET (0.125MG) PO (06:00)
[2018-06-08 06:33] LABS: ABG BASE EXCESS 11.9 (-2.0-2.0); ABG HCO3 41.9 MEQ/L (22.0-26.0); ABG O2 SATURATION 97.4 % (95.0-99.0); ABG PARTIAL PRESSURE O2 92.6 mmHg (75.0-100.0); ABG STANDARD HCO3 35.8 MEQ/L (22.0-26.0); ABG TOTAL CO2 44.4 MEQ/L (22.0-29.0); ABG pH (ARTERIAL) 7.331 UNITS (7.350-7.450)
[2018-06-08 06:37] LABS: ABG PARTIAL PRESSURE CO2 81.1 mmHg (35.0-45.0)
[2018-06-08] MEDS: PANTOPRAZOLE 40MG INJ (PROTONIX) (C9113) IV (08:29)
[2018-06-08] MEDS: VITAMIN D 1,000 INTERNATIONAL UNITS TABLET PO (08:30)
[2018-06-08] MEDS: diltiaZEM **CD** 180 MG CAP PO (08:30)
[2018-06-08] MEDS: ENOXAPARIN 80 MG/0.8 ML SYRINGE (J1650) SC (08:30)
[2018-06-08] MEDS: NS 1,000 ML IV ×2 (08:38→20:29)
[2018-06-08] MEDS: ACETAMINOPHEN TAB 650MG DOSE (2X325MG) PO ×2 (08:40→09:10)
[2018-06-08] MEDS ORDERED: ENOXAPARIN 40 MG/0.4 ML SYRINGE (J1650) SC (09:00)
[2018-06-08 10:15] LABS: ABG pH (ARTERIAL) 7.371 UNITS (7.350-7.450)
[2018-06-08 10:16] LABS: ABG BASE EXCESS 9.8 (-2.0-2.0); ABG HCO3 37.9 MEQ/L (22.0-26.0); ABG O2 SATURATION 95.8 % (95.0-99.0); ABG PARTIAL PRESSURE O2 76.4 mmHg (75.0-100.0); ABG STANDARD HCO3 33.5 MEQ/L (22.0-26.0); ABG TOTAL CO2 39.9 MEQ/L (22.0-29.0)
[2018-06-08 10:18] LABS: ABG PARTIAL PRESSURE CO2 66.9 mmHg (35.0-45.0)
[2018-06-08] MEDS: VENLAFAXINE **XR** 37.5 MG CAPSULE PO (15:36)
[2018-06-08] MEDS: WARFARIN SOD 3 MG TAB PO (17:41)
[2018-06-08] MEDS: GABAPENTIN 300 MG CAP PO (20:28)
[2018-06-08] MEDS: QUEtiapine FUMARATE 100 MG TAB PO (20:29)
[2018-06-08] MEDS: ADVAIR HFA 115/21MCG INHALER INH (20:48)
[2018-06-09] MEDS: IPRATROPIUM 0.5MG/ALBUTEROL 2.5MG INH SOL UD 3ML (DUONEB)(J7620) NEB ×4 (02:55→19:45)
[2018-06-09 05:01] LABS: MEAN CORPUSCULAR HEMOGLOBIN 27.1 pg (27.0-33.0); MEAN CORPUSCULAR VOLUME 87.7 fl (80.0-96.0); PLATELET COUNT, AUTOMATED 237 10^3/uL (150-450); RED BLOOD COUNT 4.79 10^6/uL (4.00-5.40); RED CELL DISTRIBUTION WIDTH 15.9 % (11.5-14.5); WHITE BLOOD COUNT 6.9 10^3/uL (4.0-10.0)
[2018-06-09 05:13] LABS: INR 1.58; PROTHROMBIN TIME 19.1 SECONDS (12.1-14.4)
[2018-06-09 05:18] LABS: ALBUMIN 3.1 GM/DL (3.2-5.2); ALBUMIN/GLOBULIN RATIO 1.19 (1.00-1.93); ALKALINE PHOSPHATASE 69 U/L (45-117); ALT/SGPT 90 U/L (12-78); ANION GAP 5 MEQ/L (8-16); AST/SGOT 28 U/L (7-37); BILIRUBIN,TOTAL 0.4 MG/DL (0.2-1.0); BLOOD UREA NITROGEN 26 MG/DL (7-18); CALCIUM LEVEL 9.2 MG/DL (8.5-10.1); CARBON DIOXIDE LEVEL 35 MEQ/L (21-32); CHLORIDE LEVEL 108 MEQ/L (98-107); CREATININE FOR GFR 0.58 MG/DL (0.55-1.30); GLOMERULAR FILTRATION RATE > 60.0 (>51); GLUCOSE, FASTING 91 MG/DL (70-100); POTASSIUM SERUM 4.3 MEQ/L (3.5-5.1); SODIUM LEVEL 148 MEQ/L (136-145); TOTAL PROTEIN 5.7 GM/DL (6.4-8.2)
[2018-06-09] MEDS: LEVOTHYROXINE 125MCG TABLET (0.125MG) PO (05:26)
[2018-06-09] MEDS: NS 1,000 ML IV (06:11)
[2018-06-09] MEDS: methylPREDNISolone INJ 40 MG/1 ML VIAL (J2920) IV ×2 (06:11→18:17)
[2018-06-09] MEDS: ADVAIR HFA 115/21MCG INHALER INH ×2 (09:00→19:45)
[2018-06-09 09:33] LABS: ABG HCO3 37.7 MEQ/L (22.0-26.0); ABG O2 SATURATION 95.2 % (95.0-99.0); ABG STANDARD HCO3 32.7 MEQ/L (22.0-26.0); ABG TOTAL CO2 39.9 MEQ/L (22.0-29.0); ABG pH (ARTERIAL) 7.337 UNITS (7.350-7.450)
[2018-06-09] MEDS: VITAMIN D 1,000 INTERNATIONAL UNITS TABLET PO (10:11)
[2018-06-09] MEDS: VENLAFAXINE **XR** 37.5 MG CAPSULE PO (10:11)
[2018-06-09] MEDS: GABAPENTIN 300 MG CAP PO ×2 (10:11→21:00)
[2018-06-09] MEDS: diltiaZEM **CD** 180 MG CAP PO (10:12)
[2018-06-09] MEDS: PANTOPRAZOLE 40MG INJ (PROTONIX) (C9113) IV (10:12)
[2018-06-09] MEDS: ACETAMINOPHEN TAB 650MG DOSE (2X325MG) PO ×3 (10:22→21:00)
[2018-06-09] MEDS: D5W/0.45% SODIUM CHLORIDE 1,000 ML IV (14:41)
[2018-06-09] MEDS: WARFARIN SOD 3 MG TAB PO (18:13)
[2018-06-09] MEDS: SUMAtriptan SUCCINATE 25 MG TAB PO (19:00)
[2018-06-09] MEDS: BENZONATATE 100 MG CAP PO (21:00)
[2018-06-09] MEDS: QUEtiapine FUMARATE 100 MG TAB PO (21:00)
[2018-06-09] MEDS: LORazepam 2 MG/ML VIAL (J2060) IV (22:53)
[2018-06-09] MEDS: IBUPROFEN 800 MG TAB PO (22:53)
[2018-06-10] MEDS: IPRATROPIUM 0.5MG/ALBUTEROL 2.5MG INH SOL UD 3ML (DUONEB)(J7620) NEB ×4 (02:00→19:50)
[2018-06-10 04:45] LABS: HEMATOCRIT 38.8 % (36.0-47.0); MEAN CORPUSCULAR HEMOGLOBIN 26.8 pg (27.0-33.0); MEAN CORPUSCULAR HGB CONC 30.9 g/dl (32.0-36.5); MEAN CORPUSCULAR VOLUME 86.6 fl (80.0-96.0); PLATELET COUNT, AUTOMATED 244 10^3/uL (150-450); RED BLOOD COUNT 4.48 10^6/uL (4.00-5.40); RED CELL DISTRIBUTION WIDTH 15.8 % (11.5-14.5); WHITE BLOOD COUNT 6.1 10^3/uL (4.0-10.0)
[2018-06-10 04:57] LABS: INR 2.36; PROTHROMBIN TIME 26.3 SECONDS (12.1-14.4)
[2018-06-10 05:02] LABS: ALBUMIN 3.2 GM/DL (3.2-5.2); ALBUMIN/GLOBULIN RATIO 1.39 (1.00-1.93); ALKALINE PHOSPHATASE 62 U/L (45-117); ALT/SGPT 97 U/L (12-78); ANION GAP 2 MEQ/L (8-16); AST/SGOT 42 U/L (7-37); BILIRUBIN,TOTAL 0.3 MG/DL (0.2-1.0); BLOOD UREA NITROGEN 21 MG/DL (7-18); CALCIUM LEVEL 9.4 MG/DL (8.5-10.1); CARBON DIOXIDE LEVEL 38 MEQ/L (21-32); CHLORIDE LEVEL 105 MEQ/L (98-107); CREATININE FOR GFR 0.59 MG/DL (0.55-1.30); GLOMERULAR FILTRATION RATE > 60.0 (>51); GLUCOSE, FASTING 118 MG/DL (70-100); MAGNESIUM LEVEL 2.2 MG/DL (1.8-2.4); POTASSIUM SERUM 4.1 MEQ/L (3.5-5.1); SODIUM LEVEL 145 MEQ/L (136-145); TOTAL PROTEIN 5.5 GM/DL (6.4-8.2)
[2018-06-10] MEDS: CALCIUM CARBONATE 500 MG CHEW U/D PO (05:33)
[2018-06-10] MEDS: LEVOTHYROXINE 125MCG TABLET (0.125MG) PO (05:33)
[2018-06-10] MEDS: ACETAMINOPHEN TAB 650MG DOSE (2X325MG) PO ×3 (05:37→18:33)
[2018-06-10 06:04] LABS: ABG BASE EXCESS 5.2 (-2.0-2.0); ABG O2 SATURATION 97.3 % (95.0-99.0); ABG PARTIAL PRESSURE O2 92.8 mmHg (75.0-100.0); ABG STANDARD HCO3 29.2 MEQ/L (22.0-26.0); ABG TOTAL CO2 34.9 MEQ/L (22.0-29.0); ABG pH (ARTERIAL) 7.333 UNITS (7.350-7.450)
[2018-06-10 06:12] LABS: ABG PARTIAL PRESSURE CO2 63.5 mmHg (35.0-45.0)
[2018-06-10] MEDS: methylPREDNISolone INJ 40 MG/1 ML VIAL (J2920) IV (06:28)
[2018-06-10] MEDS: ADVAIR HFA 115/21MCG INHALER INH ×2 (07:55→19:50)
[2018-06-10] MEDS: predniSONE 20 MG TAB PO (09:02)
[2018-06-10] MEDS: GABAPENTIN 300 MG CAP PO ×2 (09:03→20:17)
[2018-06-10] MEDS: VITAMIN D 1,000 INTERNATIONAL UNITS TABLET PO (09:03)
[2018-06-10] MEDS: VENLAFAXINE **XR** 37.5 MG CAPSULE PO (09:03)
[2018-06-10] MEDS: PANTOPRAZOLE 40MG TAB (PROTONIX) PO (09:03)
[2018-06-10] MEDS: SUMAtriptan SUCCINATE 25 MG TAB PO (09:03)
[2018-06-10] MEDS: diltiaZEM **CD** 180 MG CAP PO (09:03)
[2018-06-10] MEDS: TIOTROPIUM INHALER/CAPSULE (SPIRIVA) INH (10:35)
[2018-06-10] MEDS: BENZONATATE 100 MG CAP PO ×2 (13:03→20:21)
[2018-06-10] MEDS: IBUPROFEN 400 MG TAB PO (13:30)
[2018-06-10] MEDS: WARFARIN SOD 3 MG TAB PO (17:31)
[2018-06-10] MEDS: QUEtiapine FUMARATE 100 MG TAB PO (20:17)
[2018-06-10] MEDS: LORazepam 2 MG/ML VIAL (J2060) IV (20:17)
[2018-06-11] MEDS: IPRATROPIUM 0.5MG/ALBUTEROL 2.5MG INH SOL UD 3ML (DUONEB)(J7620) NEB ×4 (01:25→19:49)
[2018-06-11] MEDS: ACETAMINOPHEN TAB 650MG DOSE (2X325MG) PO ×4 (04:10→20:26)
[2018-06-11 04:41] LABS: HEMATOCRIT 41.5 % (36.0-47.0); HEMOGLOBIN 12.7 g/dl (12.0-15.5); MEAN CORPUSCULAR HEMOGLOBIN 27.1 pg (27.0-33.0); MEAN CORPUSCULAR HGB CONC 30.6 g/dl (32.0-36.5); MEAN CORPUSCULAR VOLUME 88.5 fl (80.0-96.0); PLATELET COUNT, AUTOMATED 243 10^3/uL (150-450); RED BLOOD COUNT 4.69 10^6/uL (4.00-5.40); WHITE BLOOD COUNT 8.3 10^3/uL (4.0-10.0)
[2018-06-11 04:50] LABS: INR 3.68; PROTHROMBIN TIME 37.4 SECONDS (12.1-14.4)
[2018-06-11 04:58] LABS: ALBUMIN 3.1 GM/DL (3.2-5.2); ALBUMIN/GLOBULIN RATIO 1.29 (1.00-1.93); ALKALINE PHOSPHATASE 60 U/L (45-117); ALT/SGPT 104 U/L (12-78); ANION GAP 1 MEQ/L (8-16); AST/SGOT 35 U/L (7-37); BILIRUBIN,TOTAL 0.2 MG/DL (0.2-1.0); BLOOD UREA NITROGEN 22 MG/DL (7-18); CALCIUM LEVEL 9.5 MG/DL (8.5-10.1); CARBON DIOXIDE LEVEL 40 MEQ/L (21-32); CHLORIDE LEVEL 106 MEQ/L (98-107); CREATININE FOR GFR 0.72 MG/DL (0.55-1.30); GLOMERULAR FILTRATION RATE > 60.0 (>51); GLUCOSE, FASTING 84 MG/DL (70-100); MAGNESIUM LEVEL 2.1 MG/DL (1.8-2.4); POTASSIUM SERUM 4.2 MEQ/L (3.5-5.1); SODIUM LEVEL 147 MEQ/L (136-145); TOTAL PROTEIN 5.5 GM/DL (6.4-8.2)
[2018-06-11] MEDS: LEVOTHYROXINE 125MCG TABLET (0.125MG) PO (06:49)
[2018-06-11] MEDS: TIOTROPIUM INHALER/CAPSULE (SPIRIVA) INH (07:54)
[2018-06-11] MEDS: ADVAIR HFA 115/21MCG INHALER INH ×2 (07:55→21:00)
[2018-06-11] MEDS: VITAMIN D 1,000 INTERNATIONAL UNITS TABLET PO (08:10)
[2018-06-11] MEDS: GABAPENTIN 300 MG CAP PO ×2 (08:10→20:26)
[2018-06-11] MEDS: VENLAFAXINE **XR** 37.5 MG CAPSULE PO (08:11)
[2018-06-11] MEDS: predniSONE 20 MG TAB PO (08:11)
[2018-06-11] MEDS: diltiaZEM **CD** 180 MG CAP PO (08:11)
[2018-06-11] MEDS: PANTOPRAZOLE 40MG TAB (PROTONIX) PO (08:11)
[2018-06-11] MEDS: SUMAtriptan SUCCINATE 25 MG TAB PO (09:15)
[2018-06-11] MEDS: LORazepam 0.5 MG TAB PO (11:38)
[2018-06-11] MEDS: IBUPROFEN 400 MG TAB PO (11:39)
[2018-06-11] MEDS: BENZONATATE 100 MG CAP PO ×2 (14:49→22:15)
[2018-06-11] MEDS: QUEtiapine FUMARATE 100 MG TAB PO (20:26)
[2018-06-12] MEDS: IPRATROPIUM 0.5MG/ALBUTEROL 2.5MG INH SOL UD 3ML (DUONEB)(J7620) NEB ×4 (02:00→20:00)
[2018-06-12 06:28] LABS: HEMATOCRIT 39.6 % (36.0-47.0); HEMOGLOBIN 12.4 g/dl (12.0-15.5); MEAN CORPUSCULAR HEMOGLOBIN 27.3 pg (27.0-33.0); MEAN CORPUSCULAR HGB CONC 31.3 g/dl (32.0-36.5); MEAN CORPUSCULAR VOLUME 87.2 fl (80.0-96.0); PLATELET COUNT, AUTOMATED 251 10^3/uL (150-450); RED BLOOD COUNT 4.54 10^6/uL (4.00-5.40); RED CELL DISTRIBUTION WIDTH 16.2 % (11.5-14.5); WHITE BLOOD COUNT 6.9 10^3/uL (4.0-10.0)
[2018-06-12] MEDS: LEVOTHYROXINE 125MCG TABLET (0.125MG) PO (06:31)
[2018-06-12] MEDS: ACETAMINOPHEN TAB 650MG DOSE (2X325MG) PO ×3 (06:31→18:09)
[2018-06-12 06:45] LABS: INR 3.56; PROTHROMBIN TIME 36.4 SECONDS (12.1-14.4)
[2018-06-12 07:06] LABS: ALBUMIN 2.9 GM/DL (3.2-5.2); ALBUMIN/GLOBULIN RATIO 1.21 (1.00-1.93); ALKALINE PHOSPHATASE 53 U/L (45-117); ALT/SGPT 86 U/L (12-78); ANION GAP 1 MEQ/L (8-16); AST/SGOT 25 U/L (7-37); BILIRUBIN,TOTAL 0.3 MG/DL (0.2-1.0); BLOOD UREA NITROGEN 15 MG/DL (7-18); CALCIUM LEVEL 8.9 MG/DL (8.5-10.1); CARBON DIOXIDE LEVEL 41 MEQ/L (21-32); CHLORIDE LEVEL 103 MEQ/L (98-107); CREATININE FOR GFR 0.57 MG/DL (0.55-1.30); GLOMERULAR FILTRATION RATE > 60.0 (>51); GLUCOSE, FASTING 79 MG/DL (70-100); MAGNESIUM LEVEL 1.9 MG/DL (1.8-2.4); POTASSIUM SERUM 3.9 MEQ/L (3.5-5.1); SODIUM LEVEL 145 MEQ/L (136-145); TOTAL PROTEIN 5.3 GM/DL (6.4-8.2)
[2018-06-12] MEDS: TIOTROPIUM INHALER/CAPSULE (SPIRIVA) INH (08:17)
[2018-06-12] MEDS: predniSONE 20 MG TAB PO (08:33)
[2018-06-12] MEDS: PANTOPRAZOLE 40MG TAB (PROTONIX) PO (08:33)
[2018-06-12] MEDS: ADVAIR HFA 115/21MCG INHALER INH ×2 (08:33→23:29)
[2018-06-12] MEDS: diltiaZEM **CD** 180 MG CAP PO (08:33)
[2018-06-12] MEDS: VENLAFAXINE **XR** 37.5 MG CAPSULE PO (08:33)
[2018-06-12] MEDS: VITAMIN D 1,000 INTERNATIONAL UNITS TABLET PO (08:34)
[2018-06-12] MEDS: GABAPENTIN 300 MG CAP PO ×2 (08:34→21:03)
[2018-06-12] MEDS: SUMAtriptan SUCCINATE 25 MG TAB PO (08:38)
[2018-06-12] MEDS: WARFARIN SOD 4 MG TAB PO (09:31)
[2018-06-12] MEDS: BENZONATATE 100 MG CAP PO (10:39)
[2018-06-12] MEDS: IBUPROFEN 800 MG TAB PO (11:46)
[2018-06-12] MEDS: QUEtiapine FUMARATE 100 MG TAB PO (21:03)
[2018-06-13] MEDS: IPRATROPIUM 0.5MG/ALBUTEROL 2.5MG INH SOL UD 3ML (DUONEB)(J7620) NEB ×4 (01:11→20:22)
[2018-06-13] MEDS: ACETAMINOPHEN TAB 650MG DOSE (2X325MG) PO ×4 (02:04→17:27)
[2018-06-13] MEDS: LEVOTHYROXINE 125MCG TABLET (0.125MG) PO (06:18)
[2018-06-13 06:49] LABS: HEMATOCRIT 41.1 % (36.0-47.0); HEMOGLOBIN 12.9 g/dl (12.0-15.5); MEAN CORPUSCULAR HEMOGLOBIN 26.9 pg (27.0-33.0); MEAN CORPUSCULAR HGB CONC 31.4 g/dl (32.0-36.5); MEAN CORPUSCULAR VOLUME 85.6 fl (80.0-96.0); PLATELET COUNT, AUTOMATED 256 10^3/uL (150-450); WHITE BLOOD COUNT 7.3 10^3/uL (4.0-10.0)
[2018-06-13] MEDS: SUMAtriptan SUCCINATE 25 MG TAB PO (06:54)
[2018-06-13 06:59] LABS: INR 2.09; PROTHROMBIN TIME 23.9 SECONDS (12.1-14.4)
[2018-06-13 08:04] LABS: ALBUMIN 3.2 GM/DL (3.2-5.2); ALBUMIN/GLOBULIN RATIO 1.14 (1.00-1.93); ALKALINE PHOSPHATASE 61 U/L (45-117); ALT/SGPT 97 U/L (12-78); ANION GAP 2 MEQ/L (8-16); AST/SGOT 19 U/L (7-37); BILIRUBIN,TOTAL 0.5 MG/DL (0.2-1.0); BLOOD UREA NITROGEN 16 MG/DL (7-18); CALCIUM LEVEL 9.2 MG/DL (8.5-10.1); CARBON DIOXIDE LEVEL 40 MEQ/L (21-32); CHLORIDE LEVEL 103 MEQ/L (98-107); CREATININE FOR GFR 0.63 MG/DL (0.55-1.30); GLOMERULAR FILTRATION RATE > 60.0 (>51); GLUCOSE, FASTING 97 MG/DL (70-100); POTASSIUM SERUM 3.9 MEQ/L (3.5-5.1); SODIUM LEVEL 145 MEQ/L (136-145)
[2018-06-13] MEDS: ADVAIR HFA 115/21MCG INHALER INH ×2 (08:43→20:31)
[2018-06-13] MEDS: TIOTROPIUM INHALER/CAPSULE (SPIRIVA) INH (08:44)
[2018-06-13] MEDS: GABAPENTIN 300 MG CAP PO ×2 (08:58→21:13)
[2018-06-13] MEDS: VENLAFAXINE **XR** 37.5 MG CAPSULE PO (08:58)
[2018-06-13] MEDS: VITAMIN D 1,000 INTERNATIONAL UNITS TABLET PO (08:58)
[2018-06-13] MEDS: SENOKOT S TAB PO ×2 (08:59→21:13)
[2018-06-13] MEDS: predniSONE 20 MG TAB PO (08:59)
[2018-06-13] MEDS: diltiaZEM **CD** 180 MG CAP PO (09:00)
[2018-06-13] MEDS: PANTOPRAZOLE 40MG TAB (PROTONIX) PO (09:00)
[2018-06-13] MEDS: traMADol 50 MG TAB PO ×2 (12:27→21:10)
[2018-06-13] MEDS: DICLOFENAC EPOLAMINE 1.3 % PATCH TOP ×2 (12:27→21:09)
[2018-06-13] MEDS ORDERED: PILL CRUSHER/CUTTER 1 EACH XX (13:00)
[2018-06-13] MEDS: WARFARIN SOD 4 MG TAB PO (17:27)
[2018-06-13] MEDS: BENZONATATE 100 MG CAP PO (17:27)
[2018-06-13] MEDS: QUEtiapine FUMARATE 100 MG TAB PO (21:13)
[2018-06-14] MEDS: IPRATROPIUM 0.5MG/ALBUTEROL 2.5MG INH SOL UD 3ML (DUONEB)(J7620) NEB ×4 (02:00→20:00)
[2018-06-14] MEDS: ACETAMINOPHEN TAB 650MG DOSE (2X325MG) PO (02:35)
[2018-06-14] MEDS: LEVOTHYROXINE 125MCG TABLET (0.125MG) PO (05:45)
[2018-06-14 06:42] LABS: HEMOGLOBIN 11.8 g/dl (12.0-15.5); MEAN CORPUSCULAR HEMOGLOBIN 26.8 pg (27.0-33.0); MEAN CORPUSCULAR HGB CONC 31.1 g/dl (32.0-36.5); MEAN CORPUSCULAR VOLUME 86.4 fl (80.0-96.0); PLATELET COUNT, AUTOMATED 165 10^3/uL (150-450); WHITE BLOOD COUNT 8.5 10^3/uL (4.0-10.0)
[2018-06-14] MEDS: traMADol 50 MG TAB PO ×3 (06:44→22:44)
[2018-06-14 06:56] LABS: INR 1.29; PROTHROMBIN TIME 16.3 SECONDS (12.1-14.4)
[2018-06-14 07:02] LABS: ALBUMIN 3.1 GM/DL (3.2-5.2); ALBUMIN/GLOBULIN RATIO 1.29 (1.00-1.93); ALKALINE PHOSPHATASE 50 U/L (45-117); ALT/SGPT 83 U/L (12-78); ANION GAP 2 MEQ/L (8-16); AST/SGOT 15 U/L (7-37); BILIRUBIN,TOTAL 0.4 MG/DL (0.2-1.0); BLOOD UREA NITROGEN 18 MG/DL (7-18); CALCIUM LEVEL 9.4 MG/DL (8.5-10.1); CARBON DIOXIDE LEVEL 39 MEQ/L (21-32); CHLORIDE LEVEL 103 MEQ/L (98-107); CREATININE FOR GFR 0.59 MG/DL (0.55-1.30); GLOMERULAR FILTRATION RATE > 60.0 (>51); GLUCOSE, FASTING 96 MG/DL (70-100); MAGNESIUM LEVEL 1.9 MG/DL (1.8-2.4); POTASSIUM SERUM 3.7 MEQ/L (3.5-5.1); SODIUM LEVEL 144 MEQ/L (136-145); TOTAL PROTEIN 5.5 GM/DL (6.4-8.2)
[2018-06-14] MEDS: ADVAIR HFA 115/21MCG INHALER INH ×2 (09:00→21:00)
[2018-06-14] MEDS: DICLOFENAC EPOLAMINE 1.3 % PATCH TOP ×2 (09:43→20:04)
[2018-06-14] MEDS: PANTOPRAZOLE 40MG TAB (PROTONIX) PO (09:44)
[2018-06-14] MEDS: SENOKOT S TAB PO ×2 (09:44→20:03)
[2018-06-14] MEDS: VITAMIN D 1,000 INTERNATIONAL UNITS TABLET PO (09:44)
[2018-06-14] MEDS: diltiaZEM **CD** 180 MG CAP PO (09:44)
[2018-06-14] MEDS: BENZONATATE 100 MG CAP PO (09:44)
[2018-06-14] MEDS: VENLAFAXINE **XR** 37.5 MG CAPSULE PO (09:44)
[2018-06-14] MEDS: GABAPENTIN 300 MG CAP PO ×2 (09:44→20:03)
[2018-06-14] MEDS: predniSONE 20 MG TAB PO (09:44)
[2018-06-14] MEDS: SUMAtriptan SUCCINATE 25 MG TAB PO (09:56)
[2018-06-14] MEDS: TIOTROPIUM INHALER/CAPSULE (SPIRIVA) INH (16:10)
[2018-06-14] MEDS: WARFARIN SOD 4 MG TAB PO (18:20)
[2018-06-14] MEDS: QUEtiapine FUMARATE 100 MG TAB PO (20:03)
[2018-06-15] MEDS: IPRATROPIUM 0.5MG/ALBUTEROL 2.5MG INH SOL UD 3ML (DUONEB)(J7620) NEB ×2 (02:43→07:25)
[2018-06-15] MEDS: LEVOTHYROXINE 125MCG TABLET (0.125MG) PO (05:32)
[2018-06-15] MEDS: traMADol 50 MG TAB PO (05:32)
[2018-06-15 06:49] LABS: INR 1.13; PROTHROMBIN TIME 14.7 SECONDS (12.1-14.4)
[2018-06-15] MEDS: TIOTROPIUM INHALER/CAPSULE (SPIRIVA) INH (07:24)
[2018-06-15] MEDS: ADVAIR HFA 115/21MCG INHALER INH (07:24)
[2018-06-15 08:27] LABS: BASO % 0.1 % (0.0-1.0); EOS # 0.1 10^3/uL (0.0-0.50); HEMATOCRIT 40.3 % (36.0-47.0); HEMOGLOBIN 12.5 g/dl (12.0-15.5); LYMPH % 19.2 % (24.0-44.0); MEAN CORPUSCULAR HEMOGLOBIN 27.3 pg (27.0-33.0); MONO # 0.9 10^3/uL (0.0-0.8); MONO % 8.3 % (0.0-5.0); NEUTROPHILS # 7.2 10^3/uL (1.8-7.7); NEUTROPHILS % 70.4 % (36.0-66.0); PLATELET COUNT, AUTOMATED 252 10^3/uL (150-450); RED BLOOD COUNT 4.58 10^6/uL (4.00-5.40); RED CELL DISTRIBUTION WIDTH 16.2 % (11.5-14.5); WHITE BLOOD COUNT 10.2 10^3/uL (4.0-10.0)
[2018-06-15 08:50] LABS: ALBUMIN 3.2 GM/DL (3.2-5.2); ALBUMIN/GLOBULIN RATIO 1.33 (1.00-1.93); ALKALINE PHOSPHATASE 54 U/L (45-117); ALT/SGPT 71 U/L (12-78); ANION GAP 4 MEQ/L (8-16); AST/SGOT 14 U/L (7-37); BILIRUBIN,TOTAL 0.4 MG/DL (0.2-1.0); BLOOD UREA NITROGEN 20 MG/DL (7-18); CALCIUM LEVEL 9.5 MG/DL (8.5-10.1); CARBON DIOXIDE LEVEL 38 MEQ/L (21-32); CHLORIDE LEVEL 101 MEQ/L (98-107); CREATININE FOR GFR 0.65 MG/DL (0.55-1.30); GLOMERULAR FILTRATION RATE > 60.0 (>51); GLUCOSE, FASTING 70 MG/DL (70-100); MAGNESIUM LEVEL 2.1 MG/DL (1.8-2.4); POTASSIUM SERUM 4.2 MEQ/L (3.5-5.1); SODIUM LEVEL 143 MEQ/L (136-145); TOTAL PROTEIN 5.6 GM/DL (6.4-8.2)
[2018-06-15] MEDS: predniSONE 20 MG TAB PO (08:53)
[2018-06-15] MEDS: VENLAFAXINE **XR** 37.5 MG CAPSULE PO (08:53)
[2018-06-15] MEDS: SUMAtriptan SUCCINATE 25 MG TAB PO (08:53)
[2018-06-15] MEDS: PANTOPRAZOLE 40MG TAB (PROTONIX) PO (08:53)
[2018-06-15] MEDS: SENOKOT S TAB PO (08:54)
[2018-06-15] MEDS: GABAPENTIN 300 MG CAP PO (08:54)
[2018-06-15] MEDS: VITAMIN D 1,000 INTERNATIONAL UNITS TABLET PO (08:54)
[2018-06-15] MEDS: diltiaZEM **CD** 180 MG CAP PO (08:54)
[2018-06-15] MEDS: DICLOFENAC EPOLAMINE 1.3 % PATCH TOP (08:55)
== END 2018-06-15 12:59 | disposition home or self-care (01) | DRG 189 ==
LOC: M MSPAV 06-11 20:39 → M ED 15:05 → M ED INP 20:45 → M ICU 21:56
DX: J96.21 Acute and chronic respiratory failure with hypoxia (principal); G93.6 Cerebral edema; J44.1 Chronic obstructive pulmonary disease with (acute) exacerbation; E87.0 Hyperosmolality and hypernatremia; J96.22 Acute and chronic respiratory failure with hypercapnia; F32.9 Major depressive disorder, single episode, unspecified; K21.9 Gastro-esophageal reflux disease without esophagitis; M51.36 Other intervertebral disc degeneration, lumbar region; I10 Essential (primary) hypertension; G93.2 Benign intracranial hypertension; E03.9 Hypothyroidism, unspecified; G62.9 Polyneuropathy, unspecified; R51 Headache; I27.20 Pulmonary hypertension, unspecified; F17.210 Nicotine dependence, cigarettes, uncomplicated; Z98.2 Presence of cerebrospinal fluid drainage device; Z99.81 Dependence on supplemental oxygen; Z79.01 Long term (current) use of anticoagulants; Z79.899 Other long term (current) drug therapy; Z98.1 Arthrodesis status; Z90.49 Acquired absence of other specified parts of digestive tract; Z96.641 Presence of right artificial hip joint; Z86.711 Personal history of pulmonary embolism; Z88.8 Allergy status to other drugs, medicaments and biological substances; Z91.14 Patient's other noncompliance with medication regimen

== ENCOUNTER 2018-07-24 12:12 | Outpatient (RCR) | payer MEDICARE, OTHER | END 2018-08-04 | LOC: M PR 12:12 | DX: J44.9 Chronic obstructive pulmonary disease, unspecified (principal) | CPT/HCPCS: G0424 ==

== ENCOUNTER 2018-08-24 10:33 | Outpatient (RCR) | payer MEDICARE, OTHER ==
[~2018-08-24 10:33] MED LIST changes: +BENZ-18 PO; +BISAC5TA PO; +COLA100C5 PO; +COUM1TAB14 PO; +COUM2TAB22 PO; +COUM6TAB PO; -DILT120C PO; +DILT120C77 PO; -DILT120C79 PO; +DILT180C74 PO; +DILT1CAP48 PO; -GABA-282 PO; -GABA-283 PO; +GABA-843 PO; +GABA-845 PO; +INCR1INH INH; +IPRA0.00 INH; -IPRASOL4 INH; +LIDO5CRE6 TOP; -PANT40TA2 PO; +PANT40TA3 PO; +PRED10TA2 PO; +PRED20TA PO; +PROT1TAB2 PO; +QUET1TAB8 PO; +SUMA50TA2 PO; +THEO400T4 PO; +TYLE500T78 PO; +VENL37.598 PO; +VENL37TA PO; +VENTAER INH; +VITA100066 PO; +VITMTA PO; +WARF4TAB52 PO; +ZONI100C2 PO
== END 2018-09-04 ==
LOC: M PR 10:33
PROVIDERS: ATTEND Internal Medicine Pulmonary Disease
DX: J44.9 Chronic obstructive pulmonary disease, unspecified (principal)
CPT/HCPCS: G0424 ×5

== ENCOUNTER 2018-12-01 18:49 | Inpatient (IN) | payer MEDICARE, OTHER ==
[~2018-12-01] VITALS: Ht 175.3 cm; Wt 85.4 kg
[~2018-12-01 18:49] MED LIST changes: -GABA600T PO; +GABA600T4 PO
[2018-12-01] MEDS ORDERED: ATOR1TAB21 PO (19:01)
[2018-12-01] MEDS ORDERED: methylPREDNISolone INJ 125 MG/2 ML VIAL (J2930) IV ONE (19:15)
--- NOTE | 2018-12-01 19:41 | REP ---
Clinical: Cough and dyspnea. Technique: Axial noncontrast images from the thoracic inlet to the upper abdomen with coronal and sagittal re-formations. Findings: Mild COPD/emphysematous changes are suggested along with diffuse peribronchial thickening suggesting acute bronchitis. Small area of infiltrate in the posterior right upper lobe may reflect early acute pneumonia. No further discrete consolidation. No effusion. No pneumothorax. No significant adenopathy. Atherosclerotic changes to the thoracic aorta and coronary arteries noted without aortic aneurysm or cardiomegaly. No pericardial effusion. Musculoskeletal structures are intact. Impression: 1. Mild COPD/interstitial disease. 2. Diffuse peribronchial thickening suggest bronchitis with possible small early right upper lobe infiltrate. Correlation is required. Electronically Signed by Aneudy Galvan MD 12/01/2018 07:32 P
[2018-12-01] MEDS ORDERED: traMADol 50 MG TAB PO ONE (19:45)
[2018-12-01 19:55] LABS: ABG BASE EXCESS 0.8 (-2.0-2.0); ABG HCO3 28.5 MEQ/L (22.0-26.0); ABG O2 SATURATION 86.9 % (95.0-99.0); ABG PARTIAL PRESSURE CO2 58.1 mmHg (35.0-45.0); ABG PARTIAL PRESSURE O2 55.2 mmHg (75.0-100.0); ABG STANDARD HCO3 24.9 MEQ/L (22.0-26.0); ABG TOTAL CO2 30.3 MEQ/L (22.0-29.0); ABG pH (ARTERIAL) 7.309 UNITS (7.350-7.450)
[2018-12-01] MEDS: IPRATROPIUM 0.5MG/ALBUTEROL 2.5MG INH SOL UD 3ML (DUONEB)(J7620) NEB PRN ×3 (19:59→20:35)
[2018-12-01 20:07] LABS: BASO % 0.3 % (0.0-1.0); EOS % 0.1 % (0.0-3.0); HEMATOCRIT 45.9 % (36.0-47.0); HEMOGLOBIN 14.9 g/dl (12.0-15.5); LYMPH # 1.3 10^3/uL (1.5-4.5); LYMPH % 12.9 % (24.0-44.0); MEAN CORPUSCULAR HEMOGLOBIN 27.3 pg (27.0-33.0); MEAN CORPUSCULAR HGB CONC 32.5 g/dl (32.0-36.5); MEAN CORPUSCULAR VOLUME 84.1 fl (80.0-96.0); MONO # 0.5 10^3/uL (0.0-0.8); MONO % 4.5 % (0.0-5.0); NEUTROPHILS # 8.2 10^3/uL (1.8-7.7); NEUTROPHILS % 81.8 % (36.0-66.0); PLATELET COUNT, AUTOMATED 284 10^3/uL (150-450); RED BLOOD COUNT 5.46 10^6/uL (4.00-5.40)
[2018-12-01 20:16] LABS: INR 0.92; PROTHROMBIN TIME 12.5 SECONDS (12.1-14.4)
[2018-12-01 20:30] LABS: BLOOD UREA NITROGEN 15 MG/DL (7-18); CARBON DIOXIDE LEVEL 31 MEQ/L (21-32); CHLORIDE LEVEL 104 MEQ/L (98-107); CPK CREATINE PHOSPHOKINASE 41 U/L (26-192); CREATININE FOR GFR 0.76 MG/DL (0.55-1.30); GLOMERULAR FILTRATION RATE > 60.0 (>51); GLUCOSE, FASTING 97 MG/DL (70-100); MB/CK RELATIVE INDEX 3.66 (< OR =4); NT-PRO BNP 140 PG/ML (<125); POTASSIUM SERUM 4.4 MEQ/L (3.5-5.1); SODIUM LEVEL 142 MEQ/L (136-145); TROPONIN I < 0.02 NG/ML (< 0.10)
[2018-12-01 20:37] LABS: INFLUENZA A AMPLIFICATION NEGATIVE (NEGATIVE); INFLUENZA B AMPLIFICATION NEGATIVE (NEGATIVE)
[2018-12-01] MEDS: QUEtiapine FUMARATE 100 MG TAB PO SCH (21:00)
[2018-12-01] MEDS: GABAPENTIN 300 MG CAP PO SCH (21:00)
[2018-12-01] MEDS: ATORVASTATIN 20 MG TAB PO SCH (21:00)
[2018-12-01] MEDS ORDERED: TRAM50TA2 PO (21:02)
[2018-12-01] MEDS ORDERED: ONDANSETRON 4MG/2ML VIAL (J2405) IV PRN (21:15)
[2018-12-01] MEDS ORDERED: SUMAtriptan SUCCINATE 25 MG TAB PO ONE (21:15)
[2018-12-01] MEDS ORDERED: BISACODYL 5 MG TAB PO PRN (21:30)
[2018-12-01] MEDS ORDERED: ALBUTEROL SULFATE 2.5 MG/0.5 ML INH NEB SOLN NEB PRN (21:30)
[2018-12-01] MEDS ORDERED: DOCUSATE SODIUM 100 MG CAP PO PRN (21:30)
[2018-12-01] MEDS ORDERED: AZITHROMYCIN INJ 500 MG, VIAL MATE ADAPTER 1 EACH in D5W 250 ML IV SCH (22:00)
--- NOTE | 2018-12-01 22:10 | REP ---
Clinical: Evaluate shunt. Technique: Two supine views of the abdomen and pelvis. Findings: Shunt extends from the lower thoracic spinal canal towards the right flank and into the mid abdomen. Bowel gas pattern is nonspecific. No organomegaly. No abnormal calcifications. Skeletal structures are intact. Right hip replacement noted. Impression: Shunt in satisfactory position. Electronically Signed by Aneudy Galvan MD 12/01/2018 10:02 P
[2018-12-01] MEDS: HEPARIN SOD (PORCINE) 5000 UNITS/ML VIAL SC SCH (22:15)
[2018-12-01] MEDS: cefTRIAXone SOD 1 GM in D5W MINI-BAG PLUS 50 ML IV SCH (23:14)
[2018-12-01] MEDS: IPRATROPIUM 0.5MG/ALBUTEROL 2.5MG INH SOL UD 3ML (DUONEB)(J7620) NEB SCH (23:35)
[2018-12-02] VITALS (23 sets, daily range): BP systolic 125–150; BP diastolic 60–97; O2SAT 77–96
[2018-12-02] MEDS: BENZONATATE 100 MG CAP PO PRN ×3 (01:04→20:09)
[2018-12-02] MEDS: IPRATROPIUM 0.5MG/ALBUTEROL 2.5MG INH SOL UD 3ML (DUONEB)(J7620) NEB SCH ×6 (03:47→23:49)
[2018-12-02] MEDS: traMADol 50 MG TAB PO PRN ×3 (04:00→16:59)
[2018-12-02 05:37] LABS: HEMATOCRIT 44.6 % (36.0-47.0); HEMOGLOBIN 14.1 g/dl (12.0-15.5); MEAN CORPUSCULAR HEMOGLOBIN 27.1 pg (27.0-33.0); MEAN CORPUSCULAR HGB CONC 31.6 g/dl (32.0-36.5); MEAN CORPUSCULAR VOLUME 85.8 fl (80.0-96.0); PLATELET COUNT, AUTOMATED 237 10^3/uL (150-450); WHITE BLOOD COUNT 6.6 10^3/uL (4.0-10.0)
[2018-12-02] MEDS: LEVOTHYROXINE 125MCG TABLET (0.125MG) PO SCH (05:55)
[2018-12-02] MEDS: methylPREDNISolone INJ 40 MG/1 ML VIAL (J2920) IV SCH ×3 (05:55→22:00)
[2018-12-02] MEDS: HEPARIN SOD (PORCINE) 5000 UNITS/ML VIAL SC SCH ×3 (05:56→22:00)
[2018-12-02 05:59] LABS: BLOOD UREA NITROGEN 14 MG/DL (7-18); CALCIUM LEVEL 9.4 MG/DL (8.5-10.1); CARBON DIOXIDE LEVEL 33 MEQ/L (21-32); CHLORIDE LEVEL 104 MEQ/L (98-107); CREATININE FOR GFR 0.75 MG/DL (0.55-1.30); GLOMERULAR FILTRATION RATE > 60.0 (>51); GLUCOSE, FASTING 175 MG/DL (70-100); POTASSIUM SERUM 4.2 MEQ/L (3.5-5.1); SODIUM LEVEL 142 MEQ/L (136-145)
[2018-12-02] MEDS: ACETAMINOPHEN TAB 650MG DOSE (2X325MG) PO PRN (06:36)
[2018-12-02] MEDS: PANTOPRAZOLE 40MG TAB (PROTONIX) PO SCH (08:40)
--- NOTE | 2018-12-02 08:40 | HPE ---
DATE OF ADMISSION: 12/01/2018 CHIEF COMPLAINT: Worsening cough with yellowish productive sputum and a headache. HISTORY OF THE PRESENT ILLNESS: The patient is a 58-year-old female with significant past medical history of chronic respiratory failure secondary to chronic obstructive pulmonary disease (COPD), on two liters of oxygen at home, and a Trilogy portable ventilator at night, advanced COPD. She has migraines, a history of provoked pulmonary embolism (PE), no longer on Coumadin, depression, gastroesophageal reflux disease (GERD), pseudotumor cerebri, status post LP shunt, hypotension, hypothyroidism, chronic back pain. She presents to the emergency room with a 5-day history of worsening cough of yellowish productive sputum, wheezing. She denies any fevers or chills. She states usually when she has COPD exacerbation, headache gets quite severe. She has a diffuse headache, which she states started once she started coughing and becoming short of breath; this is unchanged. She states her headache is never completely gone away despite the fact that she had a LP shunt placed for the pseudotumor cerebri but tends to be exacerbated by her COPD exacerbation. The last time her LP shunt was checked was in 2017, and it was noted to be in place. She also has a history of tachycardia, not otherwise specified, possibly supraventricular tachycardia (SVT); she states it was because she was on theophylline for which she has been placed on diltiazem. She denies any chest pain. She denies any abdominal pain, constipation, diarrhea, or urinary symptoms. Her primary concern is cough, wheezing, shortness of breath, and worsening headache. PAST MEDICAL HISTORY: See history of the present illness. PAST SURGICAL HISTORY: She has had appendectomy, back surgery, laminectomy, and fusion times two. She has had a DESIGN TECHNOLOGY PROFESSOR shunt, hysterectomy, right hip replacement and hernia repair times three. ALLERGIES: To ACETAZOLAMIDE. The reaction is unknown. SOCIAL HISTORY: She is an intermittent smoker; as per her, barely smokes. Denies alcohol or illicit drug use. HOME MEDICATIONS: Includes: - Tylenol - albuterol - Lipitor - Dulcolax - vitamin D - diltiazem - Colace - gabapentin - Synthroid - Protonix - Seroquel - Advair - Imitrex - tramadol - Effexor - Incruse Ellipta FAMILY HISTORY: Noncontributory. REVIEW OF SYSTEMS: A 12-point review of systems was completed, all of which were negative except those listed in the history of the present illness. VITAL SIGNS ON ADMISSION: Temperature 98, pulse of 106, respirations 34, blood pressure initially 199/111, saturating at 75% on two liters nasal cannula. After treatment, she is still saturating at 98% on two liters nasal cannula and blood pressure is down to 158/98. PHYSICAL EXAM: General: She is well nourished, in no apparent distress. Head is normocephalic, atraumatic Eyes: Extraocular movements are intact. Pupils equal, round, reactive to light. Neck is supple. No jugular venous pressure (JVP). Lungs: Diminished breath sounds, scattered wheezing. Cardiovascular: Regular rate and rhythm. Normal S1, S2. No murmurs, gallops, or rubs. Abdomen: The abdomen is soft, nontender, nondistended. Positive bowel sounds. No rebound or guarding. Extremities: No pitting edema. No calf tenderness. Skin: Intact. No rashes, lesions, or breakdown. Neurological: Alert and oriented times three. No focal deficit appreciated on the exam. LABS AND IMAGING: Done in the emergency room (ER). White count of 10, hemoglobin and hematocrit of 14 over 45, platelet count of 284, blood gas 7.3, 58, 55, 28, 86. Coagulation tests (coags) within normal limits. Chemistry shows a BUN and creatinine of 15 over 0.76. Rapid flu was negative. CT of the chest: Diffuse peribronchial thickening suggestive of bronchitis with possible small early right upper lobe infiltrate. ASSESSMENT AND PLAN: Acute on chronic respiratory failure with hypoxia, hypercarbia secondary to COPD exacerbation secondary to community-acquired pneumonia. Will continue oxygen as needed to keep the oxygen saturation between 89 and 92%. Will continue the patient's Trilogy ventilator at night, Solu-Medrol 40 mg every 8 hours, DuoNeb standing. Will check her fingersticks while on high-dose steroids every 12 hour. Will continue her Advair. Will place the patient on ceftriaxone, azithromycin. Will send a sputum culture. For headache, likely exacerbated in the setting of COPD exacerbation, possibly secondary to pneumonia. Will do a LP series to check the shunt. Will give Imitrex for a history of migraines. However, this headache is not consistent with her migraines as per the patient. History of pseudotumor cerebri, status post DESIGN TECHNOLOGY PROFESSOR shunt. Will do a shunt series to check for placement. Depression, mood disorder. Will continue her Seroquel. Chronic back pain. Status post laminectomy and fusion. Will continue Neurontin and tramadol. Tachycardia, not otherwise specified, SVT. Will continue diltiazem. Hypothyroidism. Will continue Synthroid. TSH within normal limits. GERD. Will continue Prilosec. Hyperlipidemia. Will continue Lipitor. Supportive: Deep vein thrombosis (DVT) prophylaxis. Heparin subcu. Gastrointestinal (GI) prophylaxis. The patient is already on Prilosec. Diet: Cardiac. MTDD
[2018-12-02] MEDS: VITAMIN D 1,000 INTERNATIONAL UNITS TABLET PO SCH (08:41)
[2018-12-02] MEDS: VENLAFAXINE **XR** 37.5 MG CAPSULE PO SCH (08:41)
[2018-12-02] MEDS: diltiaZEM **CD** 180 MG CAP PO SCH (08:41)
[2018-12-02] MEDS: GABAPENTIN 300 MG CAP PO SCH ×2 (08:42→20:09)
[2018-12-02] MEDS: ADVAIR HFA 115/21MCG INHALER INH SCH ×2 (08:47→20:29)
[2018-12-02] MEDS ORDERED: methylPREDNISolone INJ 40 MG/1 ML VIAL (J2920) IV SCH (09:00)
--- NOTE | 2018-12-02 09:30 | ECGEPIP ---
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
[2018-12-02] MEDS: SUMAtriptan SUCCINATE 25 MG TAB PO PRN (13:40)
[2018-12-02] MEDS ORDERED: LORazepam 2 MG/ML VIAL (J2060) IV ONE (18:00)
[2018-12-02] MEDS ORDERED: FIORICET TAB PO ONE (19:45)
[2018-12-02] MEDS ORDERED: KETOROLAC 30 MG/ML VIAL (J1885) IV ONE (20:00)
[2018-12-02] MEDS ORDERED: METOCLOPRAMIDE INJ 10MG/2ML VIAL (J2765) IV ONE (20:00)
[2018-12-02] MEDS ORDERED: diphenhydrAMINE INJ 50MG/ML VIAL (J1200) IV ONE (20:00)
[2018-12-02] MEDS: ATORVASTATIN 20 MG TAB PO SCH (20:09)
[2018-12-02] MEDS: QUEtiapine FUMARATE 100 MG TAB PO SCH (20:09)
[2018-12-02] MEDS: AZITHROMYCIN INJ 500 MG, VIAL MATE ADAPTER 1 EACH in D5W 250 ML IV SCH (22:00)
[2018-12-02] MEDS: cefTRIAXone SOD 1 GM in D5W MINI-BAG PLUS 50 ML IV SCH (23:30)
[2018-12-03] VITALS (26 sets, daily range): BP systolic 126–152; BP diastolic 70–98; O2SAT 88–98
[2018-12-03] MEDS: IPRATROPIUM 0.5MG/ALBUTEROL 2.5MG INH SOL UD 3ML (DUONEB)(J7620) NEB SCH ×3 (04:28→15:29)
[2018-12-03] MEDS: traMADol 50 MG TAB PO PRN ×2 (04:41→11:51)
[2018-12-03] MEDS: BENZONATATE 100 MG CAP PO PRN ×2 (04:41→15:02)
[2018-12-03 05:36] LABS: HEMATOCRIT 40.9 % (36.0-47.0); MEAN CORPUSCULAR HEMOGLOBIN 27.4 pg (27.0-33.0); MEAN CORPUSCULAR HGB CONC 31.8 g/dl (32.0-36.5); MEAN CORPUSCULAR VOLUME 86.1 fl (80.0-96.0); PLATELET COUNT, AUTOMATED 239 10^3/uL (150-450); RED BLOOD COUNT 4.75 10^6/uL (4.00-5.40); WHITE BLOOD COUNT 11.6 10^3/uL (4.0-10.0)
[2018-12-03 06:00] LABS: BLOOD UREA NITROGEN 27 MG/DL (7-18); CALCIUM LEVEL 9.2 MG/DL (8.5-10.1); CARBON DIOXIDE LEVEL 29 MEQ/L (21-32); CHLORIDE LEVEL 106 MEQ/L (98-107); CREATININE FOR GFR 0.79 MG/DL (0.55-1.30); GLOMERULAR FILTRATION RATE > 60.0 (>51); GLUCOSE, FASTING 126 MG/DL (70-100); POTASSIUM SERUM 4.6 MEQ/L (3.5-5.1); SODIUM LEVEL 142 MEQ/L (136-145)
[2018-12-03] MEDS: methylPREDNISolone INJ 40 MG/1 ML VIAL (J2920) IV SCH (06:19)
[2018-12-03] MEDS: LEVOTHYROXINE 125MCG TABLET (0.125MG) PO SCH (06:21)
[2018-12-03] MEDS: HEPARIN SOD (PORCINE) 5000 UNITS/ML VIAL SC SCH ×3 (06:21→21:27)
--- NOTE | 2018-12-03 07:43 | IPN ---
DATE OF VISIT: 12/02/2018 SUBJECTIVE: Patient is seen and examined in the room today. Patient continues having persistent shortness of breath. Patient stated she has been having increased wheezing, shortness of breath, also persistent sputum production for the past week or so. Denies any recent sick contact. Denied any fever or chill. OBJECTIVE: VITAL SIGNS: Temperature is 98.3, pulse 99, respirations 18, blood pressure 125/82, pulse oxygen 92% with 2 liters nasal cannula. GENERAL: Anxious. Patient is alert and awake. HEENT: Normocephalic, atraumatic. Extraocular movements grossly intact. CARDIOVASCULAR: Positive S1, S2. Tachycardic. LUNGS: Diminished breath sounds. Positive expiratory wheezes. No crackle appreciated. ABDOMEN: Soft, nontender, and nondistended. Bowel sounds present. EXTREMITIES: No edema. LABORATORY DATA: WBC 6.6, hemoglobin 14.1, hematocrit 44.6, platelet count is 237. Sodium is 142, potassium 4.2, chloride 104, carbon dioxide 32, BUN 14, creatinine 0.75, GFR greater than 60, fasting glucose 175, calcium 0.4. ASSESSMENT AND PLAN: 1. Acute on chronic respiratory failure. At the baseline, patient has chronic obstructive pulmonary disease (COPD) requiring oxygen at all times. Patient using Trilogy at night. Patient also has a history of provoked pulmonary embolus (PE), provoked from a flight to [place] in 10/2017. Based on the history and physical exam, patient demonstrates COPD exacerbation. Patient is currently on Rocephin and azithromycin. Patient is on intravenous (IV) steroids. Continue nebulizer treatment. 2. Pseudotumor cerebri, status post PRODUCT MANAGEMENT SPECIALIST shunt. Shunt study was performed on admission, shows shunt in satisfactory position. 3. Hypothyroidism. On Synthroid. 4. Depression. On Effexor. 5. Gastroesophageal reflux disease. On Protonix. 6. Deep venous thrombosis (DVT) prophylaxis. On heparin.
[2018-12-03] MEDS: ADVAIR HFA 115/21MCG INHALER INH SCH ×2 (07:49→20:16)
[2018-12-03] MEDS: VITAMIN D 1,000 INTERNATIONAL UNITS TABLET PO SCH (09:34)
[2018-12-03] MEDS: diltiaZEM **CD** 180 MG CAP PO SCH (09:34)
[2018-12-03] MEDS: SUMAtriptan SUCCINATE 25 MG TAB PO PRN ×2 (09:34→18:11)
[2018-12-03] MEDS: VENLAFAXINE **XR** 37.5 MG CAPSULE PO SCH (09:34)
[2018-12-03] MEDS: PANTOPRAZOLE 40MG TAB (PROTONIX) PO SCH (09:35)
[2018-12-03] MEDS: GABAPENTIN 300 MG CAP PO SCH ×2 (09:35→21:37)
[2018-12-03] MEDS ORDERED: LORazepam 2 MG/ML VIAL (J2060) IV ONE (10:45)
[2018-12-03] MEDS: ACETAMINOPHEN TAB 650MG DOSE (2X325MG) PO PRN (13:47)
--- NOTE | 2018-12-03 16:56 | IPNPDOC ---
Text Note Date of Service The patient was seen on 12/03/18. NOTE SUBJECTIVE: Patient is seen and examined in the room today. Patient feels her breathing is improving. She is complaining about bilateral hand tremors. She feels hand tremor is due to high dose steroid. Denies fever or chill. OBJECTIVE: VITAL SIGNS: Listed below. GENERAL: Anxious. Patient is alert and awake. HEENT: Normocephalic, atraumatic. Extraocular movements grossly intact. CARDIOVASCULAR: Positive S1, S2. Tachycardic. LUNGS: Diminished breath sounds. Positive expiratory wheezes. No crackle appreciated. ABDOMEN: Soft, nontender, and nondistended. Bowel sounds present. EXTREMITIES: No edema. LABORATORY DATA: Listed below. ASSESSMENT AND PLAN: #. Acute on chronic respiratory failure. - Secondary to COPD exacerbation. At the baseline, patient requires 2L oxygen at all times. Patient using Trilogy at night. - CT chest demonstrated diffuse peribronchial thickening suggest bronchitis with possible small early right upper lobe infiltrate. Infectious etiology is not likely. Normal CRP, ESR and procalcitonin. Respiratory panel is negative. Sputum culture is pending. - Taper IV solumedral to PO prednisone. On Azithromycin. Adjust Nebulizer treatment frequency as tolerated. #. Pseudotumor cerebri - Status post HAND MITER OPERATOR shunt. Shunt study showed shunt in satisfactory position. # Positive blood culture. - One of two sets of blood culture from 12/01/18 demonstrates Gram positive cocci in cluster in preliminary report. Suspect contamination. New set of blood cultures obtained. #. Hypothyroidism. - Normal TSH and free T4. On Synthroid. #. Depression. On Effexor. #. Gastroesophageal reflux disease. - On Protonix. #. Deep venous thrombosis (DVT) prophylaxis. On heparin. VS,Fishbone, I+O VS, Fishbone, I+O Laboratory Tests 12/03/18 05:10 Red Blood Count 4.75, Mean Corpuscular Volume 86.1, Mean Corpuscular Hemoglobin 27.4, Mean Corpuscular Hemoglobin Concent 31.8 L, Red Cell Distribution Width 17.2 H, Calcium Level 9.2 Vital Signs Date Time Temp Pulse Resp B/P (MAP) Pulse Ox O2 Delivery O2 Flow Rate FiO2 12/03/18 12:21 20 92 2.0 12/03/18 12:00 Nasal Cannula 12/03/18 12:00 98.4 93 144/92 (109) I&O- Last 24 Hours up to 6 AM 12/03/18 06:00 Intake Total 1750 ml Output Total 1100 ml Balance 650 ml TIM AGUIRRE DO Dec 03, 2018 16:56
[2018-12-03] MEDS ORDERED: diphenhydrAMINE INJ 50MG/ML VIAL (J1200) IV ONE (21:15)
[2018-12-03] MEDS ORDERED: KETOROLAC 30 MG/ML VIAL (J1885) IV ONE (21:15)
[2018-12-03] MEDS ORDERED: METOCLOPRAMIDE INJ 10MG/2ML VIAL (J2765) IV ONE (21:15)
[2018-12-03] MEDS: AZITHROMYCIN INJ 500 MG, VIAL MATE ADAPTER 1 EACH in D5W 250 ML IV SCH (21:26)
[2018-12-03] MEDS: QUEtiapine FUMARATE 100 MG TAB PO SCH (21:37)
[2018-12-03] MEDS: predniSONE 20 MG TAB PO SCH (21:37)
[2018-12-03] MEDS: ATORVASTATIN 20 MG TAB PO SCH (21:37)
[2018-12-04] VITALS (20 sets, daily range): BP systolic 112–164; BP diastolic 58–98; O2SAT 83–95
[2018-12-04] MEDS: IPRATROPIUM 0.5MG/ALBUTEROL 2.5MG INH SOL UD 3ML (DUONEB)(J7620) NEB SCH ×3 (00:23→15:22)
[2018-12-04] MEDS: BENZONATATE 100 MG CAP PO PRN (01:56)
[2018-12-04] MEDS: traMADol 50 MG TAB PO PRN ×2 (01:57→16:43)
[2018-12-04 05:44] LABS: HEMATOCRIT 39.8 % (36.0-47.0); HEMOGLOBIN 12.4 g/dl (12.0-15.5); MEAN CORPUSCULAR HEMOGLOBIN 27.1 pg (27.0-33.0); MEAN CORPUSCULAR HGB CONC 31.2 g/dl (32.0-36.5); MEAN CORPUSCULAR VOLUME 87.1 fl (80.0-96.0); PLATELET COUNT, AUTOMATED 235 10^3/uL (150-450); RED BLOOD COUNT 4.57 10^6/uL (4.00-5.40); WHITE BLOOD COUNT 9.6 10^3/uL (4.0-10.0)
[2018-12-04 06:04] LABS: BLOOD UREA NITROGEN 24 MG/DL (7-18); CALCIUM LEVEL 9.3 MG/DL (8.5-10.1); CARBON DIOXIDE LEVEL 32 MEQ/L (21-32); CHLORIDE LEVEL 109 MEQ/L (98-107); CREATININE FOR GFR 0.78 MG/DL (0.55-1.30); GLOMERULAR FILTRATION RATE > 60.0 (>51); GLUCOSE, FASTING 101 MG/DL (70-100); POTASSIUM SERUM 4.8 MEQ/L (3.5-5.1); SODIUM LEVEL 144 MEQ/L (136-145)
[2018-12-04] MEDS: HEPARIN SOD (PORCINE) 5000 UNITS/ML VIAL SC SCH ×3 (06:32→20:43)
[2018-12-04] MEDS: LEVOTHYROXINE 125MCG TABLET (0.125MG) PO SCH (06:33)
[2018-12-04] MEDS: ADVAIR HFA 115/21MCG INHALER INH SCH ×2 (07:24→19:56)
[2018-12-04] MEDS: PANTOPRAZOLE 40MG TAB (PROTONIX) PO SCH (08:00)
[2018-12-04] MEDS: diltiaZEM **CD** 180 MG CAP PO SCH (08:00)
[2018-12-04] MEDS: VENLAFAXINE **XR** 37.5 MG CAPSULE PO SCH (08:01)
[2018-12-04] MEDS: predniSONE 20 MG TAB PO SCH ×2 (08:01→20:44)
[2018-12-04] MEDS: GABAPENTIN 300 MG CAP PO SCH ×2 (08:01→20:44)
[2018-12-04] MEDS: VITAMIN D 1,000 INTERNATIONAL UNITS TABLET PO SCH (08:01)
[2018-12-04] MEDS: LEVALBUTEROL 1.25 MG/0.5 ML CONCENTRATE NEB INH PRN ×2 (08:39→19:57)
[2018-12-04] MEDS ORDERED: LORazepam 2 MG/ML VIAL (J2060) IV ONE (09:00)
[2018-12-04] MEDS: SUMAtriptan SUCCINATE 25 MG TAB PO PRN ×2 (11:05→21:00)
--- NOTE | 2018-12-04 17:44 | IPNPDOC ---
Text Note Date of Service The patient was seen on 12/04/18. NOTE SUBJECTIVE: Patient is seen and examined in the room today. Patient does not feel her breathing is improving. She still complains about bilateral hand tremors. she still has significant anxiety. She still has significant coughs.Denies fever or chill. OBJECTIVE: VITAL SIGNS: Listed below. GENERAL: Anxious. Patient is alert and awake. HEENT: Normocephalic, atraumatic. Extraocular movements grossly intact. CARDIOVASCULAR: Positive S1, S2. Tachycardic. LUNGS: Diminished breath sounds. Positive expiratory wheezes. No crackle appreciated. ABDOMEN: Soft, nontender, and nondistended. Bowel sounds present. EXTREMITIES: No edema. LABORATORY DATA: Listed below. ASSESSMENT AND PLAN: #. Acute on chronic respiratory failure. - Secondary to COPD exacerbation. At the baseline, patient requires 2L oxygen at all times. Patient is using Trilogy at night. - CT chest demonstrated diffuse peribronchial thickening suggest bronchitis with possible small early right upper lobe infiltrate. Infectious etiology is not likely. Normal CRP, ESR and procalcitonin. Respiratory panel is negative. Sputum culture is pending. - Taper IV solumedral to PO prednisone. On Azithromycin. Adjust Nebulizer treatment frequency as tolerated. #. 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 Shunt study showed shunt in satisfactory position. # Positive blood culture. - One of two sets of blood culture from 12/01/18 demonstrates Gram positive cocci in cluster in preliminary report. Suspect contamination. New set of blood cultures obtained. #. Hypothyroidism. - Normal TSH and free T4. On Synthroid. #. Depression. On Effexor. #. Gastroesophageal reflux disease. - On Protonix. #. Deep venous thrombosis (DVT) prophylaxis. On heparin. VS,Fishbone, I+O VS, Fishbone, I+O Laboratory Tests 12/04/18 05:12 Red Blood Count 4.57, Mean Corpuscular Volume 87.1, Mean Corpuscular Hemoglobin 27.1, Mean Corpuscular Hemoglobin Concent 31.2 L, Red Cell Distribution Width 17.5 H, Calcium Level 9.3 Vital Signs Date Time Temp Pulse Resp B/P (MAP) Pulse Ox O2 Delivery O2 Flow Rate FiO2 12/04/18 17:20 18 12/04/18 16:20 2.0 12/04/18 16:00 92 Nasal Cannula 12/04/18 16:00 98.8 111 152/88 (109) I&O- Last 24 Hours up to 6 AM 12/04/18 06:00 Intake Total 1540 ml Output Total 2950 ml Balance -1410 ml TIM AGUIRRE DO Dec 04, 2018 17:44
[2018-12-04] MEDS: AZITHROMYCIN INJ 500 MG, VIAL MATE ADAPTER 1 EACH in D5W 250 ML IV SCH (20:43)
[2018-12-04] MEDS: guaiFENesin ER 600 MG TAB PO SCH (20:44)
[2018-12-04] MEDS: ATORVASTATIN 20 MG TAB PO SCH (20:44)
[2018-12-04] MEDS: QUEtiapine FUMARATE 100 MG TAB PO SCH (20:45)
[2018-12-05] VITALS (13 sets, daily range): BP systolic 130–172; BP diastolic 82–98; O2SAT 74–94
[2018-12-05] MEDS ORDERED: SUMAtriptan SUCCINATE 25 MG TAB PO ONE
[2018-12-05] MEDS: IPRATROPIUM 0.5MG/ALBUTEROL 2.5MG INH SOL UD 3ML (DUONEB)(J7620) NEB SCH ×4 (00:24→23:06)
[2018-12-05] MEDS: traMADol 50 MG TAB PO PRN ×4 (00:27→20:18)
[2018-12-05 05:57] LABS: HEMATOCRIT 42.4 % (36.0-47.0); MEAN CORPUSCULAR HGB CONC 30.7 g/dl (32.0-36.5); MEAN CORPUSCULAR VOLUME 88.1 fl (80.0-96.0); PLATELET COUNT, AUTOMATED 219 10^3/uL (150-450); RED BLOOD COUNT 4.81 10^6/uL (4.00-5.40); WHITE BLOOD COUNT 8.6 10^3/uL (4.0-10.0)
[2018-12-05] MEDS: LEVOTHYROXINE 125MCG TABLET (0.125MG) PO SCH (06:10)
[2018-12-05] MEDS: HEPARIN SOD (PORCINE) 5000 UNITS/ML VIAL SC SCH ×3 (06:11→20:42)
[2018-12-05 06:14] LABS: BLOOD UREA NITROGEN 18 MG/DL (7-18); CALCIUM LEVEL 9.2 MG/DL (8.5-10.1); CARBON DIOXIDE LEVEL 35 MEQ/L (21-32); CHLORIDE LEVEL 107 MEQ/L (98-107); GLOMERULAR FILTRATION RATE > 60.0 (>51); GLUCOSE, FASTING 136 MG/DL (70-100); POTASSIUM SERUM 4.4 MEQ/L (3.5-5.1); SODIUM LEVEL 145 MEQ/L (136-145)
[2018-12-05] MEDS: BENZONATATE 100 MG CAP PO PRN ×2 (06:44→20:18)
[2018-12-05] MEDS: ADVAIR HFA 115/21MCG INHALER INH SCH ×2 (08:23→19:45)
[2018-12-05] MEDS: VITAMIN D 1,000 INTERNATIONAL UNITS TABLET PO SCH (09:07)
[2018-12-05] MEDS: LevoFLOXacin 500 MG TABLET PO SCH (09:07)
[2018-12-05] MEDS: predniSONE 20 MG TAB PO SCH ×2 (09:07→20:42)
[2018-12-05] MEDS: guaiFENesin ER 600 MG TAB PO SCH ×2 (09:07→20:42)
[2018-12-05] MEDS: diltiaZEM **CD** 180 MG CAP PO SCH (09:08)
[2018-12-05] MEDS: GABAPENTIN 300 MG CAP PO SCH ×2 (09:08→20:42)
[2018-12-05] MEDS: VENLAFAXINE **XR** 37.5 MG CAPSULE PO SCH (09:08)
[2018-12-05] MEDS: PANTOPRAZOLE 40MG TAB (PROTONIX) PO SCH (09:08)
[2018-12-05] MEDS: FIORICET TAB PO PRN (10:44)
--- NOTE | 2018-12-05 19:50 | IPNPDOC ---
Subjective Date Seen The patient was seen on 12/05/18. Subjective Chief Complaint/HPI The patient is a 58-year-old female who presented with increasing shortness of breath and cough admitted with respiratory failure secondary to pneumonia and COPD exacerbation Events since last encounter The patient reports her shortness of breath is improving. She reports headache - reports previously Imitrex, Fioricet haven't worked for her. Denies any nausea or vomiting. Reports some musculoskeletal chest pain when she coughs. Tolerating oral intake. No abdominal pain. No change in bladder/bowel habits. No change in bladder/bowel habits Objective Physical Examination General Exam: Positive: Alert, Cooperative, No Acute Distress Chest Exam: Positive: Other (diminished air entry bilaterally, slight wheeze. No distress.) Heart Exam: Positive: Other (S1, S2 heard, regular rate and rhythm. No rubs or gallops.) Abdomen Exam: Positive: Soft Neuro Exam: Positive: Other (awake, alert. Answering questions appropriately.) Assessment /Plan Assessment Acute on chronic hypoxemic hypercapnic respiratory failure secondary to acute COPD exacerbation secondary to right upper lobe pneumonia 2/2 stenotrophomonas maltophila pneumonia, present on admission: -Antibiotic changed to levofloxacin based on sensitivity. Plan total 7 day course -DC azithromycin -Continue by mouth prednisone, nebs, supplemental oxygen as needed Micrococcus Luteus in 1 out of 2 blood cultures with repeated blood cultures negative: -Likely contaminant. No further workup at this time. Pseudotumor cerebri status post ventriculoperitoneal shunt: -Shunt study confirmed satisfactory position Headache: -Ordered when necessary Fioricet Hypothyroidism: -Levothyroxine Depression: -Effexor GERD: -Protonix DVT prophylaxis: -Subcutaneous heparin Disposition: Anticipate discharge home tomorrow Plan/VTE VTE Prophylaxis Ordered?: Yes VS, I&O, 24H, Fishbone Vital Signs/I&O Vital Signs Date Time Temp Pulse Resp B/P (MAP) Pulse Ox O2 Delivery O2 Flow Rate FiO2 12/05/18 16:00 98.6 85 18 130/82 (98) 90 2.0 12/05/18 16:00 Nasal Cannula I&O- Last 24 Hours up to 6 AM 12/05/18 06:00 Intake Total 1200 ml Output Total 2725 ml Balance -1525 ml Laboratory Data 24H LABS Laboratory Tests 2 12/05/18 05:05: Nucleated Red Blood Cells % (auto) 0.0, Anion Gap 3L, Glomerular Filtration Rate > 60.0, Blood Urea Nitrogen 18, Creatinine 0.70, Sodium Level 145, Potassium Level 4.4, Chloride Level 107, Carbon Dioxide Level 35H, Calcium Level 9.2 CBC/BMP Laboratory Tests 12/05/18 05:05 Red Blood Count 4.81, Mean Corpuscular Volume 88.1, Mean Corpuscular Hemoglobin 27.0, Mean Corpuscular Hemoglobin Concent 30.7 L, Red Cell Distribution Width 17.5 H, Calcium Level 9.2 Microbiology Microbiology 12/03/18 Blood Culture - Preliminary, Resulted No Growth after 48 hours. All Specime... 12/03/18 Blood Culture - Preliminary, Resulted No Growth after 48 hours. All Specime... 12/01/18 Blood Culture - Preliminary, Resulted No Growth after 72 hours. All specime... 12/01/18 Blood Culture - Final, Complete Micrococcus Luteus 12/02/18 Respiratory Virus Panel (PCR) (NIA) - Final, Complete 12/02/18 Gram Stain - Final, Complete 12/02/18 Sputum Culture - Final, Complete Stenotrophomonas Maltophilia ADDISON OVALLES MD Dec 05, 2018 19:50
[2018-12-05] MEDS: ATORVASTATIN 20 MG TAB PO SCH (20:44)
[2018-12-05] MEDS: SUMAtriptan SUCCINATE 25 MG TAB PO PRN (20:44)
[2018-12-05] MEDS: QUEtiapine FUMARATE 100 MG TAB PO SCH (21:40)
[2018-12-06] VITALS: O2SAT 93
[2018-12-06 01:00] VITALS: O2SAT 92
[2018-12-06] MEDS: BENZONATATE 100 MG CAP PO PRN ×2 (01:43→08:36)
[2018-12-06] MEDS: FIORICET TAB PO PRN ×3 (01:43→14:17)
[2018-12-06 02:00] VITALS: BP 156/89
[2018-12-06] MEDS: LevoFLOXacin 500 MG TABLET PO SCH (05:14)
[2018-12-06] MEDS: HEPARIN SOD (PORCINE) 5000 UNITS/ML VIAL SC SCH ×2 (05:14→14:16)
[2018-12-06] MEDS: LEVOTHYROXINE 125MCG TABLET (0.125MG) PO SCH (05:14)
[2018-12-06] MEDS: SUMAtriptan SUCCINATE 25 MG TAB PO PRN (05:23)
[2018-12-06 06:00] VITALS: BP 120/79
[2018-12-06 06:21] LABS: HEMATOCRIT 40.5 % (36.0-47.0); MEAN CORPUSCULAR HEMOGLOBIN 27.9 pg (27.0-33.0); MEAN CORPUSCULAR HGB CONC 32.1 g/dl (32.0-36.5); MEAN CORPUSCULAR VOLUME 86.9 fl (80.0-96.0); PLATELET COUNT, AUTOMATED 237 10^3/uL (150-450); RED BLOOD COUNT 4.66 10^6/uL (4.00-5.40); WHITE BLOOD COUNT 8.1 10^3/uL (4.0-10.0)
[2018-12-06 06:53] LABS: BLOOD UREA NITROGEN 19 MG/DL (7-18); CALCIUM LEVEL 9.4 MG/DL (8.5-10.1); CARBON DIOXIDE LEVEL 34 MEQ/L (21-32); CHLORIDE LEVEL 106 MEQ/L (98-107); CREATININE FOR GFR 0.67 MG/DL (0.55-1.30); GLOMERULAR FILTRATION RATE > 60.0 (>51); GLUCOSE, FASTING 107 MG/DL (70-100); POTASSIUM SERUM 4.4 MEQ/L (3.5-5.1); SODIUM LEVEL 142 MEQ/L (136-145)
[2018-12-06] MEDS: ADVAIR HFA 115/21MCG INHALER INH SCH (07:11)
[2018-12-06] MEDS: IPRATROPIUM 0.5MG/ALBUTEROL 2.5MG INH SOL UD 3ML (DUONEB)(J7620) NEB SCH ×2 (07:12→10:56)
[2018-12-06 08:30] VITALS: BP 120/79
[2018-12-06] MEDS: diltiaZEM **CD** 180 MG CAP PO SCH (08:30)
[2018-12-06] MEDS: VITAMIN D 1,000 INTERNATIONAL UNITS TABLET PO SCH (08:30)
[2018-12-06] MEDS: guaiFENesin ER 600 MG TAB PO SCH (08:31)
[2018-12-06] MEDS: VENLAFAXINE **XR** 37.5 MG CAPSULE PO SCH (08:31)
[2018-12-06] MEDS: PANTOPRAZOLE 40MG TAB (PROTONIX) PO SCH (08:31)
[2018-12-06] MEDS: GABAPENTIN 300 MG CAP PO SCH (08:31)
[2018-12-06] MEDS: predniSONE 20 MG TAB PO SCH (08:31)
[2018-12-06] MEDS: LEVALBUTEROL 1.25 MG/0.5 ML CONCENTRATE NEB INH PRN (10:37)
[2018-12-06] MEDS ORDERED: FIOR1CAP PO (13:57)
[2018-12-06] MEDS ORDERED: MUCI600T37 PO ×2 (13:57→14:00)
[2018-12-06] MEDS ORDERED: LEVA1TAB2 PO ×2 (13:57→13:59)
[2018-12-06] MEDS ORDERED: PRED20TA PO (13:57)
[2018-12-06 14:00] VITALS: BP 145/96
--- NOTE | 2018-12-06 20:22 | DS.PDOC ---
Discharge Summary General Date of Admission Dec 01, 2018 at 21:14 Date of Discharge 12/06/18 Discharge Summary PROCEDURES PERFORMED DURING STAY: None. ADMITTING DIAGNOSES: Acute on chronic respiratory failure with hypoxia and hypercarbia secondary to COPD exacerbation secondary to community-acquired pneumonia, headache, history of pseudotumor cerebri status post MUFF WINDER shunt, depression, chronic back pain, ta chycardia, hypothyroidism, GERD, hyperlipidemia DISCHARGE DIAGNOSES: Acute on chronic hypoxemic hypercapnic respiratory failure secondary to acute COPD exacerbation secondary to right upper lobe pneumonia secondary to stenotrophomonas maltophila pneumonia present on admission, Micrococcus in 1 out of 2 blood cultures with repeated blood cultures negativecontaminant, pseudotumor cerebri status post ventriculoperitoneal shunt in past, headache, hypothyroidism, depression, GERD COMPLICATIONS/CHIEF COMPLAINT: Acute On Chronic Resp Failure W/Hypoxia. HISTORY OF PRESENT ILLNESS: The patient is a 58-year-old female with a previous history of COPD who presented to the hospital with complains of increasing cough, sputum production as well as headache found to have acute COPD exacerbation and possible pneumonia admitted to our facility for further management of the same HOSPITAL COURSE: Acute on chronic hypoxemic hypercapnic respiratory failure secondary to acute COPD exacerbation secondary to right upper lobe pneumonia 2/2 stenotrophomonas maltophila pneumonia, present on admission: -Patient was initially treated with azithromycin -Sputum cultures grew stenotrophomonas sensitive to levofloxacin -Antibiotic changed to levofloxacin based on sensitivity. Plan total 7 day course -Patient was also treated with IV Solu-Medrol transitioned to oral prednisone Micrococcus Luteus in 1 out of 2 blood cultures with repeated blood cultures negative: -Likely contaminant. No further workup at this time. Pseudotumor cerebri status post ventriculoperitoneal shunt: -Shunt study confirmed satisfactory position Headache: -Ordered when necessary Fioricet - patient has been given a prescription for the same on discharge Hypothyroidism: -Levothyroxine Depression: -Effexor On day of discharge, patient is doing better. She is on 2 L oxygen per minute by nasal cannula which is her baseline. Her wheezing has improved. She is tolerating oral intake. She is able to ambulate. Plan is for her to be discharged home today. DISCHARGE MEDICATIONS: Please see below. ALLERGIES: Please see below. PHYSICAL EXAMINATION ON DISCHARGE: VITAL SIGNS: Please see below. GENERAL: Sitting up in bed. No distress CARDIOVASCULAR EXAMINATION: S1, S2 heard. No rubs or gallops RESPIRATORY EXAMINATION: Diminished air entryno overt wheezing. ABDOMINAL EXAMINATION: Soft, nontender NEUROLOGICAL EXAMINATION: Awake, alert. Answering questions appropriately LABORATORY DATA: Please see below. IMAGING: Chest CT without contrast 12/01/18: Impression: 1. Mild COPD/interstitial disease. 2. Diffuse peribronchial thickening suggest bronchitis with possible small early right upper lobe infiltrate. Correlation is required. Shunt study 12/01/18: Impression: Shunt in satisfactory position. ACTIVITY: As tolerated. DIET: 2 g sodium diet DISCHARGE PLAN: Plan is for patient to discharge home today. Outpatient follow- up with her primary care provider in one week for follow-up on pneumonia/COPD exacerbation DISPOSITION: Home DISCHARGE CONDITION: Stable. TIME SPENT ON DISCHARGE: 34 minutes. Vital Signs/I&Os Vital Signs Date Time Temp Pulse Resp B/P (MAP) Pulse Ox O2 Delivery O2 Flow Rate FiO2 12/06/18 09:06 18 12/06/18 08:45 2.0 12/06/18 08:30 91 120/79 12/06/18 06:00 97.1 98 12/06/18 01:00 BIPAP/CPAP I&O- Last 24 Hours up to 6 AM 12/06/18 06:00 Intake Total 2160 ml Output Total 0 ml Balance 2160 ml Laboratory Data Labs 24H Laboratory Tests 2 12/06/18 05:57: Nucleated Red Blood Cells % (auto) 0.0, Anion Gap 2L, Glomerular Filtration Rate > 60.0, Blood Urea Nitrogen 19H, Creatinine 0.67, Sodium Level 142, Potassium Level 4.4, Chloride Level 106, Carbon Dioxide Level 34H, Calcium Level 9.4 CBC/BMP Laboratory Tests 12/06/18 05:57 Red Blood Count 4.66, Mean Corpuscular Volume 86.9, Mean Corpuscular Hemoglobin 27.9, Mean Corpuscular Hemoglobin Concent 32.1, Red Cell Distribution Width 17.4 H, Calcium Level 9.4 Microbiology Microbiology 12/03/18 Blood Culture - Preliminary, Resulted No Growth after 72 hours. All specime... 12/03/18 Blood Culture - Preliminary, Resulted No Growth after 72 hours. All specime... 12/01/18 Blood Culture - Preliminary, Resulted No Growth after 72 hours. All specime... 12/01/18 Blood Culture - Final, Complete Micrococcus Luteus 12/02/18 Respiratory Virus Panel (PCR) (NIA) - Final, Complete 12/02/18 Gram Stain - Final, Complete 12/02/18 Sputum Culture - Final, Complete Stenotrophomonas Maltophilia Discharge Medications Scheduled (Incruse Ellipta) 62.5 Mcg/Inh Inh, 1 PUFF INH DAILY, (Reported) Atorvastatin Calcium (Atorvastatin Calcium) 20 Mg Tab, 20 MG PO QHS, (Reported) Cholecalciferol (Vitamin D) 1,000 Unit Tab, 1,000 UNIT PO DAILY, (Reported) Diltiazem HCl (Diltiazem HCl ER) 180 Mg Cap, 180 MG PO DAILY, (Reported) Gabapentin (Gabapentin) 300 Mg Cap, 300 MG PO QAM, (Reported) Gabapentin (Gabapentin) 600 Mg Tab, 600 MG PO QHS, (Reported) Guaifenesin (Mucinex) 600 Mg Tab, 600 MG PO BID Levofloxacin Hemihydrate (Levaquin) 500 Mg Tab, 500 MG PO DAILY Levothyroxine Sodium (Synthroid) 125 Mcg Tab, 125 MCG PO DAILY, (Reported) Pantoprazole Sodium Sesquihydr (Protonix) 40 Mg Tab, 40 MG PO DAILY, (Reported) Prednisone (Prednisone) 20 Mg Tab, 40 MG PO DAILY Quetiapine Fumerate (Quetiapine Fumarate) 100 Mg Tab, 100 MG PO QHS, (Reported) Salmeterol/Fluticasone (Advair Diskus 250-50 Mcg/Dose) 14 Puff/Inhaler Aerp, 1 PUFF INH BID, (Reported) Venlafaxine HCl (Venlafaxine HCl ER) 37.5 Mg Capcr, 37.5 MG PO DAILY, (Reported) Scheduled PRN Acetamin/Butalbital/Caffeine (Fioricet 50-300-40 mg) 1 Cap Cap, 1 CAP PO Q6HP PRN for headache Acetaminophen (Tylenol Extra Strength) 500 Mg Tab, 500 MG PO Q4H PRN for PAIN, (Reported) Albuterol Sulfate (Ventolin Hfa) 108 Mcg/Act Aer, 2 PUFF INH q4-6h PRN for wheezing, (Reported) Albuterol/Ipratropium (Ipratropium [place]/Albut 0.5-2.5 (3) mg/3Ml) 1 Elizabeth Elizabeth, 1 ELIZABETH INH Q4H PRN for SHORTNESS OF BREATH, (Reported) Bisacodyl (Bisacodyl EC) 5 Mg Tab, 5 MG PO DAILY PRN for CONSTIPATION, (Reported) Docusate Sodium (Colace) 100 Mg Cap, 100 MG PO BID PRN for CONSTIPATION, (Reported) Sumatriptan Succinate (Sumatriptan Succinate) 50 Mg Tab, 50 MG PO for MIGRAINE, (Reported) Tramadol HCl (Tramadol HCl) 50 Mg Tab, 50 MG PO Q6H PRN for PAIN, (Reported) Allergies Coded Allergies: acetazolamide (Verified Allergy, Severe, RESP FAILURE, 12/01/18) ADDISON OVALLES MD Dec 06, 2018 14:00
== END 2018-12-06 15:25 | disposition home or self-care (01) | DRG 177 ==
LOC: M ED 18:49 → M ED INP 21:14 → M PCU 12-02 00:34 → M MS5PR 12-06 01:50
PROVIDERS: ADMIT Internal Medicine; ATTEND Internal Medicine
DX: J15.1 Pneumonia due to Pseudomonas (principal); J96.21 Acute and chronic respiratory failure with hypoxia; J96.22 Acute and chronic respiratory failure with hypercapnia; J44.1 Chronic obstructive pulmonary disease with (acute) exacerbation; F32.9 Major depressive disorder, single episode, unspecified; E03.9 Hypothyroidism, unspecified; K21.9 Gastro-esophageal reflux disease without esophagitis; E78.5 Hyperlipidemia, unspecified; M54.5 Low back pain; Z79.899 Other long term (current) drug therapy; Z88.8 Allergy status to other drugs, medicaments and biological substances; Z96.641 Presence of right artificial hip joint; R51 Headache

== ENCOUNTER → 2019-08-15 | Outpatient (REF) | payer MEDICARE, OTHER ==
[~2019-08-15] MED LIST changes: +ATOR1TAB21 PO; +DILT120C78 PO; -DILT180C74 PO; +DILT1CAP3 PO; -DILT1CAP48 PO; +FIOR1CAP PO; +LEVA1TAB2 PO; +MUCI600T37 PO; +SENN-53 PO; -SENN1TAB2 PO
== END ==
LOC: M LAB REF 16:46
PROVIDERS: ATTEND Internal Medicine Pulmonary Disease
DX: R91.1 Solitary pulmonary nodule (principal)

== ENCOUNTER → 2019-09-04 | Outpatient (CLI) | payer MEDICARE, OTHER ==
--- NOTE | 2019-09-05 13:03 | REP ---
PET/CT: History: Solitary pulmonary nodule. Comparisons: Comparison CT study of the chest December 01, 2018. Comparison chest x-ray from July 2019. A lumboperitoneal shunt is noted. The patient appears to be status post gastric bypass and cholecystectomy. The uterus also appears to be surgically absent and there is a infraumbilical ventral hernia repair. TECHNIQUE: 56 minutes following the intravenous injection of a 8.22 mCi dose of F-18 FDG, three-dimensional PET scintigraphy is acquired from the skull base to the proximal thighs. Triplanar noncontrast CT scanning is acquired through the same anatomic range for attenuation correction, and image registration with scan parameters optimized to minimize radiation exposure to the patient. PET scintigraphy and CT datasets were fused and displayed on a workstation with multiplanar and projection display capability. PET/CT Findings: Head and neck soft tissues show a normal variant vascular uptake at the thoracic inlet. No mass or adenopathy is seen here. Head and neck soft tissues are otherwise unremarkable. There is a lobulated 2.9 cm pulmonary nodule with satellite nodule formation in the posterior segment of the right upper lobe which is hypermetabolic. Maximum standard uptake value within this is 10.57. There is borderline hypermetabolic uptake in two of the adjacent satellite nodules which are each subcentimeter in size. Maximum SUV 2.45. No other abnormal pulmonary parenchymal hypermetabolic uptake is appreciated. No abnormal hilar or mediastinal hypermetabolic uptake is seen. No abnormal uptake is seen in the adrenals. No adrenal mass lesion is observed. A normal distribution of tracer is seen in the abdomen and pelvis. No abnormal abdominal or pelvic hypermetabolic uptake lesion is appreciated. Impression: There is a 2.9 cm nodular lesion in the right upper lobe posteriorly which is hypermetabolic. There is borderline uptake in the least two satellite nodules associated with this lesion. There is no hilar or mediastinal or distant metastatic hypermetabolic uptake seen. Electronically Signed by Mandeep Turcios MD 09/05/2019 06:23 P
== END ==
LOC: M PLARAD 09:37
PROVIDERS: ATTEND Internal Medicine Pulmonary Disease
DX: R91.1 Solitary pulmonary nodule (principal)
CPT/HCPCS: 78815; A9552

== ENCOUNTER 2019-11-08 16:16 | Inpatient (IN) | payer MEDICARE, OTHER ==
[~2019-11-08] VITALS: Ht 175.3 cm; Wt 75.4 kg
[~2019-11-08 16:16] MED LIST changes: +ACET-897 PO; +MUCUTAB PO; +ONDA8TAB10 PO; +PROC10TA4 PO; +QUET100T2 PO; -QUET1TAB8 PO; +VITAD1000T PO; +ZONI100C17 PO; -ZONI100C2 PO; +ZONI25CA13 PO; -ZONI25CA2 PO; +ZONI50CA11 PO; -ZONI50CA3 PO
[2019-11-08] MEDS ORDERED: PRED20TA PO (16:54)
[2019-11-08 17:44] LABS: ABG BASE EXCESS 13.4 (-2.0-2.0); ABG HCO3 48.3 MEQ/L (22.0-26.0); ABG O2 SATURATION 93.9 % (95.0-99.0); ABG PARTIAL PRESSURE O2 75.2 mmHg (75.0-100.0); ABG STANDARD HCO3 37.2 MEQ/L (22.0-26.0); ABG TOTAL CO2 52.6 MEQ/L (22.0-29.0)
[2019-11-08 17:47] LABS: ABG PARTIAL PRESSURE CO2 141.8 mmHg (35.0-45.0)
[2019-11-08] MEDS ORDERED: VENL75CA2 PO (18:19)
[2019-11-08] MEDS ORDERED: SYNT150T PO (18:20)
--- NOTE | 2019-11-08 18:28 | REP ---
CHEST, SINGLE VIEW: There is no evidence of acute infiltrate. No pleural effusion is seen. The heart is normal in size. The mediastinal silhouette is unremarkable. The visualized osseous structures are intact. IMPRESSION: No acute pulmonary disease. Electronically Signed by Hugh Duffy MD 11/09/2019 05:03 P
[2019-11-08] MEDS ORDERED: methylPREDNISolone INJ 125 MG/2 ML VIAL (J2930) IV ONE (18:30)
[2019-11-08 18:40] LABS: BASO % 0.2 % (0.0-1.0); HEMATOCRIT 43.4 % (36.0-47.0); HEMOGLOBIN 13.2 g/dl (12.0-15.5); LYMPH % 1.7 % (24.0-44.0); MEAN CORPUSCULAR HEMOGLOBIN 29.1 pg (27.0-33.0); MEAN CORPUSCULAR HGB CONC 30.4 g/dl (32.0-36.5); MEAN CORPUSCULAR VOLUME 95.6 fl (80.0-96.0); MONO # 0.2 10^3/uL (0.0-0.8); MONO % 1.5 % (0.0-5.0); NEUTROPHILS # 13.4 10^3/uL (1.5-8.5); NEUTROPHILS % 94.8 % (36.0-66.0); PLATELET COUNT, AUTOMATED 427 10^3/uL (150-450); RED BLOOD COUNT 4.54 10^6/uL (4.00-5.40); WHITE BLOOD COUNT 14.1 10^3/uL (4.0-10.0)
[2019-11-08 18:49] LABS: INR 0.92; PROTHROMBIN TIME 12.1 SECONDS (11.8-14.0)
[2019-11-08] MEDS: IPRATROPIUM 0.5MG/ALBUTEROL 2.5MG INH SOL UD 3ML (DUONEB)(J7620) NEB SCH ×4 (18:50→20:05)
[2019-11-08 18:52] LABS: LYMPH # 0.2 10^3/uL (1.5-5.0)
[2019-11-08 19:12] LABS: ALBUMIN 3.6 GM/DL (3.2-5.2); ALT/SGPT 23 U/L (12-78); BILIRUBIN,DIRECT < 0.1 MG/DL (0.0-0.2); BILIRUBIN,TOTAL 0.2 MG/DL (0.2-1.0); BLOOD UREA NITROGEN 12 MG/DL (7-18); CALCIUM LEVEL 9.1 MG/DL (8.5-10.1); CARBON DIOXIDE LEVEL 44 MEQ/L (21-32); CHLORIDE LEVEL 100 MEQ/L (98-107); CK-MB VALUE MASS 2.4 NG/ML (<3.6); CPK CREATINE PHOSPHOKINASE 27 U/L (26-192); CREATININE FOR GFR 0.47 MG/DL (0.55-1.30); GLOMERULAR FILTRATION RATE > 60.0 (>51); GLUCOSE, FASTING 135 MG/DL (70-100); MB/CK RELATIVE INDEX 8.89 (< OR =4); NT-PRO BNP 329 PG/ML (<125); POTASSIUM SERUM 4.7 MEQ/L (3.5-5.1); SODIUM LEVEL 143 MEQ/L (136-145); TOTAL PROTEIN 6.3 GM/DL (6.4-8.2); TROPONIN I < 0.02 NG/ML (< 0.10)
[2019-11-08 19:19] LABS: INFLUENZA A AMPLIFICATION NEGATIVE (NEGATIVE); INFLUENZA B AMPLIFICATION NEGATIVE (NEGATIVE)
[2019-11-08] MEDS ORDERED: MOM 30ML SUSPENSION UDC PO PRN (20:00)
[2019-11-08] MEDS ORDERED: MAALOX 30 ML SUSP *UDC PO PRN (20:00)
[2019-11-08] MEDS ORDERED: ALBUTEROL SULFATE 2.5 MG/0.5 ML INH NEB SOLN NEB PRN (20:00)
[2019-11-08 20:05] VITALS: O2SAT 93
[2019-11-08 20:53] LABS: FREE T3 1.1 PG/ML (2.2-4.0); FREE T4 0.53 NG/DL (0.76-1.46)
[2019-11-08] MEDS: ENOXAPARIN 40 MG/0.4 ML SYRINGE (J1650) SC SCH (21:00)
--- NOTE | 2019-11-08 21:19 | ECGEPIP ---
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
[2019-11-08 23:00] VITALS: BP 149/89
[2019-11-08] MEDS: DOCUSATE SODIUM 100 MG CAP PO SCH (23:00)
[2019-11-08] MEDS: VENLAFAXINE **XR** 75MG CAPSULE PO SCH (23:00)
--- NOTE | 2019-11-08 23:02 | HPEPDOC ---
[facility] Medical History & Physical Date of Admission Nov 08, 2019 Date of Service: Nov 08, 2019 Attending Physician: JHONNY HEATH MD History and Physical TIME OF SERVICE: 8:55 PM / CC time 35 min CHIEF COMPLAINT: Confusion HISTORY OF PRESENT ILLNESS: Corroborating history was obtained from the ER attending and the patient's daughter. This 59-year-old female was brought to the hospital by her daughter today after chemotherapy. Oriented to her daughter this morning the patient was sleepy and lethargic and it took them a long time to get her ready for the day. As a result, she was 2 hours late for her chemotherapy. Today was the second out of 4 cycles of palliative carboplatin, etoposide, atezolizumab. The patient currently has the Trilogy mask on, but she admits to feeling sleepy and slow earlier on during the day, short of breath and having a runny nose. She reports that her cough has not changed and denies having fevers or chills. According to the ER provider her pH was 7.1 and PCO2 was 140. The chest x-ray, influenza A&B and EKG were unrevealing. BiPAP had been ordered, by the ER pr quita, but the the patient and her daughter insisted on keeping her on Trilogy. REVIEW OF SYSTEMS: 12 point review of systems negative except as listed in HPI PAST MEDICAL/ SURGICAL HISTORY: Advanced COPD / Steroid and oxygen-dependent (2L) respiratory failure / nocturnal Trilogy History of provoked PE no longer on Coumadin Right upper lobe small cell lung carcinoma (diagnosed September 2019, tx plan: palliative carboplatin, etoposide, atezolizumab x 4 cycles followed by maintenance atezolizumab /not a radiation tx or surgical candidate) Migraines Depression GERD Pseudotumor cerebri, status post LP shunt Hypotension Hypothyroidism (poor compliance with levothyroxine) Chronic back pain Status post appendectomy Status post back surgery Status post laminectomy and fusion 2 Status post hysterectomy Status post right hip replacement Status post hernia repair 3 SOCIAL HISTORY: Smokes intermittently . The more than 63-oibt-hecm habit. Lives alone FAMILY HISTORY: Mother had lung cancer ALLERGIES: Please see below. HOME MEDICATIONS: Please see below. Vital Signs Date Time Temp Pulse Resp B/P (MAP) Pulse Ox O2 Delivery O2 Flow Rate FiO2 11/08/19 16:17 97.9 81 16 106/74 (85) 93 Nasal Cannula 3.0 11/08/19 20:05 32 PHYSICAL EXAMINATION: VITAL SIGNS: Please see below GEN: well nourished / well developed/ NAD INTEGUMENT: She doesn't have facial plethora HEENT:NCAT / lips are not cyanotic / she doesn't have pursed lip breathing / Trilogy mask is in place /mucus membranes dry CVS: RRR/ radial pulses diminished LUNGS: She doesn't have nasal flaring / is not not able to speak full sentences without stopping to take a breath / is not coughing / there is decreased respiratory expansion/ breath sounds are diminished ABDOMEN: soft & not tender with palpation MSK/EXTREMITIES: range of motion intact in all 4 extremities NEURO: CN 2-12 are grossly intact / speech is not dysarthric /she doesn't have asterixis PSYCH: alert and oriented to person place and time/ able to understand and follow all commands LABORATORY DATA: 11/08/19 17:36: Blood Gas Bicarbonate Standard 37.2H, Arterial Blood pH 7.150*L, Arterial Blood Partial Pressure CO2 141.8*H, Arterial Blood Partial Pressure O2 75.2, Arterial Blood Total CO2 52.6H, Arterial Blood HCO3 48.3H, Arterial Blood Base Excess 13.4H, Arterial Blood Oxygen Saturation 93.9L 11/08/19 18:07: Influenza Type A (RT-PCR) NEGATIVE, Influenza Type B (RT-PCR) NEGATIVE 11/08/19 18:18: Prothrombin Time 12.1, Prothromb Time International Ratio 0.92, Anion Gap , Glomerular Filtration Rate > 60.0, Lactic Acid Level 0.6, Calcium Level 9.1, Total Bilirubin 0.2, Direct Bilirubin < 0.1, Aspartate Amino Transf (AST/SGOT) 7, Alanine Aminotransferase (ALT/SGPT) 23, Alkaline Phosphatase 88, Total Creatine Kinase 27, Creatine Kinase MB 2.4, Creatine Kinase MB Relative Index 8.89H, Troponin I < 0.02, MR-Iip-X-Type Natriuretic Peptide 329H, Total Protein 6.3L, Albumin 3.6, Albumin/Globulin Ratio 1.33, Thyroid Stimulating Hormone (TSH) 5.010H 11/08/19 20:07: Free Thyroxine 0.53L, Free Triiodothyronine 1.1L IMAGING: Chest x-ray " IMPRESSION: No acute pulmonary disease." MICROBIOLOGY: 11/08/19 Blood Culture, Received Pending 11/08/19 Blood Culture, Received Pending 11/08/19 Respiratory Virus Panel (PCR) ([facility]) - Final, Complete ASSESSMENT: Ms. Freeman is a 59-year-old with a past medical history of right upper lobe small cell lung cancer, advanced COPD, oxygen and steroid dependence, migraines, history of pseudotumor cerebri, depression, GERD, hypothyroidism, chronic back pain. He was admitted for management of altered mental status likely due to hypercarbia and acute COPD. PLAN: 1. Encephalopathy secondary to hypercarbia. Plan: Admit to ICU/frequent neuro checks/ f/u w for BIPAP management / hold quetiapine and gabapentin 2.Acute Hypercarbic Respiratory Failure / Acute COPD Trigger may be smoking or viral infection or bacterial infection or aspiration or trilogy malfunction Plan: indication for BiPAP (mod/severe acidosis w a pH <7.3 ) / continuous pulse oximetry / aspiration precautions / she will remain NPO w breaks for sips and meds to avoid choking and aspiration until she has been evaluated by Pulm / f/u repeat ABG / pending full respiratory panel results the day time team can determine if she needs a CT of the chest / Dunebs Q6H, Albuterol Q4HP, c/w IV solumedrol + PPI / will give Levofloxacin because the patient has a severe COPD exacerbation / refer to Record Press Operator on an out pt basis for repeat PFTs and Pulmonary Rehab when ready for d/c 3. Small cell lung carcinoma - Plan: Follow up with oncologist as scheduled. 4. Migraines - Plan: Sumatriptan 5. Depression - Plan: Venlafaxine 6. GERD - Plan: PPI 7. Hypothyroidism Her TFTs are likely abnormal because of poor compliance -Plan: Resume levothyroxine DVT PROPHYLAXIS: Lovenox DISPOSITION: Home after more than 2 midnight's stay [facility] 24H Home Medications Scheduled Atorvastatin Calcium (Atorvastatin Calcium) 20 Mg Tab, 20 MG PO QHS Diltiazem HCl (Diltiazem 24Hr ER) 180 Mg Cap, 180 MG PO DAILY Gabapentin (Gabapentin) 300 Mg Cap, 300 MG PO QAM Gabapentin (Gabapentin) 600 Mg Tab, 600 MG PO QHS Levothyroxine Sodium (Synthroid) 150 Mcg Tablet, 150 MCG PO DAILY Prednisone (Prednisone) 20 Mg Tablet, 20 MG PO DAILY Quetiapine Fumarate (Quetiapine Fumarate) 100 Mg Tab, 100 MG PO QHS Salmeterol/Fluticasone (Advair 250-50 Diskus) 14 Puff/Inhaler Aerp, 1 PUFF INH BID Umeclidinium [place] (Incruse Ellipta) 62.5 Mcg/Inh Inh, 1 PUFF INH DAILY Venlafaxine HCl (Venlafaxine HCl ER) 75 Mg Cap.er.24h, 75 MG PO BID Scheduled PRN Acetaminophen (Tylenol Extra Strength) 500 Mg Tablet, 500 MG PO Q4H PRN for PAIN / FEVER Albuterol Sulfate (Ventolin Hfa) 108 Mcg/Act Aer, 2 PUFF INH q4-6h PRN for wheezing Bisacodyl (Bisacodyl) 5 Mg Tab, 5 MG PO DAILY PRN for CONSTIPATION Docusate Sodium (Colace) 100 Mg Cap, 100 MG PO BID PRN for CONSTIPATION Ipratropium/Albuterol Sulfate (Iprat-Albut 0.5-3(2.5) mg/3 ml) 1 Carol Carol, 1 VIAL INH Q4H PRN for SHORTNESS OF BREATH Ondansetron HCl (Ondansetron HCl) 8 Mg Tablet, 8 MG PO Q6H PRN for NAUSEA OR VOMITING Pantoprazole Sodium (Protonix) 40 Mg Tab, 40 MG PO DAILY PRN for HEARTBURN/INDIGESTION Prochlorperazine Maleate (Prochlorperazine Maleate) 10 Mg Tablet, 10 MG PO Q8H PRN for NAUSEA OR VOMITING Sumatriptan Succinate (Sumatriptan Succinate) 50 Mg Tab, 50 MG PO for MIGRAINE Allergies Coded Allergies: acetazolamide (Verified Allergy, Severe, RESP FAILURE, 12/01/18) A-FIB/CHADSVASC A-FIB History Current/History of A-Fib/PAF?: No Current PO Anticoag Therapy: No JHONNY HEATH MD Nov 08, 2019 23:02
[2019-11-08] MEDS ORDERED: DOCUSATE SODIUM 100 MG CAP PO PRN (23:15)
[2019-11-08 23:31] LABS: ABG BASE EXCESS 13.2 (-2.0-2.0); ABG HCO3 42.5 MEQ/L (22.0-26.0); ABG PARTIAL PRESSURE O2 65.7 mmHg (75.0-100.0); ABG STANDARD HCO3 36.9 MEQ/L (22.0-26.0); ABG TOTAL CO2 44.9 MEQ/L (22.0-29.0); ABG pH (ARTERIAL) 7.339 UNITS (7.350-7.450)
[2019-11-08 23:34] LABS: ABG PARTIAL PRESSURE CO2 80.7 mmHg (35.0-45.0)
[2019-11-09] VITALS (11 sets, daily range): BP systolic 107–150; BP diastolic 64–101
[2019-11-09] MEDS: IPRATROPIUM 0.5MG/ALBUTEROL 2.5MG INH SOL UD 3ML (DUONEB)(J7620) NEB SCH ×4 (01:07→20:00)
[2019-11-09] MEDS: LevoFLOXacin IV 750 MG in IV 1 EA IV SCH ×2 (01:10→20:04)
[2019-11-09] MEDS ORDERED: methylPREDNISolone INJ 125 MG/2 ML VIAL (J2930) IV SCH (03:00)
[2019-11-09] MEDS: ACETAMINOPHEN TAB 650MG DOSE (2X325MG) PO PRN (04:43)
[2019-11-09 05:05] LABS: HEMATOCRIT 37.8 % (36.0-47.0); HEMOGLOBIN 11.8 g/dl (12.0-15.5); MEAN CORPUSCULAR HGB CONC 31.2 g/dl (32.0-36.5); MEAN CORPUSCULAR VOLUME 92.9 fl (80.0-96.0); PLATELET COUNT, AUTOMATED 368 10^3/uL (150-450); RED BLOOD COUNT 4.07 10^6/uL (4.00-5.40); WHITE BLOOD COUNT 10.8 10^3/uL (4.0-10.0)
[2019-11-09 05:21] LABS: BLOOD UREA NITROGEN 14 MG/DL (7-18); CALCIUM LEVEL 9.3 MG/DL (8.5-10.1); CARBON DIOXIDE LEVEL 41 MEQ/L (21-32); CHLORIDE LEVEL 99 MEQ/L (98-107); CREATININE FOR GFR 0.49 MG/DL (0.55-1.30); GLOMERULAR FILTRATION RATE > 60.0 (>51); GLUCOSE, FASTING 88 MG/DL (70-100); POTASSIUM SERUM 4.8 MEQ/L (3.5-5.1); SODIUM LEVEL 141 MEQ/L (136-145)
[2019-11-09] MEDS: LEVOTHYROXINE 150MCG TABLET (0.15MG) PO SCH (06:39)
[2019-11-09] MEDS ORDERED: KETOROLAC 30 MG/ML VIAL (J1885) IV ONE (07:00)
[2019-11-09] MEDS ORDERED: METOCLOPRAMIDE INJ 10MG/2ML VIAL (J2765) IV ONE (07:00)
[2019-11-09] MEDS ORDERED: SUMAtriptan SUCCINATE 6 MG/0.5 ML VIAL SC ONE (08:00)
[2019-11-09] MEDS: PANTOPRAZOLE 40MG TAB (PROTONIX) PO SCH (09:11)
[2019-11-09] MEDS: diltiaZEM **CD** 180 MG CAP PO SCH (09:12)
[2019-11-09] MEDS: DOCUSATE SODIUM 100 MG CAP PO SCH ×2 (09:12→20:03)
[2019-11-09] MEDS: VENLAFAXINE **XR** 75MG CAPSULE PO SCH ×2 (09:12→20:03)
--- NOTE | 2019-11-09 14:56 | ECGEPIP ---
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
--- NOTE | 2019-11-09 18:38 | IPN ---
DATE: 11/09/2019 This morning, patient is still wearing her bilevel positive airway pressure (BiPAP). She is able to speak through the mask, however. Was able to state her name. Was able to say that it is November 2019, that she is in [facility] in [place], [place]. The patient is asking to eat this morning. She says that her breathing is better, but would like to have the mask off, if it is okay. Otherwise, patient denies any chest pain, pressure or tightness. She says she has a slight headache that is diffuse this morning, would like to have something taken for that. Repeat blood gas is still pending. Previous gas was 7.3, with a CO2 of 80; from previous admission, CO2 of 141 and pH of 7.15. Patient said that she had chemotherapy yesterday, but usually does not get pancytopenic from that. Her numbers still looked okay this morning, with hemoglobin of 11, white count of 10 and platelet count of 368. Telemetry was unremarkable. She remains in sinus rhythm with episodes of sinus tachycardia overnight. Patient has been kept nothing by mouth and had 330 urine output from yesterday, with current weight of 79.5 kilos. PHYSICAL EXAMINATION: VITAL SIGNS: Temperature 98, pulse 77, respiratory rate 18, blood pressure 135/86, 90%/30% BiPAP. Patient is awake, alert, oriented to person, place and time. She answers questions appropriately, but through the mask, with mild respiratory distress. She does take conscious deep breaths and use of accessory muscles due to the BiPAP. No jugular venous distention (JVD). No thyromegaly. Lungs are diminished throughout. Air entry is equal, however. Heart S1, S2. Episodes of sinus tachycardia. No murmurs, rubs or gallops. Abdomen is obese, soft, nontender, nondistended. Positive bowel sounds in all four quadrants. No hepatosplenomegaly. No abdominal bruits. Extremities: No cyanosis, clubbing or pitting edema. LABORATORY DATA: White count 10, hemoglobin 11, hematocrit 37, platelet count 368. Sodium 141, potassium 4.8, chloride 99, bicarbonate 41, BUN 14, creatinine 0.49, glucose of 88. IMAGING STUDIES: Chest x-ray: No active disease. No pleural effusion. No evidence of acute infiltrate. Heart size is normal. MICROBIOLOGY: Respiratory panel negative. Two sets of blood cultures are pending. ASSESSMENT AND PLAN: This is a 59-year-old female with advanced chronic obstructive pulmonary disease (COPD), steroid and oxygen dependent, 2 liters at baseline, with nocturnal Trilogy, with a history of provoked pulmonary embolism (PE), not on Coumadin anymore, currently getting palliative carboplatin/etoposide/ atezolizumab times four cycles with maintenance atezolizumab, not on radiation or not a surgical candidate, diagnosed September 2019 with a right upper lobe small cell lung cancer, presents to the emergency room with complaints of altered mental status, was found to have severe respiratory acidosis with hypercapnic respiratory failure requiring BiPAP therapy. Active issues are as follows: 1. Acute hypoxic hypercarbic respiratory failure with acute respiratory acidosis requiring BiPAP therapy. Currently managed by Dr. Peng, provider network manager. The patient is awake, alert, oriented this morning, able to answer questions appropriately. Will check a repeat blood gas. Defer to pulmonary regarding discontinuation of BiPAP and possible transfer to progressive care unit (PCU). Patient is currently on intravenous Solu-Medrol 80 mg every 8 hours and Levaquin 750 mg intravenous (IV) every 24 hours, which we will continue, along with nebulizers every hour with Proventil. 2. Small cell lung cancer, right upper lobe. Currently on palliative chemotherapy. This was diagnosed September 2019. Outpatient followup. Not exhibiting any pancytopenia after chemotherapy. Appears to be stable. 3. History of provoked PE in the past. Currently just on deep venous thrombosis (DVT) prophylaxis, not on anticoagulation as outpatient any longer. 4. COPD exacerbation with chronic hypoxic hypercarbic respiratory failure as well as nocturnal Trilogy. Patient is currently on IV Solu-Medrol, antibiotics, nebulizer treatment and supplemental oxygen. BiPAP to be managed by pulmonary. 5. Pseudotumor cerebri, status post lumboperitoneal (LP) shunt with history of migraines. Now complains of headache. No other neurological issues. Does not have bilateral upper or lower extremity weakness. Aside from headache, patient has no other complaints. No diplopia, blurred vision. Is still nothing by mouth status due to acute respiratory acidosis with hypercapnic respiratory failure with goal. Give IV Toradol if no contraindication. 6. Hypothyroidism. Poor compliance with levothyroxine. Will check TSH, which is elevated. Adjust patient's thyroid accordingly. Currently at 150 mcg daily. 7. DVT prophylaxis. Enoxaparin. CODE STATUS: FULL CODE. MTDD
[2019-11-09] MEDS: SUMAtriptan SUCCINATE 25 MG TAB PO PRN (19:57)
[2019-11-09] MEDS: ENOXAPARIN 40 MG/0.4 ML SYRINGE (J1650) SC SCH (20:03)
[2019-11-10] VITALS (8 sets, daily range): BP systolic 101–130; BP diastolic 67–106
[2019-11-10] MEDS: ACETAMINOPHEN TAB 650MG DOSE (2X325MG) PO PRN (01:23)
[2019-11-10] MEDS: RAMELTEON 8 MG TAB (ROZEREM) PO SCH ×2 (01:31→21:00)
[2019-11-10] MEDS: IPRATROPIUM 0.5MG/ALBUTEROL 2.5MG INH SOL UD 3ML (DUONEB)(J7620) NEB SCH ×4 (02:00→20:43)
[2019-11-10] MEDS: LEVOTHYROXINE 150MCG TABLET (0.15MG) PO SCH (05:06)
[2019-11-10] MEDS ORDERED: KETOROLAC 30 MG/ML VIAL (J1885) IV ONE ×2 (05:30→09:30)
[2019-11-10] MEDS: DOCUSATE SODIUM 100 MG CAP PO SCH ×2 (08:11→20:30)
[2019-11-10] MEDS: VENLAFAXINE **XR** 75MG CAPSULE PO SCH ×2 (08:11→20:29)
[2019-11-10] MEDS: PANTOPRAZOLE 40MG TAB (PROTONIX) PO SCH (08:11)
[2019-11-10] MEDS: diltiaZEM **CD** 180 MG CAP PO SCH (08:12)
[2019-11-10] MEDS ORDERED: METOCLOPRAMIDE INJ 10MG/2ML VIAL (J2765) IV ONE (08:15)
[2019-11-10] MEDS ORDERED: SUMAtriptan SUCCINATE 6 MG/0.5 ML VIAL SC ONE (09:00)
[2019-11-10] MEDS: SUMAtriptan SUCCINATE 6 MG/0.5 ML VIAL SC PRN ×2 (09:12→17:36)
--- NOTE | 2019-11-10 09:50 | CR ---
DATE OF CONSULTATION: 11/09/2019 CHIEF COMPLAINT: Asked by Dr. Del Valle to evaluate Ms. Freeman for acute and chronic hypercapnic respiratory failure. Ms. Freeman is a 59-year-old female with past medical history most pertinent for end-stage chronic obstructive pulmonary disease (COPD) and recently-diagnosed small cell lung cancer for which she is receiving chemotherapy. In review of the medical records, Ms. Freeman was difficult to arouse yesterday a.m., and it took a long time for her to get ready for the day. She arrived 2 hours late for chemotherapy because of her lethargy. Nonetheless, she received chemotherapy (second out of four cycles of palliative carboplatin, etoposide, and atezolizumab), and then her daughter brought her to the emergency department following chemotherapy. There her arterial blood gas was 7.1, and her pCO2 was 140. Her viral panel and electrocardiogram (EKG) were unrevealing. Initially, the emergency department tried to start her on noninvasive mechanical ventilation, but the patient and her daughter insisted that she stay on the Trilogy which she is on at home for an unknown period of time. I was then contacted and stated that that was not appropriate and that she should be placed on noninvasive mechanical ventilation until her arterial blood gas and mental status normalized. In talking to Ms. Freeman this morning, she stated that she did not feel well yesterday but cannot be more specific. She took 20 mg of prednisone because she was more short of breath. In reviewing Dr. Vela's notes, she is NOT ON CHRONIC STEROIDS but has access to that medication at home and periodically will take 10-20 mg of prednisone. She denies a cough. She denies ill contacts. No fevers. She reports she did very well after her first cycle of chemotherapy. She did not feel unwell yesterday. She has had no diarrhea, nausea, vomiting. No recent travel. It was the change in mental status and lethargy that caused her daughter to bring her to the emergency department. She reports that she has been compliant with her Trilogy. There was a comment in one of Dr. Vela's notes that there was a question whether her Trilogy was functioning properly, but apparently she states has not had any difficulties with it. Overnight, on noninvasive mechanical ventilation with a setting of inspiratory positive airway pressure (IPAP) of 16 and PEEP of 4 with a backup rate of 10 and FIO2 of 0.3, her ABG essentially normalized in a couple of hours. ALLERGIES: ACETAZOLAMIDE. MEDICATIONS ON ADMISSION: - acetaminophen 500 mg by mouth every 4 hours as needed - Ventolin HFA two puffs every 4 hours as needed - atorvastatin 20 mg by mouth nightly - bisacodyl 5 mg by mouth daily as needed - diltiazem ER 180 mg by mouth every day - Colace 100 mg by mouth twice a day as needed - gabapentin 300 mg by mouth every morning and 600 mg by mouth nightly. - DuoNeb every 4 hours as needed - Synthroid 150 mcg by mouth every day - ondansetron 8 mg by mouth every 6 hours as needed - Protonix 40 mg by mouth every day as needed - PREDNISONE 20 MG NEEDED (the patient takes it as she wants to) - prochlorperazine 10 mg by mouth every 8 hours as needed - quetiapine 100 mg by mouth nightly - Advair Diskus 250/50 one puff twice a day - sumatriptan 50 mg by mouth as needed - Incruse one puff daily - venlafaxine 75 mg by mouth twice a day Ms. Freeman reports to me that she is on no new medications. PAST MEDICAL HISTORY: 1. End-stage COPD; FEV-1 12% 2. History of provoked pulmonary embolism (PE). 3. Right upper lobe small cell carcinoma, diagnosed 09/24. a. Planned palliative carboplatin, etoposide, and atezolizumab times four cycles followed by maintenance atezolizumab. b. Not a radiation or surgical candidate. 4. Migraines. 5. Depression. 6. Gastroesophageal reflux disease (GERD). 7. Pseudotumor cerebri, status post LP shunt. 8. Hypertension. 9. Hypothyroidism (poor compliance). 10. Chronic back pain. 11. Status post appendectomy. 12. Status post back surgery. 13. Status post laminectomy and fusion times two. 14. Status post hysterectomy. 15. Status post right hip replacement. 16. Status post hernia repair times three. 17. History of significant tobacco usage. Last cigarette was at the holiday season after her brother . SOCIAL HISTORY: She is a . She lives alone. FAMILY HISTORY: Her mother had lung cancer. REVIEW OF SYSTEMS: Per history of present illness (HPI). Remainder of review of systems are negative. PHYSICAL EXAMINATION: General: Ms. Freeman is lying in bed in no acute distress. When she is sitting up, she uses supraclavicular accessory muscles. She is able to complete short sentences. Vital signs: Temperature 97.6, pulse 98, respiratory rate 22, blood pressure 148/98 with a mean arterial pressure (MAP) of 115, SpO2 93% on noninvasive mechanical ventilation (NIMV) 16/4 with an FIO2 of 0.3. HEENT: Anicteric, nares oxygen (O2) tubing in place (just taken off NIMV). Oropharynx clear. No lesions. Neck: Supple, without jugular venous distention (JVD), thyromegaly, or masses. Trachea is midline. Lymph: Without cervical or supraclavicular lymphadenopathy. Chest: Significant increased AP diameter. Lungs: Markedly diminished air entry. No wheeze, rhonchi, or crackle on tidal excursion. Prolonged expiratory phase. Supraclavicular accessory muscle usage with sitting. No retractions. Cardiovascular: Distant, regular rate and rhythm. No murmur, rub, or gallop appreciated, though difficult examination because of noise. Abdomen: Positive bowel sounds, soft, nondistended, nontender, no hepatosplenomegaly or masses appreciated. Extremities: Without clubbing, cyanosis, or edema. Palpable pedal pulses bilaterally. Neurologic: Alert, awake, and oriented times three. Psychiatric: Appropriate affect. LABORATORY DATA: Complete blood count (CBC) on admission showed a hemoglobin of 13.2, hematocrit 43.4, platelet count 427,000, white blood cell count 14,100 with a differential of 95% neutrophils, 2% lymphocytes, 2% monocytes. This morning's CBC shows hemoglobin 11.8, hematocrit 37.8, platelet count 368,000, and white blood cell count 10,800. Chemistries on admission showed sodium 143, potassium 4.7, chloride 100, bicarbonate 44, BUN 12, creatinine 0.47, glucose 135, lactic acid 0.6, calcium 9.1, total bilirubin 0.2, AST 7, ALT 23, alkaline phosphatase 88, CK 27, CK-MB 2.4, troponin I less than 0.02, BNP 329, total protein 6.3, albumin 3.6, TSH 5.01. Chemistries this morning showed sodium 141, potassium 4.8, chloride 99, bicarbonate 41, anion gap 1, BUN 14, creatinine 0.5, glucose 88, calcium 9.3, magnesium 2.0. INR yesterday was 0.92. Influenza A and B negative. Respiratory viral panel negative. Initial arterial blood gas was 7.15/142/75 with a measured saturation of 94% and a base excess of 13.4. I do not know how much oxygen she was on. Repeat arterial blood gas on noninvasive mechanical ventilation of 19/12 with an FIO2 of 0.3 was 7.34/81/66 with a measured saturation of 94% and a base excess of 13.2. I reviewed her chest x-ray, as well as report, from 11/08/2019. That x-ray showed normal-appearing cardiac silhouette and pulmonary vascular shadows. Normal-appearing mediastinal and hilar regions. There was a faint abnormality in the right upper lobe. No consolidated regions. There were chronic changes. IMPRESSION: 1. Acute and chronic hypercapnic respiratory failure. The chronic portion is secondary to COPD. It is less clear as to the acute portion. Possibilities would include secondary to chemotherapy, secondary to medications, secondary to not wearing the Trilogy or perhaps the Trilogy not working properly, or other. She does not appear to have an acute infective illness. 2. End-stage chronic obstructive pulmonary disease (COPD) with an FEV-1 of 12%. 3. Right upper lobe small cell cancer, received second dosage of palliative chemotherapy yesterday. 4. Hypothyroidism. 5. Pseudotumor cerebri, status post LP shunt. 6. Hypertension. 7. Gastroesophageal reflux disease. 8. Chronic back pain. RECOMMENDATIONS: At this time, we will just continue the NIMV and convert her back to her Trilogy at her home settings. Will stop the Solu-Medrol. SHE IS NOT ON PREDNISONE CHRONICALLY and does not have any symptoms suggestive of an acute infection. She is NOT on chronic prednisone." I recommend discontinuing antibiotics. Again, she is not having any infective symptoms, and her x-ray was normal. If felt wanted to continue, would send a procalcitonin and then de-escalate depending on the results, though that can be elevated for reasons other than bacterial infection. I would not plan any routine arterial blood gases. However, should she be on her home device and appear lethargic, then would obtain an arterial blood gas. This will help us determine whether she is on appropriate support with her Trilogy. Critical care time 35 minutes not including procedure time. SUSY
[2019-11-10 13:44] LABS: HEMATOCRIT 38.9 % (36.0-47.0); HEMOGLOBIN 12.3 g/dl (12.0-15.5); MEAN CORPUSCULAR HGB CONC 31.6 g/dl (32.0-36.5); MEAN CORPUSCULAR VOLUME 91.7 fl (80.0-96.0); PLATELET COUNT, AUTOMATED 377 10^3/uL (150-450); RED BLOOD COUNT 4.24 10^6/uL (4.00-5.40)
--- NOTE | 2019-11-10 13:50 | IPN ---
DATE OF SERVICE: 11/10/2019 She is doing well. She is eating. Resumed back on her home continuous positive airway pressure (CPAP) settings. Awake, alert, oriented. Answering questions appropriately this morning. She does request something for her chronic migraines. Says the sumatriptan works well for her. She has no diplopia, changes in vision, blurred vision, chest pain, pressure, tightness, shortness of breath. Afebrile, no fevers. Slight cough productive of white sputum. PHYSICAL EXAMINATION: Vital signs: Temperature 97.5, pulse 80, respiratory rate 24, blood pressure 129/78, 92% on 3 liters nasal cannula. Generally, awake, alert, oriented. Answering questions appropriately. No conversational dyspnea. Able to speak in full sentences. No jugular venous distention (JVD). No thyromegaly. Dry mucous membranes. Lungs are diminished but clear to auscultation. Heart: S1, S2. Sinus tachycardia. Abdomen is soft, nontender, nondistended. Extremities: No cyanosis or clubbing. LABORATORY DATA: White count 10, hemoglobin 11, hematocrit 37, platelet count 368. Sodium 141, potassium 4.8, chloride 99, bicarbonate 41, BUN 14, creatinine 0.49, glucose of 88. Blood cultures negative. Respiratory panel negative. ASSESSMENT AND PLAN: This is a 59-year-old female with history of chronic migraines, pseudotumor cerebri, chronic obstructive pulmonary disease (COPD), recent diagnosis of lung cancer on palliative chemotherapy, not a surgical or radiation candidate, oxygen dependent 2 liters, and steroid dependent on nocturnal Trilogy, history of provoked pulmonary embolism (PE), is currently not on any Coumadin, presented with altered mental status and found to have severe respiratory acidosis with acute on chronic hypercapnic respiratory failure requiring bilateral positive airway pressure (BiPAP) therapy in intensive care unit (ICU). 1. Acute hypoxic hypercarbic respiratory failure with acute respiratory acidosis requiring BiPAP therapy. The patient has done well and currently is at baseline mentation. The patient is medically stable to transfer to medical-surgical floor. She is also being treated for COPD exacerbation, on Solu-Medrol, Levaquin, supplemental oxygen to keep saturations 88% to 92%. 2. Chronic obstructive pulmonary disease exacerbation. On nebulizers and Solu-Medrol. Titrate oxygen to 88% to 92%. Pulmonary is following. Appreciate their management. 3. Small cell lung cancer, right upper lobe. Currently on palliative chemotherapy. Still a FULL CODE. Will address with the family and the patient later tomorrow, as the patient is still recuperating. The patient was diagnosed in September of 2019. Outpatient followup with her medical oncologist. 4. History of provoked pulmonary embolism in the past. Currently on deep venous thrombosis (DVT) prophylaxis, not on anticoagulation as outpatient on admission. 5. Chronic hypoxic hypercarbic respiratory failure. The patient is on chronic oxygen at home. Appears to be at baseline. 6. Pseudotumor cerebri, status post lumboperitoneal (LP) shunt with history of migraines. Still complains of headaches. The patient denies any other neurological symptoms. She has no diplopia, blurred vision, changes in vision, nausea, or vomiting. She is currently on sumatriptan as needed, which we will give, and trial of Toradol and Reglan. 7. Hypothyroidism. Continue on levothyroxine 150 mcg daily. DISPOSITION: May transfer to medical-surgical floor. Acute rehabilitation unit (ARU) consult. Titrate the patient's steroids as she clinically improves.
[2019-11-10 14:05] LABS: BLOOD UREA NITROGEN 25 MG/DL (7-18); CALCIUM LEVEL 8.9 MG/DL (8.5-10.1); CARBON DIOXIDE LEVEL 39 MEQ/L (21-32); CHLORIDE LEVEL 100 MEQ/L (98-107); GLOMERULAR FILTRATION RATE > 60.0 (>51); GLUCOSE, FASTING 109 MG/DL (70-100); POTASSIUM SERUM 4.5 MEQ/L (3.5-5.1); SODIUM LEVEL 140 MEQ/L (136-145)
[2019-11-10] MEDS: ENOXAPARIN 40 MG/0.4 ML SYRINGE (J1650) SC SCH (20:32)
[2019-11-10] MEDS: SUMAtriptan SUCCINATE 25 MG TAB PO PRN (20:48)
[2019-11-10] MEDS: QUEtiapine FUMARATE 50 MG TAB PO SCH (21:42)
[2019-11-11] MEDS: IPRATROPIUM 0.5MG/ALBUTEROL 2.5MG INH SOL UD 3ML (DUONEB)(J7620) NEB SCH ×4 (01:53→19:28)
[2019-11-11] MEDS: LEVOTHYROXINE 150MCG TABLET (0.15MG) PO SCH (05:25)
[2019-11-11 06:00] VITALS: BP 105/71
[2019-11-11 07:01] LABS: HEMATOCRIT 38.1 % (36.0-47.0); HEMOGLOBIN 12.2 g/dl (12.0-15.5); MEAN CORPUSCULAR HEMOGLOBIN 29.3 pg (27.0-33.0); MEAN CORPUSCULAR VOLUME 91.4 fl (80.0-96.0); PLATELET COUNT, AUTOMATED 358 10^3/uL (150-450); RED BLOOD COUNT 4.17 10^6/uL (4.00-5.40); WHITE BLOOD COUNT 4.9 10^3/uL (4.0-10.0)
[2019-11-11 07:18] LABS: BLOOD UREA NITROGEN 22 MG/DL (7-18); CARBON DIOXIDE LEVEL 37 MEQ/L (21-32); CHLORIDE LEVEL 101 MEQ/L (98-107); CREATININE FOR GFR 0.49 MG/DL (0.55-1.30); GLOMERULAR FILTRATION RATE > 60.0 (>51); GLUCOSE, FASTING 81 MG/DL (70-100); MAGNESIUM LEVEL 1.9 MG/DL (1.8-2.4); PHOSPHORUS LEVEL 2.9 MG/DL (2.5-4.9); POTASSIUM SERUM 4.2 MEQ/L (3.5-5.1); SODIUM LEVEL 140 MEQ/L (136-145)
[2019-11-11] MEDS: DOCUSATE SODIUM 100 MG CAP PO SCH ×2 (07:44→20:14)
[2019-11-11] MEDS: PANTOPRAZOLE 40MG TAB (PROTONIX) PO SCH (07:44)
[2019-11-11] MEDS: diltiaZEM **CD** 180 MG CAP PO SCH (07:45)
[2019-11-11] MEDS: VENLAFAXINE **XR** 75MG CAPSULE PO SCH ×2 (07:45→20:14)
[2019-11-11] MEDS: SUMAtriptan SUCCINATE 6 MG/0.5 ML VIAL SC PRN ×2 (12:02→16:19)
[2019-11-11] MEDS ORDERED: BISACODYL 5 MG TAB PO PRN (16:00)
[2019-11-11] MEDS ORDERED: BISACODYL 5 MG TAB PO ONE (16:30)
--- NOTE | 2019-11-11 17:05 | IPN ---
DATE: 11/11/2019 Patient complains of weakness and shortness of breath yesterday while working with physical therapy with no new complaints this morning, saturating well on 2 liters nasal cannula, 94%. No chest pain, pressure, or tightness, lightheadedness, palpitations, fever, chills, or cough overnight. Temperature 98, pulse 89, respiratory rate 18, blood pressure 105/71, 94% on 2 liters nasal cannula. GENERAL: Patient is awake, alert, oriented times three, answering questions appropriately. LUNGS: No conversational dyspnea. Lungs are diminished. No wheezing or rales. HEART: S1, S2, sinus rhythm. ABDOMEN: Soft, nontender, nondistended. Positive bowel sounds times four quadrants. No rebound or guarding. EXTREMITIES: No cyanosis, clubbing, or any pitting edema. LABORATORY DATA: White count 4.9, hemoglobin 12, hematocrit 38, platelet count 358. Sodium 140, potassium 4.2, chloride 101, bicarbonate 37, BUN 22, creatinine 0.49, glucose 81. ASSESSMENT AND PLAN: This is a 59-year-old female with end-stage chronic obstructive pulmonary disease (COPD), small-cell lung cancer (CA) receiving chemotherapy, not on chronic oxygen but periodically takes 10-20 mg of prednisone, presented with worsening shortness of breath. Was found to have acute on chronic hypercapnic respiratory failure requiring bilevel positive airway pressure (BiPAP) therapy. Patient did well on BiPAP and was subsequently transferred out of the intensive care unit (ICU), back on her home settings of continuous positive airway pressure (CPAP). IMPRESSION: 1. Acute on chronic hypercapnic respiratory failure, resolved. According to Dr. Peng, toaster operator, does not have COPD exacerbation. Antibiotics and steroids have been discontinued. 2. Right upper lobe small-cell lung cancer. Second dose of palliative chemotherapy was given prior to admission. 3. History of pseudotumor cerebri, status post lumboperitoneal (LP) shunt. Appears to be stable. 4. History of chronic migraines. No migraine today. Appears to be stable. 5. Hypothyroidism. Continued on Synthroid.
[2019-11-11 17:27] VITALS: BP 141/92
[2019-11-11] MEDS: ENOXAPARIN 40 MG/0.4 ML SYRINGE (J1650) SC SCH (20:14)
[2019-11-11] MEDS: RAMELTEON 8 MG TAB (ROZEREM) PO SCH (20:14)
[2019-11-11] MEDS: SUMAtriptan SUCCINATE 25 MG TAB PO PRN (20:14)
[2019-11-11] MEDS: QUEtiapine FUMARATE 50 MG TAB PO SCH (20:14)
[2019-11-11 20:21] VITALS: BP 135/78
[2019-11-12] MEDS: IPRATROPIUM 0.5MG/ALBUTEROL 2.5MG INH SOL UD 3ML (DUONEB)(J7620) NEB SCH ×3 (02:10→12:45)
[2019-11-12] MEDS: LEVOTHYROXINE 150MCG TABLET (0.15MG) PO SCH (05:30)
[2019-11-12] MEDS: ACETAMINOPHEN TAB 650MG DOSE (2X325MG) PO PRN (06:25)
[2019-11-12 08:16] LABS: HEMATOCRIT 37.9 % (36.0-47.0); HEMOGLOBIN 12.4 g/dl (12.0-15.5); MEAN CORPUSCULAR HEMOGLOBIN 29.8 pg (27.0-33.0); MEAN CORPUSCULAR HGB CONC 32.7 g/dl (32.0-36.5); MEAN CORPUSCULAR VOLUME 91.1 fl (80.0-96.0); PLATELET COUNT, AUTOMATED 333 10^3/uL (150-450); RED BLOOD COUNT 4.16 10^6/uL (4.00-5.40); WHITE BLOOD COUNT 5.1 10^3/uL (4.0-10.0)
[2019-11-12 08:41] LABS: BLOOD UREA NITROGEN 20 MG/DL (7-18); CALCIUM LEVEL 9.2 MG/DL (8.5-10.1); CARBON DIOXIDE LEVEL 38 MEQ/L (21-32); CHLORIDE LEVEL 100 MEQ/L (98-107); CK-MB VALUE MASS < 1.0 NG/ML (<3.6); CPK CREATINE PHOSPHOKINASE 25 U/L (26-192); CREATININE FOR GFR 0.49 MG/DL (0.55-1.30); GLOMERULAR FILTRATION RATE > 60.0 (>51); GLUCOSE, FASTING 80 MG/DL (70-100); NT-PRO BNP 63 PG/ML (<125); POTASSIUM SERUM 4.7 MEQ/L (3.5-5.1); SODIUM LEVEL 141 MEQ/L (136-145); TROPONIN I < 0.02 NG/ML (< 0.10)
[2019-11-12 08:47] VITALS: BP 114/80
[2019-11-12] MEDS: diltiaZEM **CD** 180 MG CAP PO SCH (08:47)
[2019-11-12] MEDS: VENLAFAXINE **XR** 75MG CAPSULE PO SCH (08:47)
[2019-11-12] MEDS: DOCUSATE SODIUM 100 MG CAP PO SCH (08:47)
[2019-11-12] MEDS: PANTOPRAZOLE 40MG TAB (PROTONIX) PO SCH (08:47)
--- NOTE | 2019-11-12 09:41 | REP ---
Chest x-ray: Two views. History: Shortness of breath. Comparison chest x-ray: November 08, 2019. Findings: The lungs are somewhat hyperinflated consistent with some degree of COPD but clear. Pleural angles are sharp. Heart is not enlarged. Oxygen delivery tubing is seen. No infiltrate is seen. There are degenerative changes in the thoracic spine. Pulmonary vasculature is not increased. Impression: Hyperinflation consistent with COPD. No acute infiltrate seen. Electronically Signed by Mandeep Turcios MD 11/12/2019 10:57 A
[2019-11-12] MEDS ORDERED: DULC10SU2 PR (11:52)
[2019-11-12] MEDS ORDERED: BISACODYL 10 MG SUPP PR PRN (12:00)
[2019-11-12] MEDS ORDERED: BISACODYL 10 MG SUPP PR ONE ×2 (12:00→12:15)
--- NOTE | 2019-11-12 13:08 | DS.PDOC ---
Discharge Summary General Date of Admission Nov 08, 2019 at 19:54 Date of Discharge 11/12/19 Discharge Summary MAINTENANCE REPAIRMAN: Group Exercise Manager: Dr. Peng DISCHARGE DIAGNOSES: 1. Acute and chronic hypercapnic respiratory failure secondary to COPD. 2. End-stage chronic obstructive pulmonary disease (COPD) with an FEV-1 of 12%. 3. Right upper lobe small cell cancer, received second dosage of palliative chemotherapy 4. Hypothyroidism. 5. Pseudotumor cerebri, status post LP shunt. 6. Hypertension. 7. Gastroesophageal reflux disease. 8. Chronic back pain. 9. Chronic hypoxic respiratory failure on home oxygen 2-3liters nasal cannula 10. Chronic constipation DISCHARGE MEDICATIONS: PLS SEE BELOW DISCHARGE INSTRUCTIONS: pulm appt within 1-2 wks, pcp within 1 wk HOSPITAL COURSE: : This is a 59-year-old female with end-stage chronic obstructive pulmonary disease (COPD), small-cell lung cancer (CA) receiving chemotherapy, not on chronic oxygen but periodically takes 10-20 mg of prednisone, presented with worsening shortness of breath. Was found to have acute on chronic hypercapnic respiratory failure requiring bilevel positive airway pressure (BiPAP) therapy. Patient did well on BiPAP and was subsequently transferred out of the intensive care unit (ICU), back on her home settings of continuous positive airway pressure (CPAP). Acute on chronic hypercapnic respiratory failure, resolved. According to Dr. Peng, clinical applications manager, does not have COPD exacerbation. Antibiotics and steroids have been discontinued. she is back to baseline. Right upper lobe small-cell lung cancer. Second dose of palliative chemotherapy was given prior to admission. History of pseudotumor cerebri, status post lumboperitoneal (LP) shunt. Appears to be stable. History of chronic migraines. No migraine today. Appears to be stable. Hypothyroidism. Continued on Synthroid. DISCHARGE PHYSICAL EXAMINATION: VITALS: PLS SEE BELOW GENERAL: Patient is awake, alert, oriented times three, answering questions appropriately. LUNGS: No conversational dyspnea. Lungs are diminished. No wheezing or rales. HEART: S1, S2, sinus rhythm. ABDOMEN: Soft, nontender, nondistended. Positive bowel sounds times four quadrants. No rebound or guarding. EXTREMITIES: No cyanosis, clubbing, or any pitting edema. DISCHARGE LABS: PLS SEE BELOW IMAGING STUDIES: 11/12/19 Chest x-ray: Two views. History: Shortness of breath. Comparison chest x-ray: November 08, 2019. Findings: The lungs are somewhat hyperinflated consistent with some degree of COPD but clear. Pleural angles are sharp. Heart is not enlarged. Oxygen delivery tubing is seen. No infiltrate is seen. There are degenerative changes in the thoracic spine. Pulmonary vasculature is not increased. Impression: Hyperinflation consistent with COPD. No acute infiltrate seen. TIME SPENT ON DISCHARGE: 30 MINUTES. Vital Signs/I&Os Vital Signs Date Time Temp Pulse Resp B/P (MAP) Pulse Ox O2 Delivery O2 Flow Rate FiO2 11/12/19 09:00 2.0 11/12/19 08:47 96 114/80 11/11/19 20:21 99.1 18 93 Nasal Cannula 11/09/19 08:00 30 I&O- Last 24 Hours up to 6 AM 11/12/19 06:00 Intake Total 1430 ml Output Total 2650 ml Balance -1220 ml Laboratory Data Labs 24H Laboratory Tests 2 11/12/19 07:51: Nucleated Red Blood Cells % (auto) 0.0, Anion Gap 3L, Glomerular Filtration Rate > 60.0, Calcium Level 9.2, Total Creatine Kinase 25L, Creatine Kinase MB < 1.0, Creatine Kinase MB Relative Index 4.00, Troponin I < 0.02, AX-Tyn-P-Type Natriuretic Peptide 63 CBC/BMP Laboratory Tests 11/12/19 07:51 Microbiology Microbiology 11/08/19 Blood Culture - Preliminary, Resulted No Growth after 72 hours. All specime... 11/08/19 Blood Culture - Preliminary, Resulted No Growth after 72 hours. All specime... 11/08/19 Respiratory Virus Panel (PCR) (NIA) - Final, Complete Discharge Medications Scheduled Atorvastatin Calcium (Atorvastatin Calcium) 20 Mg Tab, 20 MG PO QHS, (Reported) Bisacodyl (Dulcolax) 10 Mg Supp.rect, 10 MG NC DAILY for constipation Diltiazem HCl (Diltiazem 24Hr ER) 180 Mg Cap, 180 MG PO DAILY, (Reported) Gabapentin (Gabapentin) 300 Mg Cap, 300 MG PO QAM, (Reported) Gabapentin (Gabapentin) 600 Mg Tab, 600 MG PO QHS, (Reported) Levothyroxine Sodium (Synthroid) 150 Mcg Tablet, 150 MCG PO DAILY, (Reported) Prednisone (Prednisone) 20 Mg Tablet, 20 MG PO DAILY, (Reported) Quetiapine Fumarate (Quetiapine Fumarate) 100 Mg Tab, 100 MG PO QHS, (Reported) Salmeterol/Fluticasone (Advair 250-50 Diskus) 14 Puff/Inhaler Aerp, 1 PUFF INH BID, (Reported) Umeclidinium [place] (Incruse Ellipta) 62.5 Mcg/Inh Inh, 1 PUFF INH DAILY, (Reported) Venlafaxine HCl (Venlafaxine HCl ER) 75 Mg Cap.er.24h, 75 MG PO BID, (Reported) Scheduled PRN Acetaminophen (Tylenol Extra Strength) 500 Mg Tablet, 500 MG PO Q4H PRN for PAIN / FEVER, (Reported) Albuterol Sulfate (Ventolin Hfa) 108 Mcg/Act Aer, 2 PUFF INH q4-6h PRN for wheezing, (Reported) Bisacodyl (Bisacodyl) 5 Mg Tab, 5 MG PO DAILY PRN for CONSTIPATION, (Reported) Docusate Sodium (Colace) 100 Mg Cap, 100 MG PO BID PRN for CONSTIPATION, (Reported) Ipratropium/Albuterol Sulfate (Iprat-Albut 0.5-3(2.5) mg/3 ml) 1 Carol Carol, 1 VIAL INH Q4H PRN for SHORTNESS OF BREATH, (Reported) Ondansetron HCl (Ondansetron HCl) 8 Mg Tablet, 8 MG PO Q6H PRN for NAUSEA OR VOMITING Pantoprazole Sodium (Protonix) 40 Mg Tab, 40 MG PO DAILY PRN for HEARTBURN/INDIGESTION, (Reported) Prochlorperazine Maleate (Prochlorperazine Maleate) 10 Mg Tablet, 10 MG PO Q8H PRN for NAUSEA OR VOMITING Sumatriptan Succinate (Sumatriptan Succinate) 50 Mg Tab, 50 MG PO for MIGRAINE, (Reported) Allergies Coded Allergies: acetazolamide (Verified Allergy, Severe, RESP FAILURE, 12/01/18) PETERSON BOYCE MD Nov 12, 2019 13:05
[2019-11-12 14:00] VITALS: BP 106/72
--- NOTE | 2019-11-13 10:44 | NOCOX ---
DATE OF PROCEDURE: 11/10/2019 Recording nocturnal oximetry was done on her home trilogy with a 2 liter bleed in. A total of 6 hours and 33 minutes of data was reviewed. Mean oxygen saturation for the study was 97%. The richy was listed at 75, which appears artifactual. Richy was most likely in the low 80s and possibly even 85. She spent 19.3% of the night with saturations 88% or lower, though some of that is artifactual. The longest continuous time listed was 26 minutes and 20 seconds, again some of which was artifactual. In reviewing the SpO2 waveform, there were minimal fluctuations. IMPRESSION: 1. Possible nocturnal hypoxemia on the [facility] with a 2 liter bleed in, though some of this artifactual. Recommend increasing the bleed in to 3 liters. MTDD
== END 2019-11-12 16:00 | disposition home or self-care (01) | DRG 189 ==
LOC: M ED 16:16 → M ED INP 19:54 → ENRESERVDT 20:30 → ENRESERVTM 20:30 → M ICU 22:43 → M MS5PR 11-10 10:28
PROVIDERS: ADMIT Internal Medicine; ATTEND Internal Medicine
PROC: 5A09357 Assistance with Respiratory Ventilation, Less than 24 Consecutive Hours, Continuous Positive Airway Pressure (ICD-10-PCS; principal; 2019-11-08)
DX: J96.22 Acute and chronic respiratory failure with hypercapnia (principal); J44.1 Chronic obstructive pulmonary disease with (acute) exacerbation; C34.11 Malignant neoplasm of upper lobe, right bronchus or lung; E87.2 Acidosis; G93.40 Encephalopathy, unspecified; J96.01 Acute respiratory failure with hypoxia; G43.909 Migraine, unspecified, not intractable, without status migrainosus; F32.9 Major depressive disorder, single episode, unspecified; K21.9 Gastro-esophageal reflux disease without esophagitis; I95.9 Hypotension, unspecified; E03.9 Hypothyroidism, unspecified; G89.29 Other chronic pain; M54.9 Dorsalgia, unspecified; Z98.1 Arthrodesis status; Z96.641 Presence of right artificial hip joint; Z98.2 Presence of cerebrospinal fluid drainage device; Z90.79 Acquired absence of other genital organ(s); F17.200 Nicotine dependence, unspecified, uncomplicated; Z79.52 Long term (current) use of systemic steroids; Z79.899 Other long term (current) drug therapy; Z91.14 Patient's other noncompliance with medication regimen; Z99.81 Dependence on supplemental oxygen; Z86.711 Personal history of pulmonary embolism; Z86.69 Personal history of other diseases of the nervous system and sense organs; Z90.49 Acquired absence of other specified parts of digestive tract; Z88.8 Allergy status to other drugs, medicaments and biological substances; Z92.21 Personal history of antineoplastic chemotherapy; R00.0 Tachycardia, unspecified

== ENCOUNTER 2019-12-03 09:09 | Inpatient (IN) | payer MEDICARE, OTHER ==
[~2019-12-03] VITALS: Ht 172.7 cm; Wt 72.4 kg
[2019-12-03] MEDS: VENLAFAXINE **XR** 75MG CAPSULE PO SCH ×2 (09:00→19:52)
[~2019-12-03 09:09] MED LIST changes: +DULC10SU2 PR; +SYNT150T PO; +VENL75CA2 PO
[2019-12-03] MEDS ORDERED: methylPREDNISolone INJ 125 MG/2 ML VIAL (J2930) IV ONE (09:30)
[2019-12-03] MEDS: ALBUTEROL 90 MCG/ACT 8GM HFA INHALER INH SCH ×3 (09:45→11:07)
[2019-12-03] MEDS ORDERED: VITAD1000T PO (10:10)
[2019-12-03] MEDS ORDERED: BISA10SU27 PR (10:11)
[2019-12-03 10:13] LABS: HEMATOCRIT 46.3 % (36.0-47.0); HEMOGLOBIN 14.1 g/dl (12.0-15.5); MEAN CORPUSCULAR HEMOGLOBIN 29.4 pg (27.0-33.0); MEAN CORPUSCULAR HGB CONC 30.5 g/dl (32.0-36.5); MEAN CORPUSCULAR VOLUME 96.5 fl (80.0-96.0); PLATELET COUNT, AUTOMATED 342 10^3/uL (150-450); WHITE BLOOD COUNT 11.6 10^3/uL (4.0-10.0)
[2019-12-03] MEDS ORDERED: SUMA50TA2 PO (10:20)
--- NOTE | 2019-12-03 10:20 | REP ---
PORTABLE CHEST: AP portable view of the chest is performed. There is mild cardiomegaly. There is mild vascular congestion. No focal infiltrate is seen. Mediastinal silhouette is unremarkable. Electronically Signed by Hugh Duffy MD 12/03/2019 03:15 P
[2019-12-03 10:26] LABS: INR 0.99; PROTHROMBIN TIME 12.8 SECONDS (11.8-14.0)
[2019-12-03 10:27] LABS: PARTIAL THROMBOPLASTIN TIME 25.4 SECONDS (25.0-38.4)
[2019-12-03 10:29] LABS: D-DIMER QUANT 1369.43 ng/ml (<500)
[2019-12-03 10:42] LABS: ALBUMIN 3.8 GM/DL (3.2-5.2); BILIRUBIN,DIRECT 0.2 MG/DL (0.0-0.2); BILIRUBIN,TOTAL 0.7 MG/DL (0.2-1.0); C REACTIVE PROTEIN QUANTITATIV 0.3 MG/DL (0.00-0.30); CK-MB VALUE MASS 4.1 NG/ML (<3.6); MB/CK RELATIVE INDEX 3.69 (< OR =4); THYROID STIMULATING HORMONE 8.99 uIU/ML (0.358-3.740); THYROXINE (T4) 6.6 UG/DL (4.5-12.0); TOTAL PROTEIN 6.7 GM/DL (6.4-8.2); TROPONIN I 0.04 NG/ML (< 0.10)
[2019-12-03 11:19] LABS: ATYPICAL LYMPH 3 % (0-5); BASOPHILS 1 % (0-1); LYMPHOCYTES 21 % (16-44); METAMYELOCYTES 1 % (0-0); MONOCYTES 8 % (0-5); MYELOCYTES 1 % (0-0); NEUTROPHILS 65 % (28-66); PLATELET ESTIMATE NORMAL (NORMAL)
[2019-12-03 11:20] LABS: ANISOCYTOSIS 1+; POLYCHROMASIA 1+
[2019-12-03] MEDS ORDERED: IPRATROPIUM 0.5MG/ALBUTEROL 2.5MG INH SOL UD 3ML (DUONEB)(J7620) NEB PRN (11:30)
[2019-12-03] MEDS ORDERED: BISACODYL 10 MG SUPP PR PRN (11:30)
--- NOTE | 2019-12-03 12:19 | HPEPDOC ---
General Date of Admission Dec 03, 2019 at 11:29 Date of Service: Dec 03, 2019 Chief Complaint The patient is a 59-year-old female who presented to the emergency room with complaints of short of breath History of Present Illness Patient is a 59-year-old female with a PMHx of Advanced COPD (Steroid dependent?), Chronic hypoxic respiratory failure (on 2L NC during days, Triology ventilator at night), Pulmonary Embolism (s/p Coumadin), RUL Small Cell Lung CA (Dx 09/2019, on chemotherapy, follows with Dr. Gray), Hypertension, Hypothyroidism, Migraines, Pseudotumor cerebri s/p LP shunt, Chronic back pain, Depression, GERD who presented to the emergency room with complaints of shortnes s of breath. Patient reported that she was home, had tripped over a mat and fell into the bathtub. Patients daughter going to go visit her to take her to [facility] for her appointment and 9:15 and found her in distress. Patient was brought to the emergency room for further evaluation. In emergency room, patient appeared to be short of breath, difficulty breathing. She was placed on BiPAP and an ABG was acquired. ABG has revealed mild acidosis with PCO2 retention. Patient was seen and evaluated by pulmonology who will be managing current BiPAP and likely transitioning to Trilogy ventilator based on repeat ABG. Currently patient reports a mild headache. Denies any chest pain, palpitations, cough, abdominal pain, nausea, vomiting, observation, diarrhea, or urinary discomfort. Patient has not expense any recent fevers or chills. Home Medications Scheduled Atorvastatin Calcium (Atorvastatin Calcium) 20 Mg Tab, 20 MG PO QHS, (Reported) Cholecalciferol (Vitamin D3) (Vitamin D3) 1,000 Unit Tablet, 1,000 UNITS PO DAILY, (Reported) Diltiazem HCl (Diltiazem 24Hr ER) 180 Mg Cap, 180 MG PO DAILY, (Reported) Gabapentin (Gabapentin) 300 Mg Cap, 300 MG PO QAM, (Reported) Levothyroxine Sodium (Synthroid) 150 Mcg Tablet, 150 MCG PO DAILY, (Reported) Pantoprazole Sodium (Protonix) 40 Mg Tab, 40 MG PO DAILY, (Reported) Prednisone (Prednisone) 20 Mg Tablet, 20 MG PO DAILY, (Reported) Quetiapine Fumarate (Quetiapine Fumarate) 100 Mg Tab, 100 MG PO QHS, (Reported) Salmeterol/Fluticasone (Advair 250-50 Diskus) 14 Puff/Inhaler Aerp, 1 PUFF INH BID, (Reported) Umeclidinium [place] (Incruse Ellipta) 62.5 Mcg/Inh Inh, 1 PUFF INH DAILY, (Repo rted) Venlafaxine HCl (Venlafaxine HCl ER) 75 Mg Cap.er.24h, 75 MG PO BID, (Reported) Scheduled PRN Acetaminophen (Tylenol Extra Strength) 500 Mg Tablet, 500 MG PO Q4H PRN for PAIN / FEVER, (Reported) Albuterol Sulfate (Ventolin Hfa) 108 Mcg/Act Aer, 2 PUFF INH q4-6h PRN for wheezing, (Reported) Bisacodyl (Bisacodyl) 5 Mg Tab, 5 MG PO DAILY PRN for CONSTIPATION, (Reported) Bisacodyl (Bisacodyl) 10 Mg Supp.rect, 10 MG HI DAILY PRN for CONSTIPATION, (Reported) Docusate Sodium (Colace) 100 Mg Cap, 100 MG PO BID PRN for CONSTIPATION, (Reported) Ipratropium/Albuterol Sulfate (Iprat-Albut 0.5-3(2.5) mg/3 ml) 1 Carol Carol, 1 VIAL INH Q4H PRN for SHORTNESS OF BREATH, (Reported) Sumatriptan Succinate (Sumatriptan Succinate) 50 Mg Tablet, 50 MG PO for migrain, (Reported) Allergies Coded Allergies: acetazolamide (Verified Allergy, Severe, RESP FAILURE, 12/01/18) Past Medical History Medical History Advanced COPD (Steroid dependent?), Chronic hypoxic respiratory failure (on 2L NC during days, Triology ventilator at night), Pulmonary Embolism (s/p Coumadin) , RUL Small Cell Lung CA (Dx 09/2019, on chemotherapy, follows with Dr. Gray), Hypertension, Hypothyroidism, Migraines, Pseudotumor cerebri s/p LP shunt, Chronic back pain, Depression, GERD Surgical History Appendectomy Back surgery Laminectomy and fusion x2 Hysterectomy Right hip replacement Hernia repair x3 Family History - Patient reports that her mother has a history of lung cancer Social History - Patient denies the use of alcohol; Denies drug use but has reports to respiratory therapist that she uses Marijuana. 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 Review of Systems Other systems 10 point review of systems complete, all negative otherwise stated in HPI Vital Signs - Vitals: BP 138/87, HR 91, RR 26, Sat 95%BIPAP, Temp 98.3F - General: Lying in bed, BIPAP in place, speaking through facemask, AAOx3 - HEENT:R forehead bruise / minor selling, PERRLA - CVS: RRR, +S1S2 - Lungs: Poor air entry bilaterally, difficult to auscultate any wheezing, rhonchi or crackles - Abdomen: Soft, Non-distended, Non-tender - Extremities: No lower extremity edema, No calf tenderness - Neuro: Patient is moving all 4 extremities, does not report any numbness or tingling in any portion of her body - Skin: No visible rashes Laboratory Data Labs 24H Laboratory Tests 2 12/03/19 09:26: Neutrophils (%) (Auto) , Nucleated Red Blood Cells % (auto) 1.4H, Neutrophils 65, Lymphocytes (Manual) 21, Monocytes (Manual) 8H, Basophils (Manual) 1, Metamyelocytes 1H, Myelocytes 1H, Atypical Lymphocytes 3, Polychromasia 1+, Anisocytosis 1+, Platelet Estimate NORMAL, Prothrombin Time 12.8, Prothromb Time International Ratio 0.99, Activated Partial Thromboplast Time 25.4, D-Dimer, Quantitative 1369.43H, Lactic Acid Level 1.1, Total Bilirubin 0.7, Direct Bilirubin 0.2, Aspartate Amino Transf (AST/SGOT) 21, Alanine Aminotransferase (ALT/SGPT) 27, Alkaline Phosphatase 95, Lactate Dehydrogenase 218, Total Creatine Kinase 111, Creatine Kinase MB 4.1H, Creatine Kinase MB Relative Index 3.69, Troponin I 0.04, C-Reactive Protein, Quantitative 0.30, QS-Bth-P-Type Natriuretic Peptide 3279H, Total Protein 6.7, Albumin 3.8, Albumin/Globulin Ratio 1.31, Thyroid Stimulating Hormone (TSH) 8.990H, Thyroxine (T4) 6.6 12/03/19 09:36: 12/03/19 09:40: POC pH (Misc Panel) 7.310L, POC Base Excess (Misc Panel) 21.0H, POC Saturated Percent O2 (Misc) 92L, POC pO2 (Misc Panel) 76.0L, POC pCO2 (Misc Panel) 94.2*H, POC HCO3 (Misc Panel) 47.4H, POC Total CO2 (Misc Panel) > 50.0H 12/03/19 09:50: POC Total CO2 (Misc Panel) 43.0H, POC Glucose (Misc Panel) 106H, POC Sodium (Misc Panel) 142, POC Potassium (Misc Panel) 3.8, POC Chloride (Misc Panel) 90L, POC Blood Urea Nitrogen (Misc Panel 20, POC Ionized Calcium (Misc Panel) 5.1, POC Creatinine (Misc Panel) 0.7, POC Hematocrit (Misc Panel) 46.0 12/03/19 09:56: POC Lactate (Misc Panel) 1.04 12/03/19 11:38: POC pH (Misc Panel) 7.381, POC Base Excess (Misc Panel) 22.0H, POC Saturated Percent O2 (Misc) 90L, POC pO2 (Misc Panel) 64.0L, POC pCO2 (Misc Panel) 79.4*H, POC HCO3 (Misc Panel) 47.0H, POC Total CO2 (Misc Panel) 49.0H CBC/BMP Laboratory Tests 12/03/19 09:26 Microbiology Microbiology 12/03/19 Coronavirus COVID-19 PCR (NIA), Received Pending 12/03/19 Respiratory Panel (PCR) - Final, Complete 12/03/19 Blood Culture, Received Pending 12/03/19 Blood Culture, Received Pending Plan / VTE VTE Prophylaxis Ordered?: Yes Plan Plan Acute Advanced COPD (Steroid dependent?) exacerbation / Acute on Chronic hypercapnic respiratory failure - Patient presented to the emergency room after reporting shortness of breath - Physical has revealed very minimal air entry bilaterally - Lab work with minimal leukocytosis - Respiratory panel negative; reflex COVID was ordered by ER - results pending - CXR 12/02: AP portable view of the chest is performed. There is mild cardiomeg andreina. There is mild vascular congestion. No focal infiltrate is seen. Mediastinal silhouette is unremarkable. - Pulmonology has evaluated the patient in the ER; appreciate their input - Will admit to PCU with home Trilogy settings - s/p Solumedrol in the ER; will c/w Prednisone - c/w inhaled therapy as ordered Chronic hypoxic respiratory failure - Patient uses 2L NC during days and Trilogy ventilator at night - Will continue with supplementation to maintain saturation between 88-92% Leukocytosis - possibly 2/2 corticosteroid use, less likely 2/2 infectious etiology - Currently, patient denies any productive cough or fevers at home - Remains afebrile and hemodynamically stable at this time - CXR noted above - Will hold off on antibiotics Mild head trauma - Patient has denied any LOC and has not been on any anticoagulation - Physical without any focal neurologic deficits - c/w Symptomatic control at this time Pulmonary Embolism - Patient was taken off anticoagulation after completion of therapy - s/p Coumadin RUL Small Cell Lung CA - Dx 09/2019 - Currently on chemotherapy, follows with Dr. Gray - Patient is reported to be only palliative for care Hypertension - BP currently well controlled - c/w Diltiazem with holding parameters DLP - c/w Atorvastatin Hypothyroidism - c/w Levothyroxine Migraines - c/w Sumatriptan PRN Pseudotumor cerebri - s/p LP shunt Chronic back pain - c/w Gabapentin Vitamin D deficiency - c/w Supplementation Depression - c/w Quetiapine, Venlafaxine GERD - Will c/w Protonix DVT prophylaxis - Will start Milx YASMINE PATEL MD Dec 03, 2019 12:19
--- NOTE | 2019-12-03 12:59 | CR ---
DATE OF CONSULTATION: 12/03/2019 HISTORY OF PRESENT ILLNESS: Ms. Freeman is a 59-year-old female with a past medical history pertinent for end-stage chronic obstructive pulmonary disease and small cell lung cancer for which she has been actively receiving chemotherapy. The patient reports that she was brought to the emergency room today because she was noticed to be more lethargic by her family members. She does note that about 3 days ago she did trip and fall and was found by her roommate, who helped her up. Her daughter brought her to the emergency department today, but was not present at the time of interview. In the emergency room, point of care, arterial blood gas (ABG) revealed a pH of 7.31 and pCO2 of 94.2. On review of the patient's prior admission, her baseline pCO2 appears to be around 80. She was most recently admitted in early November with similar presentation of lethargy and acute on chronic hypercarbic respiratory failure. The patient reports she has not been using her maintenance inhalers at home, and has only been using her rescue nebulizer. The patient also reports she has been using her trilogy at home, and has brought this with her today. The machine does appear quite dirty and is unclear if it is working properly. The patient is not on chronic steroids at home, but does state that she sometimes will take 10 mg of prednisone when her breathing worsens. She states she did take a tab of prednisone about 3 days ago, because she was feeling more short of breath. At the time of interview, the patient appeared to be answering questions appropriately and without confusion. She denies fevers, cough, nausea, diarrhea, vomiting, sick contact, or recent travel. At the time of interview, the patient was saturating appropriately on bilevel positive airway pressure (BiPAP). The patient received 125 mg of Solu-Medrol and albuterol nebulizer in the emergency department. ALLERGIES: ACETAZOLAMIDE. HOME MEDICATIONS: - acetaminophen 500 mg as needed for pain or fever - albuterol sulfate two puffs as needed for wheezing - atorvastatin 20 mg nightly - bisacodyl 5 mg as needed for constipation - bisacodyl 10 mg suppository as needed for constipation - vitamin D3 1000 units daily - diltiazem 180 mg extended release daily - Colace 100 mg twice a day as needed for constipation - gabapentin 300 mg every morning - DuoNeb as needed for shortness of breath - levothyroxine 150 mcg by mouth daily - Protonix 40 mg daily - prednisone 20 mg taken as needed for shortness of breath - quetiapine 100 mg nightly - Advair 250/50 Diskus one puff twice a day - sumatriptan 50 mg as needed for migraines - Incruse Ellipta one puff daily 62.5 mcg - venlafaxine 75 mg extended release twice a day PAST MEDICAL HISTORY: 1. End-stage chronic obstructive pulmonary disease (COPD). FEV-1 12%. 2. Right upper lobe small cell carcinoma, on chemotherapy, not a surgical candidate. 3. History of provoked pulmonary embolism. 4. Migraines. 5. Depression. 6. Gastroesophageal reflux disease (GERD). 7. Pseudotumor cerebri, status post LP shunt. 8. Hypertension. 9. Hypothyroidism. 10. Chronic back pain. SURGICAL HISTORY: 1. Appendectomy. 2. Status post back surgery. 3. Laminectomy and fusion. 4. Hysterectomy. 5. Right hip replacement. 6. Hernia repair. SOCIAL HISTORY: History significant tobacco use. She is a . She states she lives with a roommate. FAMILY HISTORY: Mother with lung cancer. REVIEW OF HISTORY: Negative other than discussed in history of present illness (HPI). PHYSICAL EXAMINATION: VITAL SIGNS: Temperature 99.4 oral, pulse 107, respiratory rate 22, blood pressure 140/84, pulse oximetry 95% on BiPAP, noninvasive mechanical ventilation 24/12 with FiO2 30%. GENERAL: The patient is lying in bed, comfortable, in no acute distress. She is on BiPAP and is not using accessory muscles to breathe. She is able to talk in short sentences. HEENT: Normocephalic, atraumatic, sclerae anicteric. NECK: Trachea is midline. No jugular venous distention (JVD) noted. No lymphadenopathy appreciated. LUNGS: Diminished air entry bilaterally with occasional wheezing and prolonged expiratory phase. No retractions or accessory muscle usage noted. CARDIOVASCULAR: Regular rate and rhythm, normal S1 and S2. No murmur, rub, or gallop appreciated. ABDOMEN: Bowel sounds present. Soft, nontender, nondistended. EXTREMITIES: No clubbing, cyanosis, or edema. Pedal pulses palpable bilaterally. NEUROLOGIC: Awake and alert, answering questions appropriately. PSYCHIATRIC: Mood and affect appropriate. LABORATORY DATA: CBC showed white blood cell count 11.6, hemoglobin 14.1, hematocrit 46.3, platelet count 342. Chemistries showed sodium 143, potassium 3.8, chloride 90, bicarbonate 43, BUN 20, creatinine 0.7. Ionized calcium 5.1, lactate 1.04. AST 21, ALT 27, alkaline phosphatase 95, lactic hydrogenase 218, creatinine kinase 111, total bilirubin 0.7, direct bilirubin 0.2. Troponin 0.04. CRP 0.3. Total protein 6.7, albumin 3.8. TSH 8.99. T4 6.6. ProBNP 3279. ABG revealed pH 7.3, pCO2 94.2, pO2 76.0. Coagulation study show PT 12.8, INR 0.99, APTT 25.4, D-dimer 1369.4. IMAGING: Chest x-ray revealed hyperinflation, unchanged from prior studies, no acute infiltrate. Mild increase interstitial markings. IMPRESSION: Brenda Freeman, 59-year-old female, with past medical history of end-stage chronic obstructive pulmonary disease and small cell lung cancer, on chemotherapy, who presents with acute on chronic hypercarbic respiratory failure likely secondary to chronic obstructive pulmonary disease and medication noncompliance. RECOMMENDATIONS: We will continue with noninvasive suppressive ventilation and repeat an ABG in 1 hour. If she is improving, she can be switched back to her trilogy machine, although this should be cleaned or new supply should be obtained prior to switching on to it to make sure that it can be functioning appropriately. We will also do a short course of oral prednisone 40 mg for 5 days. No indication for antibiotics at this point, as it does not appear she has any source of infection. We will also switch her home inhaler maintenance medications to nebulizer medications, as she states she prefers using the nebulizer and may be more compliant taking her maintenance medications in this form. Hopefully, this will help with compliance and help prevent repeated hospitalization. CODE STATUS: FULL CODE DVT Prophylaxis: Lovenox GI Prophylaxis: Protonix I, Karen Bean, have conducted an independent examination and history of the patient and agree with the above plan as detailed by the resident with the additional following recommendations: Ms. Freeman has end stage COPD with FEV1 of 12% on last testing with chronic hypoxemic and hypercarbic respiratory failure on home ventilator with Trilogy. She has a history of noncompliance to her inhalers and also continues to smoke cigarettes intermittently and marijuana. Patient states she was brought in for lethargy and SOB although she now reports her breathing is close to baseline. She has some chronic cough and wheezing occasionally mostly at night which is unchanged. She denies any fevers or chills, no recent travel. She had a recent outpatient CT a few days prior to admission which showed mostly chronic changes and improvement in the known RUL nodular opacity that was biopsied and proven to be small cell carcinoma. Patient had acute on chronic hypercarbic respiratory failure likely in setting of noncompliance with her inhaler medications and also from suboptimal functioning of her Trilogy machine and it has been some time since she cleaned her facemask, replaced cushion, tubing and filters. Patient improved with NIPPV on similar settings as her home machine. Given her presentation and negative imaging COVID- 19 is very unlikely. Patient was already tested in the ED and placed on airborne precautions. Will discuss with ID about discontinuing airborne precautions. SUSY
[2019-12-03] MEDS: IPRATROPIUM 0.5MG/ALBUTEROL 2.5MG INH SOL UD 3ML (DUONEB)(J7620) NEB SCH ×2 (14:00→20:00)
[2019-12-03] MEDS: FORMOTEROL FUMARATE 20 MCG/2 ML INHALATION SOLUTION (PERFOROMIST) INH SCH ×2 (14:14→20:22)
[2019-12-03] MEDS: BUDESONIDE 0.5 MG/2 ML INHALATION SUSPENSION INH SCH ×2 (14:14→20:22)
[2019-12-03 15:29] VITALS: O2SAT 93
[2019-12-03 15:35] VITALS: BP 162/98
[2019-12-03] MEDS: predniSONE 20 MG TAB PO SCH (15:38)
[2019-12-03] MEDS: GABAPENTIN 300 MG CAP PO SCH (15:38)
[2019-12-03] MEDS: diltiaZEM **CD** 180 MG CAP PO SCH (15:38)
[2019-12-03] MEDS: PANTOPRAZOLE 40MG TAB (PROTONIX) PO SCH (15:38)
[2019-12-03] MEDS: VITAMIN D 1,000 INTERNATIONAL UNITS TABLET PO SCH (15:38)
[2019-12-03] MEDS: ENOXAPARIN 40 MG/0.4 ML SYRINGE (J1650) SC SCH (15:39)
[2019-12-03 16:00] VITALS: O2SAT 91
[2019-12-03] MEDS ORDERED: SLF 3 ML SYR IV PRN (16:15)
--- NOTE | 2019-12-03 16:39 | ECGEPIP ---
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
[2019-12-03 17:00] VITALS: O2SAT 93
--- NOTE | 2019-12-03 19:46 | CR ---
DATE OF CONSULTATION: 12/03/2019 DIAGNOSES: 1. Limited stage right lung small-cell lung carcinoma admitted with hypercapnic respiratory failure. 2. Oxygen-dependent chronic obstructive pulmonary disease (COPD). CONSULTATION REPORT FOR: Iraida Arce MD HISTORY OF PRESENT ILLNESS: This is a very brief consultation on Brenda Freeman. She is a 59-year-old woman with severe, advanced, oxygen-dependent chronic obstructive pulmonary disease (COPD) who lives in the [facility]. In September 2019, she was diagnosed with limited stage small-cell lung carcinoma after an admission to [facility] in [place] finding right upper lobe opacity, subsequent workup showing a 2.4 cm right upper lobe nodule with satellite nodules, and PET confirming hypermetabolic uptake in the dominant right upper lobe nodule, standardized uptake value (SUV) 10 in a 2.9 cm nodule with borderline uptake in the satellite foci. Due to her poor baseline respiratory status, she was not a candidate for definitive curative intent treatment. Brenda was started on palliative chemotherapy/immunotherapy with carboplatin/etoposide/atezolizumab on 10/16/2019. She has received two total cycles, the most recent beginning 11/06/2019. The cycle length is 21 days. Each cycle has been complicated by hospitalizations and complications due either to her baseline lung function or a combination of effects including chemotherapy. Brenda has a history of hypercapnic respiratory failure which has taken her to the hospital a few times. Recent restaging CT at [facility] was not read in direct comparison or at least not commented in direct comparison and it is difficult to know whether Brenda has had a major response to treatment based on the report and also based on my review of the images today. At the bedside, Lor is awake, alert, sitting up eating Icelandic fries, cheerful, responsive. She is using four liters of oxygen in order to eat her dinner. I discussed with her holding further chemotherapy for the present and discussing whether additional treatment makes sense given her very complex respiratory status, COVID-19 emergency, and indeterminate, as of this writing, knowledge whether the treatment is affecting change. Brenda was disappointed but at length understood the importance of a benefit from treatment and balancing risks of treatment with quality of life. Additionally, today Brenda's daughter, Brenda Crespo, called to ask if Brenda could be visited by social work to help discuss support at home. Brenda Cortes is no longer able to adequately help with her mother who lives in a different county, has frequent hospitalizations, lives with a roommate who also cannot help her. I briefly discussed these issues with Brenda today. IMPRESSION: Limited stage small-cell lung carcinoma involving dominant right lung mass with satellite lesions in a patient with chronic oxygen-dependent chronic obstructive pulmonary disease (COPD), poor performance status, frequent admissions for hypercapnic respiratory failure. Status post two cycles of palliative intent chemotherapy/immunotherapy without obvious progression of disease on CTs but unclear if major, minor partial response or stable disease. PLAN: 1. In the morning, I will discuss the patient's imported images from [facility], reviewing them with radiology here to assess for response. 2. For the time being, particularly in light of COVID-19 emergency, I am recommending holding treatment for two months. As long as there is at least stable disease on CT and given Brenda's tenuous respiratory status, the benefits of this seem to outweigh the risks of disease progression. 3. I did ask Brenda to think about her overall goals, quality of life, and to consider palliative and hospice care. 4. We will arrange for outpatient followup in the next few months for Brenda, meanwhile hold further chemotherapy. 5. It would be greatly appreciated if social work and palliative care could be contacted to discuss the patient's overall situation with her daughter, Brenda Cortes. Brenda's number is [phone]. 12/04/19 addendum at time of signing note: discussed ProtAb films with Dr. Duffy of radiology; definite improvement in dominant lung mass, no evidence of progression, thus partial response to treatment. MTDD
[2019-12-03] MEDS: QUEtiapine FUMARATE 100 MG TAB PO SCH (19:53)
[2019-12-03] MEDS: ATORVASTATIN 20 MG TAB PO SCH (19:53)
[2019-12-03] MEDS: SLF 3 ML SYR IV SCH (19:55)
[2019-12-03 20:00] VITALS: BP 119/64; O2SAT 96
[2019-12-03] MEDS: SUMAtriptan SUCCINATE 25 MG TAB PO PRN (20:16)
[2019-12-04] VITALS (10 sets, daily range): BP systolic 102–115; BP diastolic 59–68; O2SAT 98–99
[2019-12-04] MEDS: IPRATROPIUM 0.5MG/ALBUTEROL 2.5MG INH SOL UD 3ML (DUONEB)(J7620) NEB SCH ×4 (01:08→20:00)
[2019-12-04] MEDS: LEVOTHYROXINE 150MCG TABLET (0.15MG) PO SCH (04:58)
[2019-12-04] MEDS: SUMAtriptan SUCCINATE 25 MG TAB PO PRN ×2 (04:58→19:11)
[2019-12-04] MEDS: SLF 3 ML SYR IV SCH ×4 (04:59→20:41)
[2019-12-04 05:34] LABS: BASO % 0.4 % (0.0-1.0); HEMATOCRIT 42.7 % (36.0-47.0); HEMOGLOBIN 12.8 g/dl (12.0-15.5); LYMPH # 0.9 10^3/uL (1.5-5.0); LYMPH % 13.5 % (24.0-44.0); MEAN CORPUSCULAR HEMOGLOBIN 29.2 pg (27.0-33.0); MEAN CORPUSCULAR VOLUME 97.3 fl (80.0-96.0); MONO % 14.6 % (0.0-5.0); NEUTROPHILS # 4.7 10^3/uL (1.5-8.5); NEUTROPHILS % 69.1 % (36.0-66.0); RED BLOOD COUNT 4.39 10^6/uL (4.00-5.40); WHITE BLOOD COUNT 6.7 10^3/uL (4.0-10.0)
[2019-12-04 05:40] LABS: PLATELET COUNT, AUTOMATED 226 10^3/uL (150-450)
[2019-12-04 06:14] LABS: BLOOD UREA NITROGEN 20 MG/DL (7-18); CARBON DIOXIDE LEVEL 54 MEQ/L (21-32); CHLORIDE LEVEL 97 MEQ/L (98-107); CREATININE FOR GFR 0.58 MG/DL (0.55-1.30); GLOMERULAR FILTRATION RATE > 60.0 (>51); GLUCOSE, FASTING 107 MG/DL (70-100); MAGNESIUM LEVEL 2.3 MG/DL (1.8-2.4); POTASSIUM SERUM 4.2 MEQ/L (3.5-5.1); SODIUM LEVEL 145 MEQ/L (136-145)
[2019-12-04] MEDS: diltiaZEM **CD** 180 MG CAP PO SCH (07:43)
[2019-12-04] MEDS: predniSONE 20 MG TAB PO SCH (07:43)
[2019-12-04] MEDS: GABAPENTIN 300 MG CAP PO SCH (07:43)
[2019-12-04] MEDS: VITAMIN D 1,000 INTERNATIONAL UNITS TABLET PO SCH (07:43)
[2019-12-04] MEDS: VENLAFAXINE **XR** 75MG CAPSULE PO SCH ×2 (07:43→20:38)
[2019-12-04] MEDS: PANTOPRAZOLE 40MG TAB (PROTONIX) PO SCH (07:43)
[2019-12-04] MEDS: ENOXAPARIN 40 MG/0.4 ML SYRINGE (J1650) SC SCH (07:44)
[2019-12-04] MEDS: BUDESONIDE 0.5 MG/2 ML INHALATION SUSPENSION INH SCH ×2 (07:49→20:02)
[2019-12-04] MEDS: FORMOTEROL FUMARATE 20 MCG/2 ML INHALATION SOLUTION (PERFOROMIST) INH SCH ×2 (07:49→20:02)
--- NOTE | 2019-12-04 10:45 | CCN ---
DATE OF SERVICE: 12/04/2019 SUBJECTIVE: Brenda was seen and examined today at bedside while eating breakfast. She states that her breathing feels back to her baseline. She does feel mildly short of breath but reports that this is how she has been feeling at baseline. She denies any wheezing, coughing, hemoptysis, or chest tightness. She was eating breakfast and states her appetite is okay. She states she has noticed some weakness in her arms eating breakfast. She states that she has had some weakness at home, as well, which has made it more difficult for her to care for herself. She states that she previously did have someone coming to help her at home, but she asked them to stop coming because she was getting frustrated. She agrees to work with home care again and agrees that it would benefit her. OBJECTIVE: VITAL SIGNS: Temperature 97.8, heart rate 88, respiratory rate 22, blood pressure 111/60 with a mean arterial pressure (MAP) of 82, oxygen saturation 96% on nasal cannula 5 liters per minute. GENERAL: The patient appears alert, sitting up in bed comfortably, eating breakfast, in no acute respiratory distress. She is able to talk in full sentences. HEENT: Normocephalic, atraumatic, sclerae anicteric. NECK: Trachea is midline. No jugular venous distention (JVD) is noted. LUNGS: Diminished air entry bilaterally with prolonged expiratory phase. No retractions or accessory muscle usage noted. CARDIOVASCULAR: Regular rate and rhythm, normal S1 and S2. No murmur, rub, or gallop appreciated. ABDOMEN: Soft, nontender, nondistended. EXTREMITIES: No clubbing, cyanosis, or edema present. NEUROLOGIC: Awake and alert, answering questions appropriately. PSYCHIATRIC: Mood and affect appropriate. LABORATORY DATA: Complete blood count (CBC) showed white blood cell count 6.7, hemoglobin 12.8, hematocrit 42.7, platelet count 226. Chemistry showed sodium 145, potassium 4.2, chloride 97, bicarbonate 54, BUN 20, creatinine 0.58, glucose 107, calcium 10.0, magnesium 2.3, procalcitonin 0.03. ASSESSMENT AND PLAN: Brenda Freeman is a 59-year-old female, past medical history of end-stage chronic obstructive pulmonary disease on oxygen and recently diagnosed small cell lung cancer on chemotherapy with acute on chronic hypercarbic respiratory failure likely secondary to medication noncompliance with chronic obstructive pulmonary disease (COPD) inhalers. 1. Acute on chronic hypercarbic respiratory failure secondary to COPD inhaler noncompliance. The patient was on bilateral positive airway pressure (BiPAP) yesterday with improvement of her respiratory acidosis and was transitioned onto to her Trilogy machine once this was cleaned. This morning, her breathing is back to her baseline level of shortness of breath, and she is saturating appropriately on nasal cannula at 5 liters. We will switch her maintenance medications to nebulized forms, as the patient feels she would be more compliant with a nebulized treatment than handheld inhaler treatment. We will continue with oral prednisone 40 mg for a total of 5 days. She may continue to use the Trilogy machine at night. There is no clear evidence for infection at this point, so there is no indication for antibiotics. Additionally, there is no clear evidence or suspicion for COVID-19 infection. She will be taken off airborne precautions. This was discussed with Dr. Green, who agrees. 2. Right small cell lung carcinoma. The patient was seen by Dr. Gray, who discussed treatment with the patient. She did receive chemotherapy earlier this month. She is not a surgical candidate. Dr. Gray did discuss palliative care with the patient. We agree with recommendations for Commercial Finance Analyst to help provide home care for the patient. 3. Weakness. Consider PT/OT evaluation to help determine patient's functional status and need for additional home care. CODE STATUS: FULL CODE. Deep venous thrombosis (DVT) prophylaxis, Lovenox. Gastrointestinal (GI) prophylaxis, Protonix. IKaren have conducted independent examination of the patient and agree with the above plan as detailed by resident with the following additions: Patient's home care company was contacted and they will be sending supplies for her Trilogy. Suspect patient will need assistance in proper maintenance for her machine at home. She can follow-up with Dr. Vela as previously scheduled. SUSY
--- NOTE | 2019-12-04 11:09 | IPNPDOC ---
Subjective Date Seen The patient was seen on 12/04/19. Subjective Chief Complaint/HPI Seen and examined at bedside. General: Reports: Normal Appetite; Denies: Chills, Night Sweats, Fatigue, Malaise Constitutional: Denies: Chills, Fever, Night Sweats Eyes: Denies: Pain, Vision change ENT: Denies: Head Aches, Ear Pain, Dysphagia Skin: Denies: Rash, Lesions, Breakdown Pulmonary: Denies: Dyspnea, Cough Cardiovascular: Denies: Chest Pain, Palpitations, Orthopnea, Paroxysmal Noc. Dyspnea, Lt Headedness Gastrointestinal: Denies: Nausea, Vomiting, Abdominal Pain, Diarrhea, Constipation Genitourinary: Denies: Dysuria, Frequency, Incontinence, Retention Hematologic: Denies: Bruising, Bleeding Excessively Musculoskeletal: Denies: Neck Pain, Back Pain, Joint Pain, Muscle Pain, Spasms Neurological: Denies: Weakness, Numbness, Change in speech, Confusion Psych: Reports: Mood Normal; Denies: Depression, Memory Issues Objective Physical Examination General Exam: Positive: Alert, No Acute Distress Eye Exam: Positive: PERRLA, Conjunctiva & lids normal, EOMI; Negative: Sclera icteric ENT Exam: Positive: Atraumatic, Mucous membr. moist/pink, Pharynx Normal Neck Exam: Positive: Supple; Negative: JVD, thyromegaly Chest Exam: Positive: Clear to auscultation, Normal air movement Heart Exam: Positive: Rate Normal, Regular Rhythm, Normal S1, Normal S2; Negative: Murmurs, Rubs Telemetry: Positive: No significant arrhythmia Abdomen Exam: Positive: Normal bowel sounds, Soft; Negative: Tenderness, Hepatospenomegaly Female Exam: Positive: Nl Ext Genitalia; Negative: Lesions, Discharge, Odor, Tenderness Extremity Exam: Positive: Normal pulses; Negative: Clubbing, Cyanosis, Edema Skin Exam: Positive: Nl turgor and temperature; Negative: Rash, Breakdown Neuro Exam: Positive: Normal Gait, Normal Speech, Cranial Nerves 3-12 NL, Reflexes 2+ Psych Exam: Positive: Mental status NL, Mood NL, Oriented x 3 Assessment /Plan Assessment 1. Acute on chronic hypercarbic respiratory failure - secondary to COPD, noncompliance with inhalers. - continue duonebs, prednisone. 2. NSCLC R - being followed by Dr. Gray, not surgical candidate, s/p chemotherapy. - ?palliative care. CODE STATUS: FULL CODE. Deep venous thrombosis (DVT) prophylaxis, Lovenox. Gastrointestinal (GI) prophylaxis, Protonix. Plan/VTE VTE Prophylaxis Ordered?: Yes VS, I&O, 24H, Fishbone Vital Signs/I&O Vital Signs Date Time Temp Pulse Resp B/P (MAP) Pulse Ox O2 Delivery O2 Flow Rate FiO2 12/04/19 07:43 88 111/68 12/04/19 04:00 97.8 22 96 Nasal Cannula 5.0 I&O- Last 24 Hours up to 6 AM 12/04/19 05:59 Intake Total 120 ml Output Total 550 ml Balance -430 ml Laboratory Data 24H LABS Laboratory Tests 2 12/03/19 11:29: Lab Scanned Report LAB OTHER 12/03/19 11:38: POC pH (Misc Panel) 7.381, POC Base Excess (Misc Panel) 22.0H, POC Saturated Percent O2 (Misc) 90L, POC pO2 (Misc Panel) 64.0L, POC pCO2 (Misc Panel) 79.4*H, POC HCO3 (Misc Panel) 47.0H, POC Total CO2 (Misc Panel) 49.0H 12/04/19 05:20: Immature Granulocyte % (Auto) 2.4, Neutrophils (%) (Auto) 69.1H, Lymphocytes (%) (Auto) 13.5L, Monocytes (%) (Auto) 14.6H, Eosinophils (%) (Auto) 0.0, Basophils (%) (Auto) 0.4, Neutrophils # (Auto) 4.7, Lymphocytes # (Auto) 0.9L, Monocytes # (Auto) 1.0H, Eosinophils # (Auto) 0.0, Basophils # (Auto) 0.0, Nucleated Red Blood Cells % (auto) 0.6H, Anion Gap , Glomerular Filtration Rate > 60.0, Calcium Level 10.0, Magnesium Level 2.3 CBC/BMP Laboratory Tests 12/04/19 05:20 Microbiology Microbiology 12/03/19 Coronavirus COVID-19 PCR (NIA), Received Pending 12/03/19 Respiratory Panel (PCR) - Final, Complete 12/03/19 Blood Culture - Preliminary, Resulted No growth after 24 hours . All specim... 12/03/19 Blood Culture - Preliminary, Resulted No growth after 24 hours . All specim... ,ALPEN R. MD Dec 04, 2019 11:09
[2019-12-04] MEDS: ATORVASTATIN 20 MG TAB PO SCH (20:38)
[2019-12-04] MEDS: QUEtiapine FUMARATE 100 MG TAB PO SCH (20:38)
[2019-12-05] VITALS (18 sets, daily range): BP systolic 89–107; BP diastolic 53–72; O2SAT 86–98
[2019-12-05] MEDS: IPRATROPIUM 0.5MG/ALBUTEROL 2.5MG INH SOL UD 3ML (DUONEB)(J7620) NEB SCH ×4 (02:35→19:57)
[2019-12-05 04:52] LABS: BASO % 0.3 % (0.0-1.0); EOS % 0.1 % (0.0-3.0); HEMATOCRIT 38.7 % (36.0-47.0); HEMOGLOBIN 11.5 g/dl (12.0-15.5); LYMPH # 0.9 10^3/uL (1.5-5.0); LYMPH % 12.6 % (24.0-44.0); MEAN CORPUSCULAR HEMOGLOBIN 29.5 pg (27.0-33.0); MEAN CORPUSCULAR HGB CONC 29.7 g/dl (32.0-36.5); MEAN CORPUSCULAR VOLUME 99.2 fl (80.0-96.0); MONO # 0.9 10^3/uL (0.0-0.8); MONO % 12.4 % (0.0-5.0); NEUTROPHILS # 5.3 10^3/uL (1.5-8.5); NEUTROPHILS % 73.6 % (36.0-66.0); PLATELET COUNT, AUTOMATED 188 10^3/uL (150-450); WHITE BLOOD COUNT 7.2 10^3/uL (4.0-10.0)
[2019-12-05] MEDS: SLF 3 ML SYR IV SCH ×3 (05:00→20:03)
[2019-12-05] MEDS: LEVOTHYROXINE 150MCG TABLET (0.15MG) PO SCH (05:00)
[2019-12-05 05:28] LABS: BLOOD UREA NITROGEN 26 MG/DL (7-18); CALCIUM LEVEL 9.5 MG/DL (8.5-10.1); CARBON DIOXIDE LEVEL 49 MEQ/L (21-32); CHLORIDE LEVEL 97 MEQ/L (98-107); CREATININE FOR GFR 0.53 MG/DL (0.55-1.30); GLOMERULAR FILTRATION RATE > 60.0 (>51); GLUCOSE, FASTING 88 MG/DL (70-100); MAGNESIUM LEVEL 2.1 MG/DL (1.8-2.4); POTASSIUM SERUM 4.1 MEQ/L (3.5-5.1); SODIUM LEVEL 142 MEQ/L (136-145)
[2019-12-05] MEDS: BUDESONIDE 0.5 MG/2 ML INHALATION SUSPENSION INH SCH ×2 (08:30→20:07)
[2019-12-05] MEDS: FORMOTEROL FUMARATE 20 MCG/2 ML INHALATION SOLUTION (PERFOROMIST) INH SCH ×2 (08:30→20:06)
--- NOTE | 2019-12-05 08:55 | IPNPDOC ---
Subjective Date Seen The patient was seen on 12/05/19. Subjective Chief Complaint/HPI Seen and examined at bedside, no specific complaints, states her breathing is at baseline. Denies fever/chills, N/V/D, abdominal pain, chest pain/pressure. General: Reports: Normal Appetite; Denies: Chills, Night Sweats, Fatigue, Malaise Constitutional: Denies: Chills, Fever, Night Sweats Eyes: Denies: Pain, Vision change ENT: Denies: Head Aches, Ear Pain, Dysphagia Skin: Denies: Rash, Lesions, Breakdown Pulmonary: Reports: Dyspnea, Cough Cardiovascular: Denies: Chest Pain, Palpitations, Orthopnea, Paroxysmal Noc. Dyspnea, Lt Headedness Gastrointestinal: Denies: Nausea, Vomiting, Abdominal Pain, Diarrhea, Constipation Genitourinary: Denies: Dysuria, Frequency, Incontinence, Retention Hematologic: Denies: Bruising, Bleeding Excessively Musculoskeletal: Denies: Neck Pain, Back Pain, Joint Pain, Muscle Pain, Spasms Neurological: Denies: Weakness, Numbness, Change in speech, Confusion Psych: Reports: Mood Normal; Denies: Depression, Memory Issues Objective Physical Examination General Exam: Positive: Alert, No Acute Distress Eye Exam: Positive: PERRLA, Conjunctiva & lids normal, EOMI; Negative: Sclera icteric ENT Exam: Positive: Atraumatic, Mucous membr. moist/pink, Pharynx Normal Neck Exam: Positive: Supple; Negative: JVD, thyromegaly Chest Exam: Positive: Clear to auscultation, Normal air movement, Diminished Heart Exam: Positive: Rate Normal, Regular Rhythm, Normal S1, Normal S2; Negative: Murmurs, Rubs Telemetry: Positive: No significant arrhythmia Abdomen Exam: Positive: Normal bowel sounds, Soft; Negative: Tenderness, Hepatospenomegaly Female Exam: Positive: Nl Ext Genitalia; Negative: Lesions, Discharge, Odor, Tenderness Extremity Exam: Positive: Normal pulses; Negative: Clubbing, Cyanosis, Edema Skin Exam: Positive: Nl turgor and temperature; Negative: Rash, Breakdown Neuro Exam: Positive: Normal Gait, Normal Speech, Cranial Nerves 3-12 NL, Reflexes 2+ Psych Exam: Positive: Mental status NL, Mood NL, Oriented x 3 Assessment /Plan Assessment 1. Acute on chronic hypercarbic respiratory failure - secondary to COPD, noncompliance with inhalers. - currently on her home Trilogy machine at night. - continue duonebs/albuterol nebs, pulmicort/perforomist, prednisone 40mg daily x 5 day course (11/07). - off contact/droplet precautions as per ID as suspicion appears low. 2. lung cancer - seen by Dr. Gray, not surgical candidate, s/p chemotherapy which is currently on hold. - discussion regarding palliative care, SS for home care. Plan/VTE VTE Prophylaxis Ordered?: Yes VS, I&O, 24H, Fishbone Vital Signs/I&O Vital Signs Date Time Temp Pulse Resp B/P (MAP) Pulse Ox O2 Delivery O2 Flow Rate FiO2 12/05/19 08:00 95.6 82 18 89/59 (69) 93 Room Air 12/05/19 06:00 6.0 I&O- Last 24 Hours up to 6 AM 12/05/19 06:00 Intake Total 900 ml Output Total 700 ml Balance 200 ml Laboratory Data 24H LABS Laboratory Tests 2 12/05/19 03:57: Immature Granulocyte % (Auto) 1.0, Neutrophils (%) (Auto) 73.6H, Lymphocytes (%) (Auto) 12.6L, Monocytes (%) (Auto) 12.4H, Eosinophils (%) (Auto) 0.1, Basophils (%) (Auto) 0.3, Neutrophils # (Auto) 5.3, Lymphocytes # (Auto) 0.9L, Monocytes # (Auto) 0.9H, Eosinophils # (Auto) 0.0, Basophils # (Auto) 0.0, Nucleated Red Blood Cells % (auto) 0.0, Anion Gap , Glomerular Filtration Rate > 60.0, Calcium Level 9.5, Magnesium Level 2.1 CBC/BMP Laboratory Tests 12/05/19 03:57 Microbiology Microbiology 12/03/19 Coronavirus COVID-19 PCR (NIA), Received Pending 12/03/19 Respiratory Panel (PCR) - Final, Complete 12/03/19 Blood Culture - Preliminary, Resulted No growth after 24 hours . All specim... 12/03/19 Blood Culture - Preliminary, Resulted No growth after 24 hours . All specim... ROSINA PATEL MD Dec 05, 2019 08:55
[2019-12-05] MEDS: diltiaZEM **CD** 180 MG CAP PO SCH (09:00)
[2019-12-05] MEDS: VITAMIN D 1,000 INTERNATIONAL UNITS TABLET PO SCH (09:31)
[2019-12-05] MEDS: predniSONE 20 MG TAB PO SCH (09:32)
[2019-12-05] MEDS: GABAPENTIN 300 MG CAP PO SCH (09:32)
[2019-12-05] MEDS: ENOXAPARIN 40 MG/0.4 ML SYRINGE (J1650) SC SCH (09:32)
[2019-12-05] MEDS: PANTOPRAZOLE 40MG TAB (PROTONIX) PO SCH (09:32)
[2019-12-05] MEDS: VENLAFAXINE **XR** 75MG CAPSULE PO SCH ×2 (09:32→20:03)
[2019-12-05 11:31] LABS: ABG BASE EXCESS 20.3 (-2.0-2.0); ABG O2 SATURATION 94.1 % (95.0-99.0); ABG PARTIAL PRESSURE O2 80.8 mmHg (75.0-100.0); ABG STANDARD HCO3 44.6 MEQ/L (22.0-26.0); ABG TOTAL CO2 59.5 MEQ/L (22.0-29.0)
[2019-12-05 11:34] LABS: ABG PARTIAL PRESSURE CO2 147.6 mmHg (35.0-45.0); ABG pH (ARTERIAL) 7.189 UNITS (7.350-7.450)
[2019-12-05 12:39] LABS: ABG BASE EXCESS 20.9 (-2.0-2.0); ABG HCO3 54.6 MEQ/L (22.0-26.0); ABG O2 SATURATION 91.5 % (95.0-99.0); ABG PARTIAL PRESSURE O2 66.5 mmHg (75.0-100.0); ABG STANDARD HCO3 45.2 MEQ/L (22.0-26.0); ABG TOTAL CO2 58.7 MEQ/L (22.0-29.0)
[2019-12-05 12:42] LABS: ABG PARTIAL PRESSURE CO2 132.5 mmHg (35.0-45.0); ABG pH (ARTERIAL) 7.233 UNITS (7.350-7.450)
[2019-12-05] MEDS: ATORVASTATIN 20 MG TAB PO SCH (20:03)
[2019-12-05] MEDS: QUEtiapine FUMARATE 100 MG TAB PO SCH (20:03)
[2019-12-06] VITALS (28 sets, daily range): BP systolic 96–127; BP diastolic 61–79; O2SAT 90–97
[2019-12-06] MEDS: IPRATROPIUM 0.5MG/ALBUTEROL 2.5MG INH SOL UD 3ML (DUONEB)(J7620) NEB SCH ×5 (01:25→20:00)
[2019-12-06 04:55] LABS: BASO % 0.3 % (0.0-1.0); EOS % 0.1 % (0.0-3.0); HEMATOCRIT 40.3 % (36.0-47.0); HEMOGLOBIN 12.1 g/dl (12.0-15.5); LYMPH # 0.9 10^3/uL (1.5-5.0); LYMPH % 11.4 % (24.0-44.0); MEAN CORPUSCULAR HEMOGLOBIN 29.8 pg (27.0-33.0); MEAN CORPUSCULAR VOLUME 99.3 fl (80.0-96.0); MONO # 0.6 10^3/uL (0.0-0.8); MONO % 7.9 % (0.0-5.0); NEUTROPHILS # 5.9 10^3/uL (1.5-8.5); NEUTROPHILS % 79.4 % (36.0-66.0); PLATELET COUNT, AUTOMATED 179 10^3/uL (150-450); RED BLOOD COUNT 4.06 10^6/uL (4.00-5.40); WHITE BLOOD COUNT 7.4 10^3/uL (4.0-10.0)
[2019-12-06 05:39] LABS: BLOOD UREA NITROGEN 19 MG/DL (7-18); CALCIUM LEVEL 9.1 MG/DL (8.5-10.1); CARBON DIOXIDE LEVEL 51 MEQ/L (21-32); CHLORIDE LEVEL 98 MEQ/L (98-107); CREATININE FOR GFR 0.41 MG/DL (0.55-1.30); GLOMERULAR FILTRATION RATE > 60.0 (>51); GLUCOSE, FASTING 76 MG/DL (70-100); MAGNESIUM LEVEL 2.1 MG/DL (1.8-2.4); POTASSIUM SERUM 4.4 MEQ/L (3.5-5.1); SODIUM LEVEL 145 MEQ/L (136-145)
[2019-12-06] MEDS: LEVOTHYROXINE 150MCG TABLET (0.15MG) PO SCH (06:05)
[2019-12-06] MEDS: SLF 3 ML SYR IV SCH ×3 (06:05→20:05)
[2019-12-06] MEDS: ACETAMINOPHEN 500 MG TAB PO PRN ×2 (06:23→11:20)
[2019-12-06] MEDS: BUDESONIDE 0.5 MG/2 ML INHALATION SUSPENSION INH SCH ×2 (07:00→20:02)
[2019-12-06] MEDS: FORMOTEROL FUMARATE 20 MCG/2 ML INHALATION SOLUTION (PERFOROMIST) INH SCH ×2 (07:00→20:02)
--- NOTE | 2019-12-06 08:27 | IPNPDOC ---
Subjective Date Seen The patient was seen on 12/06/19. Subjective Chief Complaint/HPI Seen and examined at bedside, awake, no specific complaints. General: Reports: Normal Appetite; Denies: Chills, Night Sweats, Fatigue, Malaise Constitutional: Denies: Chills, Fever, Night Sweats Eyes: Denies: Pain, Vision change ENT: Denies: Head Aches, Ear Pain, Dysphagia Skin: Denies: Rash, Lesions, Breakdown Pulmonary: Denies: Dyspnea, Cough Cardiovascular: Denies: Chest Pain, Palpitations, Orthopnea, Paroxysmal Noc. Dyspnea, Lt Headedness Gastrointestinal: Denies: Nausea, Vomiting, Abdominal Pain, Diarrhea, Constipation Genitourinary: Denies: Dysuria, Frequency, Incontinence, Retention Hematologic: Denies: Bruising, Bleeding Excessively Musculoskeletal: Denies: Neck Pain, Back Pain, Joint Pain, Muscle Pain, Spasms Neurological: Denies: Weakness, Numbness, Change in speech, Confusion Psych: Reports: Mood Normal; Denies: Depression, Memory Issues Objective Physical Examination General Exam: Positive: Alert, No Acute Distress Eye Exam: Positive: PERRLA, Conjunctiva & lids normal, EOMI; Negative: Sclera icteric ENT Exam: Positive: Atraumatic, Mucous membr. moist/pink, Pharynx Normal Neck Exam: Positive: Supple; Negative: JVD, thyromegaly Chest Exam: Positive: Clear to auscultation, Normal air movement, Diminished Heart Exam: Positive: Rate Normal, Regular Rhythm, Normal S1, Normal S2; Negative: Murmurs, Rubs Telemetry: Positive: No significant arrhythmia Abdomen Exam: Positive: Normal bowel sounds, Soft; Negative: Tenderness, Hepatospenomegaly Female Exam: Positive: Nl Ext Genitalia; Negative: Lesions, Discharge, Odor, Tenderness Extremity Exam: Positive: Normal pulses; Negative: Clubbing, Cyanosis, Edema Skin Exam: Positive: Nl turgor and temperature; Negative: Rash, Breakdown Neuro Exam: Positive: Normal Gait, Normal Speech, Cranial Nerves 3-12 NL, Reflexes 2+ Psych Exam: Positive: Mental status NL, Mood NL, Oriented x 3 Assessment /Plan Assessment 1. Acute on chronic hypercarbic respiratory failure - secondary to COPD, noncompliance with inhalers. - currently on her home Trilogy machine. - continue duonebs/albuterol nebs, pulmicort/perforomist, prednisone 40mg daily x 5 day course (11/07). - off contact/droplet precautions as per ID as suspicion appears low. 2. lung cancer - seen by Dr. Gray, not surgical candidate, s/p chemotherapy which is currently on hold. - consultation to palliative care, for home care. Plan/VTE VTE Prophylaxis Ordered?: Yes VS, I&O, 24H, Fishbone Vital Signs/I&O Vital Signs Date Time Temp Pulse Resp B/P (MAP) Pulse Ox O2 Delivery O2 Flow Rate FiO2 12/06/19 07:57 97.4 87 20 126/70 (88) 96 Room Air 12/06/19 06:00 3.0 I&O- Last 24 Hours up to 6 AM 12/06/19 06:00 Intake Total 756 ml Output Total 1400 ml Balance -644 ml Laboratory Data 24H LABS Laboratory Tests 2 12/05/19 11:18: Blood Gas Bicarbonate Standard 44.6H, Arterial Blood pH 7.189*L, Arterial Blood Partial Pressure CO2 147.6*H, Arterial Blood Partial Pressure O2 80.8, Arterial Blood Total CO2 59.5H, Arterial Blood HCO3 55.0H, Arterial Blood Base Excess 20 .3H, Arterial Blood Oxygen Saturation 94.1L 12/05/19 12:26: Blood Gas Bicarbonate Standard 45.2H, Arterial Blood pH 7.233*L, Arterial Blood Partial Pressure CO2 132.5*H, Arterial Blood Partial Pressure O2 66.5L, Arterial Blood Total CO2 58.7H, Arterial Blood HCO3 54.6H, Arterial Blood Base Excess 20.9H, Arterial Blood Oxygen Saturation 91.5L 12/06/19 04:40: Immature Granulocyte % (Auto) 0.9, Neutrophils (%) (Auto) 79.4H, Lymphocytes (%) (Auto) 11.4L, Monocytes (%) (Auto) 7.9H, Eosinophils (%) (Auto) 0.1, Basophils (%) (Auto) 0.3, Neutrophils # (Auto) 5.9, Lymphocytes # (Auto) 0.9L, Monocytes # (Auto) 0.6, Eosinophils # (Auto) 0.0, Basophils # (Auto) 0.0, Nucleated Red Blood Cells % (auto) 0.0, Anion Gap , Glomerular Filtration Rate > 60.0, Calcium Level 9.1, Magnesium Level 2.1 CBC/BMP Laboratory Tests 12/06/19 04:40 Microbiology Microbiology 12/03/19 Coronavirus COVID-19 PCR (NIA), Received Pending 12/03/19 Respiratory Panel (PCR) - Final, Complete 12/03/19 Blood Culture - Preliminary, Resulted No Growth after 48 hours. All Specime... 12/03/19 Blood Culture - Preliminary, Resulted No Growth after 48 hours. All Specime... ROSINA PATEL MD Dec 06, 2019 08:27
[2019-12-06] MEDS: VITAMIN D 1,000 INTERNATIONAL UNITS TABLET PO SCH (08:29)
[2019-12-06] MEDS: GABAPENTIN 300 MG CAP PO SCH (08:29)
[2019-12-06] MEDS: diltiaZEM **CD** 180 MG CAP PO SCH (08:29)
[2019-12-06] MEDS: VENLAFAXINE **XR** 75MG CAPSULE PO SCH ×2 (08:29→20:05)
[2019-12-06] MEDS: predniSONE 20 MG TAB PO SCH (08:30)
[2019-12-06] MEDS: ENOXAPARIN 40 MG/0.4 ML SYRINGE (J1650) SC SCH (08:30)
[2019-12-06] MEDS: PANTOPRAZOLE 40MG TAB (PROTONIX) PO SCH (08:30)
[2019-12-06] MEDS: DOCUSATE SODIUM 100 MG CAP PO PRN (11:20)
[2019-12-06] MEDS: BISACODYL 5 MG TAB PO PRN (11:20)
[2019-12-06] MEDS: SUMAtriptan SUCCINATE 25 MG TAB PO PRN ×2 (11:21→20:12)
[2019-12-06] MEDS ORDERED: KETOROLAC TROMETHAMINE 10 MG TAB PO ONE (14:00)
[2019-12-06] MEDS: ATORVASTATIN 20 MG TAB PO SCH (20:05)
[2019-12-06] MEDS: QUEtiapine FUMARATE 100 MG TAB PO SCH (20:05)
[2019-12-07] VITALS (22 sets, daily range): BP systolic 120–143; BP diastolic 73–92; O2SAT 81–98
[2019-12-07] MEDS: IPRATROPIUM 0.5MG/ALBUTEROL 2.5MG INH SOL UD 3ML (DUONEB)(J7620) NEB SCH ×4 (02:00→19:39)
[2019-12-07 04:35] LABS: BASO % 0.2 % (0.0-1.0); EOS % 0.2 % (0.0-3.0); HEMATOCRIT 40.7 % (36.0-47.0); HEMOGLOBIN 12.1 g/dl (12.0-15.5); LYMPH # 0.9 10^3/uL (1.5-5.0); LYMPH % 9.7 % (24.0-44.0); MEAN CORPUSCULAR HEMOGLOBIN 29.6 pg (27.0-33.0); MEAN CORPUSCULAR HGB CONC 29.7 g/dl (32.0-36.5); MEAN CORPUSCULAR VOLUME 99.5 fl (80.0-96.0); MONO # 0.8 10^3/uL (0.0-0.8); MONO % 9.2 % (0.0-5.0); NEUTROPHILS # 7.2 10^3/uL (1.5-8.5); NEUTROPHILS % 79.6 % (36.0-66.0); PLATELET COUNT, AUTOMATED 151 10^3/uL (150-450); RED BLOOD COUNT 4.09 10^6/uL (4.00-5.40); WHITE BLOOD COUNT 9.1 10^3/uL (4.0-10.0)
[2019-12-07 05:19] LABS: BLOOD UREA NITROGEN 21 MG/DL (7-18); CALCIUM LEVEL 9.8 MG/DL (8.5-10.1); CHLORIDE LEVEL 99 MEQ/L (98-107); CREATININE FOR GFR 0.53 MG/DL (0.55-1.30); GLOMERULAR FILTRATION RATE > 60.0 (>51); GLUCOSE, FASTING 80 MG/DL (70-100); MAGNESIUM LEVEL 2.2 MG/DL (1.8-2.4); POTASSIUM SERUM 4.5 MEQ/L (3.5-5.1); SODIUM LEVEL 143 MEQ/L (136-145)
[2019-12-07 05:20] LABS: CARBON DIOXIDE LEVEL 51 MEQ/L (21-32)
[2019-12-07] MEDS: LEVOTHYROXINE 150MCG TABLET (0.15MG) PO SCH (06:03)
[2019-12-07] MEDS: SLF 3 ML SYR IV SCH ×3 (06:04→21:46)
[2019-12-07] MEDS: FORMOTEROL FUMARATE 20 MCG/2 ML INHALATION SOLUTION (PERFOROMIST) INH SCH ×2 (07:29→19:39)
[2019-12-07] MEDS: BUDESONIDE 0.5 MG/2 ML INHALATION SUSPENSION INH SCH ×2 (07:29→19:39)
[2019-12-07] MEDS: ENOXAPARIN 40 MG/0.4 ML SYRINGE (J1650) SC SCH (08:30)
[2019-12-07] MEDS: VITAMIN D 1,000 INTERNATIONAL UNITS TABLET PO SCH (08:30)
[2019-12-07] MEDS: GABAPENTIN 300 MG CAP PO SCH (08:30)
[2019-12-07] MEDS: predniSONE 20 MG TAB PO SCH (08:30)
[2019-12-07] MEDS: VENLAFAXINE **XR** 75MG CAPSULE PO SCH ×2 (08:30→21:47)
[2019-12-07] MEDS: PANTOPRAZOLE 40MG TAB (PROTONIX) PO SCH (08:31)
[2019-12-07] MEDS: diltiaZEM **CD** 180 MG CAP PO SCH (08:31)
--- NOTE | 2019-12-07 10:04 | IPNPDOC ---
Subjective Date Seen The patient was seen on 12/07/19. Subjective Chief Complaint/HPI Seen and examined at bedside, awake and alert, d/w nurse General: Reports: Normal Appetite; Denies: Chills, Night Sweats, Fatigue, Malaise Constitutional: Denies: Chills, Fever, Night Sweats Eyes: Denies: Pain, Vision change ENT: Denies: Head Aches, Ear Pain, Dysphagia Skin: Denies: Rash, Lesions, Breakdown Pulmonary: Denies: Dyspnea, Cough Cardiovascular: Denies: Chest Pain, Palpitations, Orthopnea, Paroxysmal Noc. Dyspnea, Lt Headedness Gastrointestinal: Denies: Nausea, Vomiting, Abdominal Pain, Diarrhea, Constipation Genitourinary: Denies: Dysuria, Frequency, Incontinence, Retention Hematologic: Denies: Bruising, Bleeding Excessively Musculoskeletal: Denies: Neck Pain, Back Pain, Joint Pain, Muscle Pain, Spasms Neurological: Denies: Weakness, Numbness, Change in speech, Confusion Psych: Reports: Mood Normal; Denies: Depression, Memory Issues Objective Physical Examination General Exam: Positive: Alert, No Acute Distress Eye Exam: Positive: PERRLA, Conjunctiva & lids normal, EOMI; Negative: Sclera icteric ENT Exam: Positive: Atraumatic, Mucous membr. moist/pink, Pharynx Normal Neck Exam: Positive: Supple; Negative: JVD, thyromegaly Chest Exam: Positive: Clear to auscultation, Normal air movement, Diminished Heart Exam: Positive: Rate Normal, Regular Rhythm, Normal S1, Normal S2; Negative: Murmurs, Rubs Telemetry: Positive: No significant arrhythmia Abdomen Exam: Positive: Normal bowel sounds, Soft; Negative: Tenderness, Hepatospenomegaly Female Exam: Positive: Nl Ext Genitalia; Negative: Lesions, Discharge, Odor, Tenderness Extremity Exam: Positive: Normal pulses; Negative: Clubbing, Cyanosis, Edema Skin Exam: Positive: Nl turgor and temperature; Negative: Rash, Breakdown Neuro Exam: Positive: Normal Gait, Normal Speech, Cranial Nerves 3-12 NL, Reflexes 2+ Psych Exam: Positive: Mental status NL, Mood NL, Oriented x 3 Assessment /Plan Assessment 1. Acute on chronic hypercarbic respiratory failure - secondary to COPD, noncompliance with inhalers. - currently on her home Trilogy machine. - continue duonebs/albuterol nebs, pulmicort/perforomist, prednisone 40mg daily x 5 day course. - off contact/droplet precautions as per ID as suspicion appears low for Covid. - d/w respiratory/CM, patient will repeat sleep studies with possible adjustment of Trilogy settings, need to determine if can be done as inpatient versus outpatient as patient has a Covid-19 test pending. 2. lung cancer - seen by Dr. Gray, not surgical candidate, s/p chemotherapy which is currently on hold. - discussed palliative care alongside CM/SW, no definitive decision regarding sa me, attempting to setup outpatient follow up. Plan/VTE VTE Prophylaxis Ordered?: Yes VS, I&O, 24H, Fishbone Vital Signs/I&O Vital Signs Date Time Temp Pulse Resp B/P (MAP) Pulse Ox O2 Delivery O2 Flow Rate FiO2 12/07/19 08:31 96 138/75 12/07/19 08:00 97.3 85 96 NIPPV (BIPAP/CPAP) 12/07/19 06:00 3.0 I&O- Last 24 Hours up to 6 AM 12/07/19 06:00 Intake Total 1200 ml Output Total 1600 ml Balance -400 ml Laboratory Data 24H LABS Laboratory Tests 2 12/07/19 04:00: Immature Granulocyte % (Auto) 1.1, Neutrophils (%) (Auto) 79.6H, Lymphocytes (%) (Auto) 9.7L, Monocytes (%) (Auto) 9.2H, Eosinophils (%) (Auto) 0.2, Basophils (%) (Auto) 0.2, Neutrophils # (Auto) 7.2, Lymphocytes # (Auto) 0.9L, Monocytes # (Auto) 0.8, Eosinophils # (Auto) 0.0, Basophils # (Auto) 0.0, Nucleated Red Blood Cells % (auto) 0.0, Anion Gap , Glomerular Filtration Rate > 60.0, Calcium Level 9.8, Magnesium Level 2.2 CBC/BMP Laboratory Tests 12/07/19 04:00 Microbiology Microbiology 12/03/19 Coronavirus COVID-19 PCR (NIA) - Final, Complete 12/03/19 Respiratory Panel (PCR) - Final, Complete 12/03/19 Blood Culture - Preliminary, Resulted No Growth after 72 hours. All specime... 12/03/19 Blood Culture - Preliminary, Resulted No Growth after 72 hours. All specime... ROSINA PATEL MD Dec 07, 2019 10:04
[2019-12-07] MEDS: BISACODYL 5 MG TAB PO PRN (12:10)
[2019-12-07] MEDS: DOCUSATE SODIUM 100 MG CAP PO PRN (12:10)
[2019-12-07] MEDS: ACETAMINOPHEN 500 MG TAB PO PRN (13:05)
[2019-12-07] MEDS ORDERED: IPRA0.00 NEB (15:43)
[2019-12-07] MEDS ORDERED: ALBU83IN NEB (15:43)
[2019-12-07] MEDS: SUMAtriptan SUCCINATE 25 MG TAB PO PRN ×2 (15:44→21:47)
[2019-12-07] MEDS: ATORVASTATIN 20 MG TAB PO SCH (21:47)
[2019-12-07] MEDS: QUEtiapine FUMARATE 100 MG TAB PO SCH (21:47)
[2019-12-08] VITALS (19 sets, daily range): BP systolic 115–136; BP diastolic 72–80; O2SAT 87–98
[2019-12-08] MEDS: IPRATROPIUM 0.5MG/ALBUTEROL 2.5MG INH SOL UD 3ML (DUONEB)(J7620) NEB SCH ×4 (02:23→20:00)
[2019-12-08] MEDS: LEVOTHYROXINE 150MCG TABLET (0.15MG) PO SCH (05:13)
[2019-12-08] MEDS: SLF 3 ML SYR IV SCH ×3 (05:14→21:01)
[2019-12-08 05:36] LABS: BASO % 0.2 % (0.0-1.0); EOS # 0.1 10^3/uL (0.0-0.5); EOS % 0.8 % (0.0-3.0); HEMATOCRIT 39.6 % (36.0-47.0); HEMOGLOBIN 11.8 g/dl (12.0-15.5); LYMPH # 1.2 10^3/uL (1.5-5.0); LYMPH % 17.6 % (24.0-44.0); MEAN CORPUSCULAR HEMOGLOBIN 29.1 pg (27.0-33.0); MEAN CORPUSCULAR HGB CONC 29.8 g/dl (32.0-36.5); MEAN CORPUSCULAR VOLUME 97.8 fl (80.0-96.0); MONO # 0.6 10^3/uL (0.0-0.8); MONO % 8.6 % (0.0-5.0); NEUTROPHILS # 4.7 10^3/uL (1.5-8.5); NEUTROPHILS % 71.9 % (36.0-66.0); PLATELET COUNT, AUTOMATED 127 10^3/uL (150-450); RED BLOOD COUNT 4.05 10^6/uL (4.00-5.40); WHITE BLOOD COUNT 6.5 10^3/uL (4.0-10.0)
[2019-12-08 07:04] LABS: BLOOD UREA NITROGEN 22 MG/DL (7-18); CALCIUM LEVEL 9.2 MG/DL (8.5-10.1); CARBON DIOXIDE LEVEL 45 MEQ/L (21-32); CHLORIDE LEVEL 97 MEQ/L (98-107); CREATININE FOR GFR 0.55 MG/DL (0.55-1.30); GLOMERULAR FILTRATION RATE > 60.0 (>51); GLUCOSE, FASTING 71 MG/DL (70-100); MAGNESIUM LEVEL 2.1 MG/DL (1.8-2.4); POTASSIUM SERUM 4.4 MEQ/L (3.5-5.1); SODIUM LEVEL 145 MEQ/L (136-145)
[2019-12-08] MEDS: BUDESONIDE 0.5 MG/2 ML INHALATION SUSPENSION INH SCH ×2 (07:34→20:43)
[2019-12-08] MEDS: FORMOTEROL FUMARATE 20 MCG/2 ML INHALATION SOLUTION (PERFOROMIST) INH SCH ×2 (07:34→20:43)
[2019-12-08] MEDS: ENOXAPARIN 40 MG/0.4 ML SYRINGE (J1650) SC SCH (08:23)
[2019-12-08] MEDS: PANTOPRAZOLE 40MG TAB (PROTONIX) PO SCH (08:24)
[2019-12-08] MEDS: VITAMIN D 1,000 INTERNATIONAL UNITS TABLET PO SCH (08:24)
[2019-12-08] MEDS: ACETAMINOPHEN 500 MG TAB PO PRN ×2 (08:24→17:33)
[2019-12-08] MEDS: VENLAFAXINE **XR** 75MG CAPSULE PO SCH ×2 (08:24→21:01)
[2019-12-08] MEDS: diltiaZEM **CD** 180 MG CAP PO SCH (08:24)
[2019-12-08] MEDS: predniSONE 20 MG TAB PO SCH (08:24)
[2019-12-08] MEDS: GABAPENTIN 300 MG CAP PO SCH (08:24)
--- NOTE | 2019-12-08 09:13 | IPNPDOC ---
Subjective Date Seen The patient was seen on 12/08/19. Subjective Chief Complaint/HPI Seen and examined at bedside, currently off trilogy on [place], appears comfortable, answering questions appropriately. General: Reports: Normal Appetite; Denies: Chills, Night Sweats, Fatigue, Malaise Constitutional: Denies: Chills, Fever, Night Sweats Eyes: Denies: Pain, Vision change ENT: Denies: Head Aches, Ear Pain, Dysphagia Skin: Denies: Rash, Lesions, Breakdown Pulmonary: Denies: Dyspnea, Cough Cardiovascular: Denies: Chest Pain, Palpitations, Orthopnea, Paroxysmal Noc. Dyspnea, Lt Headedness Gastrointestinal: Denies: Nausea, Vomiting, Abdominal Pain, Diarrhea, Constipation Genitourinary: Denies: Dysuria, Frequency, Incontinence, Retention Hematologic: Denies: Bruising, Bleeding Excessively Musculoskeletal: Denies: Neck Pain, Back Pain, Joint Pain, Muscle Pain, Spasms Neurological: Denies: Weakness, Numbness, Change in speech, Confusion Psych: Reports: Mood Normal; Denies: Depression, Memory Issues Objective Physical Examination General Exam: Positive: Alert, No Acute Distress Eye Exam: Positive: PERRLA, Conjunctiva & lids normal, EOMI; Negative: Sclera icteric ENT Exam: Positive: Atraumatic, Mucous membr. moist/pink, Pharynx Normal Neck Exam: Positive: Supple; Negative: JVD, thyromegaly Chest Exam: Positive: Clear to auscultation, Normal air movement, Diminished Heart Exam: Positive: Rate Normal, Regular Rhythm, Normal S1, Normal S2; Negative: Murmurs, Rubs Telemetry: Positive: No significant arrhythmia Abdomen Exam: Positive: Normal bowel sounds, Soft; Negative: Tenderness, Hepatospenomegaly Female Exam: Positive: Nl Ext Genitalia; Negative: Lesions, Discharge, Odor, Tenderness Extremity Exam: Positive: Normal pulses; Negative: Clubbing, Cyanosis, Edema Skin Exam: Positive: Nl turgor and temperature; Negative: Rash, Breakdown Neuro Exam: Positive: Normal Gait, Normal Speech, Cranial Nerves 3-12 NL, Reflexes 2+ Psych Exam: Positive: Mental status NL, Mood NL, Oriented x 3 Assessment /Plan Assessment 1. Acute on chronic hypercarbic respiratory failure - secondary to COPD, noncompliance with inhalers. - currently on her home Trilogy machine. - continue duonebs/albuterol nebs, pulmicort/perforomist, prednisone 40mg daily x 5 day course. - off contact/droplet precautions as per ID as suspicion appears low for Covid. - d/w respiratory/CM, patient will repeat sleep studies with possible adjustment of Trilogy settings, need to determine if can be done as inpatient versus outpatient as patient has a Covid-19 test pending. 2. lung cancer - seen by Dr. Gray, not surgical candidate, s/p chemotherapy which is currently on hold. - discussed palliative care alongside CM/SW, no definitive decision regarding same, attempting to setup outpatient follow up. Plan/VTE VTE Prophylaxis Ordered?: Yes VS, I&O, 24H, Fishbone Vital Signs/I&O Vital Signs Date Time Temp Pulse Resp B/P (MAP) Pulse Ox O2 Delivery O2 Flow Rate FiO2 12/08/19 08:24 90 119/74 12/08/19 08:00 2.0 12/08/19 08:00 97.4 20 93 Nasal Cannula I&O- Last 24 Hours up to 6 AM 12/08/19 06:00 Intake Total 1350 ml Output Total 1520 ml Balance -170 ml Laboratory Data 24H LABS Laboratory Tests 2 12/08/19 05:00: Immature Granulocyte % (Auto) 0.9, Neutrophils (%) (Auto) 71.9H, Lymphocytes (%) (Auto) 17.6L, Monocytes (%) (Auto) 8.6H, Eosinophils (%) (Auto) 0.8, Basophils (%) (Auto) 0.2, Neutrophils # (Auto) 4.7, Lymphocytes # (Auto) 1.2L, Monocytes # (Auto) 0.6, Eosinophils # (Auto) 0.1, Basophils # (Auto) 0.0, Nucleated Red Blood Cells % (auto) 0.0, Anion Gap 3L, Glomerular Filtration Rate > 60.0, Calcium Level 9.2, Magnesium Level 2.1 CBC/BMP Laboratory Tests 12/08/19 05:00 Microbiology Microbiology 12/03/19 Coronavirus COVID-19 PCR (NIA) - Final, Complete 12/03/19 Respiratory Panel (PCR) - Final, Complete 12/03/19 Blood Culture - Preliminary, Resulted No Growth after 72 hours. All specime... 12/03/19 Blood Culture - Preliminary, Resulted No Growth after 72 hours. All specime... ROSINA PATEL MD Dec 08, 2019 09:13
[2019-12-08] MEDS: QUEtiapine FUMARATE 100 MG TAB PO SCH (21:01)
[2019-12-08] MEDS: ATORVASTATIN 20 MG TAB PO SCH (21:01)
[2019-12-09] VITALS (24 sets, daily range): BP systolic 120–139; BP diastolic 74–99; O2SAT 86–99
[2019-12-09] MEDS: IPRATROPIUM 0.5MG/ALBUTEROL 2.5MG INH SOL UD 3ML (DUONEB)(J7620) NEB SCH ×4 (00:40→19:27)
[2019-12-09] MEDS: SLF 3 ML SYR IV SCH ×3 (05:18→20:04)
[2019-12-09] MEDS: LEVOTHYROXINE 150MCG TABLET (0.15MG) PO SCH (05:18)
[2019-12-09 05:56] LABS: BASO % 0.3 % (0.0-1.0); EOS # 0.1 10^3/uL (0.0-0.5); EOS % 0.8 % (0.0-3.0); HEMATOCRIT 38.7 % (36.0-47.0); HEMOGLOBIN 11.9 g/dl (12.0-15.5); LYMPH # 1.1 10^3/uL (1.5-5.0); LYMPH % 16.5 % (24.0-44.0); MEAN CORPUSCULAR HEMOGLOBIN 29.5 pg (27.0-33.0); MEAN CORPUSCULAR HGB CONC 30.7 g/dl (32.0-36.5); MONO # 0.5 10^3/uL (0.0-0.8); NEUTROPHILS # 4.8 10^3/uL (1.5-8.5); NEUTROPHILS % 73.8 % (36.0-66.0); PLATELET COUNT, AUTOMATED 120 10^3/uL (150-450); RED BLOOD COUNT 4.03 10^6/uL (4.00-5.40); WHITE BLOOD COUNT 6.5 10^3/uL (4.0-10.0)
[2019-12-09 06:35] LABS: BLOOD UREA NITROGEN 23 MG/DL (7-18); CHLORIDE LEVEL 98 MEQ/L (98-107); CREATININE FOR GFR 0.56 MG/DL (0.55-1.30); GLOMERULAR FILTRATION RATE > 60.0 (>51); GLUCOSE, FASTING 74 MG/DL (70-100); MAGNESIUM LEVEL 2.1 MG/DL (1.8-2.4); POTASSIUM SERUM 4.2 MEQ/L (3.5-5.1); SODIUM LEVEL 142 MEQ/L (136-145)
[2019-12-09 06:36] LABS: CARBON DIOXIDE LEVEL 44 MEQ/L (21-32)
[2019-12-09] MEDS: BUDESONIDE 0.5 MG/2 ML INHALATION SUSPENSION INH SCH ×2 (07:50→19:31)
[2019-12-09] MEDS: FORMOTEROL FUMARATE 20 MCG/2 ML INHALATION SOLUTION (PERFOROMIST) INH SCH ×2 (07:50→19:31)
[2019-12-09] MEDS: GABAPENTIN 300 MG CAP PO SCH (08:24)
[2019-12-09] MEDS: VENLAFAXINE **XR** 75MG CAPSULE PO SCH ×2 (08:24→20:04)
[2019-12-09] MEDS: VITAMIN D 1,000 INTERNATIONAL UNITS TABLET PO SCH (08:24)
[2019-12-09] MEDS: diltiaZEM **CD** 180 MG CAP PO SCH (08:25)
[2019-12-09] MEDS: predniSONE 20 MG TAB PO SCH (08:25)
[2019-12-09] MEDS: PANTOPRAZOLE 40MG TAB (PROTONIX) PO SCH (08:25)
--- NOTE | 2019-12-09 09:40 | IPNPDOC ---
Subjective Date Seen The patient was seen on 12/09/19. Subjective Chief Complaint/HPI Seen and examined at bedside, awake and alert, no specific complaints today. General: Reports: Normal Appetite; Denies: Chills, Night Sweats, Fatigue, Malaise Constitutional: Denies: Chills, Fever, Night Sweats Eyes: Denies: Pain, Vision change ENT: Denies: Head Aches, Ear Pain, Dysphagia Skin: Denies: Rash, Lesions, Breakdown Pulmonary: Denies: Dyspnea, Cough Cardiovascular: Denies: Chest Pain, Palpitations, Orthopnea, Paroxysmal Noc. Dyspnea, Lt Headedness Gastrointestinal: Denies: Nausea, Vomiting, Abdominal Pain, Diarrhea, Constipation Genitourinary: Denies: Dysuria, Frequency, Incontinence, Retention Hematologic: Denies: Bruising, Bleeding Excessively Musculoskeletal: Denies: Neck Pain, Back Pain, Joint Pain, Muscle Pain, Spasms Neurological: Denies: Weakness, Numbness, Change in speech, Confusion Psych: Reports: Mood Normal; Denies: Depression, Memory Issues Objective Physical Examination General Exam: Positive: Alert, No Acute Distress Eye Exam: Positive: PERRLA, Conjunctiva & lids normal, EOMI; Negative: Sclera icteric ENT Exam: Positive: Atraumatic, Mucous membr. moist/pink, Pharynx Normal Neck Exam: Positive: Supple; Negative: JVD, thyromegaly Chest Exam: Positive: Clear to auscultation, Normal air movement, Diminished Heart Exam: Positive: Rate Normal, Regular Rhythm, Normal S1, Normal S2; Negative: Murmurs, Rubs Telemetry: Positive: No significant arrhythmia Abdomen Exam: Positive: Normal bowel sounds, Soft; Negative: Tenderness, Hepatospenomegaly Female Exam: Positive: Nl Ext Genitalia; Negative: Lesions, Discharge, Odor, Tenderness Extremity Exam: Positive: Normal pulses; Negative: Clubbing, Cyanosis, Edema Skin Exam: Positive: Nl turgor and temperature; Negative: Rash, Breakdown Neuro Exam: Positive: Normal Gait, Normal Speech, Cranial Nerves 3-12 NL, Reflexes 2+ Psych Exam: Positive: Mental status NL, Mood NL, Oriented x 3 Assessment /Plan Assessment 1. Acute on chronic hypercarbic respiratory failure - secondary to COPD, noncompliance with inhalers. - currently on her home Trilogy machine. - continue duonebs/albuterol nebs, pulmicort/perforomist, prednisone 40mg daily x 5 day course. - off contact/droplet precautions as per ID as suspicion appears low for Covid. - d/w respiratory/CM, patient will repeat sleep studies with possible adjustment of Trilogy settings, need to determine if can be done as inpatient versus outpatient as patient has a Covid-19 test pending. 2. lung cancer - seen by Dr. Gray, not surgical candidate, s/p chemotherapy which is currently on hold. - discussed palliative care alongside CM/SW, no definitive decision regarding same, attempting to setup outpatient follow up. Plan/VTE VTE Prophylaxis Ordered?: Yes VS, I&O, 24H, Fishbone Vital Signs/I&O Vital Signs Date Time Temp Pulse Resp B/P (MAP) Pulse Ox O2 Delivery O2 Flow Rate FiO2 12/09/19 08:25 104 131/91 12/09/19 08:00 97.4 18 89 Nasal Cannula 3.0 I&O- Last 24 Hours up to 6 AM 12/09/19 06:00 Intake Total 2698 ml Output Total 3200 ml Balance -502 ml Laboratory Data 24H LABS Laboratory Tests 2 12/09/19 05:27: Immature Granulocyte % (Auto) 0.6, Neutrophils (%) (Auto) 73.8H, Lymphocytes (%) (Auto) 16.5L, Monocytes (%) (Auto) 8.0H, Eosinophils (%) (Auto) 0.8, Basophils (%) (Auto) 0.3, Neutrophils # (Auto) 4.8, Lymphocytes # (Auto) 1.1L, Monocytes # (Auto) 0.5, Eosinophils # (Auto) 0.1, Basophils # (Auto) 0.0, Nucleated Red Blood Cells % (auto) 0.0, Anion Gap 0L, Glomerular Filtration Rate > 60.0, Calcium Level 10.0, Magnesium Level 2.1 CBC/BMP Laboratory Tests 12/09/19 05:27 Microbiology Microbiology 12/03/19 Coronavirus COVID-19 PCR (NIA) - Final, Complete 12/03/19 Respiratory Panel (PCR) - Final, Complete 12/03/19 Blood Culture - Final, Complete NO GROWTH AFTER 5 DAYS 12/03/19 Blood Culture - Final, Complete NO GROWTH AFTER 5 DAYS ROSINA PATEL MD Dec 09, 2019 09:40
[2019-12-09] MEDS: SUMAtriptan SUCCINATE 25 MG TAB PO PRN (17:55)
[2019-12-09] MEDS: ACETAMINOPHEN 500 MG TAB PO PRN (20:03)
[2019-12-09] MEDS: QUEtiapine FUMARATE 100 MG TAB PO SCH (20:04)
[2019-12-09] MEDS: ATORVASTATIN 20 MG TAB PO SCH (20:04)
[2019-12-10] VITALS (15 sets, daily range): BP systolic 114–138; BP diastolic 56–92; O2SAT 90–97
[2019-12-10] MEDS: LEVALBUTEROL HFA 45MCG/ACT 15 GM INHALER INH SCH ×2 (00:47→08:00)
[2019-12-10] MEDS: IPRATROPIUM HFA INHALER 12.9 GRAMS (ATROVENT HFA) INH SCH ×2 (00:48→08:07)
[2019-12-10] MEDS: LEVOTHYROXINE 150MCG TABLET (0.15MG) PO SCH (05:13)
[2019-12-10] MEDS: SLF 3 ML SYR IV SCH (05:14)
[2019-12-10 05:32] LABS: BASO % 0.1 % (0.0-1.0); EOS % 0.5 % (0.0-3.0); HEMATOCRIT 40.5 % (36.0-47.0); HEMOGLOBIN 12.5 g/dl (12.0-15.5); LYMPH # 1.5 10^3/uL (1.5-5.0); LYMPH % 19.6 % (24.0-44.0); MEAN CORPUSCULAR HEMOGLOBIN 29.7 pg (27.0-33.0); MEAN CORPUSCULAR HGB CONC 30.9 g/dl (32.0-36.5); MEAN CORPUSCULAR VOLUME 96.2 fl (80.0-96.0); MONO # 0.6 10^3/uL (0.0-0.8); MONO % 7.1 % (0.0-5.0); NEUTROPHILS # 5.6 10^3/uL (1.5-8.5); NEUTROPHILS % 72.2 % (36.0-66.0); PLATELET COUNT, AUTOMATED 125 10^3/uL (150-450); RED BLOOD COUNT 4.21 10^6/uL (4.00-5.40); WHITE BLOOD COUNT 7.7 10^3/uL (4.0-10.0)
[2019-12-10 05:52] LABS: BLOOD UREA NITROGEN 28 MG/DL (7-18); CARBON DIOXIDE LEVEL 42 MEQ/L (21-32); CHLORIDE LEVEL 101 MEQ/L (98-107); CREATININE FOR GFR 0.66 MG/DL (0.55-1.30); GLOMERULAR FILTRATION RATE > 60.0 (>51); GLUCOSE, FASTING 80 MG/DL (70-100); POTASSIUM SERUM 4.4 MEQ/L (3.5-5.1); SODIUM LEVEL 142 MEQ/L (136-145)
[2019-12-10] MEDS: BUDESONIDE 0.5 MG/2 ML INHALATION SUSPENSION INH SCH (08:06)
[2019-12-10] MEDS: FORMOTEROL FUMARATE 20 MCG/2 ML INHALATION SOLUTION (PERFOROMIST) INH SCH (08:06)
[2019-12-10] MEDS: GABAPENTIN 300 MG CAP PO SCH (08:11)
[2019-12-10] MEDS: VITAMIN D 1,000 INTERNATIONAL UNITS TABLET PO SCH (08:11)
[2019-12-10] MEDS: predniSONE 20 MG TAB PO SCH (08:11)
[2019-12-10] MEDS: VENLAFAXINE **XR** 75MG CAPSULE PO SCH (08:13)
[2019-12-10] MEDS: diltiaZEM **CD** 180 MG CAP PO SCH (08:13)
[2019-12-10] MEDS: DOCUSATE SODIUM 100 MG CAP PO PRN (08:13)
[2019-12-10] MEDS: ACETAMINOPHEN 500 MG TAB PO PRN (08:13)
[2019-12-10] MEDS: BISACODYL 5 MG TAB PO PRN (08:14)
[2019-12-10] MEDS: PANTOPRAZOLE 40MG TAB (PROTONIX) PO SCH (08:14)
--- NOTE | 2019-12-10 11:46 | DS.PDOC ---
Discharge Summary General Date of Admission Dec 03, 2019 at 11:29 Date of Discharge 12/10/19 Discharge Summary PROCEDURES PERFORMED DURING STAY: [None]. ADMITTING DIAGNOSES: 1. acute on chronic hypercarbic respiratory failure DISCHARGE DIAGNOSES: 1. acute on chronic hypercarbic respiratory failure COMPLICATIONS/CHIEF COMPLAINT: Copd Exacerbation. HISTORY OF PRESENT ILLNESS: Please refer to admission H&P for detailed HPI. HOSPITAL COURSE: Patient was admitted to the hospital and treated for the fo llowing conditions: 1. Acute on chronic hypercarbic respiratory failure - secondary to COPD, noncompliance with inhalers. - currently on her home Trilogy machine. - continue duonebs/albuterol nebs, pulmicort/perforomist, prednisone 40mg daily x 5 day course. - off contact/droplet precautions as per ID as suspicion appears low for Covid. - d/w respiratory/CM, patient will repeat sleep studies with possible adjustment of Trilogy settings, need to determine if can be done as inpatient versus outpatient as patient has a Covid-19 test pending. - Patient has been cleared for discharge home. inhalers switched to nebulizers as requested by pulmonary. 2. lung cancer - seen by Dr. Gray, not surgical candidate, s/p chemotherapy which is currently on hold. - discussed palliative care alongside CM/SW, no definitive decision regarding same, attempting to setup outpatient follow up. DISCHARGE MEDICATIONS: Please see below. ALLERGIES: Please see below. PHYSICAL EXAMINATION ON DISCHARGE: VITAL SIGNS: Please see below. GENERAL: awake, alert, NAD HEENT: NCAT, anicteric sclera, PERRLA/EOMI NECK: supple, no JVD, no masses/thyromegaly CARDIOVASCULAR EXAMINATION: NS1S2, regular, no M/R/G RESPIRATORY EXAMINATION: CTA b/l, no wheezes/rales/rhonchi ABDOMINAL EXAMINATION: NT/ND, positive bowel sounds x 4 EXTREMITIES: no cyanosis, clubbing, edema SKIN: warm, no rashes NEUROLOGICAL EXAMINATION: AAO x 3, no focal motor/sensory deficits PSYCHIATRIC EXAMINATION: calm, cooperative, normal affect LABORATORY DATA: Please see below. ACTIVITY: [As tolerated]. DIET: low fat/low cholesterol DISPOSITION: home with home care DISCHARGE INSTRUCTIONS: 1. Please follow up with PCP in 1-2 weeks ITEMS TO FOLLOWUP ON ON OUTPATIENT: 1. none DISCHARGE CONDITION: [Stable]. TIME SPENT ON DISCHARGE: Greater than [30] minutes. Vital Signs/I&Os Vital Signs Date Time Temp Pulse Resp B/P (MAP) Pulse Ox O2 Delivery O2 Flow Rate FiO2 12/10/19 10:00 93 Nasal Cannula 2.0 12/10/19 08:13 103 138/92 12/10/19 07:50 97.1 20 I&O- Last 24 Hours up to 6 AM 12/10/19 06:00 Intake Total 1678 ml Output Total 1200 ml Balance 478 ml Laboratory Data Labs 24H Laboratory Tests 2 12/09/19 22:13: Troponin I < 0.02 12/10/19 05:12: Immature Granulocyte % (Auto) 0.5, Neutrophils (%) (Auto) 72.2H, Lymphocytes (%) (Auto) 19.6L, Monocytes (%) (Auto) 7.1H, Eosinophils (%) (Auto) 0.5, Basophils (%) (Auto) 0.1, Neutrophils # (Auto) 5.6, Lymphocytes # (Auto) 1.5, Monocytes # (Auto) 0.6, Eosinophils # (Auto) 0.0, Basophils # (Auto) 0.0, Nucleated Red Blood Cells % (auto) 0.0, Anion Gap , Glomerular Filtration Rate > 60.0, Calcium Level 10.0, Magnesium Level 2.0 CBC/BMP Laboratory Tests 12/10/19 05:12 Microbiology Microbiology 12/03/19 Coronavirus COVID-19 PCR (NIA) - Final, Complete 12/03/19 Respiratory Panel (PCR) - Final, Complete 12/03/19 Blood Culture - Final, Complete NO GROWTH AFTER 5 DAYS 12/03/19 Blood Culture - Final, Complete NO GROWTH AFTER 5 DAYS Discharge Medications Scheduled Atorvastatin Calcium (Atorvastatin Calcium) 20 Mg Tab, 20 MG PO QHS, (Reported) Cholecalciferol (Vitamin D3) (Vitamin D3) 1,000 Unit Tablet, 1,000 UNITS PO DAILY, (Reported) Diltiazem HCl (Diltiazem 24Hr ER) 180 Mg Cap, 180 MG PO DAILY, (Reported) Gabapentin (Gabapentin) 300 Mg Cap, 300 MG PO QAM, (Reported) Ipratropium/Albuterol Sulfate (Iprat-Albut 0.5-3(2.5) mg/3 ml) 3 Ml Ampul.neb, 1 VIAL NEB BID Levothyroxine Sodium (Synthroid) 150 Mcg Tablet, 150 MCG PO DAILY, (Reported) Pantoprazole Sodium (Protonix) 40 Mg Tab, 40 MG PO DAILY, (Reported) Prednisone (Prednisone) 20 Mg Tablet, 20 MG PO DAILY, (Reported) Quetiapine Fumarate (Quetiapine Fumarate) 100 Mg Tab, 100 MG PO QHS, (Reported) Salmeterol/Fluticasone (Advair 250-50 Diskus) 14 Puff/Inhaler Aerp, 1 PUFF INH BID, (Reported) Umeclidinium Closter (Incruse Ellipta) 62.5 Mcg/Inh Inh, 1 PUFF INH DAILY, (Reported) Venlafaxine HCl (Venlafaxine HCl ER) 75 Mg Cap.er.24h, 75 MG PO BID, (Reported) Scheduled PRN Acetaminophen (Tylenol Extra Strength) 500 Mg Tablet, 500 MG PO Q4H PRN for PAIN / FEVER, (Reported) Albuterol Sulf (Albuterol Sulfate) 2.5 Mg/3 Ml Vial.neb, 1 VIAL NEB Q4HP PRN for wheezing Bisacodyl (Bisacodyl) 10 Mg Supp.rect, 10 MG [place] DAILY PRN for CONSTIPATION, (Reported) Docusate Sodium (Colace) 100 Mg Cap, 100 MG PO BID PRN for CONSTIPATION, (Reported) Sumatriptan Succinate (Sumatriptan Succinate) 50 Mg Tablet, 50 MG PO for migrain, (Reported) Allergies Coded Allergies: acetazolamide (Verified Allergy, Severe, RESP FAILURE, 12/01/18) ROSINA PATEL MD Dec 10, 2019 11:46
== END 2019-12-10 15:57 | disposition home health service (06) | DRG 189 ==
LOC: M ED 09:09 → M ED INP 11:29 → M PCU 15:20
PROVIDERS: ADMIT Internal Medicine; ATTEND Internal Medicine
DX: J96.22 Acute and chronic respiratory failure with hypercapnia (principal); J44.1 Chronic obstructive pulmonary disease with (acute) exacerbation; C34.11 Malignant neoplasm of upper lobe, right bronchus or lung; J96.11 Chronic respiratory failure with hypoxia; I10 Essential (primary) hypertension; G93.2 Benign intracranial hypertension; E03.9 Hypothyroidism, unspecified; K21.9 Gastro-esophageal reflux disease without esophagitis; G43.909 Migraine, unspecified, not intractable, without status migrainosus; R53.1 Weakness; M54.9 Dorsalgia, unspecified; F17.210 Nicotine dependence, cigarettes, uncomplicated; F32.9 Major depressive disorder, single episode, unspecified; E55.9 Vitamin D deficiency, unspecified; Z86.711 Personal history of pulmonary embolism; Z98.2 Presence of cerebrospinal fluid drainage device; Z99.81 Dependence on supplemental oxygen; Z79.899 Other long term (current) drug therapy; Z79.52 Long term (current) use of systemic steroids; Z88.8 Allergy status to other drugs, medicaments and biological substances; Z90.49 Acquired absence of other specified parts of digestive tract; Z98.1 Arthrodesis status; Z96.641 Presence of right artificial hip joint; Z91.14 Patient's other noncompliance with medication regimen; Z11.59 Encounter for screening for other viral diseases